=== PATIENT | female | born 1975 | race Caucasian/White ===

== ENCOUNTER 2023-04-12 16:42 | Emergency (ER) | payer OTHER, SELFPAY ==
[2023-04-12 16:48] VITALS: BP 139/85; PULSE 88; RESP 20; TEMP 37.2; O2SAT 100; BMI 32.1
--- NOTE | 2023-04-12 16:59 | PC.NURSE ---
bilat upper and lower lobe clear with no audible wheezing sounds as sister on law reports. breathing even and non labored, pulse ox 100% at this time
[2023-04-12 17:00] VITALS: O2SAT 100
--- NOTE | 2023-04-12 17:32 | ECG_ITS ---
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
--- NOTE | 2023-04-12 17:33 | ED_ITS ---
HPI - General Adult General Chief complaint: Shortness of Breath/Dyspnea Stated complaint: Shortness of Breath, Hx Asthma, COPD Time Seen by Provider: 04/12/23 16:55 Source: patient Mode of arrival: walk-in Limitations: no limitations History of Present Illness HPI narrative: Patient is a 47yo Female who is presenting to the Emergency Room with chief concern of 3-4 day history of cough, congestion, upper respiratory wheezing. 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 Patient has no headache. No chest pain. Mild shortness of breath at rest or with exertion. No abdominal pain, nausea or vomiting. No recent traveling. Patient does work, she missed work Wednesday and today. She goes back to work on Wednesday. Patient does have a history of asthma, emphysema and chronic obstructive pulmonary disease. . All systems are negative except as noted/marked. All systems reviewed and otherwise negative. . Nurses note and vital signs reviewed and patient is not hypoxic. General: The patient appears well and in no apparent distress. Patient is resting comfortably on cart. Patient is not toxic, lethargic, or listless Skin: Warm, dry, no pallor noted. There is no rash noted. No petechiae, purpura. Head: Normocephalic, atraumatic Eye: Normal conjunctiva, no drainage, EOMI. PERRL. Ears, Nose, Mouth, and Throat: oral mucosa is moist. Nares patent. Mouth without vesicles. Patient bilateral tympanic membrane shows no erythema, perforation or bulging. Patient does have some mild clear/yellowish drainage to the posterior pharynx, mild cobblestoning noted, no unilateral swelling, no posterior ph aryngeal exudate or petechiae. Cardiovascular: Regular Rate and Rhythm, no murmur, gallop, rub Respiratory: Patient is in no distress, no accessory muscle use, lungs are clear to auscultation, no wheezing, rales or rhonchi Back: non-tender, GI: soft, Musculoskeletal: Patient has full range of motion of all of the extremities, no motor, sensory, or focal neurological deficits Neurological: A&O x3, normal speech Psychiatric: Cooperative Related Data Previous Rx's Medication Instructions Recorded hpjmjziqsykityr-nkkmeidujkdwkcj-UO 10 ml PO Q6H PRN cold symptoms 04/12/23 2 mg-30 mg-10 mg/5 mL oral syrup #200 mL (Bromfed DM) prednisone 50 mg tablet 50 mg PO DAILY 3 days #3 tabs 04/12/23 Allergies Allergy/AdvReac Type Severity Reaction Status Date / Time acetaminophen [From Vicodin] Allergy Severe Verified 04/12/23 16:54 codeine Allergy Severe Verified 04/12/23 16:54 hydrocodone [From Vicodin] Allergy Severe Verified 04/12/23 16:54 morphine Allergy Severe Hives Verified 04/12/23 16:54 Exam Constitutional Vital Signs, click to edit/add: Last Vital Signs Temp 98.9 F 04/12/23 16:48 Pulse 68 04/12/23 18:14 Resp 20 04/12/23 16:48 BP 139/85 04/12/23 16:48 Pulse Ox 100 04/12/23 18:14 O2 Del Method Room Air 04/12/23 17:00 Course Vital Signs Vital signs: Vital Signs Temperature 98.9 F 04/12/23 16:48 Pulse Rate 88 04/12/23 16:48 Respiratory Rate 20 04/12/23 16:48 Blood Pressure 139/85 04/12/23 16:48 Pulse Oximetry 100 04/12/23 16:48 Oxygen Delivery Method Room Air 04/12/23 16:48 Temperature 98.9 F 04/12/23 16:48 Pulse Rate 68 04/12/23 18:14 Respiratory Rate 20 04/12/23 16:48 Blood Pressure 139/85 04/12/23 16:48 Pulse Oximetry 100 04/12/23 18:14 Oxygen Delivery Method Room Air 04/12/23 17:00 Medical Decision Making MDM Narrative Medical decision making narrative: Patient's lungs are clear, x-ray was canceled. EKG shows no acute findings. Patient had education done at bedside and on discharge paperwork. Patient was given a DuoNeb breathing treatment in Emergency Room. Patient was sent home with a prescription for Bromfed and 3 days of steroids. Patient is comfortable with this. Patient's dlkpfm-fo-xne who is a nurse was at bedside as well, also a payroll tax analyst was used with some language. Communication was clear and Effective on HPI, physical exam, diagnoses, discharged and in summary. ECG Data Attestation: I personally reviewed and interpreted this ECG as follows: (EKG interpretation. Normal sinus rhythm at 71 beats a minute. Normal axis deviation. Artifact noted. QTC of 405, artifact noted.) Discharge Plan Discharge Chief Complaint: Shortness of Breath/Dyspnea Clinical Impression: URI (upper respiratory infection), Cough Patient Disposition: Home, Self-Care Condition: Good Prescriptions / Home Meds: New wttcreetmrxgocb-fwjrhxxuu-LD [Bromfed DM] 2-30-10 mg/5 mL syrup 10 ml PO Q6H PRN (Reason: cold symptoms) Qty: 200 0RF prednisone 50 mg tablet 50 mg PO DAILY 3 Days Qty: 3 0RF Instructions: Upper Respiratory Infection (ED), Acute Cough (ED) Additional Instructions: Use plqh-ggw-utftuoo DayQuil, NyQuil, Flonase. Use Bromfed to help suppress cough and also to drive secretions, Use your inhaler every 4 hours while awake. Stand Alone Forms: Portal Instructions Referrals: [facility] [Primary Care Provider] - 1 week
[2023-04-12] MEDS: IPRATROPIUM/ALBUTEROL SULFATE 3 ML AMPUL.NEB IH (18:02)
[2023-04-12 18:14] VITALS: PULSE 68; O2SAT 100
== END 2023-04-12 18:37 | disposition home or self-care (01) ==
PROVIDERS: Emergency Provider Emergency Medicine
DX: R05.9 Cough, unspecified (principal); J06.9 Acute upper respiratory infection, unspecified; H91.90 Unspecified hearing loss, unspecified ear; J43.9 Emphysema, unspecified
CPT/HCPCS: 93005; 94640; 99283

== ENCOUNTER 2023-06-28 16:54 | Emergency (ER) | payer OTHER, SELFPAY ==
[2023-06-28 17:11] VITALS: BP 151/65; PULSE 86; RESP 18; TEMP 37.3; O2SAT 96; BMI 32.1
[2023-06-28 17:52] LABS: Influenza Virus A Antigen Negative; Influenza Virus B Antigen Negative; Internal Control Within Normal Limits; SARS-CoV-2 Ag NEGATIVE (NEGATIVE); Strep A Antigen Screen Negative
[2023-06-28 18:26] VITALS: BP 127/70; PULSE 75; RESP 20; O2SAT 98
--- NOTE | 2023-06-28 18:35 | XR_ITS ---
The [address] [address] Patient Name: GLADYS HENRIQUEZ MRN: [id number] date: 1975 Sex: F Assigned Patient Location: ER Current Patient Location: Accession/Order Number: [id number] Exam Date: 06/28/2023 18:40 Report Date: 06/28/2023 19:28 At the request of: SHIVAM YANG Procedure: XR chest 1V EXAMINATION: XR chest 1V 06/28/2023 4:27 PM PST HISTORY: Cough TECHNIQUE: Single frontal view of the chest acquired. COMPARISONS: Chest x-ray 02/09/2022 FINDINGS: Lines/tubes/other: None. Heart and mediastinum: The heart and the mediastinum are within normal limits for technique. Bones: No acute osseous abnormality. Lungs: Minimal patchy opacification of the right lateral base. No pulmonary edema. Pleura: There is no significant pleural effusion or pneumothorax. Other: None. XR/XR chest 1V IMPRESSION: Minimal patchy opacification of the right lateral base which could represent superimposition of normal tissues versus mild pneumonia. Recommend follow-up radiograph in 4-6 weeks, allowing sufficient time after appropriate therapy to evaluate for radiographic improvement/resolution. Electronically authenticated by: KYUNG CHAMBERS Date: 06/28/2023 19:28
--- NOTE | 2023-06-28 18:55 | ED.URI1 ---
HPI - URI/Sore Throat General Chief Complaint: Upper Respiratory Infection Stated Complaint: FEVER, CHILLS PT IS DEAF Time Seen by Provider: 06/28/23 17:17 Source: patient Limitations: no limitations History of Present Illness HPI Narrative: Patient is a 47-year-old female who presents to the emergency department for the evaluation of upper respiratory symptoms for the past 2 days. She states her nvwqmo-nn-zwx recently had a an inpatient procedure at [facility] and when she came home she was sick with upper respiratory symptoms, multiple people have gotten ill. Patient has had no vomiting or diarrhea. Patient is deaf, she reads lips to communicate without difficulty. She has had no significant cough, she does have nasal congestion and states she feels warm. She has a history of asthma and uses an albuterol inhaler at home in addition to albuterol nebulizers. She is not concerned for . Related Data Previous Rx's Medication Instructions Recorded gunynkwsgvrnhrg-qzkbufbtczrhgwq-MB 10 ml PO Q6H PRN cold symptoms 04/12/23 2 mg-30 mg-10 mg/5 mL oral syrup #200 mL (Bromfed DM) prednisone 50 mg tablet 50 mg PO DAILY 3 days #3 tabs 04/12/23 edkcbjccezztplo-joshthzwzegxxby-MZ 10 ml PO Q6H PRN cold symptoms 06/28/23 2 mg-30 mg-10 mg/5 mL oral syrup #200 mL (Bromfed DM) doxycycline hyclate 100 mg tablet 100 mg PO BID 10 days #20 tabs 06/28/23 prednisone 20 mg tablet See Rx Instructions .Route 06/28/23 .COMPLEX #12 tabs Allergies Allergy/AdvReac Type Severity Reaction Status Date / Time acetaminophen [From Vicodin] Allergy Severe Verified 04/12/23 16:54 codeine Allergy Severe Verified 04/12/23 16:54 hydrocodone [From Vicodin] Allergy Severe Verified 04/12/23 16:54 morphine Allergy Severe Hives Verified 04/12/23 16:54 Review of Systems ROS Constitutional Reports: fever and chills Ears, nose, mouth, and throat Reports: throat pain and nasal congestion Cardiovascular Denies: chest pain Respiratory Reports: cough and wheezing; Denies: shortness of breath Gastrointestinal Denies: nausea, vomiting or diarrhea Musculoskeletal Denies: back pain Integumentary/Breast Denies: rash Neurological Denies: headache Exam Narrative Exam Narrative: Gen.: Awake, alert, in no distress Head: Normocephalic, atraumatic ENT: Moist mucous membranes, bilateral TMs clear Respiratory: No respiratory distress, faint expiratory wheezing in the left lower lobe Cardio: Regular rate and rhythm Extremities: Moves extremities equally Psych: Normal mood and affect Neuro: No focal neuro deficit Skin: Warm, dry, intact Constitutional Vital Signs, click to edit/add: Last Vital Signs Temp 99.1 F 06/28/23 17:11 Pulse 75 06/28/23 18:26 Resp 20 06/28/23 18:26 BP 127/70 06/28/23 18:26 Pulse Ox 98 06/28/23 18:26 O2 Del Method Room Air 06/28/23 17:11 Course Vital Signs Vital signs: Vital Signs Temperature 99.1 F 06/28/23 17:11 Pulse Rate 86 06/28/23 17:11 Respiratory Rate 18 06/28/23 17:11 Blood Pressure 151/65 H 06/28/23 17:11 Pulse Oximetry 96 06/28/23 17:11 Oxygen Delivery Method Room Air 06/28/23 17:11 Temperature 99.1 F 06/28/23 17:11 Pulse Rate 75 06/28/23 18:26 Respiratory Rate 20 06/28/23 18:26 Blood Pressure 127/70 06/28/23 18:26 Pulse Oximetry 98 06/28/23 18:26 Oxygen Delivery Method Room Air 06/28/23 17:11 MDM - URI/Sore Throat MDM Narrative Medical decision making narrative: With stable vital signs in the ER, strep/COVID/influenza screens are negative and a chest x-ray was performed showing a possible right lower lobe trace infiltrate. Patient will be started on prednisone and doxycycline with Bromfed-DM for symptoms. Follow-up with PCP and return to the ER if symptoms change or worsen. Work note provided for tomorrow. Medical Records Attestation: I reviewed the patient's medical records. Lab Data Attestation: I reviewed the patient's lab results. Labs: Lab Results 06/28/23 Range/Units 17:15 SARS-CoV-2 (PCR) Negative (NEGATIVE) Influenza Type A Ag Negative Influenza Type B Ag Negative Streptococcus Screen Negative Imaging Data Chest x-ray: Attestation: I personally reviewed and interpreted this imaging study as follows: My impression: Lower lobe Discharge Plan Discharge Chief Complaint: Upper Respiratory Infection Clinical Impression: Right lower lobe pneumonia Patient Disposition: Home, Self-Care Time of Disposition Decision: 18:58 Condition: Good Prescriptions / Home Meds: New prednisone 20 mg tablet See Rx Instructions .ROUTE .COMPLEX Qty: 12 0RF Rx Instructions: 3 tabs daily for 2 days, then 2 tabs daily for 2 days, then 1 tab daily for 2 days qeujzqreqsrkeue-csctklvaz-UE [Bromfed DM] 2-30-10 mg/5 mL syrup 10 ml PO Q6H PRN (Reason: cold symptoms) Qty: 200 0RF doxycycline hyclate 100 mg tablet 100 mg PO BID 10 Days Qty: 20 0RF No Action cvdvqibguvezfsv-ckwekdtin-GY [Bromfed DM] 2-30-10 mg/5 mL syrup 10 ml PO Q6H PRN (Reason: cold symptoms) Qty: 200 0RF prednisone 50 mg tablet 50 mg PO DAILY 3 Days Qty: 3 0RF Instructions: Pneumonia (ED) Stand Alone Forms: Portal Instructions Referrals: [facility] [Primary Care Provider] - 1 week
[2023-06-29 15:45] LABS: SARS-CoV-2 NAA NOT DETECTED (NOT DETECTE)
== END 2023-06-28 19:10 | disposition home or self-care (01) ==
PROVIDERS: Physician Assistant; Emergency Provider Emergency Medicine
DX: J18.9 Pneumonia, unspecified organism (principal); H91.90 Unspecified hearing loss, unspecified ear; J45.909 Unspecified asthma, uncomplicated
CPT/HCPCS: 71045; 87070; 87635; 87804; 87811; 87880; 99284

== ENCOUNTER 2023-07-31 06:12 | Emergency (ER) | payer OTHER, SELFPAY ==
--- OUTSIDE RECORDS SUMMARY | 2023-07-31 06:18 | XMS_ITS | CCD ---
Author Name Unknown Address [address] [place] [address] Organization [facility] Care Team Providers Care Industrial Painter Name Role Phone Clover Olsno Unavailable Yovanny Pierre Unavailable [facility] Primary Care Unavailkenneth MILLER, DR GOODE Attending Unavailable PAUL, DR GOODE Consulting Unavailable PAUL, DR GOODE Admitting Unavailable JEROME SALMEORN Attending Unavailable JEROME SALMERON Admitting Unavailable [facility] Primary Care Unavaila luiz SHRESTHA, DR PEMA Desai Consulting Unavailable JEROME SALMERON Consulting Unavailable [facility] Primary Care Provider [phone] HEATH Chinchilla Attending Provider Amy Soto Unavailable [facility] Primary Care Provider HEATH Chinchilla Attending Provider HEATH Chinchilla Attending Provider [facility] Primary Care Provider Regine Chinchilla Admitting Unavailable Regine Chinchilla Attending Unavailable [facility] Primary Care Unavaila Regine Nguyen Admitting Unavailable Regine Chinchilla Attending Unavailable [facility] Primary Care Unavaila Regine Nguyen Admitting Unavailable Regine Chinchilla Attending Unavailable Allergies Allergy Classification Reported Allergen(s) Allergy Type Date of Onset Reaction(s) Facility (6 sources) Acetaminophen / HYDROcodone; Translations: [Vicodin] Drug Allergy 4 seizures [facility] (5 sources) Codeine Drug Allergy Unknown [facility] Other (5 sources) Morphine Drug Allergy Unknown [facility] Other (1 source) Codeine Drug Allergy 4 [facility] (1 source) Morphine Drug Allergy 4 [facility] Medications Current Medications Medication Drug Class(es) Dates Sig (Normalized) Sig (Original) [id number] 200 actuat albuterol 0.09 mg/actuat metered dose inhaler (7 sources) beta2-Adrenergic Agonist Start: 03-18-2022 take 2 puff(s) by inhalation four times daily as needed Albuterol Sulfate HFA 108 (90 Base) MCG/ACT 2 puffs Inhalation 4 times a day prn Mar, Active Start: 11-24-2021 Albuterol Sulf ate (2.5 MG/3ML) 0.083% 1 dose as directed Inhalation every 6 hrs November, Active Aspir-81 81 MG (5 sources) take 1 tablet by mouth once daily Aspir-81 81 MG 1 tablet Orally Once a day Active Budesonide / formoterol (5 sources) Corticosteroid, beta2-Adrenergic Agonist Symbicort Active diclofenac sodium 75 mg delayed release oral tablet (2 sources) Nonsteroidal Anti-inflammatory Drug Start : 04-26 take 1 tablet by mouth twice daily at mealtime Diclofenac Sodium 75 MG 1 tablet with food or milk Orally Twice a day start after completion of Dosepak for 30 day(s) Apr, Active Loratadine (5 sources) Claritin Active methylPREDNISolone 4 mg oral tablet (2 sources) Corticosteroid Start : 11-24 methylPREDNISolone 4 MG as directed Orally Once a day for 6 days November, Active omeprazole 20 mg delayed release oral capsule (3 sources) Proton Pump Inhibitor take 1 capsule by mouth once daily Omeprazole 20 MG TAKE ONE CAPSULE BY MOUTH DAILY 30 MINUTES BEFORE A MEAL Oral for 30 Days Active predniSONE 20 mg oral tablet (2 sources) Start : 03-18 take 1 tablet by mouth every twelve hours predniSONE 20 MG 1 tablet Orally 2 times a day for 5 day(s) Mar, Active Completed/Discontinued Medications Medication Drug Class(es) Dates Sig (Normalized) Sig (Original) gabapentin 100 mg oral capsule (2 sources) Anti-epileptic Agent take 1 capsule by mouth every eight hours Gabapentin 100 MG 1 capsule Orally Three times a day Not-Taking ketorolac tromethamine 10 mg oral tablet (2 sources) Nonsteroidal Anti-inflammatory Drug, Cyclooxygenase Inhibitor Toradol 10mg po Not-Taking triamcinolone acetonide 40 mg/ml injectable suspension (8 sources) Corticosteroid Start: 03-18-2022 Kenalog-40 07 Mar, 2022 40 mg Start: 09-26-2020 Kenalog -40 mg Sep, 40 mg Problems Active Problems Problem Classification Problem Date Documented Da te Episodic/Chronic Abdominal pain (4 sources) Unspecified abdominal pain; Translations: [UNSPECIFIED ABDOMINAL PAIN] Onset: 02-09-2022 Episodic Asthma (8 sources) Exacerbation of mild persistent asthma; Translations: [Mild persistent asthma with (acute) exacerbation] Onset: 11-24-2021 Resolved: 03-18-2022 Chronic Asthma (1 source) Asthma; Translations: [Moderate persistent asthma with (acute) exacerbation] Onset: 09-15-2022 Diabetes mellitus without complication (1 source) Impaired fasting glucose; Translations: [Impaired fasting glucose] Onset: 05-27-2023 Episodic Essential hypertension (6 sources) Hypertensive disorder; Translations: [Essential (primary) hypertension] Onset: 05-27-2023 Chronic Headache; including migraine (4 sources) Headache; including migraine; Translations: [HEADACHE UNSPECIFIED] Onset: 10-16-2021 Immunizations and screening for infectious disease (2 sources) Contact with and (suspected) exposure to other viral communicable diseases; Translations: [Contact with and (suspected) exposure to other viral communicable diseases] Episodic Other aftercare (1 source) Other halfway (current) drug therapy; Translations: [OTH DETENTION CURRENT DRUG THERAPY] Onset: 02-11-2022 Episodic Other aftercare (1 source) halfway (current) use of aspirin; Translations: [DETENTION CURRENT USE OF ASPIRIN] Onset: 02-11-2022 Episodic Other ear and sense organ disorders (1 source) Unspecified hearing loss, bilateral; Translations: [UNSPECIFIED HEARING LOSS BILATERAL] Onset: 10-17-2021 Chronic Other lower respiratory disease (3 sources) H/O: asthma; Translations: [Personal history of other diseases of the respiratory system] Episodic Other non-traumatic joint disorders (1 source) Pain in unspecified joint; Translations: [Pain in unspecified joint] Onset: 05-27-2023 Episodic Other nutritional; endocrine; and metabolic disorders (1 source) Personal history of other endocrine, nutritional and metabolic disease; Translations: [Personal history of other endocrine, nutritional and metabolic disease] Onset: 05-27-2023 Episodic Other upper respiratory infections (1 source) Acute upper respiratory infection, unspecified Episodic Pneumonia (except that caused by tuberculosis or sexually transmitted disease) (1 source) Bronchopneumonia, unspecified organism; Translations: [BRONCHOPNEUMONIA UNS ORGANISM] Onset: 02-11-2022 Episodic Unclassified (1 source) Dysmenorrhea, unspecified; Translations: [Dysmenorrhea, unspecified] Onset: 06-30-2023 Past or Other Problems Problem Classification Problem Date Documented Da te Episodic/Chronic Other lower respiratory disease (1 source) Personal history of other diseases of the respiratory system Onset: 03-18-2022 Resolved: 03-18-2022 Episodic Unclassified (1 source) Cough R05.9 Onset: 11-24-2021 Resolved: 11-24-2021 Results Test Name Value Interpretation Reference Range Facility Follicle Stimulating Hormone on 06-30-2023 Follicle Stimulating Hormone 6.0 m[iU]/mL Normal [facility] Comment on above: Order Comment: Reaso n for Exam Severe menstrual cramps Result Comment: FEMA LE NORMALS (PREMENOPAUSE) MID-FOLLICULAR PHASE: 3.9-8.8 mIU/mL MID-CYCLE PEAK: 4.5-22.5 mIU/mL MID-LUTEAL PHASE: 1.8-5.1 mIU/mL FEMALE NORMALS (POSTMENOPAUSE): 16.7-113.6 mIU/mL MALE NORMALS: 1.3-19.3 mIU/mL PERFORMED BY: [place] [address] PATHOLOGIST CHIEF LOCK TENDER OPERATOR RASHMI ECHOLS M.D. Performed By: #### F SH #### [address] #### LH #### [facility] , Follitropin [Units/volume] i n Serum or PlasmaOrdered By: Regine Chinchilla on 06-30-2023 Follitropin Qn 6.0 m[IU]/mL [facility] Comment on above: FEMALE NORMALS (DILAN ENOPAUSE) MID-FOLLICULAR PHASE: 3.9-8.8 mIU/mL MID-CYCLE PEAK: 4.5-22.5 mIU/mL MID-LUTEAL PHASE: 1.8-5.1 mIU/mLFEMALE NORMALS (POSTMENOPAUSE): 16.7-113.6 mIU/mLMALE NORMALS: 1.3-19.3 mIU/mL Luteinizing Hormoneon 2022 Luteinizing Hormone 15.8 m[iU]/mL Normal . [facility] Comment on above: Order Comment: Reaso n for Exam Severe menstrual cramps Result Comment: Adul t Female Range Follicular phase 2.4 - 12.6 Ovulation phase 14.0 - 95.6 Luteal phase 1.0 - 11.4 Postmenopausal 7.7 - 58.5 Performed at: [facility] [address] [id number] Leather Stitcher: Supa Murdock PhD, Phone: [phone] PERFORMED BY: [place] [address] PATHOLOGIST CHIEF LOCK TENDER OPERATOR RASHMI ECHOLS M.D. Performed By: #### F SH #### [address] #### LH #### [facility] , US transvaginalon 06-30-2023 US transvaginal [facility] Main [place] [address] [place] [address] Ultrasound Report Signed Patient: Clover Henriquez MR#: [id number] : 1975 Acct:[id number] Age/Sex: 47 / F ADM Date: 06/30/23 Loc: Room: Type: [facility] Attending Dr: RONEL Shaw APRN Ordering Provider: Regine Chinchilla APRN, NP-C Date of Service: 06/30/23 US/US pelvic complete: Severe menstrual cramps ([id number]) US/US transvaginal: N94.6 Copies to: Regine Alisia Chinchilla, GROCERY BAGGER, ROTARY SHEAR OPERATOR-C TRANSABDOMINAL AND TRANSVAGINAL PELVIC ULTRASOUND HISTORY: Menstrual cramps FINDINGS: The uterus measures 6.1 x 3.9 x 4.3 cm. No uterine lesion identified. Nabothian cysts present. The endometrium has a total combined thickness of 10mm. The RIGHT ovary measures 2.7 x 1.4 x 1.6 cm LEFT ovary measures 3.0 x 1.2 x 2.4 cm Bilateral ovarian blood flow identified. No free fluid identified. There is no adnexal mass identified. US/US pelvic complete IMPRESSION: Normal transabdominal and transvaginal pelvic ultrasound Impression dictated by: Shun Jimenez M.D.06/30/2023 3:09 PM Dictation Location: [place] [address] Tech: Cinda Frank Transcribed By: SADE 06/30/23 1509 Dictated By: Shun Jimenez DO 06/30/23 1507 Signed By: 06/30/23 1509 Normal [facility] A1C with Estimated Average G [facility] 05-27-2023 Glucose [Mass/Vol] 123 mg/dL Normal [facility] Comment on above: Order Comment: Reaso n for Exam Impaired fasting glucose Result Comment: PERF ORMED BY: [place] [address] PATHOLOGIST CHIEF LOCK TENDER OPERATOR RASHMI ECHOLS M.D. Performed By: #### C MP, LIPID, TSH3 wRFLX, CBC, A1C [facility] #### [facility] [address] [place] [address] #### SAAD #### [facility] , SAAD Antinuclear Antibodieson 05-27-2023 Antinuclear Abs, IFA Negative Normal . [facility] Comment on above: Order Comment: Reaso n for Exam Multiple joint pain Result Comment: Nega tive <1:80 Borderline 1:80 Positive >1:80 ICAP nomenclature: AC-0 For more information about Hep-2 cell patterns use ANApatterns.org, the official website for the International Consensus on Antinuclear Antibody (SAAD) Patterns (ICAP). Performed at: [facility] [address] [id number] Leather Stitcher: Supa Murdock PhD, Phone: [phone] PERFORMED BY: [place] [address] PATHOLOGIST CHIEF LOCK TENDER OPERATOR RASHMI ECHOLS M.D. Performed By: #### C MP, LIPID, TSH3 wRFLX, CBC, A1C WTH eA #### [address] #### SAAD #### [facility] , Alanine aminotransferase [En zymatic activity/volume] in Serum or PlasmaOrdered By: Regine Chinchilla on 05-27-2023 ALT [Catalytic activity/Vol] 18 U/L Normal 7-52 [facility] Comment on above: Order Comment: Reaso n for Exam Hypertension Reason for Exam History of thyroid disease Performed By: #### C MP, LIPID, TSH3 wRFLX, CBC, A1C [facility]TH e[place] #### [place] [address] [place] #### SAAD #### [facility] , Albumin [Mass/volume] in Ser um or Plasma by Bromocresol green (BCG) dye binding methoOrdered By: Regine Chinchilla on 05-27-2023 Albumin BCG dye [Mass/Vol] 4.4 g/dL 3.5-5.7 [facility] Alkaline phosphatase [Enzyma tic activity/volume] in Serum or PlasmaOrdered By: Regine Chinchilla on 05-27-2023 ALP [Catalytic activity/Vol] 98 U/L Normal 34-104 [facility] Comment on above: Order Comment: Reaso n for Exam Hypertension Reason for Exam History of thyroid disease Performed By: #### C MP, LIPID, TSH3 wRFLX, CBC, A1C WTH eA #### [facility] [address] [place] [address] [place] #### SAAD #### [facility] , Aspartate aminotransferase [ Enzymatic activity/volume] in Serum or PlasmaOrdered By: Regine Chinchilla on 05-27-2023 AST [Catalytic activity/Vol] 25 U/L Normal 13-39 [facility] Comment on above: Order Comment: Reaso n for Exam Hypertension Reason for Exam History of thyroid disease Performed By: #### C MP, LIPID, TSH3 wRFLX, CBC, A1C WTH eA #### [facility] [address] [place] [address] [place] #### SAAD #### [facility] , Automated basophil %Ordered By: Regine Chinchilla on 05-27-2023 Basophils/100 WBC (Bld) 1.2 % Normal . [facility] Comment on above: Order Comment: Reaso n for Exam Hypertension Performed By: #### C MP, LIPID, TSH3 wRFLX, CBC, A1C WTH eA #### [facility] [address] [place] [address] [place] #### SAAD #### [facility] , Automated basophil countOrde red By: Regine Chinchilla on 05-27-2023 Basophils (Bld) [#/Vol] 0.1 10*3/uL Normal 0.0-0.2 [facility] Comment on above: Order Comment: Reaso n for Exam Hypertension Result Comment: PERF ORMED BY: [place] [address] PATHOLOGIST CHIEF LOCK TENDER OPERATOR RASHMI ECHOLS M.D. Performed By: #### C MP, LIPID, TSH3 wRFLX, CBC, A1C WTH eA #### [address] #### SAAD #### [facility] , Automated blood monocyte cou ntOrdered By: Regine Chinchilla on 05-27-2023 Monocytes (Bld) [#/Vol] 0.5 10*3/uL Normal 0.0-0.8 [facility] Comment on above: Order Comment: Reaso n for Exam Hypertension Performed By: #### C MP, LIPID, TSH3 wRFLX, CBC, A1C WTH eA #### [place] [address] [place] #### SAAD #### [facility] , Automated eosinophil %Ordere d By: Regine Chinchilla on 05-27-2023 Eosinophils/100 WBC (Bld) 8.6 % Normal . [facility] Comment on above: Order Comment: Reaso n for Exam Hypertension Performed By: #### C MP, LIPID, TSH3 wRFLX, CBC, A1C WTH eA #### [facility] [address] [place] [address] [place] #### SAAD #### [facility] , Automated eosinophil countOr dered By: Regine Chinchilla on 05-27-2023 Eosinophils (Bld) [#/Vol] 0.5 10*3/uL High 0.0-0.45 [facility] Comment on above: Order Comment: Reaso n for Exam Hypertension Performed By: #### C MP, LIPID, TSH3 wRFLX, CBC, A1C WTH eA #### [facility] [address] [place] [address] #### SAAD #### [facility] , Automated monocyte %Ordered By: Regine Chinchilla on 05-27-2023 Monocytes/100 WBC (Bld) 7.5 % Normal . [facility] Comment on above: Order Comment: Reaso n for Exam Hypertension Performed By: #### C MP, LIPID, TSH3 wRFLX, CBC, A1C WTH eA #### [facility] [address] [place] [address] [place] #### SAAD #### [facility] , Automated neutrophil %Ordere d By: Regine Chinchilla on 05-27-2023 Neutrophils/100 WBC (Bld) 63.3 % Normal . [facility] Comment on above: Order Comment: Reaso n for Exam Hypertension Performed By: #### C MP, LIPID, TSH3 wRFLX, CBC, A1C WTH eA #### [facility] [address] [place] [address] [place] #### SAAD #### [facility] , Bilirubin.total [Mass/volume ] in Serum or PlasmaOrdered By: Regine Chinchilla on 05-27-2023 Bilirubin [Mass/Vol] 0.6 mg/dL Normal 0.3-1.0 [facility] Comment on above: Order Comment: Reaso n for Exam Hypertension Reason for Exam History of thyroid disease Performed By: #### C MP, LIPID, TSH3 wRFLX, CBC, A1C WTH eA #### [facility] [address] [place] [address] #### SAAD #### [facility] , Calcium [Mass/volume] in Ser um or PlasmaOrdered By: Regine Chinchilla on 05-27-2023 Calcium [Mass/Vol] 10.1 mg/dL Normal 8.6-10.3 [facility] Comment on above: Order Comment: Reaso n for Exam Hypertension Reason for Exam History of thyroid disease Performed By: #### C MP, LIPID, TSH3 wRFLX, CBC, A1C WTH eA #### [facility] [address] [place] [address] #### SAAD #### [facility] , Carbon dioxide, total [Moles /volume] in Serum or PlasmaOrdered By: Regine Chinchilla on 05-27-2023 CO2 [Moles/Vol] 34.1 mmol/L High 21.0-31.0 [facility] Comment on above: Order Comment: Reaso n for Exam Hypertension Reason for Exam History of thyroid disease Performed By: #### C MP, LIPID, TSH3 wRFLX, CBC, A1C WTH eA #### [address] #### SAAD #### [facility] , Chloride [Moles/volume] in S lyly or PlasmaOrdered By: Regine Chinchilla on 05-27-2023 Chloride [Moles/Vol] 103 mmol/L Normal 98-107 [facility] Comment on above: Order Comment: Reaso n for Exam Hypertension Reason for Exam History of thyroid disease Performed By: #### C MP, LIPID, TSH3 wRFLX, CBC, A1C WTH eA #### [facility] [address] [place] [address] #### SAAD #### [facility] , Cholesterol [Mass/volume] in Serum or PlasmaOrdered By: Regine Chinchilla on 05-27-2023 Cholesterol [Mass/Vol] 201 mg/dL High 140-200 [facility] Comment on above: Chol less than 200 m g/dl low riskChol 201-239 mg/dl borderline riskChol 240 mg/dl and greater high risk Order Comment: Reaso n for Exam Hypertension Reason for Exam History of thyroid disease Result Comment: Chol less than 200 mg/dl low risk Chol 201-239 mg/dl borderline risk Chol 240 mg/dl and greater high risk Performed By: #### C MP, LIPID, TSH3 wRFLX, CBC, A1C WTH eA #### [facility] [address] [place] [address] [place] #### SAAD #### [facility] , Cholesterol in LDL Calc [Mas s/Vol]Ordered By: Regine Chinchilla on 05-27-2023 Cholesterol in LDL [Mass/Vol] 117 mg/dL 0-100 [facility] Comment on above: LDL ATP III CLASSIFI CATIONLDL less than 100 mg/dL OptimalLDL 100-129 mg/dL Near or above optimalLDL 130-159 mg/dL Borderline highLDL 160-189 mg/dL HighLDL greater than 189 mg/dL Very high Cholesterol in VLDL Calc [Ma ss/Vol]Ordered By: Regine Chinchilla on 05-27-2023 Cholesterol in VLDL [Mass/Vol] 18 mg/dL [facility] Complete Blood Count Auto Di ffon 05-27-2023 Mean Corpuscular HGB Conc 33.6 g/dL Normal 32.0-35.0 [facility] Comment on above: Order Comment: Reaso n for Exam Hypertension Performed By: #### C MP, LIPID, TSH3 wRFLX, CBC, A1C WTH eA #### [facility] [address] [place] [address] [place] #### SAAD #### [facility] , NRBC% 0.0 /100{WBC} Normal 0-0.5 [facility] Comment on above: Order Comment: Reaso n for Exam Hypertension Performed By: #### C MP, LIPID, TSH3 wRFLX, CBC, A1C WTH eA #### [facility] [address] [place] [address] [place] #### SAAD #### [facility] , Comprehensive Metabolic Pane clem 05-27-2023 Albumin [Mass/Vol] 4.4 g/dL Normal 3.5-5.7 [facility] Comment on above: Order Comment: Reaso n for Exam Hypertension Reason for Exam History of thyroid disease Performed By: #### C MP, LIPID, TSH3 wRFLX, CBC, A1C WTH eA #### [facility] [address] [place] [address] [place] #### SAAD #### [facility] , GFR/1.73 sq M.predicted MDRD (S/P/Bld) [Vol rate/Area] mL/min/{1.73_m2} Normal [facility] Comment on above: Order Comment: Reaso n for Exam Hypertension Reason for Exam History of thyroid disease Performed By: #### C MP, LIPID, TSH3 wRFLX, CBC, A1C WTH eA #### [facility] [address] [place] [address] [place] #### SAAD #### [facility] , Creatinine [Mass/volume] in Serum or PlasmaOrdered By: Regine Chinchilla on 05-27-2023 Creatinine [Mass/Vol] 1.06 mg/dL Normal 0.60-1.20 [facility] Comment on above: Order Comment: Reaso n for Exam Hypertension Reason for Exam History of thyroid disease Performed By: #### C MP, LIPID, TSH3 wRFLX, CBC, A1C WTH eA #### [facility] [address] [place] [address] [place] #### SAAD #### [facility] , Erythrocyte distribution wid th [Ratio] by Automated countOrdered By: Regine Chinchilla on 05-27-2023 Erythrocyte distribution width (RBC) [Ratio] 13.8 % Normal 11.9-15.3 [facility] Comment on above: Order Comment: Reaso n for Exam Hypertension Performed By: #### C MP, LIPID, TSH3 wRFLX, CBC, A1C WTH eA #### [facility] [address] [place] [address] [place] #### SAAD #### [facility] , Erythrocytes [#/volume] in B lood by Automated countOrdered By: Regine Chinchilla on 05-27-2023 RBC (Bld) [#/Vol] 4.43 10*6/uL Normal 3.60-5.00 [facility] Comment on above: Order Comment: Reaso n for Exam Hypertension Performed By: #### C MP, LIPID, TSH3 wRFLX, CBC, A1C WT eA #### [facility] [address] [place] [address] #### SAAD #### [facility] , Glucose [Mass/volume] in Ser um or PlasmaOrdered By: Regine Chinchilla on 05-27-2023 Glucose [Mass/Vol] 100 mg/dL Normal 70-100 [facility] Comment on above: ADA recommended refe rence rangeRandom Glucose Reference Range is dependent on time and content of last meal. Glucose of more than 200 mg/dL in a nonstressed, ambulatory subject supports the diagnosis of Diabetes Mellitus. Order Comment: Reaso n for Exam Hypertension Reason for Exam History of thyroid disease Result Comment: [place] Glucose Reference Range is dependent on time and content of last meal. Glucose of more than 200 mg/dL in a nonstressed, ambulatory subject supports the diagnosis of Diabetes Mellitus. ADA recommended reference range Performed By: #### C MP, LIPID, TSH3 wRFLX, CBC, A1C WTH eA #### [facility] [address] [place] [address] [place] #### SAAD #### [facility] , Glucose mean value [Mass/vol ume] in Blood Estimated from glycated hemoglobinOrdered By: Regine Chinchilla on 05-27-2023 Average glucose Estimated from glycated hemoglobin (Bld) [Mass/Vol] 123 mg/dL [facility] Hematocrit [Volume Fraction] of Blood by Automated countOrdered By: Regine Chinchilla on 05-27-2023 Hematocrit (Bld) [Volume fraction] 41.2 % Normal 34.0-46.4 [facility] Comment on above: Order Comment: Reaso n for Exam Hypertension Performed By: #### C MP, LIPID, TSH3 wRFLX, CBC, A1C WTH eA #### [place] [address] [place] #### SAAD #### [facility] , Hemoglobin A1c percentageOrd ered By: Regine Chinchilla on 05-27-2023 HbA1c (Bld) [Mass fraction] 5.9 % High 4.3-5.6 [facility] Comment on above: Increased risk for d iabetes: 5.7 - 6.4diabetes: >6.4glycemic control for adults with diabetes: <7.0 Order Comment: Reaso n for Exam Impaired fasting glucose Result Comment: Incr eased risk for diabetes: 5.7 - 6.4 diabetes: >6.4 glycemic control for adults with diabetes: <7.0 Performed By: #### C MP, LIPID, TSH3 wRFLX, CBC, A1C WTH eA #### [place] [address] [place] #### SAAD #### [facility] , Hemoglobin [Mass/volume] in BloodOrdered By: Regine Chinchilla on 05-27-2023 Hemoglobin (Bld) [Mass/Vol] 13.9 g/dL Normal 11.8-15.4 [facility] Comment on above: Order Comment: Reaso n for Exam Hypertension Performed By: #### C MP, LIPID, TSH3 wRFLX, CBC, A1C WTH eA #### [place] [address] [place] #### SAAD #### [facility] , Leukocytes [#/volume] correc jay for nucleated erythrocytes in Blood by Automated counOrdered By: Regine Chinchilla on 05-27-2023 WBC corrected for nucl RBC Auto (Bld) [#/Vol] 6.3 10*3/uL 3.8-11.6 [facility] Leukocytes [#/volume] in Blo od by Automated countOrdered By: Regine Chinchilla on 05-27-2023 WBC (Bld) [#/Vol] 6.3 10*3/uL Normal 3.8-11.6 [facility] Comment on above: Order Comment: Reaso n for Exam Hypertension Performed By: #### C MP, LIPID, TSH3 wRFLX, CBC, A1C WT eA #### [facility] [address] [place] [address] [place] #### SAAD #### [facility] , Lipid Panelon 05-27-2023 LDL Cholesterol,Calculated 117 mg/dL High 0-100 [facility] Comment on above: Order Comment: Reaso n for Exam Hypertension Reason for Exam History of thyroid disease Result Comment: LDL ATP III CLASSIFICATION LDL less than 100 mg/dL Optimal LDL 100-129 mg/dL Near or above optimal LDL 130-159 mg/dL Borderline high LDL 160-189 mg/dL High LDL greater than 189 mg/dL Very high Performed By: #### C MP, LIPID, TSH3 wRFLX, CBC, A1C WTH eA #### [facility] [address] [place] [address] #### SAAD #### [facility] , Triglyceride w/Reflex 93 mg/dL Normal 0-149 [facility] Comment on above: Order Comment: Reaso n for Exam Hypertension Reason for Exam History of thyroid disease Result Comment: TRIG ATP III CLASSIFICATION TRIG less than 150 mg/dL Normal TRIG 150-199 mg/dL Borderline high TRIG 200-500 mg/dL High TRIG greater than 500 mg/dL Very high Standard traceable to the Center for Disease Conrtrol and Prevention (CDC) test method. Performed By: #### C MP, LIPID, TSH3 wRFLX, CBC, A1C WTH eA #### [facility] [address] [place] [address] [place] #### SAAD #### [facility] , VLDL CHOLESTEROL 18 mg/dL Normal [facility] Comment on above: Order Comment: Reaso n for Exam Hypertension Reason for Exam History of thyroid disease Performed By: #### C MP, LIPID, TSH3 wRFLX, CBC, A1C WTH eA #### [facility] [address] [place] [address] [place] #### SAAD #### [facility] , Lymphocytes [#/volume] in Bl ood by Automated countOrdered By: Regine Chinchilla on 05-27-2023 Lymphocytes (Bld) [#/Vol] 1.2 10*3/uL Normal 1.00-4.8 [facility] Comment on above: Order Comment: Reaso n for Exam Hypertension Performed By: #### C MP, LIPID, TSH3 wRFLX, CBC, A1C WTH eA #### [facility] [address] [place] [address] [place] #### SAAD #### [facility] , Lymphocytes/100 leukocytes i n Blood by Automated countOrdered By: Regine Chinchilla on 05-27-2023 Lymphocytes/100 WBC (Bld) 19.4 % Normal . [facility] Comment on above: Order Comment: Reaso n for Exam Hypertension Performed By: #### C MP, LIPID, TSH3 wRFLX, CBC, A1C WTH eA #### [facility] [address] [place] [address] [place] #### SAAD #### [facility] , MCH [Entitic mass] by Automa jay countOrdered By: Regine Chinchilla on 05-27-2023 MCH (RBC) [Entitic mass] 31.2 pg Normal 24.7-34.3 [facility] Comment on above: Order Comment: Reaso n for Exam Hypertension Performed By: #### C MP, LIPID, TSH3 wRFLX, CBC, A1C WTH eA #### [facility] [address] [place] [address] [place] #### SAAD #### [facility] , MCHC Auto (RBC) [Mass/Vol]Or dered By: Regine Chinchilla on 05-27-2023 MCHC (RBC) [Mass/Vol] 33.6 g/dL 32.0-35.0 [facility] MCV [Entitic volume] by Auto mated countOrdered By: Regine Chinchilla on 05-27-2023 MCV (RBC) [Entitic vol] 93.0 fL Normal 80-100 [facility] Comment on above: Order Comment: Reaso n for Exam Hypertension Performed By: #### C MP, LIPID, TSH3 wRFLX, CBC, A1C WTH eA #### [facility] [address] [place] [address] [place] #### SAAD #### [facility] , Neutrophils [#/volume] in Bl ood by Automated countOrdered By: Regine Chinchilla on 05-27-2023 Neutrophils (Bld) [#/Vol] 4.0 10*3/uL Normal 1.8-7.7 [facility] Comment on above: Order Comment: Reaso n for Exam Hypertension Performed By: #### C MP, LIPID, TSH3 wRFLX, CBC, A1C WTH eA #### [facility] [address] [place] [address] [place] #### SAAD #### [facility] , No Panel InformationOrdered By: Regine Chinchilla on 05-27-2023 Estimated GFR (CKD-EPI) > 60.0 mL/Min [facility] Creatinine Clearance (Chem N/A [facility] Nucleated erythrocytes [Pres ence] in Blood by Automated countOrdered By: Regine Chinchilla on 05-27-2023 Nucleated RBC Auto Ql (Bld) 0.0 /100{WBC} 0-0.5 [facility] Platelet mean volume [Entiti c volume] in Blood by Automated countOrdered By: Regine Chinchilla on 05-27-2023 Platelet mean volume (Bld) [Entitic vol] 9.0 fL Normal 6.3-10.7 [facility] Comment on above: Order Comment: Reaso n for Exam Hypertension Performed By: #### C MP, LIPID, TSH3 wRFLX, CBC, A1C WTH eA #### [facility] [address] [place] [address] [place] #### SAAD #### [facility] , Platelets [#/volume] in Bloo d by Automated countOrdered By: Regine Chinchilla on 05-27-2023 Platelets (Bld) [#/Vol] 367 10*3/uL Normal 150-450 [facility] Comment on above: Order Comment: Reaso n for Exam Hypertension Performed By: #### C MP, LIPID, TSH3 wRFLX, CBC, A1C WTH eA #### [facility] [address] [place] [address] [place] #### SAAD #### [facility] , Potassium [Moles/volume] in Serum or PlasmaOrdered By: Regine Chinchilla on 05-27-2023 Potassium [Moles/Vol] 4.3 mmol/L Normal 3.5-5.1 [facility] Comment on above: Order Comment: Reaso n for Exam Hypertension Reason for Exam History of thyroid disease Performed By: #### C MP, LIPID, TSH3 wRFLX, CBC, A1C WTH eA #### [facility] [address] [place] [address] [place] #### SAAD #### [facility] , Protein [Mass/volume] in Ser um or PlasmaOrdered By: Regine Chinchilla on 05-27-2023 Protein [Mass/Vol] 7.0 g/dL Normal 6.4-8.9 [facility] Comment on above: Order Comment: Reaso n for Exam Hypertension Reason for Exam History of thyroid disease Performed By: #### C MP, LIPID, TSH3 wRFLX, CBC, A1C WTH eA #### [facility] [address] [place] [address] [place] #### SAAD #### [facility] , Serum globulin measurement b y calculation (mass/volume)Ordered By: Regine Chinchilla on 05-27-2023 Globulin (S) [Mass/Vol] 2.6 g/dL Normal [facility] Comment on above: Order Comment: Reaso n for Exam Hypertension Reason for Exam History of thyroid disease Performed By: #### C MP, LIPID, TSH3 wRFLX, CBC, A1C WTH eA #### [facility] [address] [place] [address] [place] #### SAAD #### [facility] , Serum nuclear antibody titer Ordered By: Regine Chinchilla on 05-27-2023 Nuclear Ab (S) [Titer] Negative . [facility] Comment on above: Negative <1:80 Borde rline 1:80 Positive >1:80ICAP nomenclature: [id number] more information about Hep-2 cell patterns useANApatterns.org, the official website for theInternational Consensus on Antinuclear Antibody (SAAD)Patterns (ICAP).Performed at: [facility] [address] [id number] Director: Supa Murdock PhD, Phone: [phone] Serum or plasma albumin/glob ulin mass ratioOrdered By: Regine Chinchilla on 05-27-2023 Albumin/Globulin [Mass ratio] 1.7 {ratio} Normal [facility] Comment on above: Order Comment: Reaso n for Exam Hypertension Reason for Exam History of thyroid disease Performed By: #### C MP, LIPID, TSH3 wRFLX, CBC, A1C WTH eA #### [address] #### SAAD #### [facility] , Serum or plasma anion gap de terminationOrdered By: Regine Chinchilla on 05-27-2023 Anion gap [Moles/Vol] 9.2 mmol/L Normal 6.0-15.0 [facility] Comment on above: Order Comment: Reaso n for Exam Hypertension Reason for Exam History of thyroid disease Performed By: #### C MP, LIPID, TSH3 wRFLX, CBC, A1C WTH eA #### [address] #### SAAD #### [facility] , Serum or plasma high density lipoprotein (HDL) cholesterol measurementOrdered By: Regine Chinchilla on 05-27-2023 Cholesterol in HDL [Mass/Vol] 65 mg/dL Normal 23-92 [facility] Comment on above: HDL CHOL ATP-III CLA SSIFICATION Cardiovascular RiskHDL > or equal to 60 mg/dL LOWHDL < 40 mg/dL HIGH Order Comment: Reaso n for Exam Hypertension Reason for Exam History of thyroid disease Result Comment: HDL CHOL ATP-III CLASSIFICATION Cardiovascular Risk HDL > or equal to 60 mg/dL LOW HDL < 40 mg/dL HIGH Performed By: #### C MP, LIPID, TSH3 wRFLX, CBC, A1C WTH eA #### [facility] [address] [place] [address] [place] #### SAAD #### [facility] , Serum or plasma total choles terol/high density lipoprotein (HDL) cholesterol mass ratOrdered By: Regine Chinchilla on 05-27-2023 Cholesterol.total/Merced sterol in HDL [Mass ratio] 3.1 {ratio} Normal <5.0 [facility] Comment on above: Order Comment: Reaso n for Exam Hypertension Reason for Exam History of thyroid disease Performed By: #### C MP, LIPID, TSH3 wRFLX, CBC, A1C WTH eA #### [facility] [address] [place] [address] #### SAAD #### [facility] , Sodium [Moles/volume] in Ser um or PlasmaOrdered By: Regine Chinchilla on 05-27-2023 Sodium [Moles/Vol] 142 mmol/L Normal 136-145 [facility] Comment on above: Order Comment: Reaso n for Exam Hypertension Reason for Exam History of thyroid disease Performed By: #### C MP, LIPID, TSH3 wRFLX, CBC, A1C WTH eA #### [facility] [address] [place] [address] [place] #### SAAD #### [facility] , Thyroid Stim Hormone w/Rflxo n 05-27-2023 Thyroid Stim Hormone w/Rflx 1.60 u[iU]/mL Normal 0.45-5.33 [facility] Comment on above: Order Comment: Reaso n for Exam Hypertension Reason for Exam History of thyroid disease Result Comment: PERF ORMED BY: [place] [address] PATHOLOGIST CHIEF LOCK TENDER OPERATOR RASHMI ECHOLS M.D. Performed By: #### C MP, LIPID, TSH3 wRFLX, CBC, A1C WTH eA #### [facility] [address] [place] [address] [place] #### SAAD #### [facility] , Thyrotropin [Units/volume] i n Serum or PlasmaOrdered By: Regine Chinchilla on 05-27-2023 TSH Qn 1.60 m[IU]/L 0.45-5.33 [facility] Triglyceride [Mass/volume] i n Serum or PlasmaOrdered By: Regine Chinchilla on 05-27-2023 Triglyceride [Mass/Vol] 93 mg/dL 0-149 [facility] Comment on above: TRIG ATP III CLASSIF ICATIONTRIG less than 150 mg/dL NormalTRIG 150-199 mg/dL Borderline highTRIG 200-500 mg/dL High TRIG greater than 500 mg/dL Very highStandard traceable to the Center for Disease Conrtrol and Prevention (CDC) test method. Urea nitrogen [Mass/volume] in Serum or PlasmaOrdered By: Regine Chinchilla on 05-27-2023 Urea nitrogen [Mass/Vol] 13 mg/dL Normal 7-25 [facility] Comment on above: Order Comment: Reaso n for Exam Hypertension Reason for Exam History of thyroid disease Performed By: #### C MP, LIPID, TSH3 wRFLX, CBC, A1C [facility] #### [address] #### SAAD #### [facility] , XR chest 2V*on 09-15-2022 XR chest 2V* [facility] [place] [address] [place] [address] XRay Report Signed Patient: Clover Henriquez MR#: [id number] : 1975 Acct:[id number] Age/Sex: 46 / F ADM Date: 09/15/22 Loc: XD Room: Type: [facility] Attending Dr: CHECO Shaw APRNC Copies to: Regine Chinchilla APRN, NP-C Ordering Provider: Regine Chinchilla APRN, NP-C Date of Service: 09/15/22 XR/XR chest 2V*: Moderate persistent asthma with exacerbation Plain film chest2 view HISTORY:Shortness of breath. COMPARISON:10/18/19 FINDINGS: The cardiac, mediastinal and hilar silhouettes are within normal limits. No acute lung process, pleural effusion or pneumothorax identified. Bony structures are intact. XR/XR chest 2V* IMPRESSION: No acute process. Impression dictated by: Shun Jimenez M.D.09/15/2022 4:34 PM Dictation Location: [place] [address] Transcribed By: [facility] 09/15/22 163 Dictated By: Shun Jimenez DO 09/15/22 1633 Signed By: 09/15/22 1634 Normal [facility] SARS-CoV-2 (COVID-19) RNA NA A+probe Ql (Resp)on 06-15-2022 SARS-CoV-2 (COVID-19) RNA CARL+probe Ql (Unsp spec) Negative [employer] Other Albumin [Mass/volume] in Ser um or PlasmaOrdered By: Regine Chinchilla on 02-16-2022 Albumin [Mass/Vol] 4.4 g/dL 3.2-5.5 [facility] Basophils Auto (Bld) [#/Vol] Ordered By: Regine Chinchilla on 02-16-2022 Basophils (Bld) [#/Vol] 0.1 10*3/uL 0.0-0.2 [facility] Basophils/100 WBC Auto (Bld) Ordered By: Regine Chinchilla on 02-16-2022 Basophils/100 WBC (Bld) 0.5 % . [facility] Blood hemoglobin measurement (mass/volume)Ordered By: Regine Chinchilla on 02-16-2022 Hemoglobin (Bld) [Mass/Vol] 14.8 g/dL 11.8-15.4 [facility] Blood leukocytes automated c ount (number/volume)Ordered By: Regine Chinchilla on 02-16-2022 WBC (Bld) [#/Vol] 14.7 10*3/uL 4.5-11.0 [facility] C reactive protein [Mass/vol ume] in Serum or PlasmaOrdered By: Regine Chinchilla on 02-16-2022 CRP [Mass/Vol] 0.7 mg/dL 0.0-1.0 [facility] Cholesterol [Mass/volume] in Serum or PlasmaOrdered By: Regine Chinchilla on 02-16-2022 Cholesterol [Mass/Vol] 198 mg/dL 140-200 [facility] Comment on above: Chol less than 200 m g/dl low risk Chol 201-239 mg/dl borderline risk Chol 240 mg/dl and greater high risk Cholesterol in LDL Calc [Mas s/Vol]Ordered By: Regine Chinchilla on 02-16-2022 Cholesterol in LDL [Mass/Vol] 90 mg/dL 0-100 [facility] Comment on above: LDL ATP III CLASSIFI CATION LDL less than 100 mg/dL Optimal LDL 100-129 mg/dL Near or above optimal LDL 130-159 mg/dL Borderline high LDL 160-189 mg/dL High LDL greater than 189 mg/dL Very high Cholesterol in VLDL Calc [Ma ss/Vol]Ordered By: Regine Chinchilla on 02-16-2022 Cholesterol in VLDL [Mass/Vol] 33 mg/dL [facility] Creatinine and Glomerular fi ltration rate.predicted panel (S/P/Bld)Ordered By: Regine Chinchilla on 02-16-2022 Creatinine [Mass/Vol] 0.99 mg/dL 0.44-1.03 [facility] Eosinophils Auto (Bld) [#/Vo l]Ordered By: Regine Chinchilla on 02-16-2022 Eosinophils (Bld) [#/Vol] 0.1 10*3/uL 0.0-0.45 [facility] Eosinophils/100 WBC Auto (Bl d)Ordered By: Regine Chinchilla on 02-16-2022 Eosinophils/100 WBC (Bld) 1.0 % . [facility] Erythrocyte distribution wid th Auto (RBC) [Ratio]Ordered By: Regine Chinchilla on 02-16-2022 Erythrocyte distribution width (RBC) [Ratio] 14.1 % 11.9-15.3 [facility] Erythrocyte sedimentation ra te by Photometric methodOrdered By: Regine Chinchilla on 02-16-2022 ESR Photometric method (Bld) [Velocity] 18 mm/hr 0-19 [facility] Estimated glomerular filtrat ion rate (GFR) non- AmericanOrdered By: Regine Chinchilla on 02-16-2022 GFR/1.73 sq M.predicted among non-blacks MDRD (S/P/Bld) [Vol rate/Area] > 60 mL/Min [facility] Globulin Calc (S) [Mass/Vol] Ordered By: Regine Chinchilla on 02-16-2022 Globulin (S) [Mass/Vol] 2.8 g/dL [facility] Glucose mean value [Mass/vol ume] in Blood Estimated from glycated hemoglobinOrdered By: Regine Chinchilla on 02-16-2022 Average glucose Estimated from glycated hemoglobin (Bld) [Mass/Vol] 126 mg/dL [facility] Hematocrit Auto (Bld) [Volum e fraction]Ordered By: Regine Chinchilla on 02-16-2022 Hematocrit (Bld) [Volume fraction] 44.8 % 34.0-46.4 [facility] Hemoglobin A1c percentageOrd ered By: Regine Chinchilla on 02-16-2022 HbA1c (Bld) [Mass fraction] 6.0 % 4.3-5.6 [facility] Comment on above: Increased risk for d iabetes: 5.7 - 6.4 diabetes: >6.4 glycemic control for adults with diabetes: <7.0 Laboratory - Hematology and Cell countsOrdered By: Regine Chinchilla on 02-16-2022 Nucleated RBC/100 WBC (Bld) [Ratio] 0.0 % 0-0.5 [facility] Lymphocytes Auto (Bld) [#/Vo l]Ordered By: Regine Chinchilla on 02-16-2022 Lymphocytes (Bld) [#/Vol] 3.3 10*3/uL 1.00-4.8 [facility] Lymphocytes/100 WBC Auto (Bl d)Ordered By: Regine Chinchilla on 02-16-2022 Lymphocytes/100 WBC (Bld) 22.3 % . [facility] MCH Auto (RBC) [Entitic mass ]Ordered By: Regine Chinchilla on 02-16-2022 MCH (RBC) [Entitic mass] 30.0 pg 24.7-34.3 [facility] MCHC Auto (RBC) [Mass/Vol]Or dered By: Regine Chinchilla on 02-16-2022 MCHC (RBC) [Mass/Vol] 33.0 g/dL 32.0-35.0 [facility] MCV Auto (RBC) [Entitic vol] Ordered By: Regine Chinchilla on 02-16-2022 MCV (RBC) [Entitic vol] 90.6 fL 80-100 [facility] Monocytes Auto (Bld) [#/Vol] Ordered By: Regine Chinchilla on 02-16-2022 Monocytes (Bld) [#/Vol] 1.0 10*3/uL 0.0-0.8 [facility] Monocytes/100 WBC Auto (Bld) Ordered By: Regine Chinchilla on 02-16-2022 Monocytes/100 WBC (Bld) 6.8 % . [facility] Neutrophils Auto (Bld) [#/Vo l]Ordered By: Regine Chinchilla on 02-16-2022 Neutrophils (Bld) [#/Vol] 10.2 10*3/uL 1.8-7.7 [facility] Neutrophils/100 WBC Auto (Bl d)Ordered By: Regine Chinchilla on 02-16-2022 Neutrophils/100 WBC (Bld) 69.4 % . [facility] No Panel InformationOrdered By: Regine Chinchilla on 02-16-2022 Estimated GFR () > 60 mL/Min [facility] Comment on above: GFR estimated refere nce range: According to KDOQI guidelines, <60 ml/min/1.73m2 is sufficient to diagnose a patient with chronic kidney disease. Pharmacy Creatinine Clearance (Chem N/A [facility] Platelet mean volume Auto (B ld) [Entitic vol]Ordered By: Regine Chinchilla on 02-16-2022 Platelet mean volume (Bld) [Entitic vol] 7.9 fL 6.3-10.7 [facility] Platelets Auto (Bld) [#/Vol] Ordered By: Regine Chinchilla on 02-16-2022 Platelets (Bld) [#/Vol] 448 10*3/uL 150-450 [facility] Prolactin [Mass/volume] in S lyly or PlasmaOrdered By: Regine Chinchilla on 02-16-2022 Prolactin [Mass/Vol] 16.60 ng/mL 3.34-26.72 [facility] Protein [Mass/volume] in Ser um or PlasmaOrdered By: Regine Chinchilla on 02-16-2022 Protein [Mass/Vol] 7.2 g/dL 6.1-7.9 [facility] RBC Auto (Bld) [#/Vol]Ordere d By: Regine Chinchilla on 02-16-2022 RBC (Bld) [#/Vol] 4.95 10*6/uL 3.60-5.00 [facility] Serum homogeneous pattern an tinuclear antibody (SAAD) titerOrdered By: Regine Chinchilla on 02-16-2022 Homogenous nuclear Ab pattern (S) [Titer] N/A [facility] Serum nuclear antibody titer Ordered By: Regine Chinchilla on 02-16-2022 Nuclear Ab (S) [Titer] Negative . [facility] Comment on above: Negative <1:80 Borderline 1:80 Positive >1:80 ICAP nomenclature: [id number] For more information about Hep-2 cell patterns use ANApatterns.org, the official website for the International Consensus on Antinuclear Antibody (SAAD) Patterns (ICAP). Performed at: [place] [id number] Leather Stitcher: Supa Murdock PhD, Phone: [phone] Serum or plasma alanine dennis otransferase measurement without P-5'-P (enzymatic activiOrdered By: Regine Chinchilla on 02-16-2022 ALT No additional P-5'-P [Catalytic activity/Vol] 29 U/L 10-60 [facility] Serum or plasma albumin/glob ulin mass ratioOrdered By: Regine Chinchilla on 02-16-2022 Albumin/Globulin [Mass ratio] 1.6 {ratio} [facility] Serum or plasma alkaline dayana sphatase measurement (enzymatic activity/volume)Ordered By: Regine Chinchilla on 02-16-2022 ALP [Catalytic activity/Vol] 86 U/L 32-92 [facility] Serum or plasma aspartate am inotransferase measurement (enzymatic activity/volume)Ordered By: Regine Chinchilla on 02-16-2022 AST [Catalytic activity/Vol] 23 U/L 10-42 [facility] Serum or plasma calcium rebecca urement (mass/volume)Ordered By: Regine Chinchilla on 02-16-2022 Calcium [Mass/Vol] 10.0 mg/dL 8.2-10.2 [facility] Serum or plasma chloride catarina surement (moles/volume)Ordered By: Regine Chinchilla on 02-16-2022 Chloride [Moles/Vol] 93 mmol/L 95-114 [facility] Serum or plasma follitropin measurement (units/volume)Ordered By: Regine Chinchilla on 02-16-2022 Follitropin Qn 26.4 m[IU]/mL [facility] Comment on above: FEMALE NORMALS (DILAN ENOPAUSE) MID-FOLLICULAR PHASE: 3.9-8.8 mIU/mL MID-CYCLE PEAK: 4.5-22.5 mIU/mL MID-LUTEAL PHASE: 1.8-5.1 mIU/mL FEMALE NORMALS (POSTMENOPAUSE): 16.7-113.6 mIU/mL MALE NORMALS: 1.3-19.3 mIU/mL Serum or plasma glucose rebecca urement (mass/volume)Ordered By: Regine Chinchilla on 02-16-2022 Glucose [Mass/Vol] 75 mg/dL 70-100 [facility] Comment on above: ADA recommended refe rence range Random Glucose Reference Range is dependent on time and content of last meal. Glucose of more than 200 mg/dL in a nonstressed, ambulatory subject supports the diagnosis of Diabetes Mellitus. Serum or plasma high density lipoprotein (HDL) cholesterol measurementOrdered By: Regine Chinchilla on 02-16-2022 Cholesterol in HDL [Mass/Vol] 75 mg/dL 35-85 [facility] Comment on above: HDL CHOL ATP-III CLA SSIFICATION Cardiovascular Risk HDL > or equal to 60 mg/dL LOW HDL < 40 mg/dL HIGH Serum or plasma potassium me asurement (moles/volume)Ordered By: Regine Chinchilla on 02-16-2022 Potassium [Moles/Vol] 3.6 mmol/L 3.5-5.1 [facility] Serum or plasma rheumatoid f actor measurement (units/volume)Ordered By: Regine Chinchilla on 02-16-2022 Rheumatoid factor Qn 11.9 [IU]/mL <14.0 [facility] Comment on above: Performed at: [address] [id number] [employer]: Supa Murdock PhD, Phone: [phone] Serum or plasma sodium measu rement (moles/volume)Ordered By: Regine Chinchilla on 02-16-2022 Sodium [Moles/Vol] 135 mmol/L 136-146 [facility] Serum or plasma total biliru bin measurement (mass/volume)Ordered By: Regine Chinchilla on 02-16-2022 Bilirubin [Mass/Vol] 1.2 mg/dL 0.3-1.2 [facility] Serum or plasma total carbon dioxide measurement (moles/volume)Ordered By: Regine Chinchilla on 02-16-2022 CO2 [Moles/Vol] 27.2 mmol/L 22.0-30.0 [facility] Serum or plasma total choles terol/high density lipoprotein (HDL) cholesterol mass ratOrdered By: Regine Chinchilla on 02-16-2022 Cholesterol.total/Merced sterol in HDL [Mass ratio] 2.6 {ratio} <5.0 [facility] Serum or plasma urea nitroge n measurement (mass/volume)Ordered By: Regine Chinchilla on 02-16-2022 Urea nitrogen [Mass/Vol] 18 mg/dL 9-23 [facility] TSH DL <= 0.005 mIU/L QnOrde red By: Regine Chinchilla on 02-16-2022 TSH Qn 1.98 m[IU]/L 0.45-5.33 [facility] Triglyceride [Mass/volume] i n Serum or PlasmaOrdered By: Regine Chinchilla on 02-16-2022 Triglyceride [Mass/Vol] 165 mg/dL 35-149 [facility] Comment on above: TRIG ATP III CLASSIF ICATION TRIG less than 150 mg/dL Normal TRIG 150-199 mg/dL Borderline high TRIG 200-500 mg/dL High TRIG greater than 500 mg/dL Very high Standard traceable to the Center for Disease Conrtrol and Prevention (CDC) test method. AMYLASEon 02-09-2022 Amylase [Catalytic activity/Vol] 26 U/L Normal 25-115 [facility] Comment on above: Performed By: #### C MP, LIPA, LIZETTE #### [facility] [address] [place] [address] Dr. Tyler Gonzalez CBC AUTO DIFFon 02-09-2022 BASO # 0.0 103/ul Normal 0.0-0.1 [facility] Comment on above: Performed By: #### C BC #### [facility] [address] [place] [address] Dr. Tyler Gonzalez Basophils/100 WBC (Bld) 0.7 % Normal 0.2-2.0 [facility] Comment on above: Performed By: #### C BC #### [facility] [address] [place] [address] Dr. Tyler Gonzalez EO # 0.5 103/ul Normal 0.0-0.7 [facility] Comment on above: Performed By: #### C BC #### [facility] [address] [place] [address] Dr. Tyler Gonzalez Eosinophils/100 WBC (Bld) 9.7 % Critically high 0.9-7.0 [facility] Comment on above: Performed By: #### C BC #### [facility] [address] [place] [address] Dr. Tyler Gonzalez Erythrocyte distribution width (RBC) [Ratio] 13.1 % Normal 11.0-15.0 [facility] Comment on above: Performed By: #### C BC #### [facility] [address] [place] [address] Dr. Tyler Gonzalez Hematocrit (Bld) [Volume fraction] 40.8 % Normal 36.0-48.0 [facility] Comment on above: Performed By: #### C BC #### [facility] [facility] [address] [place] [address] Dr. Tyler Gonzalez Hemoglobin (Bld) [Mass/Vol] 13.4 g/dL Normal 12.0-16.0 [facility] Comment on above: Performed By: #### C BC #### [facility] [address] [place] [address] Dr. Tyler Gonzalez IG # 0.01 10e3/ul Normal 0.00-0.03 [facility] Comment on above: Performed By: #### C BC #### [facility] [address] [place] [address] Dr. Tyler Gonzalez IG % 0.2 % Normal 0.0-0.5 [facility] Comment on above: Performed By: #### C BC #### [facility] [address] [place] [address] Dr. Tyler Gonzalez LYMPH # 1.3 103/ul Normal 1.2-3.8 [facility] Comment on above: Performed By: #### C BC #### [facility] [address] [address] [address] Tyler Gonzalez Lymphocytes/100 WBC (Bld) 22.7 % Normal 20.5-60.0 [facility] Comment on above: Performed By: #### C BC #### [facility] [address] [address] [address] Tyler Gonzalez MANUAL DIFF REQ NO Normal [facility] Comment on above: Performed By: #### C BC #### [facility] [address] [place] [address] Dr. Tyler Gonzalez MCH (RBC) [Entitic mass] 29.6 pg Normal 26.7-34.0 [facility] Comment on above: Performed By: #### C BC #### [facility] [address] [place] [address] Dr. Tyler Gonzalez MCHC (RBC) [Mass/Vol] 32.8 g/dL Normal 29.9-35.2 [facility] Comment on above: Performed By: #### C BC #### [facility] [address] [place] [address] Dr. Tyler Gonzalez MCV (RBC) [Entitic vol] 90.1 fL Normal 81.0-99.0 [facility] Comment on above: Performed By: #### C BC #### [facility] [address] [place] [address] Dr. Tyler Gonzalez MONO # 0.4 103/ul Normal 0.3-0.8 [facility] Comment on above: Performed By: #### C BC #### [facility] [address] [place] [address] Dr. Tyler Gonzalez Monocytes/100 WBC (Bld) 7.2 % Normal 1.7-12.0 [facility] Comment on above: Performed By: #### C BC #### [facility] [address] [place] [address] Dr. Tyler Gonzalez NEUT # 3.3 103/ul Normal 1.4-6.5 [facility] Comment on above: Performed By: #### C BC #### [facility] [address] [address] [address] Tyler Gonzalez Neutrophils/100 WBC (Bld) 59.5 % Normal 43.0-75.0 [facility] Comment on above: Performed By: #### C BC #### [facility] [address] [address] [address] Tyler Gonzalez Platelet mean volume (Bld) [Entitic vol] 9.3 fL Critically low 9.5-13.5 [facility] Comment on above: Performed By: #### C BC #### [facility] [address] [address] [address] Tyler Gonzalez PLT 352 103/ul Normal 150-450 [facility] Comment on above: Performed By: #### C BC #### [facility] [address] [address] [address] Tyler Gonzalez RBC 4.53 106/ul Normal 4.20-5.40 [facility] Comment on above: Performed By: #### C BC #### [facility] [address] [address] [address] Tyler Gonzalez WBC 5.6 103/ul Normal 4.0-11.0 [facility] Comment on above: Performed By: #### C BC #### [facility] [address] [place] [address] ABD/PELVIS WO CONon 02-09 CT ABD/PELVIS WO CON EXAMINATION: CT ABD/PELVIS WO CON HISTORY: UNSPECIFIED ABDOMINAL PAIN ; acute right upper quadrant pain COMPARISON: CT abdomen and pelvis 05/25/2017 TECHNIQUE: Axial, Coronal, and Sagittal images were created without IV contrast. Dose reduction techniques were achieved by using automated exposure control and/or adjustment of mA and/or kV according to patient size and/or use of iterative reconstruction technique. FINDINGS: LUNG BASES: No visible pulmonary or pleural disease. LIVER: No enlargement, atrophy, suspicious density, or significant focal lesion. BILIARY: No dilatation or calcification. PANCREAS: No lesion, fluid collection, or abnormal duct dilatation. SPLEEN: No enlargement or focal lesion. ADRENALS: No mass or enlargement. KIDNEYS: 2 mm nonobstructing stone within left kidney. BOWEL/MESENTERY: No visible mass, obstruction, or bowel wall thickening. AORTA/VASCULAR: No aneurysm or dissection. RETROPERITONEUM: No mass or adenopathy. LYMPH NODES: No adenopathy. URINARY BLADDER: No visible focal wall thickening, lesion, or calculus. PELVIC ORGANS: No visible mass. Pelvic organs appropriate for patient age. ABDOMINAL WALL: No mass or hernia. BONES: No bony lesion or fracture. OTHER: Negative. IMPRESSION: 1. Nonobstructing left nephrolithiasis. 2. No acute or suspicious findings to account for patient's symptoms. Electronically authenticated by: PEMA SHRESTHA Date: 2022-02-09 11:21 Normal [facility] ER URINE PROFILEon 2 Bilirubin Ql (U) Negative Normal NEGATIVE [facility] Comment on above: Performed By: #### NED SLATER PREGU #### [facility] [address] [address] [address] Tyler Gonzalez Clarity (U) CLEAR Normal CLEAR [facility] Comment on above: Performed By: #### NED SLATER PREGU #### [facility] [address] [address] [address] Tyler Gonzalez Color (U) LT. YELLOW Normal YELLOW [facility] Comment on above: Performed By: #### NED SLATER PREGU #### [facility] [address] [address] [address] Tyler MCCLUREGiselle A micrscopic examination will be performed if indicated. Normal [facility] Comment on above: Performed By: #### NED SLATER PREGU #### [facility] [address] [address] [address] Tyler Gonzalez Glucose Ql (U) Negative Normal NEGATIVE [facility] Comment on above: Performed By: #### NED SLATER PREGU #### [facility] [address] [address] [address] Tyler Gonzalez Hemoglobin Ql (U) LARGE Abnormal NEGATIVE [facility] Comment on above: Performed By: #### NED SLATER PREGU #### [facility] [address] [address] [address] Tyler Gonzalez Ketones Ql (U) Negative Normal NEGATIVE [facility] Comment on above: Performed By: #### NED SLATER PREGU #### [facility] [address] [place] [address] Dr. Tyler Gonzalez LEUKOCYTES Negative Normal NEGATIVE [facility] Comment on above: Performed By: #### NED SLATER PREGU #### [facility] [address] [address] [address] Tyler Gonzalez Nitrite Ql (U) Negative Normal NEGATIVE [facility] Comment on above: Performed By: #### NED SLATER PREGU #### [facility] [address] [place] [address] Dr. Tyler Gonzalez pH (U) 6.0 [pH] Normal 5-9 [facility] Comment on above: Performed By: #### NED SLATER PREGU #### [facility] [address] [place] [address] Dr. Tyler Gonzalez SPEC GRAVITY 1.015 Normal 1.005-<=1.0 25 [facility] Comment on above: Performed By: #### NED SLATER PREGU #### [facility] [address] [place] [address] Dr. Tyler Gonzalez UA PROTEIN Negative Normal NEGATIVE/ TRACE [facility] Comment on above: Performed By: #### NED SLATER PREGU #### [facility] [address] [place] [address] Dr. Tyler Gonzalez UR MICRO IND INDICATED Normal [facility] Comment on above: Performed By: #### NED SLATER PREGU #### [facility] [address] [place] [address] Dr. Tyler Gonzalez Urobilinogen Qn (U) 0.2 {Quyen'U}/dL Normal 0.2 - 1. 0 [facility] Comment on above: Performed By: #### NED SLATER PREGU #### [facility] [address] [place] [address] Dr. Tyler Gonzalez LIPASEon 02-09-2022 Lipase [Catalytic activity/Vol] 86.0 U/L Normal 73.0-393.0 [facility] Comment on above: Performed By: #### C MP, LIPA, LIZETTE #### [facility] [address] [place] [address] Dr. Tlyer Gonzalez URon 02-09-2022 , QUAL Negative Normal NEGATIVE [facility] Comment on above: Performed By: #### E RUR, UMICRO, PREGU #### [facility] [address] [place] [address] Dr. Tyler Gonzalez PROF 14(COMP METB)on 022 Albumin [Mass/Vol] 3.6 g/dL Normal 3.4-5.0 [facility] Comment on above: Performed By: #### C MP, LIPA, LIZETTE #### [facility] [address] [place] [address] Dr. Tyler Gonzalez Albumin/Globulin [Mass ratio] 1.0 {ratio} Normal [facility] Comment on above: Performed By: #### C MP, LIPA, LIZETTE #### [facility] [address] [place] [address] Dr. Tyler Gonzalez ALP [Catalytic activity/Vol] 83 U/L Normal 46-116 [facility] Comment on above: Performed By: #### C MP, LIPA, LIZETTE #### [facility] [address] [place] [address] Dr. Tyler Gonzalez ALT [Catalytic activity/Vol] 19 U/L Normal 14-59 [facility] Comment on above: Performed By: #### C MP, LIPA, LIZETTE #### [facility] [address] [place] [address] Dr. Tyler Gonzalez Anion gap [Moles/Vol] 11.0 mmol/L Normal [facility] Comment on above: Performed By: #### C MP, LIPA, LIZETTE #### [facility] [address] [place] [address] Dr. Tyler Gonzalez AST [Catalytic activity/Vol] 20 U/L Normal 15-37 [facility] Comment on above: Performed By: #### C SUSAN SWARTZ, LIZETTE #### [facility] [address] [place] [address] Dr. Tyler Gonzalez Bilirubin [Mass/Vol] 0.6 mg/dL Normal 0.2-1.0 [facility] Comment on above: Performed By: #### C ALMA SWARTZA, LIZETTE #### [facility] [address] [place] [address] Dr. Tyler Gonzalez Calcium [Mass/Vol] 9.0 mg/dL Normal 8.5-10.1 [facility] Comment on above: Performed By: #### C SUSNA SWARTZ, LIZETTE #### [facility] [address] [place] [address] Dr. Tyler Gonzalez Chloride [Moles/Vol] 104 mmol/L Normal 98-107 [facility] Comment on above: Performed By: #### C ALMA SWARTZA, LIZETTE #### [facility] [address] [place] [address] Dr. Tyler Gonzalez CO2 [Moles/Vol] 28.9 mmol/L Normal 21.0-32.[address] [facility] Comment on above: Performed By: #### C ALMA SWARTZA, LIZETTE #### [facility] [address] [place] [address] Dr. Tyler Gonzalez Creatinine [Mass/Vol] 0.95 mg/dL Normal 0.55-1.02 [facility] Comment on above: Performed By: #### C ALMA SWARTZA, LIZETTE #### [facility] [address] [place] [address] Dr. Tyler Gonzalez EGFR-AF TURKS AND CAICOS ISLANDER >60 Normal >=[address] [facility] Comment on above: Performed By: #### C ALMA SWARTZA, LIZETTE #### [facility] [address] [place] [address] Dr. Tyler Gonzalez EGFR-NON AF TURKS AND CAICOS ISLANDER >60 Normal >=60 [facility] Comment on above: Performed By: #### C SHERIDAN LIPA, LIZETTE #### [facility] [address] [place] [address] Dr. Tyler Gonzalez Globulin (S) [Mass/Vol] 3.5 g/dL Normal [facility] Comment on above: Performed By: #### C SUSAN SWARTZ, LIZETTE #### [facility] [address] [place] [address] Dr. Tyler Gonzalez Glucose [Mass/Vol] 111 mg/dL Critically high 74-106 [facility] Comment on above: Performed By: #### C SUSAN SWARTZ, LIZETTE #### [facility] [address] [place] [address] Dr. Tyler Gonzalez Potassium [Moles/Vol] 3.9 mmol/L Normal 3.5-5.1 [facility] Comment on above: Performed By: #### C SUSAN SWARTZ, LIZETTE #### [facility] [address] [place] [address] Dr. Tyler Gonzalez Protein [Mass/Vol] 7.1 g/dL Normal 6.4-8.2 [facility] Comment on above: Performed By: #### C ALMA SWARTZA, LIZETTE #### [facility] [address] [place] [address] Dr. Tyler Gonzalez Sodium [Moles/Vol] 140 mmol/L Normal 136-145 [facility] Comment on above: Performed By: #### C ALMA SWARTZA, LIZETTE #### [facility] [address] [place] [address] Dr. Tlyer Gonzalez Urea nitrogen [Mass/Vol] 13.0 mg/dL Normal 7.0-18.0 [facility] Comment on above: Performed By: #### C ALMA SWARTZA, LIZETTE #### [facility] [address] [place] [address] Dr. Tyler Gonzalez Urea nitrogen/Creatinine [Mass ratio] 13.7 mg/mg Normal [facility] Comment on above: Performed By: #### C ALMA SWARTZA, LIZETTE #### [facility] [address] [place] [address] Dr. Tyler Gonzalez URINE MICROSCOPIC ONLYon BACTERIA NONE SEEN Normal NONE SEEN [facility] Comment on above: Performed By: #### E KRYSTAL RAZARO, PREGU #### [facility] [address] [address] [address] Tyler Gonzalez Bacteria identified Cx Nom (U) NOT INDICATED Normal [facility] Comment on above: Performed By: #### E RUR, KOKOICRO, PREGU #### [facility] [address] [address] [address] Tyler Gonzalez CAST NONE SEEN Normal NONE SEEN [facility] Comment on above: Performed By: #### E NED RAZA, PREGU #### [facility] [address] [address] [address] Tyler Gonzalez Crystals LM Nom (Urine sed) NONE SEEN Normal NONE SEEN [facility] Comment on above: Performed By: #### NED SLATER, PREGU #### [facility] [address] [address] [address] Tyler Gonzalez Epithelial cells LM Ql (Urine sed) FEW Abnormal NONE SEEN /RARE [facility] Comment on above: Performed By: #### NED SLATER, PREGU #### [facility] [address] [address] [address] Tyler Gonzalez MUCOUS NONE SEEN Normal NONE SEEN [facility] Comment on above: Performed By: #### NED SLATER, PREGU #### [facility] [address] [address] [address] Tyler Gonzalez RBC 50-75 Abnormal 0-2 [facility] Comment on above: Performed By: #### NED SLATER, PREGU #### [facility] [address] [address] [address] Tyler Gonzalez WBC NONE SEEN Normal NONE SEEN [facility] Comment on above: Performed By: #### NED SLATER, PREGU #### [facility] [address] [address] [address] Tyler Gonzalez US SINGLE QUAD RT UPPERon US SINGLE QUAD RT UPPER EXAMINATION: US SINGLE QUAD RT UPPER HISTORY: NAUSEA WITH VOMITING, UNSPECIFIED ; acute right upper quadrant pain COMPARISON: No relevant comparison available. TECHNIQUE: Transabdominal evaluation of the right upper quadrant. FINDINGS: LIVER: Normal size and echotexture. Color Doppler demonstrates patent hepatic veins. PORTAL VEIN: Duplex Doppler demonstrates normal hepatopetal flow pattern with flow velocity averaging 30 cm/s. GALLBLADDER: No visible gallstones, wall thickening, or pericholecystic free fluid. Negative sonographic Ferrera's sign. BILIARY: No abnormal dilation or stones. Common bile duct diameter is within normal limits. PANCREASE: No visible mass, abnormal atrophy, or duct dilation. KIDNEY: No hydronephrosis. No visible mass or stones. Size: 10.2 x 3.7 x 4.9 cm IMPRESSION: 1. No abnormal or suspicious findings to account for patient's symptoms. Electronically authenticated by: PEMA SHRESTHA Date: 2022-02-09 12:10 Normal [facility] XR CHEST 1 Von 02-09-2022 XR CHEST 1 V EXAMINATION: XR CHES T 1 V HISTORY: COUGH , right upper quadrant pain, asthma COMPARISON: XR chest 07/17/2019 FINDINGS: LUNGS: No significant pulmonary parenchymal abnormalities. VASCULATURE: No increased pulmonary vasculature. PLEURA: No pneumothorax, effusion, or pleural thickening. CARDIAC: No cardiomegaly or cardiac silhouette abnormality. MEDIASTINUM: No visible mass or adenopathy. BONES: No fracture or visible bone lesion. OTHER: Negative. IMPRESSION: 1. No acute cardiopulmonary process. Stable chest. Electronically authenticated by: PEMA SHRESTHA Date: 2022-02-09 11:23 Normal [facility] SARS-CoV-2 (COVID-19) RNA NA A+probe Ql (Resp)on 11-24-2021 SARS-CoV-2 (COVID-19) RNA CARL+probe Ql (Unsp spec) Negative [facility] [employer] Other [facility] Letter [facility] [place], [place] Re: CLOVER HENRIQUEZ Date of : 1975 Thank you for your referral of Clover Henriquez who was seen on consultation on October 31, 2020, for discomforting lipoma on right scapula. I have enclosed my consultation notes for your review. Sincerely, Gt Varner MD General Surgery Normal [facility] Ambulatory Clinical Summaryo n 10-31-2020 Ambulatory Clinical Summary {[id number] Normal [facility] Patient Educationon 11-01-19 21 Patient Education Nutrition BMI for Adults Body mass index (BMI) is a number that is calculated from a person's weight and height. BMI may help to estimate how much of a person's weight is composed of fat. BMI can help identify those who may be at higher risk for certain medical problems. How is BMI used with adults? BMI is used as a screening tool to identify possible weight problems. It is used to check whether a person is obese, overweight, healthy weight, or underweight. How is BMI calculated? BMI measures your weight and compares it to your height. This can be done either in [place] or metric measurements. Note that charts are available to help you find your BMI quickly and easily without having to do these calculations yourself. To calculate your BMI in [place] measurements, your health care provider will: 1. Measure your weight in pounds (lb). 2. Multiply the number of pounds by 703. ? For example, for a person who weighs 180 lb, multiply that number by 703, which equals 126,540. 3. Measure your height in inches (in). Then multiply that number by itself to get a measurement called inches squared. ? For example, for a person who is 70 in tall, the inches squared measurement is 70 in x 70 in, which equals 4900 inches squared. 4. Divide the total from Step 2 (number of lb x 703) by the total from Step 3 (inches squared): 126,540 ? 4900 = 25.8. This is your BMI. To calculate your BMI in metric measurements, your health care provider will: 1. Measure your weight in kilograms (kg). 2. Measure your height in meters (m). Then multiply that number by itself to get a measurement called meters squared. ? For example, for a person who is 1.75 m tall, the meters squared measurement is 1.75 m x 1.75 m, which is equal to 3.1 meters squared. 3. Divide the number of kilograms (your weight) by the meters squared number. In this example: 70 ? 3.1 = 22.6. This is your BMI. How is BMI interpreted? To interpret your results, your health care provider will use BMI charts to identify whether you are underweight, normal weight, overweight, or obese. The following guidelines will be used: ? Underweight: BMI less than 18.5. ? Normal weight: BMI between 18.5 and 24.9. ? Overweight: BMI between 25 and 29.9. ? Obese: BMI of 30 and above. Please note: ? Weight includes both fat and muscle, so someone with a muscular build, such as an athlete, may have a BMI that is higher than 24.9. In cases like these, BMI is not an accurate measure of body fat. ? To determine if excess body fat is the cause of a BMI of 25 or higher, further assessments may need to be done by a health care provider. ? BMI is usually interpreted in the same way for men and women. Why is BMI a useful tool? BMI is useful in two ways: ? Identifying a weight problem that may be related to a medical condition, or that may increase the risk for medical problems. ? Promoting lifestyle and diet changes in order to reach a healthy weight. Summary ? Body mass index (BMI) is a number that is calculated from a person's weight and height. ? BMI may help to estimate how much of a person's weight is composed of fat. BMI can help identify those who may be at higher risk for certain medical problems. ? BMI can be measured using [place]ian measurements or metric measurements. ? To interpret your results, your health care provider will use BMI charts to identify whether you are underweight, normal weight, overweight, or obese. This information is not intended to replace advice given to you by your health care provider. Make sure you discuss any questions you have with your health care provider. Document Released: 03/09/2005 Document Revised: 06/10/2018 Document Reviewed: 05/11/2018 [employer] Patient Education ? 2019 [employer] [facility] Patient Education Physical Medicine an d Rehabilitation Exercising to Lose Weight Exercise is structured, repetitive physical activity to improve fitness and health. Getting regular exercise is important for everyone. It is especially important if you are overweight. Being overweight increases your risk of heart disease, stroke, diabetes, high blood pressure, and several types of cancer. Reducing your calorie intake and exercising can help you lose weight. Exercise is usually categorized as moderate or vigorous intensity. To lose weight, most people need to do a certain amount of moderate-intensity or vigorous-intensity exercise each week. Moderate-intensity exercise Moderate-intensity exercise is any activity that gets you moving enough to burn at least three times more energy (calories) than if you were sitting. Examples of moderate exercise include: ? Walking a mile in 15 minutes. ? Doing light yard work. ? Biking at an easy pace. Most people should get at least 150 minutes (2 hours and 30 minutes) a week of moderate-intensity exercise to maintain their body weight. Vigorous-intensity exercise Vigorous-intensity exercise is any activity that gets you moving enough to burn at least six times more calories than if you were sitting. When you exercise at this intensity, you should be working hard enough that you are not able to carry on a conversation. Examples of vigorous exercise include: ? Running. ? Playing a team sport, such as football, basketball, and soccer. ? Jumping rope. Most people should get at least 75 minutes (1 hour and 15 minutes) a week of vigorous-intensity exercise to maintain their body weight. How can exercise affect me? When you exercise enough to burn more calories than you eat, you lose weight. Exercise also reduces body fat and builds muscle. The more muscle you have, the more calories you burn. Exercise also: ? Improves mood. ? Reduces stress and tension. ? Improves your overall fitness, flexibility, and endurance. ? Increases bone strength. The amount of exercise you need to lose weight depends on: ? Your age. ? The type of exercise. ? Any health conditions you have. ? Your overall physical ability. Talk to your health care provider about how much exercise you need and what types of activities are safe for you. What actions can I take to lose weight? Nutrition ? Make changes to your diet as told by your health care provider or diet and post closing specialist (dietitian). This may include: ? Eating fewer calories. ? Eating more protein. ? Eating less unhealthy fats. ? Eating a diet that includes fresh fruits and vegetables, whole grains, low-fat dairy products, and lean protein. ? Avoiding foods with added fat, salt, and sugar. ? Drink plenty of water while you exercise to prevent dehydration or heat stroke. Activity ? Choose an activity that you enjoy and set realistic goals. Your health care provider can help you make an exercise plan that works for you. ? Exercise at a moderate or vigorous intensity most days of the week. ? The intensity of exercise may vary from person to person. You can tell how intense a workout is for you by paying attention to your breathing and heartbeat. Most people will notice their breathing and heartbeat get faster with more intense exercise. ? Do resistance training twice each week, such as: ? Push-ups. ? Sit-ups. ? Lifting weights. ? Using resistance bands. ? Getting short amounts of exercise can be just as helpful as long structured periods of exercise. If you have trouble finding time to exercise, try to include exercise in your daily routine. ? Get up, stretch, and walk around every 30 minutes throughout the day. ? Go for a walk during your lunch break. ? Park your car farther away from your destination. ? If you take public transportation, get off one stop early and walk the rest of the way. ? Make phone calls while standing up and walking around. ? Take the stairs instead of elevators or escalators. ? Wear comfortable clothes and shoes with good support. ? Do not exercise so much that you hurt yourself, feel dizzy, or get very short of breath. Where to find more information ? U.S. Department of Health and Human Services: www.hhs.gov ? Centers for Disease Control and Prevention (CDC): www.cdc.gov Contact a health care provider: ? Before starting a new exercise program. ? If you have questions or concerns about your weight. ? If you have a medical problem that keeps you from exercising. Get help right away if you have any of the following while exercising: ? Injury. ? Dizziness. ? Difficulty breathing or shortness of breath that does not go away when you stop exercising. ? Chest pain. ? Rapid heartbeat. Summary ? Being overweight increases your risk of heart disease, stroke, diabetes, high blood pressure, and several types of cancer. ? Losing weight amaral (more content not included)... Normal [facility] Physician Referralon 021 Physician Referral [phone] [id number] Normal [facility] Vital Signs Date Time Vital Sign Value Performing Clinician Facility 06-15-2022 12:30-0500 Body height 156.21 cm Amy Soto Other [facility] Other 06-15-2022 12:30-0500 Body temperature 97.1 [degF] Amy Brittany Other [facility] Other 06-15-2022 12:30-0500 Respiratory rate 16 /min Amy Brittany Other [facility] Other 06-15-2022 12:30-0500 SaO2% (BldA) [Mass fraction] 98 % Amy Brittany Other [facility] Other 03-18-2022 14:00-0400 Body height 130.81 cm Amy Mackaymond Other [facility] Other 03-18-2022 14:00-0400 Body mass index (BMI) [Ratio] 42.73 kg/m2 Amy Brittany Other [facility] Other 03-18-2022 14:00-0400 Body temperature 96.7 [degF] Amy Brittany Other [facility] Other 03-18-2022 14:00-0400 Body weight 73.12 kg Amy Brittany Other [facility] Other 03-18-2022 14:00-0400 Respiratory rate 18 /min Amy Brittany Other [facility] Other 03-18-2022 14:00-0400 SaO2% (BldA) [Mass fraction] 98 % Amy Brittany Other [facility] Other 11-24-2021 11:30-0400 Body height 130.81 cm Clover Olson Other [facility] Other 11-24-2021 11:30-0400 Body temperature 97.5 [degF] Clover Olson Other [facility] Other 11-24-2021 11:30-0400 SaO2% (BldA) [Mass fraction] 99 % Clover Olson Other [facility] Other Encounters Encounter Date Encounter Type Care Provider Facility Start: 06-30-2023 End: 06-30-2023 ambulatory Services [facility] Facility:[facility] Start: 06-30-2023 End: 06-30-2023 ambulatory [facility] Work Phone: [facility] Work Phone: Start: 06-30-2023 End: 06-30-2023 Patient encounter procedure Services [facility] Work Phone: [facility] [place] Work Phone: Start: 05-27-2023 End: 05-27-2023 ambulatory Regine Chinchilla [facility] Work Phone: Start: 05-27-2023 End: 05-27-2023 Departed Referred GROCERY BAGGERJelani Chinchilla Work Phone: [facility] Start: 09-15-2022 End: 09-15-2022 ambulatory Services [facility] Facility:[facility] Start: 09-15-2022 End: 09-15-2022 ambulatory Services [facility] Work Phone: [facility] Work Phone: Start: 09-15-2022 End: 09-15-2022 Patient encounter procedure Services [facility] Work Phone: [facility] Work Phone: Start: 06-15-2022 End: 06-15-2022 ambulatory Amy Brittany Other [facility] Other Start: 06-15-2022 Office outpatient visit 25 minutes Amy Brittany [facility] Start: 03-18-2022 End: 03-18-2022 ambulatory Amy Brittany Other [facility] Other Start: 03-18-2022 Office outpatient visit 15 minutes Amy Brittany [facility] Start: 03-18-2022 Telephone encounter Yovanny Mast [facility] Start: 02-16-2022 End: 02-16-2022 Patient encounter procedure Services [facility] Work Phone: [facility] Start: 02-09-2022 End: 02-09-2022 ambulatory JEROME FAVIOLA Facility:[facility] Start: 11-27-2021 End: 11-27-2021 ambulatory Yovanny Mast Other [facility] Other Start: 11-27-2021 Telephone encounter Yovanny Mast [facility] Start: 11-24-2021 End: 11-24-2021 ambulatory Clover Olson Other [facility] Other Start: 11-24-2021 Office outpatient visit 15 minutes Clover Olson [facility] Start: 10-16-2021 End: 10-16-2021 ambulatory [facility] Facility[facility] Procedures Date Procedure Procedure Detail Performing Clinician Start: 06-30-2023 Pelvic echography [facility] Robert Applebaum MD Phone: Start: 06-30-2023 Transvaginal echography Services [facility] Work Phone: Start: 09-15-2022 Plain chest X-ray [facility] lu[facility] Work Phone: Plan of Treatment Date Care Activity Detail Author Lutropin [Units/volu me] in Serum or Plasma [place] enter Payers Date Payer Category Payer Self-pay [id number] 1975 Unknown [id number] 1975 Unknown [id number] 1957 Unknown [id number]. [id number] Unknown [id number] 2.16.8 [id number] Unknown [id number] 2.16.8 [id number] Unknown [id number] 2.16.8 [id number] Social History Date Type Detail Facility Unknown if ever smoked [facility] Other Sex Assigned At Sex Assigned At Bir th [facility] Other Start: 1975 Sex Assigned At Female F [facility] Evaluation note 06-15-2022 Note Date & Type Note Facility 06-15-2022 Evaluation note Encounter Date Diagnosis Assessment Notes Jun, Contact with and (suspected) exposure to other viral communicable diseases (ICD-10 - Z20.828) Jun, Viral upper respiratory infection (ICD-10 - J06.9) Viral upper respiratory infection: adult home care material was printed Drink plenty fluids, get plenty of rest. Take Tylenol or Motrin as needed for aches pains or fevers. Follow-up with your family physician if no improvement in 2 to 3 days. [facility] Other Evaluation note 03-18-2022 Note Date & Type Note Facility 03-18-2022 Evaluation note Encounter Date Diagnosis Assessment Notes Mar, Mild asthma with exacerbation, unspecified whether persistent (ICD-10 - J45.901) Asthma material was printed Drink plenty fluids, get plenty of rest. Continue home medications as prescribed. Take the prednisone as prescribed until gone. Follow-up with your family physician if no improvement in 2 to 3 days. Mar, History of asthma (ICD-10 - Z87.09) [facility] Other Evaluation note 11-24-2021 Note Date & Type Note Facility 11-24-2021 Evaluation note Encounter Date Diagnosis Assessment Notes November, Mild persistent asthma with exacerbation (ICD-10 - J45.31) Take medications as directed with food. Complete all doses of steroids. Use inhaler or nebulizer at least 2-3 times per day for next 48 hours. Increase fluid intake. Follow up with primary care provider is recommended to discuss treatment plan changes to asthma. Seek emergency help if difficulty breathing develops November, Cough (ICD-10 - R05.9) [facility] Other Clinical Note 10-31-2020 Note Date & Type Note Facility 10-31-2020 Note Chief Complaint Referral for Right side Discomforting Lipoma HPI Staff 45 year old female referred by Dr. Muro on consultation of discomforting lipoma medial inferior aspect of the right scapula. Taking Naproxen for pain PRN. Denies symptoms of current pain, itching, or change in size. 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 Review of Systems PHQ Score Initial Depression Screen Score: 0 ROS - Provider Constitutional: no fever, no sweats, no weight loss. Eyes: no glasses, no blurred vision, no visual loss. ENMT: no dentures, no hoarseness, no swallowing difficulties, severe hearing loss, no ear infection(s), no nose bleeds. Cardiovascular: high blood pressure, no chest pain, regular heartbeat, no heart murmur. Respiratory: no shortness of breath, no cough, no asthma, no wheezing. Gastrointestinal: no nausea, no vomiting, no diarrhea, no constipation, no blood in stool, no change in bowel habits, no abdominal pain, no hepatitis. Genitourinary: no kidney stones, no urine infection, no dysuria. Musculoskeletal: moderate pain, no weakness. Skin: no changing moles, no rash, yes skin lumps. Neurologic: no seizures, no epilepsy, no headache. Psychiatric: no emotional or psychiatric problem. Heme/Lymph: no bleeding problems, no anemia, no blood clots, no transfusions. Allergy/Immunologic: no swollen lymph nodes/glands, no IV drug abuse. Other: Additional ROS info: Except as noted in the above Review of Systems and in the History of Present Illness, all other systems have been reviewed and are negative or noncontributory. Physical Exam Vitals & Measurements T: 36.1 ?C (Temporal Artery) BP: 132/84 HT: 154.9 cm HT: 154.9 cm WT: 74.8 kg WT: 74.8 kg BMI: 31.17 HEENT: normal conjunctiva, sclera clear, no scleral icterus, EOM intact, PERRLA, oral mucosa moist without lesions. Neck: trachea midline, no mass, symmetric, no thyromegaly or nodules, no adenopathy Respiratory: lungs CTA, respirations non labored. Cardiovascular: regular rate and rhythm, no murmur, no pedal edema or varicosities. Musculoskeletal: normal gait, digits and nails without infection, nodes, cyanosis, clubbing. pain with movement of right shoulder, tender over medial/inferior edge of right scapula; no skin changes. Skin: no rashes, no lesions, no ulcers, no subcutaneous nodules, induration. Psychiatric/Neuro: oriented to time, place, person, judgement normal, affect appropriate for age, insight intact, no focal deficits. Tests: review of old records completed, Assessment/Plan 1. Chronic scapular pain (M89.8X1: Other specified disorders of bone, shoulder) no evidence of lipoma or mass, tender medial and inferior edge of scapula, no skin changes; continue Naproxen, follow up with Orthopedics; call with problems/questions. 2. Shoulder pain, right (M25.511: Pain in right shoulder) see # 1 Follow-up No qualifying data available Patient Education BMI for Adults Problem List/Past Medical History Ongoing Anxiety and depression Chronic scapular pain Deaf Hypertension Shoulder pain, right Wheezing Historical Anxiety Anxiety depression Deep vein thrombosis (DVT) of left lower extremity Hypertension Procedure/Surgical History section (10/10/2008), Tympanoplasty. Medications Claritin 10 mg Tab, 10 mg= 1 tab(s), Oral, Daily naproxen, See Instructions Symbicort 80/4.5 inhalation aerosol with adapter, 2 puff(s), Inhalation, BID Allergies Codeine Sulfate (Seizure) Lexapro (Vomiting) Morphine Sulfate (Hives) Vicodin (seizures) Social History Alcohol Current, 10/17/2020 Tobacco Former smoker, quit more than 30 days ago Tobacco Use:. Never Smokeless Tobacco Use:. Cigarettes, Ready to change: No. Household tobacco concerns: No., 10/31/2020 Family History Bleeding disorder: Negative: Mother, Father, Sister and Brother. Cancer: Mother and Father. Hypertension: Mother. Primary malignant neoplasm of female genital organ: Mother. Thyroid disease: Mother. [facility] Comment on above: Result Comment: Elec tronically Signed By: HARSH PARRISH, Gt [place]\Date and Time Signed: 10/31/20 14:09 EDT Evaluation note Note Date & Type Note Facility Evaluation note No Information [facility] Other Evaluation note Note Date & Type Note Facility Evaluation note No assessment information [facility] Work Phone: History general Narrative - Reported Note Date & Type Note Facility History general Narrative - Reported Type Medical History borderline DM Medical History HTN Medical History deaf Medical History asthma Surgical History C section [facility] Other History general Narrative - Reported Note Date & Type Note Facility History general Narrative - Reported Type Medical History borderline DM Medical History HTN Medical History deaf Medical History asthma Surgical History C section Hospitalization History see above [facility] Other Summary Purpose Family History No Family History Records FoundNo Family History Records FoundNo Family History Records Found Advance Directives No Advanced Directives Records Found Advance Directive Response Recorded Date/ Time Advance Directives No June 11:07am Advance Directive Response Recorded Date/ Time Advance Directives No June 10:07am Chief Complaint and Reason for Visit Chief Complaint g82.29 n95.1 z86.39 r73.01 Chief Complaint J45.41 Chief Complaint History of thyroid d isease Hypertension Impaired f Chief Complaint I10 M25.50 Z86.39 R7 3.01 N94.6 Additional Source Comments INFORMATION SOURCE (unrecogn ized section and content) DATE CREATED AUTHOR 11/05/2020 [facility] DATE CREATED AUTHOR AUTHOR'S ORGANIZ ATION 02/12/2022 [facility] DATE CREATED AUTHOR AUTHOR'S ORGANIZ ATION 07/02/2023 [facility] REASON FOR VISIT (unrecogniz ed section and content) SORE THROAT, COUGH, WHEEZING , PATIENT IS DEAFNo InformationCOUGH, CONGESTION, LEFT SIDE PAINNo InformationH/A, X1 WEEK, EXPOSURE TO COVID Care Teams (unrecognized sec tion and content) Team Status: Active Member Role Status Dates [facility] Primary Care Provider Active Team Status: Inactive Member Role Status Dates [facility] Primary Care Provider Active Regine Chinchilla APRN NP-C Attending Provider Active Team Status: Inactive Member Role Status HEATH [place] Attending Provider Active Team Status: Inactive Member Role Status HEATH [place] Attending Provider Active Services [facility] [place] Care Provider Active Goals (unrecognized section and content) Goals may be documented in a n alternate section FOR RECORDS PERTAINING TO PATIENTS WHO ARE OR HAVE BEEN ENROLLED IN A CHEMICAL DEPENDENCY/SUBSTANCEABUSE PROGRAM, SOME INFORMATION MAY BE OMITTED. This clinical summary was aggregated from multiple sources. Caution should be exercised in using it in the provision of clinical care. This summary normalizes information from multiple sources, and as a consequence, information in this document may materially change the coding, format and clinical context of patient data. In addition, data may be omitted in some cases. CLINICAL DECISIONS SHOULD BE BASED ON THE PRIMARY CLINICAL RECORDS. [employer] provides no warranty or guarantee of the accuracy or completeness of information in this document.
[2023-07-31 06:22] VITALS: BP 169/70; PULSE 72; RESP 16; TEMP 36.8; O2SAT 97; BMI 30.2
--- NOTE | 2023-07-31 06:33 | XR_ITS ---
The [address] [address] Patient Name: GLADYS HENRIQUEZ MRN: [id number] date: 1975 Sex: F Assigned Patient Location: ER Current Patient Location: ER Accession/Order Number: [id number] Exam Date: 07/31/2023 06:52 Report Date: 07/31/2023 07:11 At the request of: ELA GOMEZ Procedure: XR shoulder LT min 2V PROCEDURE: XR shoulder LT min 2V HISTORY: atraumatic pain COMPARISON: None. FINDINGS: BONES:No fracture, acute abnormality, or significant arthropathy. SOFT TISSUES:No visible soft tissue swelling. EFFUSION:None visible. OTHER: Negative. XR/XR shoulder LT min 2V IMPRESSION: 1. No acute bone abnormality or significant degenerative changes. Electronically authenticated by: PEMA SHRESTHA Date: 07/31/2023 07:11
--- NOTE | 2023-07-31 06:33 | ECG_ITS ---
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
--- NOTE | 2023-07-31 06:34 | ED.GENADUL1 ---
HPI - General Adult General Chief complaint: Back Pain/Injury Stated complaint: Back Pain Time Seen by Provider: 07/31/23 06:28 Source: family Mode of arrival: walk-in Limitations: no limitations History of Present Illness HPI narrative: 47-year-old female presents for pain in her left shoulder. It started last night after playing cards but there was no trauma. It hurts more if she raises her arm up and it's in the posterior shoulder. She is right-handed. There is no unusual activity or injury. Related Data Allergies Allergy/AdvReac Type Severity Reaction Status Date / Time codeine Allergy Severe Verified 07/31/23 06:24 hydrocodone [From Vicodin] Allergy Severe Verified 07/31/23 06:24 morphine Allergy Severe Hives Verified 07/31/23 06:24 Review of Systems ROS Narrative A ten point review of systems is negative except as noted above. PFSH PFS Social History Smoking status: Never smoker Exam Narrative Exam Narrative: Nurses note and vital signs reviewed and patient is not hypoxic. General: The patient appears well and in no apparent distress. Patient is resting comfortably on cart. Skin: Warm, dry, no pallor noted. There is no rash noted. Head: Normocephalic, atraumatic Eye: Normal conjunctiva, no drainage Ears, Nose, Mouth, and Throat: oral mucosa is moist. Nares patent. Cardiovascular: Regular Rate and Rhythm Respiratory: Patient is in no distress, no accessory muscle use, lungs are clear to auscultation, no wheezing, rales or rhonchi Back: non-tender GI: soft and nontender Musculoskeletal: left shoulder is full range of motion. There is no bruise or rash. There is very minimal tenderness posteriorly. Neurological: awake and alert Psychiatric: Cooperative Constitutional Vital Signs, click to edit/add: Last Vital Signs Temp 98.2 F 07/31/23 06:22 Pulse 72 07/31/23 06:22 Resp 16 07/31/23 06:22 BP 169/70 H 07/31/23 06:22 Pulse Ox 97 07/31/23 06:22 O2 Del Method Room Air 07/31/23 06:22 Course Vital Signs Vital signs: Vital Signs Temperature 98.2 F 07/31/23 06:22 Pulse Rate 72 07/31/23 06:22 Respiratory Rate 16 07/31/23 06:22 Blood Pressure 169/70 H 07/31/23 06:22 Pulse Oximetry 97 07/31/23 06:22 Oxygen Delivery Method Room Air 07/31/23 06:22 Temperature 98.2 F 07/31/23 06:22 Pulse Rate 72 07/31/23 06:22 Respiratory Rate 16 07/31/23 06:22 Blood Pressure 169/70 H 07/31/23 06:22 Pulse Oximetry 97 07/31/23 06:22 Oxygen Delivery Method Room Air 07/31/23 06:22 Medical Decision Making MDM Narrative Medical decision making narrative: tests are ordered and the patient is signed out to Dr. Moran Differential Diagnosis Differential Diagnosis: shoulder strain, myocardial infarction, pneumothorax, pulmonary embolism Discharge Plan Discharge Chief Complaint: Back Pain/Injury Clinical Impression: Left shoulder pain Referrals: [facility] [Primary Care Provider] - 1 week
[2023-07-31 06:52] LABS: Basophils Absolute Auto 0.1 10^3/uL (0.0-0.1); Basophils Percent Auto 1.2 % (0.2-2.0); Eosinophils Absolute Auto 0.6 10^3/uL (0.0-0.7); Eosinophils Percent Auto 9.2 % (0.9-7.0); Hematocrit 40.5 % (36.0-48.0); Hemoglobin 13.3 g/dL (12.0-16.0); Immature Granulocytes Abs Auto 0.02 10^3/uL (0.00-0.03); Immature Granulocytes Pct Auto 0.3 % (0.0-0.5); Lymphocytes Absolute Auto 1.7 10^3/uL (1.2-3.8); Lymphocytes Percent Auto 25.1 % (20.5-60.0); Mean Corpuscular HGB Conc 32.8 g/dL (29.9-35.2); Mean Corpuscular Hemoglobin 30.4 pg (26.7-34.0); Mean Corpuscular Volume 92.7 fL (81.0-99.0); Mean Platelet Volume 9.6 fL (9.5-13.5); Monocytes Absolute Auto 0.5 10^3/uL (0.3-0.8); Monocytes Percent Auto 7.1 % (1.7-12.0); Neutrophils Absolute Auto 3.9 10^3/uL (1.4-6.5); Neutrophils Percent Auto 57.1 % (43.0-75.0); Platelet Count 259 10^3/uL (150-450); Red Blood Count 4.37 10^6/uL (4.20-5.40); Red Cell Distribution Width 12.2 % (11.0-15.0); White Blood Count 6.9 10^3/uL (4.0-11.0)
[2023-07-31 07:06] LABS: Anion Gap 12.2; BUN Creatinine Ratio 15.7; Calcium 9.1 mg/dL (8.5-10.1); Carbon Dioxide 28.9 mmol/L (21.0-32.0); Chloride 104 mmol/L (98-107); Estimated GFR (African America >60 (>=60); Estimated GFR (Non-African Ame >60 (>=60); Glucose 112 mg/dL (74-106); Potassium 4.1 mmol/L (3.5-5.1); Sodium 141 mmol/L (136-145); Troponin I High Sensitivity 4.5 pg/mL (4.0-51.3)
[2023-07-31 07:13] LABS: D Dimer 0.34 mg/L FEU (<=0.59)
== END 2023-07-31 07:58 | disposition home or self-care (01) ==
PROVIDERS: Emergency Provider Emergency Medicine
DX: M25.512 Pain in left shoulder (principal)
CPT/HCPCS: 36415; 73030; 80048; 84484; 85025; 85378; 93005; 99285

== ENCOUNTER 2023-09-20 16:10 | Emergency (ER) | payer OTHER, SELFPAY ==
[2023-09-20 16:16] VITALS: BP 172/102; PULSE 63; RESP 18; TEMP 36.7; O2SAT 100; BMI 32.1
[2023-09-20 16:47] LABS: Influenza Virus A Antigen Negative; Influenza Virus B Antigen Negative; Internal Control Within Normal Limits; SARS-CoV-2 Ag POSITIVE (NEGATIVE)
--- NOTE | 2023-09-20 17:04 | ED.URI1 ---
HPI - URI/Sore Throat General Chief Complaint: Upper Respiratory Infection Stated Complaint: NAUSEA CHILLS BODY ACHES Time Seen by Provider: 09/20/23 16:16 Source: patient History of Present Illness HPI Narrative: 47-year-old female presents for body aches and nausea and not feeling well. She has had this since yesterday. She has not had a known fever. Symptoms are continuous. Related Data Home Medications Medication Instructions Recorded Confirmed lurasidone 20 mg tablet 20 mg PO QPM 09/20/23 09/20/23 omeprazole 10 mg capsule,delayed 10 mg PO DAILY 09/20/23 09/20/23 release umeclidinium 62.5 mcg-vilanterol 1 inh inhalation DAILY 09/20/23 09/20/23 25 mcg/actuation powdr for inhalation (Anoro Ellipta) Previous Rx's Medication Instructions Recorded ondansetron 4 mg disintegrating 4 mg PO Q6H PRN nausea and 09/20/23 tablet vomiting #20 tabs Allergies Allergy/AdvReac Type Severity Reaction Status Date / Time codeine Allergy Severe Verified 07/31/23 06:24 hydrocodone [From Vicodin] Allergy Severe Verified 07/31/23 06:24 morphine Allergy Severe Hives Verified 07/31/23 06:24 Review of Systems ROS Narrative A ten point review of systems is negative except as noted above. PFSH PFSH Social History Smoking status: Never smoker Exam Narrative Exam Narrative: Nurses note and vital signs reviewed and patient is not hypoxic. General: The patient appears well and in no apparent distress. Patient is resting comfortably on cart. Skin: Warm, dry, no pallor noted. There is no rash noted. Head: Normocephalic, atraumatic Eye: Normal conjunctiva, no drainage Ears, Nose, Mouth, and Throat: oral mucosa is moist. Nares patent. Cardiovascular: Regular Rate and Rhythm Respiratory: Patient is in no distress, no accessory muscle use, lungs are clear to auscultation, no wheezing, rales or rhonchi Back: non-tender GI: Soft and nontender Musculoskeletal: The patient has no evidence of calf tenderness, no pitting edema, symmetrical pulses noted bilaterally Neurological: A&O Psychiatric: Cooperative Constitutional Vital Signs, click to edit/add: Last Vital Signs Temp 98.1 F 09/20/23 16:16 Pulse 63 09/20/23 16:16 Resp 18 09/20/23 16:16 BP 172/102 H 09/20/23 16:16 Pulse Ox 100 09/20/23 16:16 O2 Del Method Room Air 09/20/23 16:16 Course Vital Signs Vital signs: Vital Signs Temperature 98.1 F 09/20/23 16:16 Pulse Rate 63 09/20/23 16:16 Respiratory Rate 18 09/20/23 16:16 Blood Pressure 172/102 H 09/20/23 16:16 Pulse Oximetry 100 09/20/23 16:16 Oxygen Delivery Method Room Air 09/20/23 16:16 Temperature 98.1 F 09/20/23 16:16 Pulse Rate 63 09/20/23 16:16 Respiratory Rate 18 09/20/23 16:16 Blood Pressure 172/102 H 09/20/23 16:16 Pulse Oximetry 100 09/20/23 16:16 Oxygen Delivery Method Room Air 09/20/23 16:16 MDM - URI/Sore Throat MDM Narrative Medical decision making narrative: The patient has tested positive for COVID and findings are discussed with the patient. No further workup is indicated. Treatment diagnosis and follow-up were discussed with the patient. Lab Data Attestation: I reviewed the patient's lab results. Labs: Lab Results 09/20/23 Range/Units 16:24 Influenza Type A Ag Negative Influenza Type B Ag Negative SARS-CoV-2 Ag (CV2AG) Positive A (NEGATIVE) Discharge Plan Discharge Stand Alone Forms: Portal Instructions Chief Complaint: Upper Respiratory Infection Clinical Impression: COVID-19 Patient Disposition: Home, Self-Care Time of Disposition Decision: 17:02 Condition: Good Mode of Transportation: Private Vehicle Prescriptions / Home Meds: New ondansetron 4 mg tablet,disintegrating 4 mg PO Q6H PRN (Reason: nausea and vomiting) Qty: 20 0RF No Action lurasidone 20 mg tablet 20 mg PO QPM omeprazole 10 mg capsule,delayed release(DR/EC) 10 mg PO DAILY Anoro Ellipta 62.5-25 mcg/actuation blister with device 1 inh INHALATION DAILY Instructions: COVID-19 (Coronavirus Disease 2019) (ED), COVID-19: Slow the Coronavirus Spread (ED), Face Coverings (Masks) and COVID-19 (ED), How to Recover from COVID-19 at Home (ED) Referrals: [facility] [Primary Care Provider] - 1 week
== END 2023-09-20 17:15 | disposition home or self-care (01) ==
PROVIDERS: Emergency Provider Emergency Medicine
DX: U07.1 COVID-19 (principal); Z79.899 Other long term (current) drug therapy
CPT/HCPCS: 87804; 87811; 99283

== ENCOUNTER 2024-05-26 17:32 | Emergency (ER) | payer OTHER, SELFPAY ==
[2024-05-26 17:37] VITALS: BP 151/101; PULSE 87; TEMP 36.8; O2SAT 99; BMI 32.1
--- OUTSIDE RECORDS SUMMARY | 2024-05-26 17:43 | XMS_ITS | CCD ---
Author Organization [facility] Care Team Providers Care Store Promoter Name Role Phone Clover Olson Unavailable Yovanny Pierre Unavailable [facility] Primary Care Unavailkenneth MILLER, DR GOODE Attending Unavailable PAUL, DR GOODE Consulting Unavailable PAUL, DR GOODE Admitting Unavailable JEROME SALMERON Attending Unavailable JEROME SALMERON Admitting Unavailable [facility] Primary Care Unavailkenneth SHRESTHA, DR WILLIAM Desai Consulting Unavailable JEROME SALMERON Consulting Unavailable [facility], Services Primary Care Provider HEATH Chinchilla Attending Provider Amy Soto Unavailable [facility], Services Primary Care Provider HEATH Chinchilla Attending Provider HEATH Chinchilla Attending Provider [facility], Services Primary Care Provider 1( [phone] MD Robert Haji Emergency Provider MEY MITTAL Attending Unavailable MEY MITTAL Attending Unavailable MEY MITTAL Referring Unavailable [facility] Primary Care Provider MD Robert Haji Emergency Provider [facility], Services Primary Care Provider MD Shun Oswald Attending Provider Shun Oswald Attending Unavailable [facility], Services Primary Care UnavailShun Loomis Admitting Unavailable Regine Chinchilla Admitting Unavailable Regine Chinchilla Attending Unavailable [facility], Services Primary Care Unavaila Regine Nguyen Admitting Unavailable Regine Chinchilla Attending Unavailable Robert Haji Attending Unavailable [facility], [facility] Primary Care Unavaila Robert Velazquez Admitting Unavailable Allergies Allergy Classification Reported Allergen(s) Allergy Type Date of Onset Reaction(s) Facility (6 sources) Acetaminophen / HYDROcodone; Translations: [Vicodin] Drug Allergy 4 seizures [facility] Repository (5 sources) Codeine Drug Allergy Unknown [facility] Other (9 sources) Morphine Drug Allergy 4 Unknown, [facility] (5 sources) Codeine Drug Allergy 4 seizure [facility]ository (1 source) Morphine Drug Allergy 4 [facility] (5 sources) HYDROcodone; Translations: [hydrocodone] Drug Allergy 4 [facility] (1 source) Acetaminophen Drug Allergy 2 [facility] Repository (1 source) Codeine Drug Allergy 4 [facility] Repository (1 source) Morphine Drug Allergy 4 [facility] Repository Medications Current Medications Medication Drug Class(es) Dates Sig (Normalized) Sig (Original) [id number] 200 actuat albuterol 0.09 mg/actuat metered dose [...] 1 tablet Orally Once a day Active aspirin 81 mg oral tablet (3 sources) Platelet Aggregation Inhibitor, Nonsteroidal Anti-inflammatory Drug Start: 4 take 81 mg by mouth once daily Aspirin Active 81 MG PO Daily October 12, 2023 12:00am Budesonide / formoterol (5 sources) Corticosteroid, beta2-Adrenergic Agonist Symbicort Active diclofenac sodium 75 mg delayed release oral tablet (2 sources) Nonsteroidal Anti-inflammatory Drug Start: take 1 tablet by mouth twice daily at mealtime Diclofenac Sodium 75 MG 1 tablet with food or milk Orally Twice a day start after completion of Dosepak for 30 day(s) Apr, Active ibuprofen 800 mg oral tablet (8 sources) Nonsteroidal Anti-inflammatory Drug Start: take 600 mg by mouth every eight hours Ibuprofen Active 600 MG PO Every 8 hours August 24, 2023 1:00am Start: 08-24-2023 take 800 mg by mouth every eight hours Ibuprofen Active 800 MG PO Every 8 hours August 24, 2023 1:00am Loratadine (5 sources) Claritin Active lurasidone hydrochloride 20 mg oral tablet (3 sources) Atypical Antipsychotic Start: 2023 Lurasidone (Latuda) 20 mg tablet Active 20 MG PO Daily October 12, 2023 12:00am must administer with food (at least 350 calories) meclofenamate 100 mg oral capsule (4 sources) Start: 2023 take 100 mg by mouth three times daily Meclofenamate Active 100 MG PO Three times daily August 24, 2023 1:00am methocarbamol 750 mg oral tablet (4 sources) Muscle Relaxant Start: 2023 take 750 mg by mouth every six hours Methocarbamol Active 750 MG PO Every 6 hours August 24, 2023 1:00am methylPREDNISolone 4 mg oral tablet (2 sources) Corticosteroid Start: 2021 methylPREDNISolone 4 MG as directed Orally Once a day for 6 days November, Active nabumetone 750 mg oral tablet (4 sources) Nonsteroidal Anti-inflammatory Drug Start: 2023 take 750 mg by mouth twice daily Nabumetone Active 750 MG PO Twice daily August 24, 2023 1:00am omeprazole 10 mg delayed release oral capsule (7 sources) Proton Pump Inhibitor Start: 2023 take 10 mg by mouth once daily Omeprazole Active 10 MG PO Daily August 24, 2023 1:00am take 1 capsule by mouth once lupe ly Omeprazole 20 MG TAKE ONE CAPSULE BY MOUTH DAILY 30 MINUTES BEFORE A MEAL Oral for 30 Days Active predniSONE 20 mg oral tablet (2 sources) Start: 03-18-2022 take 1 tablet by mouth every twelve [...] suspension (8 sources) Corticosteroid Start: 03-18-2022 Kenalog-40 Mar, 40 mg Start: 09-26-2020 Kenalog -40 mg Sep, 40 mg Problems Active Problems Problem Classification Problem Date Documented Da te Episodic/Chronic Abdominal pain (8 sources) Unspecified abdominal pain; Translations: [Left lower quadrant pain] Onset: 02-09-2022 Episodic Asthma (11 sources) Exacerbation of mild persistent asthma; Translations: [Mild persistent asthma with (acute) exacerbation] Onset: 11-24-2021 Resolved: 03-18-2022 Chronic Essential hypertension (9 sources) Hypertensive disorder; Translations: [Essential (primary) hypertension] Onset: 05-27-2023 10-12-2023 Chronic Headache; including migraine (4 sources) Headache; including migraine; Translations: [HEADACHE UNSPECIFIED] Onset: 10-16-2021 Immunizations and screening for infectious disease (2 sources) Contact with and (suspected) exposure to other viral communicable diseases; Translations: [Contact with and (suspected) exposure to other viral communicable diseases] Episodic Mood disorders (3 sources) Bipolar disorder; Translations: [Bipolar disorder, unspecified] 10-12-2023 Chronic Other aftercare (1 source) Other chcf (current) drug therapy; Translations: [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 CURRENT DRUG THERAPY] Onset: 02-11-2022 Episodic Other aftercare (1 source) long term care phlebotomist (current) use of aspirin; Translations: [ASSISTED CURRENT USE OF ASPIRIN] Onset: 02-11-2022 Episodic Other connective tissue disease (4 sources) Pain in lower limb; Translations: [Pain in left leg] 08-24-2023 Episodic Other connective tissue disease (2 sources) Pain in calf; Translations: [Pain in left lower leg] 10-12-2023 Episodic Other connective tissue disease (2 sources) Pain in left lower leg; Translations: [Pain in limb] 10-12-2023 Episodic Other connective tissue disease (1 source) Other specified soft tissue disorders; Translations: [Other specified soft tissue disorders] Onset: 12-07-2023 Episodic Other ear and sense organ disorders (1 source) Unspecified hearing loss, bilateral; Translations: [UNSPECIFIED HEARING LOSS BILATERAL] Onset: 10-17-2021 Chronic Other lower respiratory disease (3 sources) H/O: asthma; Translations: [Personal history of other diseases of the respiratory system] Episodic Other upper respiratory infections (1 source) Acute upper respiratory infection, unspecified Episodic Pneumonia (except that caused by tuberculosis or sexually transmitted disease) (1 source) Bronchopneumonia, unspecified organism; Translations: [BRONCHOPNEUMONIA UNS ORGANISM] Onset: 02-11-2022 Episodic Residual codes; unclassified (2 sources) Edema of lower extremity; Translations: [Localized edema] 10-12-2023 Episodic Residual codes; unclassified (2 sources) Localized edema; Translations: [Edema] 10-12-2023 Episodic Unclassified (1 source) Dysmenorrhea, unspecified; Translations: [Dysmenorrhea, unspecified] Onset: 06-30-2023 Varicose veins of lower extremity (4 sources) Venous varices; Translations: [Varicose veins of unspecified lower extremity with other complications] 10-12-2023 Episodic Past or Other Problems Problem Classification Problem Date Documented Da te Episodic/Chronic Diabetes mellitus without complication (1 source) Impaired fasting glucose; Translations: [Impaired fasting glucose] Onset: 05-27-2023 Episodic Other connective tissue disease (1 source) Pain in left lower limb; Translations: [Pain in left leg] Onset: 08-24-2023 Episodic Other lower respiratory disease (1 source) Personal history of other diseases of the respiratory system Onset: 03-18-2022 Resolved: 03-18-2022 Episodic Other non-traumatic joint disorders (1 source) Pain in unspecified joint; Translations: [Pain in unspecified joint] Onset: 05-27-2023 Episodic Other nutritional; endocrine; and metabolic disorders (1 source) Personal history of other endocrine, nutritional and metabolic disease; Translations: [Personal history of other endocrine, nutritional and metabolic disease] Onset: 05-27-2023 Episodic Unclassified (1 source) Cough R05.9 Onset: 11-24-2021 Resolved: 11-24-2021 Results Test Name Value Interpretation Reference Range Facility US venous duplex LE LTon US venous duplex LE LT [facility] [address] [place] [address] Ultrasound Report Signed Patient: Clover Henriquez MR#: [id number] : 1975 Acct:[id number] Age/Sex: 48 / F ADM Date: 12/07/23 Loc: [facility] Room: Type: [facility] Attending Dr: Shun Oswald MD Ordering Provider: Shun Oswald MD Date of Service: 12/07/23 US/US venous duplex LE LT: M79.89 - Other specified soft tissue disorders Copies to: Shun Oswald MD LEFT LOWER EXTREMITY VENOUS DUPLEX INDICATION: Left leg edema. Unilateral left lower extremity venous duplex Doppler study was obtained utilizing B-mode, color- flow and spectral Doppler. FINDINGS: The left common femoral, femoral, and popliteal veins showed adequate compressibility, color-flow and augmentation. The left posterior tibial and peroneal veins were compressible, as well as proximal greater saphenous vein. The contralateral right common femoral vein was compressible with color-flow and augmentation. US/US venous duplex LE LT IMPRESSION: NO EVIDENCE OF DEEP VENOUS THROMBOSIS IN THE LEFT LOWER EXTREMITY. NO SUPERFICIAL THROMBOPHLEBITIS WAS NOTED. Severe reflux was identified to location of the left greater saphenous vein saphenofemoral junction and popliteal vein. The left greater saphenous vein was patent from the groin to the ankle and was significantly enlarged. Impression dictated by: Carlos Asencio MD12/09/2023 8:32 AM Dictation [facility] Tech: Chicabrit Biggs Transcribed By: SADE 12/09/23831 Dictated By: Carlos Asencio MD 12/09/23831 Signed By: 12/09/23831 Normal [facility] US venous duplex LE BIon US venous duplex LE BI [facility] [address] [place] [address] Ultrasound Report Signed Patient: Clover Henriquez MR#: [id number] : 1975 Acct:[id number] Age/Sex: 47 / F ADM Date: 08/24/23 Loc: ER Room: Type: [facility] ER Attending Dr: Ordering Provider: Robert Haji MD Date of Service: 08/24/23 US/US venous duplex LE BI: Left leg pain thigh down to ankle, hx of dvt Copies to: Robert Haji MD BILATERAL LOWER EXTREMITY VENOUS DUPLEX INDICATION: Left groin swelling. PROCEDURE: Color-flow duplex scanning is used to interrogate the deep venous system of the right and left lower extremities. The common femoral vein, femoral vein and popliteal vein show good compressibility with normal proximal and distal augmentation. The calf veins are compressible. US/US venous duplex LE BI IMPRESSION: NO EVIDENCE FOR DEEP VEIN THROMBOSIS OR PROXIMAL SUPERFICIAL THROMBOPHLEBITIS IN THE RIGHT OR LEFT LOWER EXTREMITY. Impression dictated by: Carlos Asencio MD08/25/2023 11:16 AM Dictation Location: [place] [address] Tech: Cinda Monika Transcribed By: SADE 08/25/23 111 Dictated By: Carlos Asencio MD 08/25/23 111 Signed By: 08/25/23 111 Normal [facility] Basic Metabolic Panelon 08-12 Anion gap [Moles/Vol] 9.7 mmol/L Normal 6.0-15.0 [facility] Comment on above: Performed By: #### H CGQUAL, CBC, BMP ####[facility] [id number] [place] [id number] [facility] Calcium [Mass/Vol] 9.8 mg/dL Normal 8.6-10.3 [facility] Comment on above: Performed By: #### H CGQUAL, CBC, BMP ####[facility] [id number] [place] [id number] [facility] Chloride [Moles/Vol] 104 mmol/L Normal 98-107 [facility] Comment on above: Performed By: #### H CGQUAL, CBC, BMP ####[facility] [id number] [place] [address] [facility] CO2 [Moles/Vol] 29.2 mmol/L Normal 21.0-31.0 [facility] Comment on above: Performed By: #### H CGQUAL, CBC, BMP ####[place] [address] [place] [address] [facility] Creatinine [Mass/Vol] 0.99 mg/dL Normal 0.60-1.20 [facility] Comment on above: Performed By: #### H CGQUAL, CBC, BMP ####[place] [address] [place] [address] [place] Creatinine Clr Calc Pharmacy 76.92 Normal [facility] Comment on above: Performed By: #### H CGQUAL, CBC, BMP ####[place] [address] [place] [address] [place] GFR/1.73 sq M.predicted MDRD (S/P/Bld) [Vol rate/Area] mL/min/{1.73_m2} Normal [facility] Comment on above: Performed By: #### H CGQUAL, CBC, BMP ####[place] [address] [place] [id number] [facility] Glucose [Mass/Vol] 105 mg/dL High 70-100 [facility] Comment on above: Result Comment: [place] Glucose Reference Range is dependent on time and content of last meal. Glucose of more than 200 mg/dL in a nonstressed, ambulatory subject supports the diagnosis of Diabetes Mellitus. ADA recommended reference range Performed By: #### H CGQUAL, CBC, BMP ####[facility] [place] [address] [facility] Potassium [Moles/Vol] 3.9 mmol/L Normal 3.5-5.1 [facility] Comment on above: Performed By: #### H CGQUAL, CBC, BMP ####[facility] [place] [address] [place] Sodium [Moles/Vol] 139 mmol/L Normal 136-145 [facility] Comment on above: Performed By: #### H CGQUAL, CBC, BMP ####[facility] [id number] Urea nitrogen [Mass/Vol] 15 mg/dL Normal 7-25 [facility] Comment on above: Performed By: #### H CGQUAL, CBC, BMP ####[facility] [id number] Basophils Auto (Bld) [#/Vol] Ordered By: Robert Haji on 08-24-2023 Basophils (Bld) [#/Vol] 0.1 10*3/uL 0.0-0.2 [facility] Basophils/100 WBC Auto (Bld) Ordered By: Robert Haji on 08-24-2023 Basophils/100 WBC (Bld) 1.2 % . F [facility] Bilirubin Test strip Ql (U)O rdered By: Robert Haji on 08-24-2023 Bilirubin Ql (U) Negative Negative [facility] CT abdomen pelvis w conon CT abdomen pelvis w con [facility] [address] [place] [address] CT Scan Report Signed Patient: Clover Henriquez MR#: [id number] : 1975 Acct:[id number] Age/Sex: 47 / F ADM Date: 08/24/23 Loc: ER Room: Type: [facility] ER Attending Dr: Copies to: Robert Haji MD Ordering Provider: Robert Haji MD Date of Service: 08/24/23 CT/CT abdomen pelvis w con: left lower quadrant pain, hx of pcos CT ABDOMEN AND PELVIS WITH INTRAVENOUS CONTRAST: CLINICAL HISTORY: Left lower quadrant tenderness. Intermittent nausea. Swelling and pain left groin rating down left leg. COMPARISON: None TECHNIQUE: Spiral images were obtained through the abdomen and pelvis following the administration of intravenous contrast. This CT exam was performed using one or more following dose reduction techniques: Automated exposure control, adjustment of the mA and/or kV according to patient size, or use of iterative reconstruction technique. FINDINGS: Lung Bases: [No acute findings.] Organs:Liver gallbladder portal vein spleen pancreas adrenal glands and kidneys all appear unremarkable. Abdominal aorta appears normal in caliber.[ GI: Stomach is nondistended. Small bowel appears nondilated. No acute colonic abnormality.[ Pelvis:[Urinary bladder and uterus appear grossly unremarkable. No adnexal mass.] Peritoneum/Retroperit oneum:No free air, free fluid or lymphadenopathy.[ Abd wall/Bones:Abdominal wall demonstrates no acute findings. Osseous structures demonstrate degenerative change.[ CT/CT abdomen pelvis w con IMPRESSION: No acute process. Impression dictated by: Sivakumar Edwards Jr., DLindaOLinda08/24/2023 7:43 PM Dictation Location: [place] [address] Transcribed By: [facility] 08/24/231942 Dictated By: Sivakumar Edwards Jr, DO 08/24/231940 Signed By: 08/24/231942 Normal [facility] Calcium [Mass/volume] in Ser um or PlasmaOrdered By: Robert Haji on 08-24-2023 Calcium [Mass/Vol] 9.8 mg/dL 8.6-10.3 [facility] Carbon dioxide, total [Moles /volume] in Serum or PlasmaOrdered By: Robert Haji on 08-24-2023 CO2 [Moles/Vol] 29.2 mmol/L 21.0-31.0 [facility] Chloride [Moles/volume] in S lyly or PlasmaOrdered By: Robert Haji on 08-24-2023 Chloride [Moles/Vol] 104 mmol/L 98-107 [facility] Choriogonadotropin.beta subu nit [Units/volume] in Serum or PlasmaOrdered By: Robert Haji on 08-24-2023 HCG.beta subunit Qn Negative [facility] Color Auto (U)Ordered By: Lizzette Dejesusland on 08-24-2023 Color (U) Yellow Yellow [facility] Complete Blood Count Auto Di ffon 08-24-2023 Basophils (Bld) [#/Vol] 0.1 10*3/uL Normal 0.0-0.2 [facility] Comment on above: Result Comment: PERF ORMED BY: [facility] [address] [place] [address] PATHOLOGIST PAGE DESIGNER RASHMI ECHOLS M.D. Performed By: #### H CGQUAL, CBC, BMP ####[address] Basophils/100 WBC (Bld) 1.2 % Normal . T [facility] Comment on above: Performed By: #### H CGQUAL, CBC, BMP ####[address] Eosinophils (Bld) [#/Vol] 0.7 10*3/uL High 0.0-0.45 [facility] Comment on above: Performed By: #### H CGQUAL, CBC, BMP ####[address] Eosinophils/100 WBC (Bld) 9.4 % Normal . [facility] Comment on above: Performed By: #### H CGQUAL, CBC, BMP ####[address] Erythrocyte distribution width (RBC) [Ratio] 13.7 % Normal 11.9-15.3 [facility] Comment on above: Performed By: #### H CGQUAL, CBC, BMP ####[address] Hematocrit (Bld) [Volume fraction] 40.5 % Normal 34.0-46.4 [facility] Comment on above: Performed By: #### H CGQUAL, CBC, BMP ####[address] Hemoglobin (Bld) [Mass/Vol] 13.7 g/dL Normal 11.8-15.4 [facility] Comment on above: Performed By: #### H CGQUAL, CBC, BMP ####[address] Lymphocytes (Bld) [#/Vol] 1.4 10*3/uL Normal 1.00-4.8 [facility] Comment on above: Performed By: #### H CGQUAL, CBC, BMP ####[address] Lymphocytes/100 WBC (Bld) 19.0 % Normal . [facility] Comment on above: Performed By: #### H CGQUAL, CBC, BMP ####[address] MCH (RBC) [Entitic mass] 31.0 pg Normal 24.7-34.3 [facility] Comment on above: Performed By: #### H CGQUAL, CBC, BMP ####[address] MCV (RBC) [Entitic vol] 91.5 fL Normal 80-100 [facility] Comment on above: Performed By: #### H CGQUAL, CBC, BMP ####[address] Mean Corpuscular HGB Conc 33.9 g/dL Normal 32.0-35.0 [facility] Comment on above: Performed By: #### H CGQUAL, CBC, BMP ####[address] Monocytes (Bld) [#/Vol] 0.6 10*3/uL Normal 0.0-0.8 [facility] Comment on above: Performed By: #### H CGQUAL, CBC, BMP ####[address] Monocytes/100 WBC (Bld) 21.83 % High 0.00-20.00 [facility] Comment on above: Result Comment: For adults in ED, MDW > 20.0 may be associated with a higher risk of sepsis during the first 12 hrs of hospital admission Performed By: #### H CGQUAL, CBC, BMP ####[address] Monocytes/100 WBC (Bld) 7.3 % Normal . [facility] Comment on above: Performed By: #### H CGQUAL, CBC, BMP ####[address] [place] [address] [place] Neutrophils (Bld) [#/Vol] 4.7 10*3/uL Normal 1.8-7.7 [facility] Comment on above: Performed By: #### H CGQUAL, CBC, BMP ####[place] [id number] [facility] Neutrophils/100 WBC (Bld) 63.1 % Normal . [facility] Comment on above: Performed By: #### H CGQUAL, CBC, BMP ####[place] [id number] [facility] NRBC% 0.1 /100{WBC} Normal 0-0.5 [facility] Comment on above: Performed By: #### H CGQUAL, CBC, BMP ####[place] [id number] [facility] Platelet mean volume (Bld) [Entitic vol] 7.8 fL Normal 6.3-10.7 [facility] Comment on above: Performed By: #### H CGQUAL, CBC, BMP ####[address] [address] [facility] Platelets (Bld) [#/Vol] 363 10*3/uL Normal 150-450 [facility] Comment on above: Performed By: #### H CGQUAL, CBC, BMP ####[place] [id number] [facility] RBC (Bld) [#/Vol] 4.42 10*6/uL Normal 3.60-5.00 [facility] Comment on above: Performed By: #### H CGQUAL, CBC, BMP ####[address] [address] [facility] WBC (Bld) [#/Vol] 7.5 10*3/uL Normal 3.8-11.6 [facility] Comment on above: Performed By: #### H CGQUAL, CBC, BMP ####[place] [id number] [facility] Creatinine [Mass/volume] in Serum or PlasmaOrdered By: Robert Dejesusland on 08-24-2023 Creatinine [Mass/Vol] 0.99 mg/dL 0.60-1.20 [facility] Eosinophils Auto (Bld) [#/Vo l]Ordered By: [facility] 08-24-2023 Eosinophils (Bld) [#/Vol] 0.7 10*3/uL 0.0-0.45 [facility] Eosinophils/100 WBC Auto (Bl d)Ordered By: Robert Avalon on 08-24-2023 Eosinophils/100 WBC (Bld) 9.4 % . [facility] Erythrocyte distribution wid th Auto (RBC) [Ratio]Ordered By: [facility] on 08-24-2023 Erythrocyte distribution width (RBC) [Ratio] 13.7 % 11.9-15.3 [facility] Glucose [Mass/volume] in Ser um or PlasmaOrdered By: [facility] on 08-24-2023 Glucose [Mass/Vol] 105 mg/dL 70-100 [facility] Comment on above: ADA recommended refe rence rangeRandom Glucose Reference Range is dependent on time and content of last meal. Glucose of more than 200 mg/dL in a nonstressed, ambulatory subject supports the diagnosis of Diabetes Mellitus. HCG,Qualitative Serumon 08-12 HCG,Qualitative Serum Negative Normal [facility] Comment on above: Result Comment: PERF ORMED BY: [facility] [address] [place] [address] PATHOLOGIST PAGE DESIGNER RASHMI ECHOLS M.D. Performed By: #### H CGQUAL, CBC, BMP ####[facility] [id number] [place] [address] [facility] Hematocrit Auto (Bld) [Volum e fraction]Ordered By: Robert Dejesusland on 08-24-2023 Hematocrit (Bld) [Volume fraction] 40.5 % 34.0-46.4 [facility] Hemoglobin [Mass/volume] in BloodOrdered By: Robert Dejesusland on 08-24-2023 Hemoglobin (Bld) [Mass/Vol] 13.7 g/dL 11.8-15.4 [facility] Ketones Auto test strip (U) [Mass/Vol]Ordered By: Robert Haji on 08-24-2023 Ketones (U) [Mass/Vol] Negative Negative [facility] Leukocytes [#/volume] correc jay for nucleated erythrocytes in Blood by Automated counOrdered By: Robert Haji on 08-24-2023 WBC corrected for nucl RBC Auto (Bld) [#/Vol] 7.5 10*3/uL 3.8-11.6 [facility] Lymphocytes Auto (Bld) [#/Vo l]Ordered By: Robert Haji on 08-24-2023 Lymphocytes (Bld) [#/Vol] 1.4 10*3/uL 1.00-4.8 [facility] Lymphocytes/100 WBC Auto (Bl d)Ordered By: Robert Haji on 08-24-2023 Lymphocytes/100 WBC (Bld) 19.0 % . [facility] MCH Auto (RBC) [Entitic mass ]Ordered By: Robert Haji on 08-24-2023 MCH (RBC) [Entitic mass] 31.0 pg 24.7-34.3 [facility] MCHC Auto (RBC) [Mass/Vol]Or dered By: Robert Haji on 08-24-2023 MCHC (RBC) [Mass/Vol] 33.9 g/dL 32.0-35.0 [facility] MCV Auto (RBC) [Entitic vol] Ordered By: Robert Haji 08-24-2023 MCV (RBC) [Entitic vol] 91.5 fL 80-100 F [facility] Monocyte distribution width [Entitic volume] in Blood by AutomatedOrdered By: Robert Haji on 08-24-2023 Monocyte distribution width Auto (Bld) [Entitic vol] 21.83 % 0.00-20.00 [facility] Comment on above: For adults in ED, MD W > 20.0 may be associated with a higher risk of sepsis during the first 12 hrs of hospital admission Monocytes Auto (Bld) [#/Vol] Ordered By: Robert Haji on 08-24-2023 Monocytes (Bld) [#/Vol] 0.6 10*3/uL 0.0-0.8 [facility] Monocytes/100 WBC Auto (Bld) Ordered By: Robert Haji on 08-24-2023 Monocytes/100 WBC (Bld) 7.3 % . F [facility] Neutrophils Auto (Bld) [#/Vo l]Ordered By: Robert Haji on 08-24-2023 Neutrophils (Bld) [#/Vol] 4.7 10*3/uL 1.8-7.7 [facility] Neutrophils/100 WBC Auto (Bl d)Ordered By: Robert Haji on 08-24-2023 Neutrophils/100 WBC (Bld) 63.1 % . [facility] Nitrite Test strip Ql (U)Ord ered By: Robert Haji on 08-24-2023 Nitrite Ql (U) Negative Negative [facility] No Panel InformationOrdered By: Robert Haji on 08-24-2023 Estimated GFR (CKD-EPI) > 60.0 mL/Min [facility] Creatinine Clearance (Chem 76.92 [facility] Nucleated erythrocytes [Pres ence] in Blood by Automated countOrdered By: Robert Haji on 08-24-2023 Nucleated RBC Auto Ql (Bld) 0.1 /100{WBC} 0-0.5 [facility] Platelet mean volume Auto (B ld) [Entitic vol]Ordered By: Robert Haji on 08-24-2023 Platelet mean volume (Bld) [Entitic vol] 7.8 fL 6.3-10.7 [facility] Platelets Auto (Bld) [#/Vol] Ordered By: Robert Haji on 08-24-2023 Platelets (Bld) [#/Vol] 363 10*3/uL 150-450 [facility] Potassium [Moles/volume] in Serum or PlasmaOrdered By: Robert Haji on 08-24-2023 Potassium [Moles/Vol] 3.9 mmol/L 3.5-5.1 [facility] Protein Auto test strip (U) [Mass/Vol]Ordered By: Robert Haji on 08-24-2023 Protein (U) [Mass/Vol] Negative Negative [facility] RBC Auto (Bld) [#/Vol]Ordere d By: Robert Haji on 08-24-2023 RBC (Bld) [#/Vol] 4.42 10*6/uL 3.60-5.00 [facility] Serum or plasma anion gap de terminationOrdered By: Robert Haji on 08-24-2023 Anion gap [Moles/Vol] 9.7 mmol/L 6.0-15.0 [facility] Sodium [Moles/volume] in Ser um or PlasmaOrdered By: Robert Haji on 08-24-2023 Sodium [Moles/Vol] 139 mmol/L 136-145 [facility] Specific gravity Auto test s trip (U) [Rel density]Ordered By: Robert Haji on 08-24-2023 Specific gravity (U) [Rel density] 1.006 1.001-1.030 [facility] Urea nitrogen [Mass/volume] in Serum or PlasmaOrdered By: Robert Haji on 08-24-2023 Urea nitrogen [Mass/Vol] 15 mg/dL 7-25 [facility] Urinalysison 08-24-2023 Appearance (U) Clear Normal Clear [facility] Comment on above: Order Comment: Name Collection Type:: Clean-Voided Midstream Performed By: #### U A #### [facility] [address] [place] [address] [place] Bilirubin,Urine Negative Normal Negative [facility] Comment on above: Order Comment: Name Collection Type:: Clean-Voided Midstream Performed By: #### U A #### [facility] [address] [place] [address] [place] Color (U) Yellow Normal Yellow [facility] Comment on above: Order Comment: Name Collection Type:: Clean-Voided Midstream Performed By: #### U A #### [facility] [address] [place] [id number] [place] Glucose Ql (U) Normal Normal Normal [facility] Comment on above: Order Comment: Name Collection Type:: Clean-Voided Midstream Performed By: #### U A #### [facility] [address] [place] [id number] [place] Ketones Ql (U) Negative Normal Negative [facility] Comment on above: Order Comment: Name Collection Type:: Clean-Voided Midstream Performed By: #### U A #### [address] Leukocyte esterase Test strip Ql (U) Negative Normal Negative [facility] Comment on above: Order Comment: Name Collection Type:: Clean-Voided Midstream Performed By: #### U A #### [place] [address] [place] Nitrite,Urine Negative Normal Negative [facility] Comment on above: Order Comment: Name Collection Type:: Clean-Voided Midstream Performed By: #### U A #### [address] Occult Blood,Urine Negative Normal Negative [facility] Comment on above: Order Comment: Name Collection Type:: Clean-Voided Midstream Result Comment: PERF ORMED BY: [place] [address] PATHOLOGIST PAGE DESIGNER RASHMI ECHOLS M.D. Performed By: #### U A #### [address] pH (U) 7.0 [pH] Normal 5.0-9.0 [facility] Comment on above: Order Comment: Name Collection Type:: Clean-Voided Midstream Performed By: #### U A #### [address] Protein,Urine Negative Normal Negative [facility] Comment on above: Order Comment: Name Collection Type:: Clean-Voided Midstream Performed By: #### U A #### [place] [address] [place] Specificy [place],Urine 1.006 Normal 1.001-1.030 [facility] Comment on above: Order Comment: Name Collection Type:: Clean-Voided Midstream Performed By: #### U A #### [address] Urobilinogen,Urine Normal Normal Normal [facility] Comment on above: Order Comment: Name Collection Type:: Clean-Voided Midstream Performed By: #### U A #### [place] [id number] [facility] Urine clarity by refractomet ry automatedOrdered By: Robert Haji on 08-24-2023 Clarity Refractometry automated (U) Clear Clear [facility] Urine glucose measurement by automated test strip (mass/volume)Ordered By: Robert Haji on 08-24-2023 Glucose Auto test strip (U) [Mass/Vol] Normal mg/dL Normal [facility] Urine hemoglobin detection b y automated test stripOrdered By: Robert Haji on 08-24-2023 Hemoglobin Auto test strip Ql (U) Negative Negative [facility] Urine leukocyte esterase det ection by automated test stripOrdered By: Robert Haji on 08-24-2023 Leukocyte esterase Auto test strip Ql (U) Negative Negative [facility] Urobilinogen Auto test strip (U) [Mass/Vol]Ordered By: Robert Haji on 08-24-2023 Urobilinogen (U) [Mass/Vol] Normal mg/dL Normal [facility] WBC Auto (Bld) [#/Vol]Ordere d By: Robert Haji on 08-24-2023 WBC (Bld) [#/Vol] 7.5 10*3/uL 3.8-11.6 [facility] XR ankle LT min 3V*on 2023 XR ankle LT min 3V* [facility] [address] [place], [place] [id number] XRay Report Signed Patient: Clover Henriquez MR#: [id number] : 1975 Acct:[id number] Age/Sex: 47 / F ADM Date: 08/24/23 Loc: ER Room: Type: [facility] ER Attending Dr: Copies to: Robert Haji MD Ordering Provider: Robert Haji MD Date of Service: 08/24/23 XR/XR ankle LT min 3V*: Extremity Problem, Nontraumatic LEFT ANKLE - 3 views CLINICAL HISTORY: Swelling left lateral ankle with bruising. No known injury. COMPARISON: None FINDINGS: Soft tissue swelling is noted. No acute bony process. Ankle mortise appears intact. XR/XR ankle LT min 3V* IMPRESSION: SOFT TISSUE SWELLING WITHOUT ACUTE BONY PROCESS. Impression dictated by: Sivakumar Edwards Jr., D.O.08/24/2023 7:44 PM Dictation Location: [place] [address] Transcribed By: [facility] 08/24/231943 Dictated By: Sivakumar Edwards Jr, DO 08/24/231942 Signed By: 08/24/231943 Normal [facility] pH Auto test strip (U)Ordere d By: Robert Haji on 08-24-2023 pH (U) 7.0 [pH] 5.0-9.0 [facility] BI MAMMOGRAM SCREENING TOMOS YNTHESIS BILATERALon 08-10-2023 BI MAMMOGRAM SCREENING TOMOSYNTHESIS BILATERAL This is a summary report. The complete report is available in the patient's medical record. If you cannot access the medical record, please contact the sending organization for a detailed fax or copy. EXAM: BI MAMMOGRAM SCREENING TOMOSYNTHESIS BILATERAL DATE: 10/01/2023 10:59 AM CLINICAL HISTORY: screening. COMPARISONS: 09/06/2017. TECHNIQUE: Routine full-field digital mammograms and 3D breast tomosynthesis of both breasts were obtained. FINDINGS: There are no developing masses, suspicious microcalcifications, or areas of architectural distortion identified on the current study. No significant changes are identified from the prior studies, given differences in technique and positioning. IMPRESSION: BIRADS 1 - Negative Follow-up: Routine Screening Mamm. Density: Heterogeneously dense [3]. Board Certified Radiologists. Accredited by the ACR and FDA. MAMMOGRAPHY IS VERY IMPORTANT TO YOUR HEALTH. THE CURRENT [employer] OF [employer] AND [employer]HENSIVE [employer] NETWORK GUIDELINES RECOMMENDS ANNUAL MAMMOGRAPHY BEGINNING AT AGE 40. THIS FACILITY UTILIZES A REMINDER SYSTEM TO ENSURE ALL PATIENTS RECEIVE REMINDER NOTIFICATIONS AT THE APPROPRIATE TIME BASED ON THE RECOMMENDATIONS OF THIS EXAM. ELECTRONICALLY SIGNED BY: William Weber MD Normal Not Available Comment on above: Order Comment: Spot compression and us prn Follicle Stimulating Hormone on 06-30-2023 Follicle Stimulating Hormone 6.0 m[iU]/mL Normal [facility] Comment on above: Order Comment: Reaso n for Exam Severe menstrual cramps Result Comment: FEMA LE NORMALS (PREMENOPAUSE) MID-FOLLICULAR PHASE: 3.9-8.8 mIU/mL MID-CYCLE PEAK: 4.5-22.5 mIU/mL MID-LUTEAL PHASE: 1.8-5.1 mIU/mL FEMALE NORMALS (POSTMENOPAUSE): 16.7-113.6 mIU/mL MALE NORMALS: 1.3-19.3 mIU/mL PERFORMED BY: [facility] [address] [place] [address] PATHOLOGIST PAGE DESIGNER RASHMI ECHOLS M.D. Performed By: #### L H ####[facility] ,#### FSH ####[facility] [place] [address] [facility] Follitropin [Units/volume] i n Serum or PlasmaOrdered By: Regine Chinchilla on 06-30-2023 Follitropin Qn 6.0 m[IU]/mL [facility] Comment on above: FEMALE NORMALS (DILAN ENOPAUSE) MID-FOLLICULAR PHASE: 3.9-8.8 mIU/mL MID-CYCLE PEAK: 4.5-22.5 mIU/mL MID-LUTEAL PHASE: 1.8-5.1 mIU/mLFEMALE NORMALS (POSTMENOPAUSE): 16.7-113.6 mIU/mLMALE NORMALS: 1.3-19.3 mIU/mL Luteinizing Hormoneon 2022 Luteinizing Hormone 15.8 m[iU]/mL Normal . [facility] Comment on above: Order Comment: Reaso n for Exam Severe menstrual cramps Result Comment: Adul t Female Range Follicular phase 2.4 - 12.6 Ovulation phase 14.0 - 95.6 Luteal phase 1.0 - 11.4 Postmenopausal 7.7 - 58.5 Performed at: [facility] [id number] Lifter: Supa Murdock PhD, Phone: [phone] PERFORMED BY: [facility] [address] [place] [address] PATHOLOGIST PAGE DESIGNER JIANLAN SUN M.D. Performed By: #### L H ####[facility] ,#### FSH ####[facility] [id number] Serum or plasma lutropin catarina surement (units/volume)Ordered By: Regine Chinchilla on 06-30-2023 Lutropin Qn 15.8 m[IU]/mL . [facility] Comment on above: Adult Female Range F ollicular phase 2.4 - 12.6 Ovulation phase 14.0 - 95.6 Luteal phase 1.0 - 11.4 Postmenopausal 7.7 - 58.5Performed at: - [facility] [address] [id number] Director: Supa Murdock PhD, Phone: [phone] US transvaginalon 06-30-2023 US transvaginal [facility] [address] [place] [address] Ultrasound Report Signed Patient: Clover Henriquez MR#: [id number] : 1975 Acct:[id number] Age/Sex: 47 / F ADM Date: 06/30/23 Loc: Room: Type: [facility] Attending Dr: RONEL Shaw APRN Ordering Provider: Regine Chinchilla APRN, NP-C Date of Service: 06/30/23 US/US pelvic complete: Severe menstrual cramps ([id number]) US/US transvaginal: N94.6 Copies to: Regine Chinchilla APRN, NP-C TRANSABDOMINAL AND TRANSVAGINAL PELVIC ULTRASOUND HISTORY: Menstrual [...] Shun Jimenez M.D.06/30/2023 3:09 PM Dictation Location: [place] [address] Tech: Cinda Frank Transcribed By: SADE 06/30/23 1509 Dictated By: Shun Jimenez DO 06/30/23 1507 Signed By: 06/30/23 1509 Normal [facility] A1C with Estimated Average G sunnin 05-27-2023 Glucose [Mass/Vol] 123 mg/dL Normal [facility] Comment on above: Order Comment: Reaso n for Exam Impaired fasting glucose Result Comment: PERF ORMED BY: [place] [address] PATHOLOGIST PAGE DESIGNER RASHMI ECHOLS M.D. Performed By: #### A NA #### [facility] , #### CBC, TSH3 wRFLX, LIPID, CMP, A1C WTH eA #### [facility] [address] [place], [place] [id number] [facility] SAAD Antinuclear Antibodieson 05-27-2023 Antinuclear Abs, IFA Negative Normal . [facility] Comment on above: Order Comment: Reaso n for Exam Multiple joint pain Result Comment: Nega tive <1:80 Borderline 1:80 Positive >1:80 ICAP nomenclature: AC-0 For more information about Hep-2 cell patterns use ANApatterns.org, the official website for the International Consensus on Antinuclear Antibody (SAAD) Patterns (ICAP). Performed at: - [facility] [id number] Lifter: Supa Murdock PhD, Phone: [phone] PERFORMED BY: [place] [address] PATHOLOGIST PAGE DESIGNER RASHMI ECHOLS M.D. Performed By: #### A NA #### [facility] , #### CBC, TSH3 wRFLX, LIPID, CMP, A1C WTH eA #### [facility] [address] [place], [place] [address] [place] Alanine aminotransferase [En zymatic activity/volume] in Serum or PlasmaOrdered By: Regine Chinchilla on 05-27-2023 ALT [Catalytic activity/Vol] 18 U/L Normal 7-52 [facility] Comment on above: Order Comment: Reaso n for Exam Hypertension Reason for Exam History of thyroid disease Performed By: #### A NA #### [facility] , #### CBC, TSH3 wRFLX, LIPID, CMP, A1C WTH eA #### [facility] [address] [place] [address] [place] Albumin [Mass/volume] in Ser um or Plasma by Bromocresol green (BCG) dye binding methoOrdered By: Regine Chinchilla on 05-27-2023 Albumin BCG dye [Mass/Vol] 4.4 g/dL 3.5-5.7 [facility] Alkaline phosphatase [Enzyma tic activity/volume] in Serum or PlasmaOrdered By: Regine Chinchilla on 05-27-2023 ALP [Catalytic activity/Vol] 98 U/L Normal 34-104 [facility] Comment on above: Order Comment: Reaso n for Exam Hypertension Reason for Exam History of thyroid disease Performed By: #### A NA #### [facility] , #### CBC, TSH3 wRFLX, LIPID, CMP, A1C WT eA #### [facility] [address] [place] [address] [place] Aspartate aminotransferase [ Enzymatic activity/volume] in Serum or PlasmaOrdered By: Regine Chinchilla on 05-27-2023 AST [Catalytic activity/Vol] 25 U/L Normal 13-39 [facility] Comment on above: Order Comment: Reaso n for Exam Hypertension Reason for Exam History of thyroid disease Performed By: #### A NA #### [facility] , #### CBC, TSH3 wRFLX, LIPID, CMP, A1C WTH eA #### [facility] [address] [place] [address] [place] Automated basophil %Ordered By: Regine Chinchilla on 05-27-2023 Basophils/100 WBC (Bld) 1.2 % Normal . [facility] Comment on above: Order Comment: Reaso n for Exam Hypertension Performed By: #### A NA #### [facility] , #### CBC, TSH3 wRFLX, LIPID, CMP, A1C WTH eA #### [facility] [address] [place] [address] Automated basophil countOrde red By: Regine Chinchilla on 05-27-2023 Basophils (Bld) [#/Vol] 0.1 10*3/uL Normal 0.0-0.2 [facility] Comment on above: Order Comment: Reaso n for Exam Hypertension Result Comment: PERF ORMED BY: [place] [address] PATHOLOGIST PAGE DESIGNER RASHMI ECHOLS M.D. Performed By: #### A NA #### [facility] , #### CBC, TSH3 wRFLX, LIPID, CMP, A1C WTH eA #### [address] Automated blood monocyte cou ntOrdered By: Regine Chinchilla on 05-27-2023 Monocytes (Bld) [#/Vol] 0.5 10*3/uL Normal 0.0-0.8 [facility] Comment on above: Order Comment: Reaso n for Exam Hypertension Performed By: #### A NA #### [facility] , #### CBC, TSH3 wRFLX, LIPID, CMP, A1C WTH eA #### [address] Automated eosinophil %Ordere d By: Regine Chinchilla on 05-27-2023 Eosinophils/100 WBC (Bld) 8.6 % Normal . [facility] Comment on above: Order Comment: Reaso n for Exam Hypertension Performed By: #### A NA #### [facility] , #### CBC, TSH3 wRFLX, LIPID, CMP, A1C WTH eA #### [address] Automated eosinophil countOr dered By: Regine Chinchilla on 05-27-2023 Eosinophils (Bld) [#/Vol] 0.5 10*3/uL High 0.0-0.45 [facility] Comment on above: Order Comment: Reaso n for Exam Hypertension Performed By: #### A NA #### [facility] , #### CBC, TSH3 wRFLX, LIPID, CMP, A1C WTH eA #### [facility] [address] Automated monocyte %Ordered By: Regine Chinchilla on 05-27-2023 Monocytes/100 WBC (Bld) 7.5 % Normal . [facility] Comment on above: Order Comment: Reaso n for Exam Hypertension Performed By: #### A NA #### [facility] , #### CBC, TSH3 wRFLX, LIPID, CMP, A1C WTH eA #### [facility] [address] [place] [address] Automated neutrophil %Ordere d By: Regine Chinchilla on 05-27-2023 Neutrophils/100 WBC (Bld) 63.3 % Normal . [facility] Comment on above: Order Comment: Reaso n for Exam Hypertension Performed By: #### A NA #### [facility] , #### CBC, TSH3 wRFLX, LIPID, CMP, A1C WTH eA #### [facility] [address] [place] [address] Bilirubin.total [Mass/volume ] in Serum or PlasmaOrdered By: Regine Chinchilla on 05-27-2023 Bilirubin [Mass/Vol] 0.6 mg/dL Normal 0.3-1.0 [facility] Comment on above: Order Comment: Reaso n for Exam Hypertension Reason for Exam History of thyroid disease Performed By: #### A NA #### [facility] , #### CBC, TSH3 wRFLX, LIPID, CMP, A1C WTH eA #### [facility] [address] [place] [address] [place] Calcium [Mass/volume] in Ser um or PlasmaOrdered By: Regnie Chinchilla on 05-27-2023 Calcium [Mass/Vol] 10.1 mg/dL Normal 8.6-10.3 [facility] Comment on above: Order Comment: Reaso n for Exam Hypertension Reason for Exam History of thyroid disease Performed By: #### A NA #### [facility] , #### CBC, TSH3 wRFLX, LIPID, CMP, A1C WTH eA #### [facility] [address] [place] [address] [place] Carbon dioxide, total [Moles /volume] in Serum or PlasmaOrdered By: Regine Chinchilla on 05-27-2023 CO2 [Moles/Vol] 34.1 mmol/L High 21.0-31.0 [facility] Comment on above: Order Comment: Reaso n for Exam Hypertension Reason for Exam History of thyroid disease Performed By: #### A NA #### [facility] , #### CBC, TSH3 wRFLX, LIPID, CMP, A1C WTH eA #### [facility] [address] [place] [address] [place] Chloride [Moles/volume] in S lyly or PlasmaOrdered By: Regine Chinchilla on 05-27-2023 Chloride [Moles/Vol] 103 mmol/L Normal 98-107 [facility] Comment on above: Order Comment: Reaso n for Exam Hypertension Reason for Exam History of thyroid disease Performed By: #### A NA #### [facility] , #### CBC, TSH3 wRFLX, LIPID, CMP, A1C WT eA #### [facility] [address] [place] [address] [place] Cholesterol [Mass/volume] in Serum or PlasmaOrdered By: Regine Chinchilla on 05-27-2023 Cholesterol [Mass/Vol] 201 mg/dL High 140-200 [facility] Comment on above: Chol less than 200 m g/dl low riskChol 201-239 mg/dl borderline riskChol 240 mg/dl and greater high risk Order Comment: Reaso n for Exam Hypertension Reason for Exam History of thyroid disease Result Comment: Chol less than 200 mg/dl low risk Chol 201-239 mg/dl borderline risk Chol 240 mg/dl and greater high risk Performed By: #### A NA #### [facility] , #### CBC, TSH3 wRFLX, LIPID, CMP, A1C WTH eA #### [facility] [address] Cholesterol in LDL Calc [Mas s/Vol]Ordered By: Regine Chinchilla on 05-27-2023 Cholesterol in LDL [Mass/Vol] 117 mg/dL 0-100 [facility] Comment on above: LDL ATP III CLASSIFI CATIONLDL less than 100 mg/dL OptimalLDL 100-129 mg/dL Near or above optimalLDL 130-159 mg/dL Borderline highLDL 160-189 mg/dL HighLDL greater than 189 mg/dL Very high Cholesterol in VLDL Calc [Ma ss/Vol]Ordered By: Regine Chinchilla on 05-27-2023 Cholesterol in VLDL [Mass/Vol] 18 mg/dL [facility] Complete Blood Count Auto Di ffon 05-27-2023 Mean Corpuscular HGB Conc 33.6 g/dL Normal 32.0-35.0 [facility] Comment on above: Order Comment: Reaso n for Exam Hypertension Performed By: #### A NA #### [facility] , #### CBC, TSH3 wRFLX, LIPID, CMP, A1C WTH eA #### [address] NRBC% 0.0 /100{WBC} Normal 0-0.5 [facility] Comment on above: Order Comment: Reaso n for Exam Hypertension Performed By: #### A NA #### [facility] , #### CBC, TSH3 wRFLX, LIPID, CMP, A1C WTH eA #### [facility] [address] [place] [address] Comprehensive Metabolic Pane clem 05-27-2023 Albumin [Mass/Vol] 4.4 g/dL Normal 3.5-5.7 [facility] Comment on above: Order Comment: Reaso n for Exam Hypertension Reason for Exam History of thyroid disease Performed By: #### A NA #### [facility] , #### CBC, TSH3 wRFLX, LIPID, CMP, A1C WTH eA #### [facility] [address] [place] [address] GFR/1.73 sq M.predicted MDRD (S/P/Bld) [Vol rate/Area] mL/min/{1.73_m2} Normal [facility] Comment on above: Order Comment: Reaso n for Exam Hypertension Reason for Exam History of thyroid disease Performed By: #### A NA #### [facility] , #### CBC, TSH3 wRFLX, LIPID, CMP, A1C [facility] eA #### [facility] [address] [place] [address] Creatinine [Mass/volume] in Serum or PlasmaOrdered By: Regine Chinchilla on 05-27-2023 Creatinine [Mass/Vol] 1.06 mg/dL Normal 0.60-1.20 [facility] Comment on above: Order Comment: Reaso n for Exam Hypertension Reason for Exam History of thyroid disease Performed By: #### A NA #### [facility] , #### CBC, TSH3 wRFLX, LIPID, CMP, A1C [facility] eA #### [facility] [address] [place] [address] Erythrocyte distribution wid th [Ratio] by Automated countOrdered By: Regine Chinchilla on 05-27-2023 Erythrocyte distribution width (RBC) [Ratio] 13.8 % Normal 11.9-15.3 [facility] Comment on above: Order Comment: Reaso n for Exam Hypertension Performed By: #### A NA #### [facility] , #### CBC, TSH3 wRFLX, LIPID, CMP, A1C [facility] eA #### [facility] [address] [place] [address] [place] Erythrocytes [#/volume] in B lood by Automated countOrdered By: Regine Chinchilla on 05-27-2023 RBC (Bld) [#/Vol] 4.43 10*6/uL Normal 3.60-5.00 [facility] Comment on above: Order Comment: Reaso n for Exam Hypertension Performed By: #### A NA #### [facility] , #### CBC, TSH3 wRFLX, LIPID, CMP, A1C WTH eA #### [facility] [address] Glucose [Mass/volume] in Ser um or PlasmaOrdered By: Regine Chinchilla on 05-27-2023 Glucose [Mass/Vol] 100 mg/dL Normal 70-100 [facility] Comment on above: ADA recommended refe rence rangeRandom Glucose Reference Range is dependent on time and content of last meal. Glucose of more than 200 mg/dL in a nonstressed, ambulatory subject supports the diagnosis of Diabetes Mellitus. Order Comment: Reaso n for Exam Hypertension Reason for Exam History of thyroid disease Result Comment: [place] om Glucose Reference Range is dependent on time and content of last meal. Glucose of more than 200 mg/dL in a nonstressed, ambulatory subject supports the diagnosis of Diabetes Mellitus. ADA recommended reference range Performed By: #### A NA #### [facility] , #### CBC, TSH3 wRFLX, LIPID, CMP, A1C WT eA #### [facility] [address] Glucose mean value [Mass/vol ume] in Blood Estimated from glycated hemoglobinOrdered By: Regine Chinchilla on 05-27-2023 Average glucose Estimated from glycated hemoglobin (Bld) [Mass/Vol] 123 mg/dL [facility] Hematocrit [Volume Fraction] of Blood by Automated countOrdered By: Regine Chinchilla on 05-27-2023 Hematocrit (Bld) [Volume fraction] 41.2 % Normal 34.0-46.4 [facility] Comment on above: Order Comment: Reaso n for Exam Hypertension Performed By: #### A NA #### [facility] , #### CBC, TSH3 wRFLX, LIPID, CMP, A1C WTH eA #### [facility] [address] [place] [address] [place] Hemoglobin A1c percentageOrd ered By: Regine Chinchilla on 05-27-2023 HbA1c (Bld) [Mass fraction] 5.9 % High 4.3-5.6 [facility] Comment on above: Increased risk for d iabetes: 5.7 - 6.4diabetes: >6.4glycemic control for adults with diabetes: <7.0 Order Comment: Reaso n for Exam Impaired fasting glucose Result Comment: Incr eased risk for diabetes: 5.7 - 6.4 diabetes: >6.4 glycemic control for adults with diabetes: <7.0 Performed By: #### A NA #### [facility] , #### CBC, TSH3 wRFLX, LIPID, CMP, A1C WT eA #### [address] Hemoglobin [Mass/volume] in BloodOrdered By: Regine Chinchilla on 05-27-2023 Hemoglobin (Bld) [Mass/Vol] 13.9 g/dL Normal 11.8-15.4 [facility] Comment on above: Order Comment: Reaso n for Exam Hypertension Performed By: #### A NA #### [facility] , #### CBC, TSH3 wRFLX, LIPID, CMP, A1C WT eA #### [address] Leukocytes [#/volume] correc jay for nucleated erythrocytes in Blood by Automated counOrdered By: Regine Chinchilla on 05-27-2023 WBC corrected for nucl RBC Auto (Bld) [#/Vol] 6.3 10*3/uL 3.8-11.6 [facility] Leukocytes [#/volume] in Blo od by Automated countOrdered By: Regine Chinchilla on 05-27-2023 WBC (Bld) [#/Vol] 6.3 10*3/uL Normal 3.8-11.6 [facility] Comment on above: Order Comment: Reaso n for Exam Hypertension Performed By: #### A NA #### [facility] , #### CBC, TSH3 wRFLX, LIPID, CMP, A1C WT eA #### [facility] [address] [place] [address] Lipid Panelon 05-27-2023 LDL Cholesterol,Calculated 117 mg/dL High 0-100 [facility] Comment on above: Order Comment: Reaso n for Exam Hypertension Reason for Exam History of thyroid disease Result Comment: LDL ATP III CLASSIFICATION LDL less than 100 mg/dL Optimal LDL 100-129 mg/dL Near or above optimal LDL 130-159 mg/dL Borderline high LDL 160-189 mg/dL High LDL greater than 189 mg/dL Very high Performed By: #### A NA #### [facility] , #### CBC, TSH3 wRFLX, LIPID, CMP, A1C WTH eA #### [facility] [address] [place] [address] Triglyceride w/Reflex 93 mg/dL Normal 0-149 [facility] Comment on above: Order Comment: Reaso n for Exam Hypertension Reason for Exam History of thyroid disease Result Comment: TRIG ATP III CLASSIFICATION TRIG less than 150 mg/dL Normal TRIG 150-199 mg/dL Borderline high TRIG 200-500 mg/dL High TRIG greater than 500 mg/dL Very high Standard traceable to the Center for Disease Conrtrol and Prevention (CDC) test method. Performed By: #### A NA #### [facility] , #### CBC, TSH3 wRFLX, LIPID, CMP, A1C WTH eA #### [address] VLDL CHOLESTEROL 18 mg/dL Normal [facility] Comment on above: Order Comment: Reaso n for Exam Hypertension Reason for Exam History of thyroid disease Performed By: #### A NA #### [facility] , #### CBC, TSH3 wRFLX, LIPID, CMP, A1C WTH eA #### [facility] [address] [place] [address] Lymphocytes [#/volume] in Bl ood by Automated countOrdered By: Regine Chinchilla on 05-27-2023 Lymphocytes (Bld) [#/Vol] 1.2 10*3/uL Normal 1.00-4.8 [facility] Comment on above: Order Comment: Reaso n for Exam Hypertension Performed By: #### A NA #### [facility] , #### CBC, TSH3 wRFLX, LIPID, CMP, A1C WTH eA #### [facility] [address] [place] [address] Lymphocytes/100 leukocytes i n Blood by Automated countOrdered By: Regine Chinchilla on 05-27-2023 Lymphocytes/100 WBC (Bld) 19.4 % Normal . [facility] Comment on above: Order Comment: Reaso n for Exam Hypertension Performed By: #### A NA #### [facility] , #### CBC, TSH3 wRFLX, LIPID, CMP, A1C WTH eA #### [facility] [address] [place] [address] MCH [Entitic mass] by Automa jay countOrdered By: Regine Chinchilla on 05-27-2023 MCH (RBC) [Entitic mass] 31.2 pg Normal 24.7-34.3 [facility] Comment on above: Order Comment: Reaso n for Exam Hypertension Performed By: #### A NA #### [facility] , #### CBC, TSH3 wRFLX, LIPID, CMP, A1C WT eA #### [address] MCHC Auto (RBC) [Mass/Vol]Or dered By: Regine Chinchilla on 05-27-2023 MCHC (RBC) [Mass/Vol] 33.6 g/dL 32.0-35.0 [facility] MCV [Entitic volume] by Auto mated countOrdered By: Regine Chinchilla on 05-27-2023 MCV (RBC) [Entitic vol] 93.0 fL Normal 80-100 [facility] Comment on above: Order Comment: Reaso n for Exam Hypertension Performed By: #### A NA #### [facility] , #### CBC, TSH3 wRFLX, LIPID, CMP, A1C WTH eA #### [facility] [address] [place] [address] [place] Neutrophils [#/volume] in Bl ood by Automated countOrdered By: Regine Chinchilla on 05-27-2023 Neutrophils (Bld) [#/Vol] 4.0 10*3/uL Normal 1.8-7.7 [facility] Comment on above: Order Comment: Reaso n for Exam Hypertension Performed By: #### A NA #### [facility] , #### CBC, TSH3 wRFLX, LIPID, CMP, A1C WTH eA #### [facility] [address] No Panel InformationOrdered By: Regine Chinchilla on 05-27-2023 Estimated GFR (CKD-EPI) > 60.0 mL/Min [facility] Creatinine Clearance (Chem N/A [facility] Nucleated erythrocytes [Pres ence] in Blood by Automated countOrdered By: Regine Chinchilla on 05-27-2023 Nucleated RBC Auto Ql (Bld) 0.0 /100{WBC} 0-0.5 [facility] Platelet mean volume [Entiti c volume] in Blood by Automated countOrdered By: Regine Chinchilla on 05-27-2023 Platelet mean volume (Bld) [Entitic vol] 9.0 fL Normal 6.3-10.7 [facility] Comment on above: Order Comment: Reaso n for Exam Hypertension Performed By: #### A NA #### [facility] , #### CBC, TSH3 wRFLX, LIPID, CMP, A1C WTH eA #### [facility] [address] [place] [address] Platelets [#/volume] in Bloo d by Automated countOrdered By: Regine Chinchilla on 05-27-2023 Platelets (Bld) [#/Vol] 367 10*3/uL Normal 150-450 [facility] Comment on above: Order Comment: Reaso n for Exam Hypertension Performed By: #### A NA #### [facility] , #### CBC, TSH3 wRFLX, LIPID, CMP, A1C WTH eA #### [facility] [address] [place] [address] Potassium [Moles/volume] in Serum or PlasmaOrdered By: Regine Chinchilla on 05-27-2023 Potassium [Moles/Vol] 4.3 mmol/L Normal 3.5-5.1 [facility] Comment on above: Order Comment: Reaso n for Exam Hypertension Reason for Exam History of thyroid disease Performed By: #### A NA #### [facility] , #### CBC, TSH3 wRFLX, LIPID, CMP, A1C [facility] eA #### [facility] [address] [place] [address] [place] Protein [Mass/volume] in Ser um or PlasmaOrdered By: Regine Chinchilla on 05-27-2023 Protein [Mass/Vol] 7.0 g/dL Normal 6.4-8.9 [facility] Comment on above: Order Comment: Reaso n for Exam Hypertension Reason for Exam History of thyroid disease Performed By: #### A NA #### [facility] , #### CBC, TSH3 wRFLX, LIPID, CMP, A1C [facility] eA #### [facility] [address] [place] [address] Serum globulin measurement b y calculation (mass/volume)Ordered By: Regine Chinchilla on 05-27-2023 Globulin (S) [Mass/Vol] 2.6 g/dL Normal [facility] Comment on above: Order Comment: Reaso n for Exam Hypertension Reason for Exam History of thyroid disease Performed By: #### A NA #### [facility] , #### CBC, TSH3 wRFLX, LIPID, CMP, A1C [facility] eA #### [facility] [address] [place] [address] Serum nuclear antibody titer Ordered By: Regine Chinchilla on 05-27-2023 Nuclear Ab (S) [Titer] Negative . [facility] Comment on above: Negative <1:80 Vinay wiggins 1:80 Positive >1:80ICAP nomenclature: [id number] more information about Hep-2 cell patterns useANApatterns.org, the official website for theInternational Consensus on Antinuclear Antibody (SAAD)Patterns (ICAP).Performed at: [address] [id number] Director: Supa Murdock PhD, Phone: [phone] Serum or plasma albumin/glob ulin mass ratioOrdered By: Regine Chinchilla on 05-27-2023 Albumin/Globulin [Mass ratio] 1.7 {ratio} Normal [facility] Comment on above: Order Comment: Reaso n for Exam Hypertension Reason for Exam History of thyroid disease Performed By: #### A NA #### [facility] , #### CBC, TSH3 wRFLX, LIPID, CMP, A1C W[facility] eA #### [facility] [address] Serum or plasma anion gap de terminationOrdered By: Regine Chinchilla on 05-27-2023 Anion gap [Moles/Vol] 9.2 mmol/L Normal 6.0-15.0 [facility] Comment on above: Order Comment: Reaso n for Exam Hypertension Reason for Exam History of thyroid disease Performed By: #### A NA #### [facility] , #### CBC, TSH3 wRFLX, LIPID, CMP, A1C WT eA #### [facility] [address] [place] [address] Serum or plasma high density lipoprotein (HDL) cholesterol measurementOrdered By: Regine Chinchilla on 05-27-2023 Cholesterol in HDL [Mass/Vol] 65 mg/dL Normal 23-92 [facility] Comment on above: HDL CHOL ATP-III CLA SSIFICATION Cardiovascular RiskHDL > or equal to 60 mg/dL LOWHDL < 40 mg/dL HIGH Order Comment: Reaso n for Exam Hypertension Reason for Exam History of thyroid disease Result Comment: HDL CHOL ATP-III CLASSIFICATION Cardiovascular Risk HDL > or equal to 60 mg/dL LOW HDL < 40 mg/dL HIGH Performed By: #### A NA #### [facility] , #### CBC, TSH3 wRFLX, LIPID, CMP, A1C W[facility] eA #### [facility] [address] Serum or plasma total choles terol/high density lipoprotein (HDL) cholesterol mass ratOrdered By: Regine Chinchilla on 05-27-2023 Cholesterol.total/[place] sterol in HDL [Mass ratio] 3.1 {ratio} Normal <5.0 [facility] Comment on above: Order Comment: Reaso n for Exam Hypertension Reason for Exam History of thyroid disease Performed By: #### A NA #### [facility] , #### CBC, TSH3 wRFLX, LIPID, CMP, A1C WTH eA #### [facility] [address] [place] [address] [place] Sodium [Moles/volume] in Ser um or PlasmaOrdered By: Regine Chinchilla on 05-27-2023 Sodium [Moles/Vol] 142 mmol/L Normal 136-145 [facility] Comment on above: Order Comment: Reaso n for Exam Hypertension Reason for Exam History of thyroid disease Performed By: #### A NA #### [facility] , #### CBC, TSH3 wRFLX, LIPID, CMP, A1C [facility] eA #### [facility] [address] [place] [address] Thyroid Stim Hormone w/Rflxo n 05-27-2023 Thyroid Stim Hormone w/Rflx 1.60 u[iU]/mL Normal 0.45-5.33 [facility] Comment on above: Order Comment: Reaso n for Exam Hypertension Reason for Exam History of thyroid disease Result Comment: PERF ORMED BY: [place] [address] PATHOLOGIST PAGE DESIGNER RASHMI ECHOLS M.D. Performed By: #### A NA #### [facility] , #### CBC, TSH3 wRFLX, LIPID, CMP, A1C [facility] eA #### [facility] [address] [place] [address] Thyrotropin [Units/volume] i n Serum or PlasmaOrdered By: Regine Chinchilla on 05-27-2023 TSH Qn 1.60 m[IU]/L 0.45-5.33 [facility] Triglyceride [Mass/volume] i n Serum or PlasmaOrdered By: Regine Chinchilla on 05-27-2023 Triglyceride [Mass/Vol] 93 mg/dL 0-149 [facility] Comment on above: TRIG ATP III CLASSIF ICATIONTRIG less than 150 mg/dL NormalTRIG 150-199 mg/dL Borderline highTRIG 200-500 mg/dL High TRIG greater than 500 mg/dL Very highStandard traceable to the Center for Disease Conrtrol and Prevention (CDC) test method. Urea nitrogen [Mass/volume] in Serum or PlasmaOrdered By: Regine Chinchilla on 05-27-2023 Urea nitrogen [Mass/Vol] 13 mg/dL Normal 7-25 [facility] Comment on above: Order Comment: Reaso n for Exam Hypertension Reason for Exam History of thyroid disease Performed By: #### A NA #### [facility] , #### CBC, TSH3 wRFLX, LIPID, CMP, A1C WTH eA #### [facility] [address] [place] [id number] [facility] SARS-CoV-2 (COVID-19) RNA NA A+probe Ql (Resp)on 06-15-2022 SARS-CoV-2 (COVID-19) RNA CARL+probe Ql (Unsp spec) Negative [facility] Other Albumin [Mass/volume] in Ser um or PlasmaOrdered By: Regine Chinchilla on 02-16-2022 Albumin [Mass/Vol] 4.4 g/dL 3.2-5.5 [facility] Basophils Auto (Bld) [#/Vol] Ordered By: Regine Chinchilla on 02-16-2022 Basophils (Bld) [#/Vol] 0.1 10*3/uL 0.0-0.2 [facility] Basophils/100 WBC Auto (Bld) Ordered By: Regine Chinchilla on 02-16-2022 Basophils/100 WBC (Bld) 0.5 % . [facility] Blood hemoglobin measurement (mass/volume)Ordered By: Regine Chinchilla on 02-16-2022 Hemoglobin (Bld) [Mass/Vol] 14.8 g/dL 11.8-15.4 [facility] Blood leukocytes automated c ount (number/volume)Ordered By: Regine Chinchilla on 02-16-2022 WBC (Bld) [#/Vol] 14.7 10*3/uL 4.5-11.0 [facility] C reactive protein [Mass/vol ume] in Serum or PlasmaOrdered By: Regine Chinchilla on 02-16-2022 CRP [Mass/Vol] 0.7 mg/dL 0.0-1.0 [facility] Cholesterol [Mass/volume] in Serum or PlasmaOrdered By: Regine Chinchilla on 02-16-2022 Cholesterol [Mass/Vol] 198 mg/dL 140-200 [facility] Comment on above: Chol less than 200 m g/dl low risk Chol 201-239 mg/dl borderline risk Chol 240 mg/dl and greater high risk Cholesterol in LDL Calc [Mas s/Vol]Ordered By: Regine Chinchilla on 02-16-2022 Cholesterol in LDL [Mass/Vol] 90 mg/dL 0-100 [facility] Comment on above: LDL ATP III CLASSIFI CATION LDL less than 100 mg/dL Optimal LDL 100-129 mg/dL Near or above optimal LDL 130-159 mg/dL Borderline high LDL 160-189 mg/dL High LDL greater than 189 mg/dL Very high Cholesterol in VLDL Calc [Ma ss/Vol]Ordered By: Regine Chinchilla on 02-16-2022 Cholesterol in VLDL [Mass/Vol] 33 mg/dL [facility] Creatinine and Glomerular fi ltration rate.predicted panel (S/P/Bld)Ordered By: Regine Chinchilla on 02-16-2022 Creatinine [Mass/Vol] 0.99 mg/dL 0.44-1.03 [facility] Eosinophils Auto (Bld) [#/Vo l]Ordered By: Regine Chinchilla on 02-16-2022 Eosinophils (Bld) [#/Vol] 0.1 10*3/uL 0.0-0.45 [facility] Eosinophils/100 WBC Auto (Bl d)Ordered By: Regine Chinchilla on 02-16-2022 Eosinophils/100 WBC (Bld) 1.0 % . [facility] Erythrocyte distribution wid th Auto (RBC) [Ratio]Ordered By: Regine Chinchilla on 02-16-2022 Erythrocyte distribution width (RBC) [Ratio] 14.1 % 11.9-15.3 [facility] Erythrocyte sedimentation ra te by Photometric methodOrdered By: Regine Chinchilla on 02-16-2022 ESR Photometric method (Bld) [Velocity] 18 mm/hr 0-19 [facility] Estimated glomerular filtrat ion rate (GFR) non- AmericanOrdered By: Regine Chinchilla on 02-16-2022 GFR/1.73 sq M.predicted among non-blacks MDRD (S/P/Bld) [Vol rate/Area] > 60 mL/Min [facility] Globulin Calc (S) [Mass/Vol] Ordered By: Regine Chinchilla on 02-16-2022 Globulin (S) [Mass/Vol] 2.8 g/dL [facility] Glucose mean value [Mass/vol ume] in Blood Estimated from glycated hemoglobinOrdered By: Regine Chinchilla on 02-16-2022 Average glucose Estimated from glycated hemoglobin (Bld) [Mass/Vol] 126 mg/dL [facility] Hematocrit Auto (Bld) [Volum e fraction]Ordered By: eRgine Chinchilla on 02-16-2022 Hematocrit (Bld) [Volume fraction] 44.8 % 34.0-46.4 [facility] Hemoglobin A1c percentageOrd ered By: Regine Chinchilla on 02-16-2022 HbA1c (Bld) [Mass fraction] 6.0 % 4.3-5.6 [facility] Comment on above: Increased risk for d iabetes: 5.7 - 6.4 diabetes: >6.4 glycemic control for adults with diabetes: <7.0 Laboratory - Hematology and Cell countsOrdered By: Regine Chinchilla on 02-16-2022 Nucleated RBC/100 WBC (Bld) [Ratio] 0.0 % 0-0.5 [facility] Lymphocytes Auto (Bld) [#/Vo l]Ordered By: Regine Chinchilla on 02-16-2022 Lymphocytes (Bld) [#/Vol] 3.3 10*3/uL 1.00-4.8 [facility] Lymphocytes/100 WBC Auto (Bl d)Ordered By: Regine Chinchilla on 02-16-2022 Lymphocytes/100 WBC (Bld) 22.3 % . [facility] MCH Auto (RBC) [Entitic mass ]Ordered By: Regine Chinchilla on 02-16-2022 MCH (RBC) [Entitic mass] 30.0 pg 24.7-34.3 [facility] MCHC Auto (RBC) [Mass/Vol]Or dered By: Regine Chinchilla on 02-16-2022 MCHC (RBC) [Mass/Vol] 33.0 g/dL 32.0-35.0 [facility] MCV Auto (RBC) [Entitic vol] Ordered By: Regine Chinchilla on 02-16-2022 MCV (RBC) [Entitic vol] 90.6 fL 80-100 [facility] Monocytes Auto (Bld) [#/Vol] Ordered By: Regine Chinchilla on 02-16-2022 Monocytes (Bld) [#/Vol] 1.0 10*3/uL 0.0-0.8 [facility] Monocytes/100 WBC Auto (Bld) Ordered By: Regine Chinchilla on 02-16-2022 Monocytes/100 WBC (Bld) 6.8 % . [facility] Neutrophils Auto (Bld) [#/Vo l]Ordered By: Regine Chinchilla on 02-16-2022 Neutrophils (Bld) [#/Vol] 10.2 10*3/uL 1.8-7.7 [facility] Neutrophils/100 WBC Auto (Bl d)Ordered By: Regine Chinchilla on 02-16-2022 Neutrophils/100 WBC (Bld) 69.4 % . [facility] No Panel InformationOrdered By: Regine Chinchilla on 02-16-2022 Estimated GFR () > 60 mL/Min [facility] Comment on above: GFR estimated refere nce range: According to KDOQI guidelines, <60 ml/min/1.73m2 is sufficient to diagnose a patient with chronic kidney disease. Pharmacy Creatinine Clearance (Chem N/A [facility] Platelet mean volume Auto (B ld) [Entitic vol]Ordered By: Regine Chinchilla on 02-16-2022 Platelet mean volume (Bld) [Entitic vol] 7.9 fL 6.3-10.7 [facility] Platelets Auto (Bld) [#/Vol] Ordered By: Regine Chinchilla on 02-16-2022 Platelets (Bld) [#/Vol] 448 10*3/uL 150-450 [facility] Prolactin [Mass/volume] in S lyly or PlasmaOrdered By: Regine Chinchilla on 02-16-2022 Prolactin [Mass/Vol] 16.60 ng/mL 3.34-26.72 [facility] Protein [Mass/volume] in Ser um or PlasmaOrdered By: Regine Chinchilla on 02-16-2022 Protein [Mass/Vol] 7.2 g/dL 6.1-7.9 [facility] RBC Auto (Bld) [#/Vol]Ordere d By: Regine Chinchilla on 02-16-2022 RBC (Bld) [#/Vol] 4.95 10*6/uL 3.60-5.00 [facility] Serum homogeneous pattern an tinuclear antibody (SAAD) titerOrdered By: Regine Chinchilla on 02-16-2022 Homogenous nuclear Ab pattern (S) [Titer] N/A [facility] Serum nuclear antibody titer Ordered By: Regine Chinchilla on 02-16-2022 Nuclear Ab (S) [Titer] Negative . [facility] Comment on above: Negative <1:80 Borderline 1:80 Positive >1:80 ICAP nomenclature: [id number] For more information about Hep-2 cell patterns use ANApatterns.org, the official website for the International Consensus on Antinuclear Antibody (SAAD) Patterns (ICAP). Performed at: [facility] [place] [id number] Lifter: Supa Murdock PhD, Phone: [phone] Serum or plasma alanine dennis otransferase measurement without P-5'-P (enzymatic activiOrdered By: Regine Chinchilla on 02-16-2022 ALT No additional P-5'-P [Catalytic activity/Vol] 29 U/L 10-60 [facility] Serum or plasma albumin/glob ulin mass ratioOrdered By: Regine Chinchilla on 02-16-2022 Albumin/Globulin [Mass ratio] 1.6 {ratio} [facility] Serum or plasma alkaline dayana sphatase measurement (enzymatic activity/volume)Ordered By: Regine Chinchilla on 02-16-2022 ALP [Catalytic activity/Vol] 86 U/L 32-92 [facility] Serum or plasma aspartate am inotransferase measurement (enzymatic activity/volume)Ordered By: Regine Chinchilla on 02-16-2022 AST [Catalytic activity/Vol] 23 U/L 10-42 [facility] Serum or plasma calcium rebecca urement (mass/volume)Ordered By: Regine Chinchilla on 02-16-2022 Calcium [Mass/Vol] 10.0 mg/dL 8.2-10.2 [facility] Serum or plasma chloride catarina surement (moles/volume)Ordered By: Regine Chinchilla on 02-16-2022 Chloride [Moles/Vol] 93 mmol/L 95-114 [facility] Serum or plasma follitropin measurement (units/volume)Ordered By: Regine Chinchilla on 02-16-2022 Follitropin Qn 26.4 m[IU]/mL [facility] Comment on above: FEMALE NORMALS (DILAN ENOPAUSE) MID-FOLLICULAR PHASE: 3.9-8.8 mIU/mL MID-CYCLE PEAK: 4.5-22.5 mIU/mL MID-LUTEAL PHASE: 1.8-5.1 mIU/mL FEMALE NORMALS (POSTMENOPAUSE): 16.7-113.6 mIU/mL MALE NORMALS: 1.3-19.3 mIU/mL Serum or plasma glucose rebecca urement (mass/volume)Ordered By: Regine Chinchilla on 02-16-2022 Glucose [Mass/Vol] 75 mg/dL 70-100 [facility] Comment on above: ADA recommended refe rence range Random Glucose Reference Range is dependent on time and content of last meal. Glucose of more than 200 mg/dL in a nonstressed, ambulatory subject supports the diagnosis of Diabetes Mellitus. Serum or plasma high density lipoprotein (HDL) cholesterol measurementOrdered By: Regine Chinchilla on 02-16-2022 Cholesterol in HDL [Mass/Vol] 75 mg/dL 35-85 [facility] Comment on above: HDL CHOL ATP-III CLA SSIFICATION Cardiovascular Risk HDL > or equal to 60 mg/dL LOW HDL < 40 mg/dL HIGH Serum or plasma potassium me asurement (moles/volume)Ordered By: Regine Chinchilla on 02-16-2022 Potassium [Moles/Vol] 3.6 mmol/L 3.5-5.1 [facility] Serum or plasma rheumatoid f actor measurement (units/volume)Ordered By: Regine Chinchilla on 02-16-2022 Rheumatoid factor Qn 11.9 [IU]/mL <14.0 [facility] Comment on above: Performed at: [address] [id number] Lifter: Supa Murdock PhD, Phone: [phone] Serum or plasma sodium measu rement (moles/volume)Ordered By: Regine Chinchilla on 02-16-2022 Sodium [Moles/Vol] 135 mmol/L 136-146 [facility] Serum or plasma total biliru bin measurement (mass/volume)Ordered By: Regine Chinchilla on 02-16-2022 Bilirubin [Mass/Vol] 1.2 mg/dL 0.3-1.2 [facility] Serum or plasma total carbon dioxide measurement (moles/volume)Ordered By: Regine Chinchilla on 02-16-2022 CO2 [Moles/Vol] 27.2 mmol/L 22.0-30.0 [facility] Serum or plasma total choles terol/high density lipoprotein (HDL) cholesterol mass ratOrdered By: Regine Chicnhilla on 02-16-2022 Cholesterol.total/Merced sterol in HDL [Mass ratio] 2.6 {ratio} <5.0 [facility] Serum or plasma urea nitroge n measurement (mass/volume)Ordered By: Regine Chinchilla on 02-16-2022 Urea nitrogen [Mass/Vol] 18 mg/dL 9-23 [facility] TSH DL <= 0.005 mIU/L QnOrde red By: Regine Chinchilla on 02-16-2022 TSH Qn 1.98 m[IU]/L 0.45-5.33 [facility] Triglyceride [Mass/volume] i n Serum or PlasmaOrdered By: Regine Chinchilla on 02-16-2022 Triglyceride [Mass/Vol] 165 mg/dL 35-149 [facility] Comment on above: TRIG ATP III CLASSIF ICATION TRIG less than 150 mg/dL Normal TRIG 150-199 mg/dL Borderline high TRIG 200-500 mg/dL High TRIG greater than 500 mg/dL Very high Standard traceable to the Center for Disease Conrtrol and Prevention (CDC) test method. AMYLASEon 02-09-2022 Amylase [Catalytic activity/Vol] 26 U/L Normal 25-115 [facility] Comment on above: Performed By: #### C MP, LIPA, LIZETTE #### [facility] [address] [address] [address] Tyler Gonzalez CBC AUTO DIFFon 02-09-2022 BASO # 0.0 103/ul Normal 0.0-0.1 [facility] Comment on above: Performed By: #### C BC #### [facility] [address] [address] [address] Tyler Gonzalez Basophils/100 WBC (Bld) 0.7 % Normal 0.2-2.0 [facility] Comment on above: Performed By: #### C BC #### [facility] [address] [address] [address] Tyler Gonzalez EO # 0.5 103/ul Normal 0.0-0.7 [facility] Comment on above: Performed By: #### C BC #### [facility] [address] [place] [address] Dr. Tyler Gonzalez Eosinophils/100 WBC (Bld) 9.7 % Critically high 0.9-7.0 [facility] Comment on above: Performed By: #### C BC #### [facility] [address] [place] [address] Dr. Tyler Gonzalez Erythrocyte distribution width (RBC) [Ratio] 13.1 % Normal 11.0-15.0 [facility] Comment on above: Performed By: #### C BC #### [facility] [address] [place] [address] Dr. Tyler Gonzalez Hematocrit (Bld) [Volume fraction] 40.8 % Normal 36.0-48.0 [facility] Comment on above: Performed By: #### C BC #### [facility] [address] [place] [address] Dr. Tyler Gonzalez Hemoglobin (Bld) [Mass/Vol] 13.4 g/dL Normal 12.0-16.0 [facility] Comment on above: Performed By: #### C BC #### [facility] [address] [place] [address] Dr. Tyler Gonzalez IG # 0.01 10e3/ul Normal 0.00-0.03 [facility] Comment on above: Performed By: #### C BC #### [facility] [address] [place] [address] Dr. Tyler Gonzalez IG % 0.2 % Normal 0.0-0.5 [facility] Comment on above: Performed By: #### C BC #### [facility] [address] [place] [address] Dr. Tyler Gonzalez LYMPH # 1.3 103/ul Normal 1.2-3.8 [facility] Comment on above: Performed By: #### C BC #### [facility] [address] [place] [address] Dr. Tyler Gonzalez Lymphocytes/100 WBC (Bld) 22.7 % Normal 20.5-60.0 [facility] Comment on above: Performed By: #### C BC #### [facility] [address] [place] [address] Dr. Tyler Gonzalez MANUAL DIFF REQ NO Normal [facility] Comment on above: Performed By: #### C BC #### [facility] [address] [place] [address] Dr. Tyler Gonzalez MCH (RBC) [Entitic mass] 29.6 pg Normal 26.7-34.0 [facility] Comment on above: Performed By: #### C BC #### [facility] [address] [place] [address] Dr. Tyler Gonzalez MCHC (RBC) [Mass/Vol] 32.8 g/dL Normal 29.9-35.2 [facility] Comment on above: Performed By: #### C BC #### [facility] [address] [place] [address] Dr. Tyler Gonzalez MCV (RBC) [Entitic vol] 90.1 fL Normal 81.0-99.0 [facility] Comment on above: Performed By: #### C BC #### [facility] [address] [place] [address] Dr. Tyler Gonzalez MONO # 0.4 103/ul Normal 0.3-0.8 [facility] Comment on above: Performed By: #### C BC #### [facility] [address] [place] [address] Dr. Tyler Gonzalez Monocytes/100 WBC (Bld) 7.2 % Normal 1.7-12.0 [facility] Comment on above: Performed By: #### C BC #### [facility] [address] [place], [place] [id number] Dr. Tyler Gonzalez NEUT # 3.3 103/ul Normal 1.4-6.5 [facility] Comment on above: Performed By: #### C BC #### [facility] [address] [place] [address] Dr. Tyler Gonzalez Neutrophils/100 WBC (Bld) 59.5 % Normal 43.0-75.0 [facility] Comment on above: Performed By: #### C BC #### [facility] [address] [place] [address] Dr. Tyler Gonzalez Platelet mean volume (Bld) [Entitic vol] 9.3 fL Critically low 9.5-13.5 [facility] Comment on above: Performed By: #### C BC #### [facility] [address] [place] [address] Dr. Tyler Gonzalez PLT 352 103/ul Normal 150-450 [facility] Comment on above: Performed By: #### C BC #### [facility] [address] [place] [address] Dr. Tyler Gonzalez RBC 4.53 106/ul Normal 4.20-5.40 [facility] Comment on above: Performed By: #### C BC #### [facility] [address] [place] [address] Dr. Tyler Gonzalez WBC 5.6 103/ul Normal 4.0-11.0 [facility] Comment on above: Performed By: #### C BC #### [facility] [address] [place] [address] ABD/PELVIS WO CONon [...] account for patient's symptoms. Electronically authenticated by: WILLIAM SHRESTHA Date: 2022-02-09 11:21 Normal [facility] ER URINE PROFILEon 2 Bilirubin Ql (U) Negative Normal NEGATIVE [facility] Comment on above: Performed By: #### NED SLATER PREGU #### [facility] [address] [place] [address] Dr. Tyler Gonzalez Clarity (U) CLEAR Normal CLEAR [facility] Comment on above: Performed By: #### NED SLATER PREGU #### [facility] [address] [place] [address] Dr. Tyler Gonzalez Color (U) LT. YELLOW Normal YELLOW [facility] Comment on above: Performed By: #### NED SLATER PREGU #### [facility] [address] [address] [address] Tyler Gonzalez ERUSONY A micrscopic examination will be performed if indicated. Normal [facility] Comment on above: Performed By: #### NED SLATER PREGU #### [facility] [address] [place] [address] Dr. Tyler Gonzalez Glucose Ql (U) Negative Normal NEGATIVE [facility] Comment on above: Performed By: #### NED SLATER PREGU #### [facility] [address] [place] [address] Dr. Tyler Gonzalez Hemoglobin Ql (U) LARGE Abnormal NEGATIVE [facility] Comment on above: Performed By: #### E RUR UMICRO, PREGU #### [facility] [address] [place] [address] Dr. Tyler Gonzalez Ketones Ql (U) Negative Normal NEGATIVE [facility] Comment on above: Performed By: #### E RUR UMICRO, PREGU #### [facility] [address] [place] [address] Dr. Tyler Gonzalez LEUKOCYTES Negative Normal NEGATIVE [facility] Comment on above: Performed By: #### E RUR UMICRO, PREGU #### [facility] [address] [place] [address] Dr. Tyler Gonzalez Nitrite Ql (U) Negative Normal NEGATIVE [facility] Comment on above: Performed By: #### E RUR UMICRO, PREGU #### [facility] [address] [place] [address] Dr. Tyler Gonzalez pH (U) 6.0 [pH] Normal 5-9 [facility] Comment on above: Performed By: #### Selina RURKOKOICRO, PREGU #### [facility] [address] [place] [address] Dr. Tyler Gonzalez SPEC GRAVITY 1.015 Normal 1.005-<=1.0 25 [facility] Comment on above: Performed By: #### Selina RUR UMICRO, PREGU #### [facility] [address] [address] [address] Tyler Gonzalez UA PROTEIN Negative Normal NEGATIVE/ TRACE [facility] Comment on above: Performed By: #### Selina RUR UMICRO, PREGU #### [facility] [address] [place] [address] Dr. Tyler Gonzalez UR MICRO IND INDICATED Normal [facility] Comment on above: Performed By: #### E RUR UMICRO, PREGU #### [facility] [address] [place] [address] Dr. Tyler Gonzalez Urobilinogen Qn (U) 0.2 {Quyen'U}/dL Normal 0.2 - 1. 0 [facility] Comment on above: Performed By: #### NED SLATER, PREGU #### [facility] [address] [place] [address] Dr. Tyler Gonzalez LIPASEon 02-09-2022 Lipase [Catalytic activity/Vol] 86.0 U/L Normal 73.0-393.0 [facility] Comment on above: Performed By: #### C MP, LIPA, LIZETTE #### [facility] [address] [place] [address] Dr. Tyler Gonzalez URon 02-09-2022 , QUAL Negative Normal NEGATIVE [facility] Comment on above: Performed By: #### NED SLATER PREGU #### [facility] [address] [place] [address] Dr. Tyler Gonzalez PROF 14(COMP METB)on 022 Albumin [Mass/Vol] 3.6 g/dL Normal 3.4-5.0 [facility] Comment on above: Performed By: #### C MP, LIPA, LIZETTE #### [facility] [address] [place] [address] Dr. Tyler Gonzalez Albumin/Globulin [Mass ratio] 1.0 {ratio} Normal [facility] Comment on above: Performed By: #### C MP, LIPA, LIZETTE #### [facility] [address] [place] [address] Dr. Tyler Gonzalez ALP [Catalytic activity/Vol] 83 U/L Normal 46-116 [facility] Comment on above: Performed By: #### C MP, LIPA, LIZETTE #### [facility] [address] [place] [address] Dr. Tyler Gonzalez ALT [Catalytic activity/Vol] 19 U/L Normal 14-59 [facility] Comment on above: Performed By: #### C MP, LIPA, LIZETTE #### [facility] [address] [place] [address] Dr. Tyler Gonzalez Anion gap [Moles/Vol] 11.0 mmol/L Normal [facility] Comment on above: Performed By: #### C MP, LIPA, LIZETTE #### [facility] [address] [address] [address] Tyler Gonzalez AST [Catalytic activity/Vol] 20 U/L Normal 15-37 [facility] Comment on above: Performed By: #### C MP, LIPA, LIZETTE #### [facility] [address] [place] [address] Dr. Tyler Gonzalez Bilirubin [Mass/Vol] 0.6 mg/dL Normal 0.2-1.0 [facility] Comment on above: Performed By: #### C MP, LIPA, LIZETTE #### [facility] [address] [place] [address] Dr. Tyler Gonzalez Calcium [Mass/Vol] 9.0 mg/dL Normal 8.5-10.1 [facility] Comment on above: Performed By: #### C MP LIPA, LIZETTE #### [facility] [address] [place] [address] Dr. Tyler Gonzalez Chloride [Moles/Vol] 104 mmol/L Normal 98-107 [facility] Comment on above: Performed By: #### C MP LIPA, LIZETTE #### [facility] [address] [place] [address] Dr. Tyler Gonzalez CO2 [Moles/Vol] 28.9 mmol/L Normal 21.0-32.0 [facility] Comment on above: Performed By: #### C MP, LIPA, LIZETTE #### [facility] [address] [place] [address] Dr. Tyler Gonzalez Creatinine [Mass/Vol] 0.95 mg/dL Normal 0.55-1.02 [facility] Comment on above: Performed By: #### C MP, LIPA, LIZETTE #### [facility] [address] [place] [address] Dr. Tyler Gonzalez EGFR-AF SERBIAN >60 Normal >=60 [facility] Comment on above: Performed By: #### C MP, LIPA, LIZETTE #### [facility] [address] [place] [address] Dr. Tyler Gonzalez EGFR-NON AF SERBIAN >60 Normal >=60 [facility] Comment on above: Performed By: #### C SUSAN SWARTZ LIZETTE #### [facility] [address] [place] [address] Dr. Tyler Gonzalez Globulin (S) [Mass/Vol] 3.5 g/dL Normal [facility] Comment on above: Performed By: #### C SUSAN SWARTZ, LIZETTE #### [facility] [address] [address] [address] Tyler Gonzalez Glucose [Mass/Vol] 111 mg/dL Critically high 74-106 [facility] Comment on above: Performed By: #### C SUSAN SWARTZ, LIZETTE #### [facility] [address] [place] [address] Dr. Tyler Gonzalez Potassium [Moles/Vol] 3.9 mmol/L Normal 3.5-5.1 [facility] Comment on above: Performed By: #### C SUSAN SWARTZ, LIZETTE #### [facility] [address] [place] [address] Dr. Tyler Gonzalez Protein [Mass/Vol] 7.1 g/dL Normal 6.4-8.2 [facility] Comment on above: Performed By: #### C SUSAN SWARTZ, LIZETTE #### [facility] [address] [place] [address] Dr. Tyler Gonzalez Sodium [Moles/Vol] 140 mmol/L Normal 136-145 [facility] Comment on above: Performed By: #### C SUSAN SWARTZ, LIZETTE #### [facility] [address] [place] [address] Dr. Tyler Gonzalez Urea nitrogen [Mass/Vol] 13.0 mg/dL Normal 7.0-18.0 [facility] Comment on above: Performed By: #### C SUSAN SWARTZ, LIZETTE #### [facility] [address] [place] [address] Dr. Tyler Gonzalez Urea nitrogen/Creatinine [Mass ratio] 13.7 mg/mg Normal [facility] Comment on above: Performed By: #### C MP, LIPA, LIZETTE #### [facility] [address] [address] [address] Tyler Gonzalez URINE MICROSCOPIC ONLYon BACTERIA NONE SEEN Normal NONE SEEN [facility] Comment on above: Performed By: #### E NED RAZA, PREGU #### [facility] [address] [address] [address] Tyler Gonzalez Bacteria identified Cx Nom (U) NOT INDICATED Normal [facility] Comment on above: Performed By: #### NED SLATER, PREGU #### [facility] [address] [address] [address] Tyler Gonzalez CAST NONE SEEN Normal NONE SEEN [facility] Comment on above: Performed By: #### NED SLATER, PREGU #### [facility] [address] [address] [address] Tyler Gonzalez Crystals LM Nom (Urine sed) NONE SEEN Normal NONE SEEN [facility] Comment on above: Performed By: #### NED SLATER, PREGU #### [facility] [address] [address] [address] Tyler Gonzalez Epithelial cells LM Ql (Urine sed) FEW Abnormal NONE SEEN /RARE [facility] Comment on above: Performed By: #### NED SLATER, PREGU #### [facility] [address] [address] [address] Tyler Gonzalez MUCOUS NONE SEEN Normal NONE SEEN [facility] Comment on above: Performed By: #### NED SLATER, PREGU #### [facility] [address] [address] [address] Tyler Gonzalez RBC 50-75 Abnormal 0-2 [facility] Comment on above: Performed By: #### NED SLATER, PREGU #### [facility] [address] [address] [address] Tyler Gonzalez WBC NONE SEEN Normal NONE SEEN [facility] Comment on above: Performed By: #### NED SLATER, PREGU #### [facility] [address] [address] [address] Tyler Gonzalez US SINGLE QUAD RT [...] account for patient's symptoms. Electronically authenticated by: WILLIAM SHRESTHA Date: 2022-02-09 12:10 Normal [facility] XR CHEST 1 Von 02-09-2022 XR [...] cardiopulmonary process. Stable chest. Electronically authenticated by: WILLIAM SHRESTHA Date: 2022-02-09 11:23 Normal [facility] SARS-CoV-2 (COVID-19) RNA NA A+probe Ql (Resp)on 11-24-2021 SARS-CoV-2 (COVID-19) RNA CARL+probe Ql (Unsp spec) Negative [facility] Other Provider Letter FTon 11-01 Provider Letter [facility] JR. Gisele [place], [place] Re: CLOVER HENRIQUEZ Date of : 1975 Thank you for your referral of Clover Henriquez who was seen on consultation on October 31, 2020, for discomforting lipoma on right scapula. I have enclosed my consultation notes for your review. Sincerely, Gt Varner MD General Surgery [facility] Ambulatory Clinical Summaryo n 10-31-2020 Ambulatory Clinical Summary {[id number] [facility] Patient Educationon 11-01-19 Patient Education Nutrition BMI for Adults Body [...] height. This can be done either in [place] ([place] or metric measurements. Note that charts are available to help you find your BMI quickly and easily without having to do these calculations yourself. To calculate your BMI in [place] measurements, your health care provider will: [...] problems. ? BMI can be measured using [place]ian measurements or metric measurements. ? To interpret [...] 03/09/2005 Document Revised: 06/10/2018 Document Reviewed: 05/11/2018 [employer] Patient Education ? 2020 [employer]. [facility] Patient Education Physical Medicine an d [...] your health care provider or diet and child protective services specialist (dietitian). This may include: ? Eating [...] weight amaral (more content not included)... Normal [facility] Physician Referralon 021 Physician Referral [phone] [id number] [facility] Vital Signs Date Time Vital Sign Value Performing Clinician Facility 12-07-2023 10:27-0400 Body height 154.94 cm [facility] [employer] Work Phone: [facility] 12-07-2023 10:27-0400 Body mass index (BMI) [Ratio] 32.5 kg/m2 [facility] [employer] Work Phone: [facility] 12-07-2023 10:27-0400 Body temperature 97.6 [degF] [facility] [employer] Work Phone: [facility] 12-07-2023 10:27-0400 Body weight 78 kg [facility] [employer] Work Phone: [facility] 12-07-2023 10:27-0400 Diastolic blood pressure 70 mm[Hg] [facility] [employer] Work Phone: [facility] 12-07-2023 10:27-0400 Heart rate 70 /min [facility] [employer] Work Phone: [facility] 12-07-2023 10:27-0400 SaO2% (BldA) [Mass fraction] 98 % [facility] [employer] Work Phone: [facility] 12-07-2023 10:27-0400 Systolic blood pressure 118 mm[Hg] [facility] [employer] Work Phone: [facility] 10-12-2023 11:21-0400 Body height 154.94 cm [facility] [employer] Work Phone: [facility] 10-12-2023 11:21-0400 Body mass index (BMI) [Ratio] 32.5 kg/m2 [facility] [employer] Work Phone: [facility] 10-12-2023 11:21-0400 Body temperature 98 [degF] [facility] [employer] Work Phone: [facility] 10-12-2023 11:21-0400 Body weight 78.01 kg [facility] Work Phone: [facility] 10-12-2023 11:21-0400 Diastolic blood pressure 64 mm[Hg] [facility] Work Phone: [facility] 10-12-2023 11:21-0400 Heart rate 73 /min [facility] Work Phone: [facility] 10-12-2023 11:21-0400 SaO2% (BldA) [Mass fraction] 98 % [facility] Work Phone: [facility] 10-12-2023 11:21-0400 Systolic blood pressure 112 mm[Hg] [facility] Work Phone: [facility] 08-24-2023 19:27-0500 Diastolic blood pressure 69 mm[Hg] [facility] Work Phone: [facility] 08-24-2023 19:27-0500 Heart rate 72 /min [facility] Work Phone: [facility] 08-24-2023 19:27-0500 Respiratory rate 18 /min [facility] Work Phone: [facility] 08-24-2023 19:27-0500 SaO2% (BldA) [Mass fraction] 99 % [facility] Work Phone: [facility] 08-24-2023 19:27-0500 Systolic blood pressure 153 mm[Hg] [facility] Work Phone: [facility] 08-24-2023 16:47-0500 Body height 154.94 cm [facility] Work Phone: [facility] 08-24-2023 16:47-0500 Body temperature 98.7 [degF] [facility] Work Phone: [facility] 08-24-2023 16:47-0500 Body weight 98.05 kg [facility] Work Phone: [facility] 06-15-2022 12:30-0500 Body height 156.21 cm Amy Mackaymond Other [facility] Other 06-15-2022 12:30-0500 Body temperature 97.1 [degF] Amy Brittany Other [facility] Other 06-15-2022 12:30-0500 Respiratory rate 16 /min Amy Brittany Other [facility] Other 06-15-2022 12:30-0500 SaO2% (BldA) [Mass fraction] 98 % Amy Brittany Other [facility] Other 03-18-2022 14:00-0400 Body height 130.81 cm Amy Brittany Other [facility] Other 03-18-2022 14:00-0400 Body mass index (BMI) [Ratio] 42.73 kg/m2 Amy Brittany Other [facility] Other 03-18-2022 14:00-0400 Body temperature 96.7 [degF] Amy Brittany Other [facility] Other 03-18-2022 14:00-0400 Body weight 73.12 kg Amy Brittany Other [facility] Other 03-18-2022 14:00-0400 Respiratory rate 18 /min Amy Brittany Other [facility] Other 03-18-2022 14:00-0400 SaO2% (BldA) [Mass fraction] 98 % Amy Brittany Other [facility] Other 11-24-2021 11:30-0400 Body height 130.81 cm Clover Olson Other [facility] Other 11-24-2021 11:30-0400 Body temperature 97.5 [degF] Clover Olson Other [facility] Other 11-24-2021 11:30-0400 SaO2% (BldA) [Mass fraction] 99 % Clover Olson Other [facility] Other Encounters Encounter Date Encounter Type Care Provider Facility Start: 12-07-2023 End: 12-07-2023 ambulatory Shun Oswald Facility:[facility] Start: 12-07-2023 End: 12-07-2023 ambulatory Services [facility] Work Phone: [facility] Work Phone: Start: 12-07-2023 End: 12-07-2023 Patient encounter procedure Services Family Al Detal Work Phone: [facility] Work Phone: Start: 10-12-2023 End: 10-12-2023 ambulatory Services [facility] Work Phone: [facility] Work Phone: Start: 10-12-2023 End: 10-12-2023 Patient encounter procedure Services [facility] Work Phone: [facility] Work Phone: Start: 10-01-2023 End: 10-02-2023 ambulatory PENOLA P MITTAL Not Available Start: 08-30-2023 End: 08-30-2023 ambulatory PENOLA P MITTAL Not Available Start: 08-24-2023 End: 08-24-2023 Emergency department patient visit Robert Haji Facility:[facility] Start: 08-24-2023 End: 08-24-2023 Emergency department patient visit Services [facility] Work Phone: [facility] Work Phone: Start: 08-10-2023 End: 08-10-2023 ambulatory MEY MITTAL Not Available Start: 06-30-2023 End: 06-30-[address] 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 COORDINATOR Regine Chinchilla Work Phone: [facility] Start: 09-15-2022 End: 09-15-2022 ambulatory Services [facility] Work Phone: [facility] Work Phone: Start: 09-15-2022 End: 09-15-2022 Patient encounter procedure Services [facility] Work Phone: [facility]XRay [facility] [place] Work Phone: Start: 06-15-2022 End: 06-15-2022 ambulatory Amy Soto Other [facility] Other Start: 06-15-2022 Office outpatient visit 25 minutes Amy Soto [facility] Start: 03-18-2022 End: 03-18-2022 ambulatory Amy Soto Other [facility] Other Start: 03-18-2022 Office outpatient visit 15 minutes Amy Soto [facility] Start: 03-18-2022 Telephone encounter Yovanny Mast [facility] Start: 02-16-2022 End: 02-16-2022 Patient encounter procedure Services [employer] Phone: [facility] [place] Start: 02-09-2022 End: 02-09-2022 ambulatory JEROME FAVIOLA Facility:[facility] Start: 11-27-2021 End: 11-27-2021 ambulatory Yovanny Mast Other [facility] Other Start: 11-27-2021 Telephone encounter Yovanny Mast [facility] Start: 11-24-2021 End: 11-24-2021 ambulatory Clover Olson Other [facility] Other Start: 11-24-2021 Office outpatient visit 15 minutes Clover Olson [facility] Start: 10-16-2021 End: 10-16-2021 ambulatory [facility] Facility:[facility] Procedures Date Procedure Procedure Detail Performing Clinician Start: 08-24-2023 X-ray of left ankle Ser vices [employer] Phone: Start: 08-24-2023 Computed tomography of abdomen and pelvis with contrast Services [facility] Phone: Start: 08-24-2023 Duplex scan of lower limb veins Services [employer] Phone: Start: 06-30-2023 Pelvic echography [employer] Phone: Start: 06-30-2023 Transvaginal echography Services [employer] Phone: Start: 09-15-2022 Plain chest X-ray Serv [employer] Phone: Plan of Treatment Date Care Activity Detail Author Start: 12-07-2023 Duplex scan of lower limb veins US venous duplex LE LT [facility] Start: 12-07-2023 US Lower extremity v ein - left [facility] Start: 08-24-2023 Duplex scan of lower limb veins US venous duplex LE BI [facility] Start: 08-24-2023 US Lower extremity v ein - bilateral [facility] Lutropin [Units/volu me] in Serum or Plasma [facility] Patient referral [facility] Work Phone: Payers Date Payer Category Payer Self-pay [id number] 1975 Unknown [id number] 2.16.84 [id number] 1975 Unknown [id number] 2.16.84 [id number] 1975 Unknown [id number] 2.16.84 [id number] 1975 Unknown [id number] 2.16.84 [id number] 1975 Unknown [id number] 2.16.84 [id number] 1959 Unknown [id number] 2. [id number] Unknown [id number] 2.16.8 [id number] Unknown [id number] 2.16.8 [id number] Unknown [id number] 2.16.8 [id number] Unknown [id number] 2.16.8 [id number] Social History Date Type Detail Facility Unknown if ever smoked [facility] Other Sex Assigned At Sex Assigned At [facility] Other Start: 1975 Sex Assigned At Female [facility] Start: 08-24-2023 Tobacco smoking status NHIS Smoker (finding) [facility] Start: 10-12-2023 Tobacco smoking status NHIS Ex-smoker (finding) [facility] NEGATED: Highlighted row [facility] Hospital Discharge instructions 08-24-2023 Note Date & Type Note Facility 08-24-2023 Hospital Discharg e instructions Additional Instructions You are seen in the emergency department for left leg pain and lower abdominal pain. We obtained an ultrasound of the lower leg which showed no signs of blood clots. Also obtain CT imaging of the abdomen which showed no abnormalities, ovaries are within normal size there is no signs of infection. Try taking Motrin 600 mg every 8 hours for the next 2 to 3 days as needed to help with pain. If Motrin does not improve the pain stop taking it. Call your family doctor soon as possible in the morning for reevaluation. Return to emergency department if develop severe worsening pain, nausea or vomiting, increased swelling of the left leg or redness, inability to walk or bear weight, chest pain or shortness of breath. [facility] Work Phone: Evaluation note 06-15-2022 Note Date & Type [...] no improvement in 2 to 3 days. [facility] Other Evaluation note 03-18-2022 Note Date & [...] Mar, History of asthma (ICD-10 - Z87.09) [facility] Other Evaluation note 11-24-2021 Note Date & [...] breathing develops November, Cough (ICD-10 - R05.9) [facility] [employer] Other Clinical Note 10-31-2020 Note Date & Type Note Facility 10-31-2020 Note Chief Complaint Referral for Right side Discomforting Lipoma [facility] Staff 45 year old female referred by Dr. Muro on consultation of discomforting lipoma medial inferior aspect of the right scapula. Taking Naproxen for pain PRN. Denies symptoms of current pain, itching, or change in size. 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 Thyroid disease: Mother. [facility] Comment on above: Result Comment: Elec tronically Signed By: HARSH PARRISH, Gt [place]\Date and Time Signed: 10/31/20 14:09 EDT Evaluation note Note Date & Type Note Facility Evaluation note No Information [employer] Other Evaluation note Note Date & Type Note Facility Evaluation note No assessment information availa [facility] Work Phone: Evaluation note Note Date & Type Note Facility Evaluation note Diagnosis Onset Date Lower extremity edema acute Pain of left calf acute Symptomatic varicose veins a [facility] Work Phone: History general Narrative - Reported Note Date & Type Note Facility History general Narrative - Reported Type Medical History borderline DM Medical History HTN Medical History deaf Medical History asthma Surgical History C section [facility] Other History general Narrative - Reported Note Date & Type Note Facility History general Narrative - Reported Type Medical History borderline DM Medical History HTN Medical History deaf Medical History asthma Surgical History C section Hospitalization History see above [facility] Other Summary Purpose Family History No Family History Records Found Relationship Condition Age at Onset Recorded Date/T christine father Unknown Malignant neoplasm Unknown Not Specified Family history of thyroid disease Unknow n Advance Directives No Advanced Directives Records Found Advance Directive Response Recorded Date/ Time Advance Directives No June 11:07am Advance Directive Response Recorded Date/ Time Advance Directives No June 10:07am Chief Complaint and Reason for Visit Chief Complaint g82.29 n95.1 z86.39 r73.01 Chief Complaint J45.41 Chief Complaint History of thyroid d isease Hypertension Impaired f Chief Complaint I10 M25.50 Z86.39 R7 3.01 N94.6 Chief Complaint I10 M25.50 Z86.39 R7 3.01 N94.6 Leg pain Chief Complaint Leg pain Referred by [facility]ema, hx DVT, Duplex at [facility] Chief Complaint Referred by [facility] Edema, hx DVT, Duplex at [facility] f/u GO OVER LT LEG F/F 1030A M79.89 Reason for Visit Lower extremity joe a Pain of left calf Symptomatic varicose veins Additional Source Comments INFORMATION SOURCE (unrecogn ized section and content) DATE CREATED AUTHOR 11/05/2020 [facility] DATE CREATED AUTHOR AUTHOR'S ORGANIZ ATION 02/12/2022 [facility] DATE CREATED AUTHOR AUTHOR'S ORGANIZ ATION 10/06/2023 [facility] EPIC DATE CREATED AUTHOR AUTHOR'S ORGANIZ ATION 12/10/[address] [facility] REASON FOR VISIT (unrecogniz ed section and content) SORE THROAT, COUGH, WHEEZING , PATIENT IS DEAFNo InformationCOUGH, CONGESTION, LEFT SIDE PAINNo InformationH/A, X1 WEEK, EXPOSURE TO COVID Care Teams (unrecognized sec tion and content) Team Status: Active Member Role Status Dates Services [facility] Primary Care Provider Active Team Status: Inactive Member Role Status Dates Services [facility] Primary Care Provider Active HEATH Peterson Attending Provider Active Team Status: Inactive Member Role Status Dates HEATH Peterson Attending Provider Active Team Status: Inactive Member Role Status Dates HEATH Peterson Attending Provider Active Services [facility] Primary Care Provider Active Team Status: Inactive Member Role Status Dates HEATH Peterson Attending Provider Active Start: May 27, 2023 End: May 27, 2023 Team Status: Inactive Member Role Status Dates HEATH Peterson Attending Provider Active Start: June 30, 2023 End: June 30, [address] [facility] Primary Care Provider Active Start: June 30, 2023 End: June 30, 2023 Team Status: Inactive Member Role Status Dates Services [facility] Primary Care Provider Active Start: August 24, 2023 End: August 24, 2023 Robert Haji MD Emergency Provider Active Start: August 24, 2023 End: August 24, 2023 Team Status: Inactive Member Role Status Dates [facility] Provider Active Start: October 12, 2023 End: October 12, 2023 Shun Oswald MD Attending Provider Active S tart: October 12, 2023 End: October 12, 2023 Regine Chinchilla APRN ENVIRONMENTAL RESTORATION PLANNER-C Referring Provider Active Start: October 12, 2023 End: October 12, 2023 Team Status: Inactive Member Role Status Dates [facility] Provider Active Start: December 07, 2023 End: December 07, 2023 Shun Oswald MD Attending Provider Active S tart: December 07, 2023 End: December 07, 2023 Team Status: Active Member Role Status [facility] Provider Active Start: December 07, 2023 Shun Oswald MD Attending Provider Active S tart: December 07, 2023 Goals (unrecognized section and content) Goals may [...] BE BASED ON THE PRIMARY CLINICAL RECORDS. [facility] [employer] provides no warranty or guarantee of the accuracy or completeness of information in this document.
--- NOTE | 2024-05-26 17:46 | XR_ITS ---
The [address] [address] Patient Name: GLADYS HENRIQUEZ MRN: [id number] date: 1975 Sex: F Assigned Patient Location: ER Current Patient Location: ED.MAIN Accession/Order Number: [id number] Exam Date: 05/26/2024 18:25 Report Date: 05/26/2024 20:58 At the request of: LIZETTE LANDON Procedure: XR elbow LT min 3V EXAM: XR elbow LT min 3V HISTORY: The patient is a 48-year-old female, pain COMPARISON: None. FINDINGS: The left elbow is radiographically negative with no evidence of fracture, dislocation, fat pad elevation, or other osseous or articular abnormalities. XR/XR elbow LT min 3V IMPRESSION: Negative. Electronically authenticated by: TRINITY ENCARNACION Date: 05/26/2024 20:58
--- NOTE | 2024-05-26 18:42 | ED.EXTPRO1 ---
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 She feels that there is a lump there and she has had it for a year and the pain has gotten worse and it is burning. She gives no history of injury and she is right-handed. She points to the olecranon process to indicate area of most discomfort. Related Data Home Medications ?Medication ?Instructions ?Recorded ?Confirmed lurasidone 20 mg tablet 20 mg PO QPM 09/20/23 09/20/23 omeprazole 10 mg capsule,delayed 10 mg PO DAILY 09/20/23 09/20/23 release umeclidinium 62.5 mcg-vilanterol 1 inh inhalation DAILY 09/20/23 09/20/23 25 mcg/actuation powdr for inhalation (Anoro Ellipta) Previous Rx's ?Medication ?Instructions ?Recorded ondansetron 4 mg disintegrating 4 mg PO Q6H PRN nausea and 09/20/23 tablet vomiting #20 tabs etodolac 400 mg tablet 400 mg PO Q8H PRN pain #20 tabs 05/26/24 Allergies Allergy/AdvReac Type Severity Reaction Status Date / Time codeine Allergy Severe Verified 07/31/23 06:24 hydrocodone (From Vicodin) Allergy Severe Verified 07/31/23 06:24 morphine Allergy Severe Hives Verified 07/31/23 06:24 Review of Systems ROS Narrative A ten point review of systems is negative except as noted above. PFSH PFSH Social History Smoking status: Never smoker Little interest or pleasure in doing things: not at all Feeling down, depressed, or hopeless: not at all Exam Narrative Exam Narrative: Nurses note and vital signs reviewed and patient is not hypoxic. General: The patient appears well and in no apparent distress. Patient is resting comfortably on cart. Skin: Warm, dry, no pallor noted. There is no rash noted. Head: Normocephalic, atraumatic Eye: Normal conjunctiva, no drainage Ears, Nose, Mouth, and Throat: oral mucosa is moist. Nares patent. Cardiovascular: Regular Rate and Rhythm Respiratory: Patient is in no distress, no accessory muscle use Back: non-tender GI: Soft and nontender Musculoskeletal: The left elbow is examined. It has full range of motion and there is no erythema or bruising or swelling. There is a mobile palpable hard bone like mass next to the olecranon process. This is an area of discomfort. Neurological: Awake and alert Psychiatric: Cooperative Constitutional Vital Signs, click to edit/add: Last Vital Signs Temp 98.2 F 05/26/24 17:37 Pulse 87 05/26/24 17:37 Resp 22 H 05/26/24 17:37 BP 151/101 H 05/26/24 17:37 Pulse Ox 99 05/26/24 17:37 O2 Del Method Room Air 05/26/24 17:37 Course Vital Signs Vital signs: Vital Signs Temperature 98.2 F 05/26/24 17:37 Pulse Rate 87 05/26/24 17:37 Respiratory Rate 22 H 05/26/24 17:37 Blood Pressure 151/101 H 05/26/24 17:37 Pulse Oximetry 99 05/26/24 17:37 Oxygen Delivery Method Room Air 05/26/24 17:37 Temperature 98.2 F 05/26/24 17:37 Pulse Rate 87 05/26/24 17:37 Respiratory Rate 22 H 05/26/24 17:37 Blood Pressure 151/101 H 05/26/24 17:37 Pulse Oximetry 99 05/26/24 17:37 Oxygen Delivery Method Room Air 05/26/24 17:37 MDM - Extremity (Nontraumatic) MDM Narrative Medical decision making narrative: X-rays negative. Orthopedic appointment made for May 29 at 10:[address] Haji. She is prescribed Lodine. Treatment diagnosis and follow-up were discussed with the patient. Differential Diagnosis Differential diagnosis: Likely other (Arthritis, bursitis, tendinitis, fracture) Discharge Plan Discharge Chief Complaint: Extremity Problem, Nontraumatic Clinical Impression: Left elbow pain Patient Disposition: Home, Self-Care Time of Disposition Decision: 21:13 Condition: Good Mode of Transportation: Private Vehicle Prescriptions / Home Meds: New etodolac 400 mg tablet 400 mg PO Q8H PRN (Reason: pain) Qty: 20 0RF No Action lurasidone 20 mg tablet 20 mg PO QPM omeprazole 10 mg capsule,delayed release(DR/EC) 10 mg PO DAILY Anoro Ellipta 62.5-25 mcg/actuation blister with device 1 inh INHALATION DAILY ondansetron 4 mg tablet,disintegrating 4 mg PO Q6H PRN (Reason: nausea and vomiting) Qty: 20 0RF Print Language: Vietnamese Instructions: Elbow Strain (ED) Referrals: [facility] [Primary Care Provider] - 1 week William Haji MD [Physician] - 05/29/24 10:30 am
== END 2024-05-26 21:25 | disposition home or self-care (01) ==
PROVIDERS: Emergency Provider Emergency Medicine
DX: M25.522 Pain in left elbow (principal)
CPT/HCPCS: 73080; 99283

== ENCOUNTER 2024-06-30 13:19 | Outpatient (OUT) | payer OTHER, SELFPAY ==
--- NOTE | 2024-06-30 | MR_ITS ---
The [address] [address] Patient Name: GLADYS HENRIQUEZ MRN: [id number] date: 1975 Sex: F Assigned Patient Location: MRI Current Patient Location: MRI Accession/Order Number: [id number] Exam Date: 06/30/2024 13:35 Report Date: 07/07/2024 15:30 At the request of: PEMA ALVES Procedure: MR elbow LT wo con EXAM: MR elbow LT wo con HISTORY: Left Elbow Mass COMPARISON: None. TECHNIQUE: MRI of the left elbow without contrast. Limited examination. Examination limited due to claustrophobia. Only 3 sequences obtained, axial T1, axial STIR, and coronal T1 images. FINDINGS: Biceps tendon is intact. Brachialis tendon is intact. Common extensor and common flexor tendon origins are intact. Triceps tendon is intact. No large elbow joint effusion. Ulnar nerve is normal in size and signal within the cubital tunnel. Minimal edema posterior to the olecranon, may represent olecranon bursitis. No acute edema of the musculature about the elbow. No definitive acute fractures. MR/MR elbow LT wo con IMPRESSION: Limited protocol, only 3 sequences obtained. 1. Minimal edema posterior to the olecranon, may represent olecranon bursitis. 2. No large elbow joint effusion. 3. Other findings as described. Electronically authenticated by: MARIA M STALEY Date: 07/07/2024 15:30
--- OUTSIDE RECORDS SUMMARY | 2024-06-30 13:23 | XMS_ITS | CCD ---
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 Primary Care Unavailkenneth MILLER, DR GOODE Attending Unavailable PAUL, DR GOODE Consulting Unavailable PAUL, DR GOODE Admitting Unavailable JEROME SALMERON Attending Unavailable JEROME SALMERON Admitting Unavailable [facility] Primary Care Unavailkenneth SHRESTHA, DR WILLIAM Desai Consulting Unavailable JEROME SALMERON Consulting Unavailable [facility], Services Primary Care Provider [phone]( [phone] HEATH Chinchilla Attending Provider Amy Soto Unavailable [facility], Services Primary Care Provider HEATH Chinchilla Attending Provider HEATH Chinchilla Attending Provider [facility], Services Primary Care Provider 1( [phone] MD Robert Haji Emergency Provider MEY MITTAL Attending Unavailable MEY MITTAL Attending Unavailable MEY MITTAL Referring Unavailable [facility], Services Primary Care Provider MD Robert Haji Emergency Provider [facility], Services Primary Care Provider MD Shun Oswald Attending Provider Shun Oswald Attending Unavailable [facility], Services Primary Care UnavailShun Loomis Admitting Unavailable Regine Chinchilla Admitting Unavailable Regine Chinchilla Attending Unavailable [facility], Services Primary Care Unavaila Regine Nguyen Admitting Unavailable Regine Chinchilla Attending Unavailable Robert Haji Attending Unavailable [facility], [facility] Primary Care Unavaila Robert Velazquez Admitting Unavailable Allergies Allergy Classification Reported Allergen(s) Allergy Type Date of Onset Reaction(s) Facility (6 sources) Acetaminophen / HYDROcodone; Translations: [Vicodin] Drug Allergy 4 seizures [facility] Repository (5 sources) Codeine Drug Allergy Unknown [employer] Other (9 sources) Morphine Drug Allergy 4 Unknown, [facility] (5 sources) Codeine Drug Allergy 4 seizure [facility] Repository (1 source) Morphine Drug Allergy 4 [facility] Repository (5 sources) HYDROcodone; Translations: [hydrocodone] Drug Allergy 4 [facility] (1 source) Acetaminophen Drug Allergy 2 [facility] Repository (1 source) Codeine Drug Allergy 4 [facility] Repository (1 source) Morphine Drug Allergy 4 [facility] Repository Medications Current Medications Medication Drug Class(es) Dates Sig (Normalized) Sig (Original) [id number] actuat albuterol 0.09 mg/actuat metered dose [...] 10-12-2023 Chronic Other aftercare (1 source) Other intermediate (current) drug therapy; Translations: [OTH HOG STICKER CURRENT DRUG THERAPY] Onset: 02-11-2022 Episodic Other aftercare (1 source) ocean transportation intermediary (current) use of aspirin; Translations: [ALF CURRENT USE OF ASPIRIN] Onset: 02-11-2022 Episodic [...] LE LTon US venous duplex LE LT [facility] [address] [place] [address] Ultrasound Report Signed Patient: Clover Henriquez MR#: [id number] : 1975 Acct:[id number] Age/Sex: 48 / F ADM Date: 12/07/23 Loc: [facility] Room: [facility] Attending Dr: Shun Oswald MD Ordering [...] Carlos Asencio MD12/09/2023 8:32 AM [facility] Tech: Chicabrit Biggs Transcribed By: SADE 12/09/23831 Dictated By: Carlos Asencio MD 12/09/23831 Signed By: 12/09/23831 Normal [facility] US venous duplex LE BIon US venous duplex LE BI [facility] Main [place] [address] [place] [address] Ultrasound Report Signed Patient: Clover Henriquez MR#: [id number] : 1975 Acct:[id number] Age/Sex: 47 / F ADM Date: 08/24/23 Loc: ER Room: Type: [facility] ER Attending Dr: Ordering Provider: Robert [...] Carlos Asencio MD08/25/2023 11:16 AM Dictation Location: [place] [address] Tech: Cinda Monika Transcribed By: SADE 08/25/23 111 Dictated By: Carlos Asencio MD 08/25/23 111 Signed By: 08/25/23 111 Normal [facility] Basic Metabolic Panelon 08-12 Anion gap [Moles/Vol] 9.7 mmol/L Normal 6.0-15.0 [facility] Comment on above: Performed By: #### H CGQUAL, CBC, BMP ####[facility] [id number] [place] [id number] [facility] Calcium [Mass/Vol] 9.8 mg/dL Normal 8.6-10.3 [facility] Comment on above: Performed By: #### H CGQUAL, CBC, BMP ####[facility] [id number] [place] [id number] [facility] Chloride [Moles/Vol] 104 mmol/L Normal 98-107 [facility] Comment on above: Performed By: #### H CGQUAL, CBC, BMP ####[facility] [id number] [place] [address] [facility] CO2 [Moles/Vol] 29.2 mmol/L Normal 21.0-31.0 [facility] Comment on above: Performed By: #### H CGQUAL, CBC, BMP ####[place] [address] [place] [address] [facility] Creatinine [Mass/Vol] 0.99 mg/dL Normal 0.60-1.20 [facility] Comment on above: Performed By: #### H CGQUAL, CBC, BMP ####[place] [address] [place] [address] [place] Creatinine Clr Calc Pharmacy 76.92 Normal [facility] Comment on above: Performed By: #### H CGQUAL, CBC, BMP ####[place] [address] [place] [address] [place] GFR/1.73 sq M.predicted MDRD (S/P/Bld) [Vol rate/Area] mL/min/{1.73_m2} Normal [facility] Comment on above: Performed By: #### H CGQUAL, CBC, BMP ####[place] [address] [place] [id number] [facility] Glucose [Mass/Vol] 105 mg/dL High 70-100 [facility] Comment on above: Result Comment: [place] Glucose Reference Range is dependent on time and content of last meal. Glucose of more than 200 mg/dL in a nonstressed, ambulatory subject supports the diagnosis of Diabetes Mellitus. ADA recommended reference range Performed By: #### H CGQUAL, CBC, BMP ####[facility] [place] [address] [facility] Potassium [Moles/Vol] 3.9 mmol/L Normal 3.5-5.1 [facility] Comment on above: Performed By: #### H CGQUAL, CBC, BMP ####[facility] [place] [address] [place] Sodium [Moles/Vol] 139 mmol/L Normal 136-145 [facility] Comment on above: Performed By: #### H CGQUAL, CBC, BMP ####[facility] [id number] Urea nitrogen [Mass/Vol] 15 mg/dL Normal 7-25 [facility] Comment on above: Performed By: #### H CGQUAL, CBC, BMP ####[facility] [id number] Basophils Auto (Bld) [#/Vol] Ordered By: Robert Haji on 08-24-2023 Basophils (Bld) [#/Vol] 0.1 10*3/uL 0.0-0.2 [facility] Basophils/100 WBC Auto (Bld) Ordered By: Robert Haji on 08-24-2023 Basophils/100 WBC (Bld) 1.2 % . [facility] Bilirubin Test strip Ql (U)O rdered By: Robert Haji on 08-24-2023 Bilirubin Ql (U) Negative Negative [facility] CT abdomen pelvis w conon CT abdomen pelvis w con [facility] [address] [place] [address] [place] [address] CT Scan Report Signed Patient: Clover Henriquez MR#: [id number] : 1975 Acct:[id number] Age/Sex: 47 / F ADM Date: 08/24/23 Loc: ER Room: Type: [facility] ER Attending Dr: Copies to: Robert Haji [...] Edwards Jr., DLindaOLinda08/24/2023 7:43 PM Dictation Location: [place] [address] Transcribed By: [facility] 08/24/231942 Dictated By: Sivakumar Edwards Jr, DO 08/24/231940 Signed By: 08/24/231942 Normal [facility] Calcium [Mass/volume] in Ser um or PlasmaOrdered By: Robert Haji on 08-24-2023 Calcium [Mass/Vol] 9.8 mg/dL 8.6-10.3 [facility] Carbon dioxide, total [Moles /volume] in Serum or PlasmaOrdered By: Robert Haji on 08-24-2023 CO2 [Moles/Vol] 29.2 mmol/L 21.0-31.0 [facility] Chloride [Moles/volume] in S lyly or PlasmaOrdered By: Robert Haji on 08-24-2023 Chloride [Moles/Vol] 104 mmol/L 98-107 [facility] Choriogonadotropin.beta subu nit [Units/volume] in Serum or PlasmaOrdered By: Robert Haji on 08-24-2023 HCG.beta subunit Qn Negative [facility] Color Auto (U)Ordered By: Lizzette Dejesusland on 08-24-2023 Color (U) Yellow Yellow [facility] Complete Blood Count Auto Di ffon 08-24-2023 Basophils (Bld) [#/Vol] 0.1 10*3/uL Normal 0.0-0.2 [facility] Comment on above: Result Comment: PERF ORMED BY: [facility] [address] [place] [address] PATHOLOGIST MEDICAL REIMBURSEMENT SPECIALIST RASHMI ECHOLS M.D. Performed By: #### H CGQUAL, CBC, BMP ####[address] Basophils/100 WBC (Bld) 1.2 % Normal . T [facility] Comment on above: Performed By: #### H CGQUAL, CBC, BMP ####[address] Eosinophils (Bld) [#/Vol] 0.7 10*3/uL High 0.0-0.45 [facility] Comment on above: Performed By: #### H CGQUAL, CBC, BMP ####[address] Eosinophils/100 WBC (Bld) 9.4 % Normal . [facility] Comment on above: Performed By: #### H CGQUAL, CBC, BMP ####[address] Erythrocyte distribution width (RBC) [Ratio] 13.7 % Normal 11.9-15.3 [facility] Comment on above: Performed By: #### H CGQUAL, CBC, BMP ####[address] Hematocrit (Bld) [Volume fraction] 40.5 % Normal 34.0-46.4 [facility] Comment on above: Performed By: #### H CGQUAL, CBC, BMP ####[address] Hemoglobin (Bld) [Mass/Vol] 13.7 g/dL Normal 11.8-15.4 [facility] Comment on above: Performed By: #### H CGQUAL, CBC, BMP ####[address] Lymphocytes (Bld) [#/Vol] 1.4 10*3/uL Normal 1.00-4.8 [facility] Comment on above: Performed By: #### H CGQUAL, CBC, BMP ####[address] Lymphocytes/100 WBC (Bld) 19.0 % Normal . [facility] Comment on above: Performed By: #### H CGQUAL, CBC, BMP ####[address] MCH (RBC) [Entitic mass] 31.0 pg Normal 24.7-34.3 [facility] Comment on above: Performed By: #### H CGQUAL, CBC, BMP ####[address] MCV (RBC) [Entitic vol] 91.5 fL Normal 80-100 [facility] Comment on above: Performed By: #### H CGQUAL, CBC, BMP ####[address] Mean Corpuscular HGB Conc 33.9 g/dL Normal 32.0-35.0 [facility] Comment on above: Performed By: #### H CGQUAL, CBC, BMP ####[address] Monocytes (Bld) [#/Vol] 0.6 10*3/uL Normal 0.0-0.8 [facility] Comment on above: Performed By: #### H CGQUAL, CBC, BMP ####[address] Monocytes/100 WBC (Bld) 21.83 % High 0.00-20.00 [facility] Comment on above: Result Comment: For adults in ED, MDW > 20.0 may be associated with a higher risk of sepsis during the first 12 hrs of hospital admission Performed By: #### H CGQUAL, CBC, BMP ####[address] Monocytes/100 WBC (Bld) 7.3 % Normal . [facility] Comment on above: Performed By: #### H CGQUAL, CBC, BMP ####[address] [place] [address] [place] Neutrophils (Bld) [#/Vol] 4.7 10*3/uL Normal 1.8-7.7 [facility] Comment on above: Performed By: #### H CGQUAL, CBC, BMP ####[place] [id number] [facility] Neutrophils/100 WBC (Bld) 63.1 % Normal . [facility] Comment on above: Performed By: #### H CGQUAL, CBC, BMP ####[place] [id number] [facility] NRBC% 0.1 /100{WBC} Normal 0-0.5 [facility] Comment on above: Performed By: #### H CGQUAL, CBC, BMP ####[place] [id number] [facility] Platelet mean volume (Bld) [Entitic vol] 7.8 fL Normal 6.3-10.7 [facility] Comment on above: Performed By: #### H CGQUAL, CBC, BMP ####[address] [address] [facility] Platelets (Bld) [#/Vol] 363 10*3/uL Normal 150-450 [facility] Comment on above: Performed By: #### H CGQUAL, CBC, BMP ####[place] [id number] [facility] RBC (Bld) [#/Vol] 4.42 10*6/uL Normal 3.60-5.00 [facility] Comment on above: Performed By: #### H CGQUAL, CBC, BMP ####[address] [address] [facility] WBC (Bld) [#/Vol] 7.5 10*3/uL Normal 3.8-11.6 [facility] Comment on above: Performed By: #### H CGQUAL, CBC, BMP ####[place] [id number] [facility] Creatinine [Mass/volume] in Serum or PlasmaOrdered By: Robert Dejesusland on 08-24-2023 Creatinine [Mass/Vol] 0.99 mg/dL 0.60-1.20 [facility] Eosinophils Auto (Bld) [#/Vo l][facility] 08-24-[facility]23 Eosinophils (Bld) [#/Vol] 0.7 10*3/uL 0.0-0.45 [facility] Eosinophils/100 WBC Auto (Bl d)Ordered By: Robert [place] on 08-24-2023 Eosinophils/100 WBC (Bld) 9.4 % . [facility] Erythrocyte distribution wid th Auto (RBC) [Ratio]Ordered By: [facility] on 08-24-2023 Erythrocyte distribution width (RBC) [Ratio] 13.7 % 11.9-15.3 [facility] Glucose [Mass/volume] in Ser um or PlasmaOrdered By: [facility] on 08-24-2023 Glucose [Mass/Vol] 105 mg/dL 70-100 [facility] Comment on above: ADA recommended refe rence rangeRandom Glucose Reference Range is dependent on time and content of last meal. Glucose of more than 200 mg/dL in a nonstressed, ambulatory subject supports the diagnosis of Diabetes Mellitus. HCG,Qualitative Serumon 08-12 HCG,Qualitative Serum Negative Normal [facility] Comment on above: Result Comment: PERF ORMED BY: [facility] [address] [place] [address] PATHOLOGIST MEDICAL REIMBURSEMENT SPECIALIST RASHMI ECHOLS M.D. Performed By: #### H CGQUAL, CBC, BMP ####[facility] [address] [place] [address] [facility] Hematocrit Auto (Bld) [Volum e fraction]Ordered By: Robert Dejesusland on 08-24-2023 Hematocrit (Bld) [Volume fraction] 40.5 % 34.0-46.4 [facility] Hemoglobin [Mass/volume] in BloodOrdered By: Robert Dejesusland on 08-24-2023 Hemoglobin (Bld) [Mass/Vol] 13.7 g/dL 11.8-15.4 [facility] Ketones Auto test strip (U) [Mass/Vol]Ordered By: Robert Haji on 08-24-2023 Ketones (U) [Mass/Vol] Negative Negative Fi [facility] Leukocytes [#/volume] correc jay for nucleated erythrocytes in Blood by Automated counOrdered By: Robert Haji on 08-24-2023 WBC corrected for nucl RBC Auto (Bld) [#/Vol] 7.5 10*3/uL 3.8-11.6 [facility] Lymphocytes Auto (Bld) [#/Vo l]Ordered By: Robert Haji on 08-24-2023 Lymphocytes (Bld) [#/Vol] 1.4 10*3/uL 1.00-4.8 [facility] Lymphocytes/100 WBC Auto (Bl d)Ordered By: Robert Haji on 08-24-2023 Lymphocytes/100 WBC (Bld) 19.0 % . [facility] MCH Auto (RBC) [Entitic mass ]Ordered By: Robert Haji on 08-24-2023 MCH (RBC) [Entitic mass] 31.0 pg 24.7-34.3 [facility] MCHC Auto (RBC) [Mass/Vol]Or dered By: Robert Haji on 08-24-2023 MCHC (RBC) [Mass/Vol] 33.9 g/dL 32.0-35.[address] [facility] MCV Auto (RBC) [Entitic vol] Ordered By: Robert Haji 08-24-2023 MCV (RBC) [Entitic vol] 91.5 fL 80-100 [facility] Monocyte distribution width [Entitic volume] in Blood by AutomatedOrdered By: Robert Haji on 08-24-2023 Monocyte distribution width Auto (Bld) [Entitic vol] 21.83 % 0.00-20.00 [facility] Comment on above: For adults in ED, MD W > 20.0 may be associated with a higher risk of sepsis during the first 12 hrs of hospital admission Monocytes Auto (Bld) [#/Vol] Ordered By: Robert Haji on 08-24-2023 Monocytes (Bld) [#/Vol] 0.6 10*3/uL 0.0-0.8 [facility] Monocytes/100 WBC Auto (Bld) Ordered By: Robert Haji on 08-24-2023 Monocytes/100 WBC (Bld) 7.3 % . [facility] Neutrophils Auto (Bld) [#/Vo l]Ordered By: Robert Haji on 08-24-2023 Neutrophils (Bld) [#/Vol] 4.7 10*3/uL 1.8-7.7 [facility] Neutrophils/100 WBC Auto (Bl d)Ordered By: Robert Haji on 08-24-2023 Neutrophils/100 WBC (Bld) 63.1 % . [facility] Nitrite Test strip Ql (U)Ord ered By: Robert Haji on 08-24-2023 Nitrite Ql (U) Negative Negative [facility] No Panel InformationOrdered By: Robert Haji on 08-24-2023 Estimated GFR (CKD-EPI) > 60.0 mL/Min [facility] Pharmacy Creatinine Clearance (Chem 76.92 [facility] Nucleated erythrocytes [Pres ence] in Blood by Automated countOrdered By: Robert Haji on 08-24-2023 Nucleated RBC Auto Ql (Bld) 0.1 /100{WBC} 0-0.5 [facility] Platelet mean volume Auto (B ld) [Entitic vol]Ordered By: Robert Haji on 08-24-2023 Platelet mean volume (Bld) [Entitic vol] 7.8 fL 6.3-10.7 [facility] Platelets Auto (Bld) [#/Vol] Ordered By: Robert Haji on 08-24-2023 Platelets (Bld) [#/Vol] 363 10*3/uL 150-450 [facility] Potassium [Moles/volume] in Serum or PlasmaOrdered By: Robert Haji on 08-24-2023 Potassium [Moles/Vol] 3.9 mmol/L 3.5-5.1 [facility] Protein Auto test strip (U) [Mass/Vol]Ordered By: Robert Haji on 08-24-2023 Protein (U) [Mass/Vol] Negative Negative [facility] RBC Auto (Bld) [#/Vol]Ordere d By: Robert Haji on 08-24-2023 RBC (Bld) [#/Vol] 4.42 10*6/uL 3.60-5.00 [facility] Serum or plasma anion gap de terminationOrdered By: Robert Haji on 08-24-2023 Anion gap [Moles/Vol] 9.7 mmol/L 6.0-15.0 [facility] Sodium [Moles/volume] in Ser um or PlasmaOrdered By: Robert Haji on 08-24-2023 Sodium [Moles/Vol] 139 mmol/L 136-145 [facility] Specific gravity Auto test s trip (U) [Rel density]Ordered By: Robert Haji on 08-24-2023 Specific gravity (U) [Rel density] 1.006 1.001-1.030 [facility] Urea nitrogen [Mass/volume] in Serum or PlasmaOrdered By: Robert Haji on 08-24-2023 Urea nitrogen [Mass/Vol] 15 mg/dL 7-25 [facility] Urinalysison 08-24-2023 Appearance (U) Clear Normal Clear [facility] Comment on above: Order Comment: Name Collection Type:: Clean-Voided Midstream Performed By: #### U A #### [facility] [address] [place] [address] [place] Bilirubin,Urine Negative Normal Negative [facility] Comment on above: Order Comment: Name Collection Type:: Clean-Voided Midstream Performed By: #### U A #### [facility] [address] [place] [address] [place] Color (U) Yellow Normal Yellow [facility] Comment on above: Order Comment: Name Collection Type:: Clean-Voided Midstream Performed By: #### U A #### [facility] [address] [place] [id number] [place] Glucose Ql (U) Normal Normal Normal [facility] Comment on above: Order Comment: Name Collection Type:: Clean-Voided Midstream Performed By: #### U A #### [facility] [address] [place] [id number] [place] Ketones Ql (U) Negative Normal Negative [facility] Comment on above: Order Comment: Name Collection Type:: Clean-Voided Midstream Performed By: #### U A #### [address] Leukocyte esterase Test strip Ql (U) Negative Normal Negative [facility] Comment on above: Order Comment: Name Collection Type:: Clean-Voided Midstream Performed By: #### U A #### [place] [address] [place] Nitrite,Urine Negative Normal Negative [facility] Comment on above: Order Comment: Name Collection Type:: Clean-Voided Midstream Performed By: #### U A #### [address] Occult Blood,Urine Negative Normal Negative [facility] Comment on above: Order Comment: Name Collection Type:: Clean-Voided Midstream Result Comment: PERF ORMED BY: [place] [address] PATHOLOGIST MEDICAL REIMBURSEMENT SPECIALIST RASHMI ECHOLS M.D. Performed By: #### U A #### [address] pH (U) 7.0 [pH] Normal 5.0-9.0 [facility] Comment on above: Order Comment: Name Collection Type:: Clean-Voided Midstream Performed By: #### U A #### [address] Protein,Urine Negative Normal Negative [facility] Comment on above: Order Comment: Name Collection Type:: Clean-Voided Midstream Performed By: #### U A #### [place] [address] [place] Specificy Rector,Urine 1.006 Normal 1.001-1.030 [facility] Comment on above: Order Comment: Name Collection Type:: Clean-Voided Midstream Performed By: #### U A #### [address] Urobilinogen,Urine Normal Normal Normal [facility] Comment on above: Order Comment: Name Collection Type:: Clean-Voided Midstream Performed By: #### U A #### [place] [id number] [facility] Urine clarity by refractomet ry automatedOrdered By: Robert Haji on 08-24-2023 Clarity Refractometry automated (U) Clear Clear [facility] Urine glucose measurement by automated test strip (mass/volume)Ordered By: Robert Haji on 08-24-2023 Glucose Auto test strip (U) [Mass/Vol] Normal mg/dL Normal [facility] Urine hemoglobin detection b y automated test stripOrdered By: Robert Haji on 08-24-2023 Hemoglobin Auto test strip Ql (U) Negative Negative [facility] Urine leukocyte esterase det ection by automated test stripOrdered By: Robert Haji on 08-24-2023 Leukocyte esterase Auto test strip Ql (U) Negative Negative [facility] Urobilinogen Auto test strip (U) [Mass/Vol]Ordered By: Robert Haji on 08-24-2023 Urobilinogen (U) [Mass/Vol] Normal mg/dL Normal [facility] WBC Auto (Bld) [#/Vol]Ordere d By: Robert Haji on 08-24-2023 WBC (Bld) [#/Vol] 7.5 10*3/uL 3.8-11.6 [facility] XR ankle LT min 3V*on 2023 XR ankle LT min 3V* [facility] [address] [place] [address] [place], [place] [id number] XRay Report Signed Patient: Clover Henriquez MR#: [id number] : 1975 Acct:[id number] Age/Sex: 47 / F ADM Date: 08/24/23 Loc: ER Room: Type: [facility] ER Attending Dr: Copies to: Robert Haji MD Ordering Provider: Robret Haji MD Date of Service: 08/24/23 XR/XR [...] Edwards Jr., D.O.08/24/2023 7:44 PM Dictation Location: [place] [address] Transcribed By: [facility] 08/24/231943 Dictated By: Sivakumar Edwards Jr, DO 08/24/231942 Signed By: 08/24/231943 Normal [facility] pH Auto test strip (U)Ordere d By: Robert Haji on 08-24-2023 pH (U) 7.0 [pH] 5.0-9.0 [facility] BI MAMMOGRAM SCREENING TOMOS YNTHESIS BILATERALon 08-10-2023 [...] VERY IMPORTANT TO YOUR HEALTH. THE CURRENT [employer]PREHENSIVE CANCER [...] Follicle Stimulating Hormone 6.0 m[iU]/mL Normal [facility] Comment on above: Order Comment: Reaso n for Exam Severe menstrual cramps Result Comment: FEMA LE NORMALS (PREMENOPAUSE) MID-FOLLICULAR PHASE: 3.9-8.8 mIU/mL MID-CYCLE PEAK: 4.5-22.5 mIU/mL MID-LUTEAL PHASE: 1.8-5.1 mIU/mL FEMALE NORMALS (POSTMENOPAUSE): 16.7-113.6 mIU/mL MALE NORMALS: 1.3-19.3 mIU/mL PERFORMED BY: [facility] [address] [place] [address] PATHOLOGIST MEDICAL REIMBURSEMENT SPECIALIST RASHMI ECHOLS M.D. Performed By: #### L H ####[facility] ,#### FSH ####[facility] [place] [address] [facility] Follitropin [Units/volume] i n Serum or PlasmaOrdered By: Regine Chinchilla on 06-30-2023 Follitropin Qn 6.0 m[IU]/mL [facility] Comment on above: FEMALE NORMALS (DILAN ENOPAUSE) MID-FOLLICULAR PHASE: 3.9-8.8 mIU/mL MID-CYCLE PEAK: 4.5-22.5 mIU/mL MID-LUTEAL PHASE: 1.8-5.1 mIU/mLFEMALE NORMALS (POSTMENOPAUSE): 16.7-113.6 mIU/mLMALE NORMALS: 1.3-19.3 mIU/mL Luteinizing Hormoneon 2022 Luteinizing Hormone 15.8 m[iU]/mL Normal . [facility] Comment on above: Order Comment: Reaso n for Exam Severe menstrual cramps Result Comment: Adul t Female Range Follicular phase 2.4 - 12.6 Ovulation phase 14.0 - 95.6 Luteal phase 1.0 - 11.4 Postmenopausal 7.7 - 58.5 Performed at: [facility] [address] [id number] [employer] Operator: Supa Murdock PhD, Phone: [phone] PERFORMED BY: [facility] [address] [place] [address] PATHOLOGIST MEDICAL REIMBURSEMENT SPECIALIST JIANLAN SUN M.D. Performed By: #### L H ####[facility] ,#### FSH ####[facility] [id number] Serum or plasma lutropin catarina surement (units/volume)Ordered By: Regine Chinchilla on 06-30-2023 Lutropin Qn 15.8 m[IU]/mL . [facility] Comment on above: Adult Female Range F ollicular phase 2.4 - 12.6 Ovulation phase 14.0 - 95.6 Luteal phase 1.0 - 11.4 Postmenopausal 7.7 - 58.5Performed at: - [facility] [address] [id number] Director: Supa Murdock PhD, Phone: [phone] US transvaginalon 06-30-2023 US transvaginal [facility] [address] [place] [address] [place] [address] Ultrasound Report Signed Patient: Clover Henriquez MR#: [id number] : 1975 Acct:[id number] Age/Sex: 47 / F ADM Date: 06/30/23 Loc: Room: Type: [facility] Attending Dr: RONEL Shaw APRN Ordering Provider: Regine Chinchilla APRN, NP-C Date of Service: 06/30/23 US/US pelvic complete: Severe menstrual cramps ([id number]) US/US transvaginal: N94.6 Copies to: Regine Chinchilla [...] Shun Jimenez M.D.06/30/2023 3:09 PM Dictation Location: [place] [address] Tech: Cinda Frank Transcribed By: SADE 06/30/23 1509 Dictated By: Shun Jimenez DO 06/30/23 1507 Signed By: 06/30/23 1509 Normal [facility] A1C with Estimated Average G sunnin 05-27-2023 Glucose [Mass/Vol] 123 mg/dL Normal [facility] Comment on above: Order Comment: Reaso n for Exam Impaired fasting glucose Result Comment: PERF ORMED BY: [place] [address] PATHOLOGIST MEDICAL REIMBURSEMENT SPECIALIST RASHMI ECHOLS M.D. Performed By: #### A NA #### [facility] , #### CBC, TSH3 wRFLX, LIPID, CMP, A1C WTH eA #### [facility] C[facility] [address] [place], [place] [id number] [facility] SAAD Antinuclear Antibodieson 05-27-2023 Antinuclear Abs, IFA Negative Normal . [facility] Comment on above: Order Comment: Reaso n for Exam Multiple joint pain Result Comment: Nega tive <1:80 Borderline 1:80 Positive >1:80 ICAP nomenclature: [id number] For more information about Hep-2 cell patterns use ANApatterns.org, the official website for the International Consensus on Antinuclear Antibody (SAAD) Patterns (ICAP). Performed at: - [facility] [id number] [employer] Operator: Supa Murdock PhD, Phone: [phone] PERFORMED BY: [place] [address] PATHOLOGIST MEDICAL REIMBURSEMENT SPECIALIST RASHMI ECHOLS M.D. Performed By: #### A NA #### [facility] , #### CBC, TSH3 wRFLX, LIPID, CMP, A1C WTH eA #### [facility] [address] [place], [place] [id number] [place] Alanine aminotransferase [En zymatic activity/volume] in Serum or PlasmaOrdered By: Regine Chinchilla on 05-27-2023 ALT [Catalytic activity/Vol] 18 U/L Normal 7-52 [facility] Comment on above: Order Comment: Reaso n for Exam Hypertension Reason for Exam History of thyroid disease Performed By: #### A NA #### [facility] , #### CBC, TSH3 wRFLX, LIPID, CMP, A1C WTH eA #### [facility] [address] [place] [address] [place] Albumin [Mass/volume] in Ser um or Plasma by Bromocresol green (BCG) dye binding methoOrdered By: Regine Chinchilla on 05-27-2023 Albumin BCG dye [Mass/Vol] 4.4 g/dL 3.5-5.7 [facility] Alkaline phosphatase [Enzyma tic activity/volume] in Serum or PlasmaOrdered By: Regine Chinchilla on 05-27-2023 ALP [Catalytic activity/Vol] 98 U/L Normal 34-104 [facility] Comment on above: Order Comment: Reaso n for Exam Hypertension Reason for Exam History of thyroid disease Performed By: #### A NA #### [facility] , #### CBC, TSH3 wRFLX, LIPID, CMP, A1C WT eA #### [facility] [address] [place] [address] [place] Aspartate aminotransferase [ Enzymatic activity/volume] in Serum or PlasmaOrdered By: Regine Chinchilla on 05-27-2023 AST [Catalytic activity/Vol] 25 U/L Normal 13-39 [facility] Comment on above: Order Comment: Reaso n for Exam Hypertension Reason for Exam History of thyroid disease Performed By: #### A NA #### [facility] , #### CBC, TSH3 wRFLX, LIPID, CMP, A1C WTH eA #### [facility] [address] [place] [address] [place] Automated basophil %Ordered By: Regine Chinchilla on 05-27-2023 Basophils/100 WBC (Bld) 1.2 % Normal . [facility] Comment on above: Order Comment: Reaso n for Exam Hypertension Performed By: #### A NA #### [facility] , #### CBC, TSH3 wRFLX, LIPID, CMP, A1C WTH eA #### [facility] [address] [place] [address] Automated basophil countOrde red By: Regine Chinchilla on 05-27-2023 Basophils (Bld) [#/Vol] 0.1 10*3/uL Normal 0.0-0.2 [facility] Comment on above: Order Comment: Reaso n for Exam Hypertension Result Comment: PERF ORMED BY: [place] [address] PATHOLOGIST MEDICAL REIMBURSEMENT SPECIALIST RASHMI ECHOLS M.D. Performed By: #### A NA #### [facility] , #### CBC, TSH3 wRFLX, LIPID, CMP, A1C WTH eA #### [address] Automated blood monocyte cou ntOrdered By: Regine Chinchilla on 05-27-2023 Monocytes (Bld) [#/Vol] 0.5 10*3/uL Normal 0.0-0.8 [facility] Comment on above: Order Comment: Reaso n for Exam Hypertension Performed By: #### A NA #### [facility] , #### CBC, TSH3 wRFLX, LIPID, CMP, A1C WTH eA #### [address] Automated eosinophil %Ordere d By: Regine Chinchilla on 05-27-2023 Eosinophils/100 WBC (Bld) 8.6 % Normal . [facility] Comment on above: Order Comment: Reaso n for Exam Hypertension Performed By: #### A NA #### [facility] , #### CBC, TSH3 wRFLX, LIPID, CMP, A1C WTH eA #### [address] Automated eosinophil countOr dered By: Rgeine Chinchilla on 05-27-2023 Eosinophils (Bld) [#/Vol] 0.5 10*3/uL High 0.0-0.45 [facility] Comment on above: Order Comment: Reaso n for Exam Hypertension Performed By: #### A NA #### [facility] , #### CBC, TSH3 wRFLX, LIPID, CMP, A1C WTH eA #### [facility] [address] Automated monocyte %Ordered By: Regine Chinchilla on 05-27-2023 Monocytes/100 WBC (Bld) 7.5 % Normal . [facility] Comment on above: Order Comment: Reaso n for Exam Hypertension Performed By: #### A NA #### [facility] , #### CBC, TSH3 wRFLX, LIPID, CMP, A1C WTH eA #### [facility] [address] [place] [address] Automated neutrophil %Ordere d By: Regine Chinchilla on 05-27-2023 Neutrophils/100 WBC (Bld) 63.3 % Normal . [facility] Comment on above: Order Comment: Reaso n for Exam Hypertension Performed By: #### A NA #### [facility] , #### CBC, TSH3 wRFLX, LIPID, CMP, A1C WTH eA #### [facility] [address] [place] [address] Bilirubin.total [Mass/volume ] in Serum or PlasmaOrdered By: Regine Chinchilla on 05-27-2023 Bilirubin [Mass/Vol] 0.6 mg/dL Normal 0.3-1.0 [facility] Comment on above: Order Comment: Reaso n for Exam Hypertension Reason for Exam History of thyroid disease Performed By: #### A NA #### [facility] , #### CBC, TSH3 wRFLX, LIPID, CMP, A1C WTH eA #### [facility] [address] [place] [address] [place] Calcium [Mass/volume] in Ser um or PlasmaOrdered By: Regine Chinchilla on 05-27-2023 Calcium [Mass/Vol] 10.1 mg/dL Normal 8.6-10.3 [facility] Comment on above: Order Comment: Reaso n for Exam Hypertension Reason for Exam History of thyroid disease Performed By: #### A NA #### [facility] , #### CBC, TSH3 wRFLX, LIPID, CMP, A1C WTH eA #### [facility] [address] [place] [address] [place] Carbon dioxide, total [Moles /volume] in Serum or PlasmaOrdered By: Regine Chinchilla on 05-27-2023 CO2 [Moles/Vol] 34.1 mmol/L High 21.0-31.0 [facility] Comment on above: Order Comment: Reaso n for Exam Hypertension Reason for Exam History of thyroid disease Performed By: #### A NA #### [facility] , #### CBC, TSH3 wRFLX, LIPID, CMP, A1C WTH eA #### [facility] [address] [place] [address] [place] Chloride [Moles/volume] in S lyly or PlasmaOrdered By: Regine Chinchilla on 05-27-2023 Chloride [Moles/Vol] 103 mmol/L Normal 98-107 [facility] Comment on above: Order Comment: Reaso n for Exam Hypertension Reason for Exam History of thyroid disease Performed By: #### A NA #### [facility] , #### CBC, TSH3 wRFLX, LIPID, CMP, A1C WT eA #### [facility] [address] [place] [address] [place] Cholesterol [Mass/volume] in Serum or PlasmaOrdered By: Regine Chinchilla on 05-27-2023 Cholesterol [Mass/Vol] 201 mg/dL High 140-200 [facility] Comment on above: Chol less than 200 [...] wRFLX, LIPID, CMP, A1C WTH eA #### [facility] [address] Cholesterol in LDL Calc [Mas s/Vol]Ordered By: Regine Chinchilla on 05-27-2023 Cholesterol in LDL [Mass/Vol] 117 mg/dL 0-100 [facility] Comment on above: LDL ATP III CLASSIFI CATIONLDL less than 100 mg/dL OptimalLDL 100-129 mg/dL Near or above optimalLDL 130-159 mg/dL Borderline highLDL 160-189 mg/dL HighLDL greater than 189 mg/dL Very high Cholesterol in VLDL Calc [Ma ss/Vol]Ordered By: Regine Chinchilla on 05-27-2023 Cholesterol in VLDL [Mass/Vol] 18 mg/dL [facility] Complete Blood Count Auto Di ffon 05-27-2023 Mean Corpuscular HGB Conc 33.6 g/dL Normal 32.0-35.0 [facility] Comment on above: Order Comment: Reaso n for Exam Hypertension Performed By: #### A NA #### [facility] , #### CBC, TSH3 wRFLX, LIPID, CMP, A1C WTH eA #### [address] NRBC% 0.0 /100{WBC} Normal 0-0.5 [facility] Comment on above: Order Comment: Reaso n for Exam Hypertension Performed By: #### A NA #### [facility] , #### CBC, TSH3 wRFLX, LIPID, CMP, A1C WTH eA #### [facility] [address] [place] [address] Comprehensive Metabolic Pane clem 05-27-2023 Albumin [Mass/Vol] 4.4 g/dL Normal 3.5-5.7 [facility] Comment on above: Order Comment: Reaso n for Exam Hypertension Reason for Exam History of thyroid disease Performed By: #### A NA #### [facility] , #### CBC, TSH3 wRFLX, LIPID, CMP, A1C WTH eA #### [facility] [address] [place] [address] GFR/1.73 sq M.predicted MDRD (S/P/Bld) [Vol rate/Area] mL/min/{1.73_m2} Normal [facility] Comment on above: Order Comment: Reaso n for Exam Hypertension Reason for Exam History of thyroid disease Performed By: #### A NA #### [facility] , #### CBC, TSH3 wRFLX, LIPID, CMP, A1C [facility] eA #### [facility] [address] [place] [address] Creatinine [Mass/volume] in Serum or PlasmaOrdered By: Regine Chinchilla on 05-27-2023 Creatinine [Mass/Vol] 1.06 mg/dL Normal 0.60-1.20 [facility] Comment on above: Order Comment: Reaso n for Exam Hypertension Reason for Exam History of thyroid disease Performed By: #### A NA #### [facility] , #### CBC, TSH3 wRFLX, LIPID, CMP, A1C [facility] eA #### [facility] [address] [place] [address] Erythrocyte distribution wid th [Ratio] by Automated countOrdered By: Regine Chinchilla on 05-27-2023 Erythrocyte distribution width (RBC) [Ratio] 13.8 % Normal 11.9-15.3 [facility] Comment on above: Order Comment: Reaso n for Exam Hypertension Performed By: #### A NA #### [facility] , #### CBC, TSH3 wRFLX, LIPID, CMP, A1C [facility] eA #### [facility] [address] [place] [address] [place] Erythrocytes [#/volume] in B lood by Automated countOrdered By: Regine Chinchilla on 05-27-2023 RBC (Bld) [#/Vol] 4.43 10*6/uL Normal 3.60-5.00 [facility] Comment on above: Order Comment: Reaso n for Exam Hypertension Performed By: #### A NA #### [facility] , #### CBC, TSH3 wRFLX, LIPID, CMP, A1C WTH eA #### [facility] [address] Glucose [Mass/volume] in Ser um or PlasmaOrdered By: Regine Chinchilla on 05-27-2023 Glucose [Mass/Vol] 100 mg/dL Normal 70-100 [facility] Comment on above: ADA recommended refe rence rangeRandom Glucose Reference Range is dependent on time and content of last meal. Glucose of more than 200 mg/dL in a nonstressed, ambulatory subject supports the diagnosis of Diabetes Mellitus. Order Comment: Reaso n for Exam Hypertension Reason for Exam History of thyroid disease Result Comment: [place] om Glucose Reference Range is dependent on time and content of last meal. Glucose of more than 200 mg/dL in a nonstressed, ambulatory subject supports the diagnosis of Diabetes Mellitus. ADA recommended reference range Performed By: #### A NA #### [facility] , #### CBC, TSH3 wRFLX, LIPID, CMP, A1C WT eA #### [facility] [address] Glucose mean value [Mass/vol ume] in Blood Estimated from glycated hemoglobinOrdered By: Regine Chinchilla on 05-27-2023 Average glucose Estimated from glycated hemoglobin (Bld) [Mass/Vol] 123 mg/dL [facility] Hematocrit [Volume Fraction] of Blood by Automated countOrdered By: Regine Chinchilla on 05-27-2023 Hematocrit (Bld) [Volume fraction] 41.2 % Normal 34.0-46.4 [facility] Comment on above: Order Comment: Reaso n for Exam Hypertension Performed By: #### A NA #### [facility] , #### CBC, TSH3 wRFLX, LIPID, CMP, A1C WTH eA #### [facility] [address] [place] [address] [place] Hemoglobin A1c percentageOrd ered By: Regine Chinchilla on 05-27-2023 HbA1c (Bld) [Mass fraction] 5.9 % High 4.3-5.6 [facility] Comment on above: Increased risk for d [...] wRFLX, LIPID, CMP, A1C WT eA #### [address] Hemoglobin [Mass/volume] in BloodOrdered By: Regine Chinchilla on 05-27-2023 Hemoglobin (Bld) [Mass/Vol] 13.9 g/dL Normal 11.8-15.4 [facility] Comment on above: Order Comment: Reaso n for Exam Hypertension Performed By: #### A NA #### [facility] , #### CBC, TSH3 wRFLX, LIPID, CMP, A1C WT eA #### [address] Leukocytes [#/volume] correc jay for nucleated erythrocytes in Blood by Automated counOrdered By: Regine Chinchilla on 05-27-2023 WBC corrected for nucl RBC Auto (Bld) [#/Vol] 6.3 10*3/uL 3.8-11.6 [facility] Leukocytes [#/volume] in Blo od by Automated countOrdered By: Regine Chinchilla on 05-27-2023 WBC (Bld) [#/Vol] 6.3 10*3/uL Normal 3.8-11.6 [facility] Comment on above: Order Comment: Reaso n for Exam Hypertension Performed By: #### A NA #### [facility] , #### CBC, TSH3 wRFLX, LIPID, CMP, A1C WT eA #### [facility] [address] [place] [address] Lipid Panelon 05-27-2023 LDL Cholesterol,Calculated 117 mg/dL High 0-100 [facility] Comment on above: Order Comment: [...] wRFLX, LIPID, CMP, A1C WTH eA #### [facility] [address] [place] [address] Triglyceride w/Reflex 93 mg/dL Normal 0-149 [facility] Comment on above: Order Comment: [...] wRFLX, LIPID, CMP, A1C WTH eA #### [address] VLDL CHOLESTEROL 18 mg/dL Normal [facility] Comment on above: Order Comment: Reaso n for Exam Hypertension Reason for Exam History of thyroid disease Performed By: #### A NA #### [facility] , #### CBC, TSH3 wRFLX, LIPID, CMP, A1C WTH eA #### [facility] [address] [place] [address] Lymphocytes [#/volume] in Bl ood by Automated countOrdered By: Regine Chinchilla on 05-27-2023 Lymphocytes (Bld) [#/Vol] 1.2 10*3/uL Normal 1.00-4.8 [facility] Comment on above: Order Comment: Reaso n for Exam Hypertension Performed By: #### A NA #### [facility] , #### CBC, TSH3 wRFLX, LIPID, CMP, A1C WTH eA #### [facility] [address] [place] [address] Lymphocytes/100 leukocytes i n Blood by Automated countOrdered By: Regine Chinchilla on 05-27-2023 Lymphocytes/100 WBC (Bld) 19.4 % Normal . [facility] Comment on above: Order Comment: Reaso n for Exam Hypertension Performed By: #### A NA #### [facility] , #### CBC, TSH3 wRFLX, LIPID, CMP, A1C WTH eA #### [facility] [address] [place] [address] MCH [Entitic mass] by Automa jay countOrdered By: Regine Chinchilla on 05-27-2023 MCH (RBC) [Entitic mass] 31.2 pg Normal 24.7-34.3 [facility] Comment on above: Order Comment: Reaso n for Exam Hypertension Performed By: #### A NA #### [facility] , #### CBC, TSH3 wRFLX, LIPID, CMP, A1C WT eA #### [address] MCHC Auto (RBC) [Mass/Vol]Or dered By: Regine Chinchilla on 05-27-2023 MCHC (RBC) [Mass/Vol] 33.6 g/dL 32.0-35.0 [facility] MCV [Entitic volume] by Auto mated countOrdered By: Regine Chinchilla on 05-27-2023 MCV (RBC) [Entitic vol] 93.0 fL Normal 80-100 [facility] Comment on above: Order Comment: Reaso n for Exam Hypertension Performed By: #### A NA #### [facility] , #### CBC, TSH3 wRFLX, LIPID, CMP, A1C WTH eA #### [facility] [address] [place] [address] [place] Neutrophils [#/volume] in Bl ood by Automated countOrdered By: Regine Chinchilla on 05-27-2023 Neutrophils (Bld) [#/Vol] 4.0 10*3/uL Normal 1.8-7.7 [facility] Comment on above: Order Comment: Reaso n for Exam Hypertension Performed By: #### A NA #### [facility] , #### CBC, TSH3 wRFLX, LIPID, CMP, A1C WTH eA #### [facility] [address] No Panel InformationOrdered By: Regine Chinchilla on 05-27-2023 Estimated GFR (CKD-EPI) > 60.0 mL/Min [facility] Creatinine Clearance (Chem N/A [facility] Nucleated erythrocytes [Pres ence] in Blood by Automated countOrdered By: Regine Chinchilla on 05-27-2023 Nucleated RBC Auto Ql (Bld) 0.0 /100{WBC} 0-0.5 [facility] Platelet mean volume [Entiti c volume] in Blood by Automated countOrdered By: Regine Chinchilla on 05-27-2023 Platelet mean volume (Bld) [Entitic vol] 9.0 fL Normal 6.3-10.7 [facility] Comment on above: Order Comment: Reaso n for Exam Hypertension Performed By: #### A NA #### [facility] , #### CBC, TSH3 wRFLX, LIPID, CMP, A1C WTH eA #### [facility] [address] [place] [address] Platelets [#/volume] in Bloo d by Automated countOrdered By: Regine Chinchilla on 05-27-2023 Platelets (Bld) [#/Vol] 367 10*3/uL Normal 150-450 [facility] Comment on above: Order Comment: Reaso n for Exam Hypertension Performed By: #### A NA #### [facility] , #### CBC, TSH3 wRFLX, LIPID, CMP, A1C WTH eA #### [facility] [address] [place] [address] Potassium [Moles/volume] in Serum or PlasmaOrdered By: Regine Chinchilla on 05-27-2023 Potassium [Moles/Vol] 4.3 mmol/L Normal 3.5-5.1 [facility] Comment on above: Order Comment: Reaso n for Exam Hypertension Reason for Exam History of thyroid disease Performed By: #### A NA #### [facility] , #### CBC, TSH3 wRFLX, LIPID, CMP, A1C [facility] eA #### [facility] [address] [place] [address] [place] Protein [Mass/volume] in Ser um or PlasmaOrdered By: Regine Chinchilla on 05-27-2023 Protein [Mass/Vol] 7.0 g/dL Normal 6.4-8.9 [facility] Comment on above: Order Comment: Reaso n for Exam Hypertension Reason for Exam History of thyroid disease Performed By: #### A NA #### [facility] , #### CBC, TSH3 wRFLX, LIPID, CMP, A1C [facility] eA #### [facility] [address] [place] [address] Serum globulin measurement b y calculation (mass/volume)Ordered By: Regine Chinchilla on 05-27-2023 Globulin (S) [Mass/Vol] 2.6 g/dL Normal [facility] Comment on above: Order Comment: Reaso n for Exam Hypertension Reason for Exam History of thyroid disease Performed By: #### A NA #### [facility] , #### CBC, TSH3 wRFLX, LIPID, CMP, A1C [facility] eA #### [facility] [address] [place] [address] Serum nuclear antibody titer Ordered By: Regine Chinchilla on 05-27-2023 Nuclear Ab (S) [Titer] Negative . [facility] Comment on above: Negative <1:80 Vinay wiggins 1:80 Positive >1:80ICAP nomenclature: AC-0For more information about Hep-2 cell patterns useANApatterns.org, the official website for theInternational Consensus on Antinuclear Antibody (SAAD)Patterns (ICAP).Performed at: [address] [id number] Director: Supa Murdock PhD, Phone: [phone] Serum or plasma albumin/glob ulin mass ratioOrdered By: Regine Chinchilla on 05-27-2023 Albumin/Globulin [Mass ratio] 1.7 {ratio} Normal [facility] Comment on above: Order Comment: Reaso n for Exam Hypertension Reason for Exam History of thyroid disease Performed By: #### A NA #### [facility] , #### CBC, TSH3 wRFLX, LIPID, CMP, A1C WTH eA #### [facility] [address] Serum or plasma anion gap de terminationOrdered By: Regine Chinchilla on 05-27-2023 Anion gap [Moles/Vol] 9.2 mmol/L Normal 6.0-15.0 [facility] Comment on above: Order Comment: Reaso n for Exam Hypertension Reason for Exam History of thyroid disease Performed By: #### A NA #### [facility] , #### CBC, TSH3 wRFLX, LIPID, CMP, A1C WT eA #### [facility] [address] [place] [address] Serum or plasma high density lipoprotein (HDL) cholesterol measurementOrdered By: Regine Chinchilla on 05-27-2023 Cholesterol in HDL [Mass/Vol] 65 mg/dL Normal 23-92 [facility] Comment on above: HDL CHOL ATP-III CLA [...] wRFLX, LIPID, CMP, A1C WTH eA #### [facility] [address] Serum or plasma total choles terol/high density lipoprotein (HDL) cholesterol mass ratOrdered By: Regine Chinchilla on 05-27-2023 Cholesterol.total/Merced sterol in HDL [Mass ratio] 3.1 {ratio} Normal <5.0 [facility] Comment on above: Order Comment: Reaso n for Exam Hypertension Reason for Exam History of thyroid disease Performed By: #### A NA #### [facility] , #### CBC, TSH3 wRFLX, LIPID, CMP, A1C WTH eA #### [facility] [address] [place] [address] [place] Sodium [Moles/volume] in Ser um or PlasmaOrdered By: Regine Chinchilla on 05-27-2023 Sodium [Moles/Vol] 142 mmol/L Normal 136-145 [facility] Comment on above: Order Comment: Reaso n for Exam Hypertension Reason for Exam History of thyroid disease Performed By: #### A NA #### [facility] , #### CBC, TSH3 wRFLX, LIPID, CMP, A1C WTH eA #### [facility] [address] [place] [address] Thyroid Stim Hormone w/Rflxo n 05-27-2023 Thyroid Stim Hormone w/Rflx 1.60 u[iU]/mL Normal 0.45-5.33 [facility] Comment on above: Order Comment: Reaso n for Exam Hypertension Reason for Exam History of thyroid disease Result Comment: PERF ORMED BY: [place] [address] PATHOLOGIST MEDICAL REIMBURSEMENT SPECIALIST RASHMI ECHOLS M.D. Performed By: #### A NA #### [facility] , #### CBC, TSH3 wRFLX, LIPID, CMP, A1C WTH eA #### [facility] [address] [place] [address] Thyrotropin [Units/volume] i n Serum or PlasmaOrdered By: Regine Chinchilla on 05-27-2023 TSH Qn 1.60 m[IU]/L 0.45-5.33 [facility] Triglyceride [Mass/volume] i n Serum or PlasmaOrdered By: Regine Chinchilla on 05-27-2023 Triglyceride [Mass/Vol] 93 mg/dL 0-149 [facility] Comment on above: TRIG ATP III CLASSIF ICATIONTRIG less than 150 mg/dL NormalTRIG 150-199 mg/dL Borderline highTRIG 200-500 mg/dL High TRIG greater than 500 mg/dL Very highStandard traceable to the Center for Disease Conrtrol and Prevention (CDC) test method. Urea nitrogen [Mass/volume] in Serum or PlasmaOrdered By: Regine Chinchilla on 05-27-2023 Urea nitrogen [Mass/Vol] 13 mg/dL Normal 7-25 [facility] Comment on above: Order Comment: Reaso n for Exam Hypertension Reason for Exam History of thyroid disease Performed By: #### A NA #### [facility] , #### CBC, TSH3 wRFLX, LIPID, CMP, A1C WTH eA #### [facility] [address] [id number] [facility] SARS-CoV-2 (COVID-19) RNA NA A+probe Ql (Resp)on 06-15-2022 SARS-CoV-2 (COVID-19) RNA CARL+probe Ql (Unsp spec) Negative [employer] Other Albumin [Mass/volume] in Ser um or PlasmaOrdered By: Regine Chinchilla on 02-16-2022 Albumin [Mass/Vol] 4.4 g/dL 3.2-5.5 [facility] Basophils Auto (Bld) [#/Vol] Ordered By: Regine Chinchilla on 02-16-2022 Basophils (Bld) [#/Vol] 0.1 10*3/uL 0.0-0.2 [facility] Basophils/100 WBC Auto (Bld) Ordered By: Regine Chinchilla on 02-16-2022 Basophils/100 WBC (Bld) 0.5 % . [facility] Blood hemoglobin measurement (mass/volume)Ordered By: Regine Chinchilla on 02-16-2022 Hemoglobin (Bld) [Mass/Vol] 14.8 g/dL 11.8-15.4 [facility] Blood leukocytes automated c ount (number/volume)Ordered By: Regine Chinchilla on 02-16-2022 WBC (Bld) [#/Vol] 14.7 10*3/uL 4.5-11.0 [facility] C reactive protein [Mass/vol ume] in Serum or PlasmaOrdered By: Regine Chinchilla on 02-16-2022 CRP [Mass/Vol] 0.7 mg/dL 0.0-1.0 [facility] Cholesterol [Mass/volume] in Serum or PlasmaOrdered By: Regine Chinchilla on 02-16-2022 Cholesterol [Mass/Vol] 198 mg/dL 140-200 [facility] Comment on above: Chol less than 200 m g/dl low risk Chol 201-239 mg/dl borderline risk Chol 240 mg/dl and greater high risk Cholesterol in LDL Calc [Mas s/Vol]Ordered By: Regine Chinchilla on 02-16-2022 Cholesterol in LDL [Mass/Vol] 90 mg/dL 0-100 [facility] Comment on above: LDL ATP III CLASSIFI CATION LDL less than 100 mg/dL Optimal LDL 100-129 mg/dL Near or above optimal LDL 130-159 mg/dL Borderline high LDL 160-189 mg/dL High LDL greater than 189 mg/dL Very high Cholesterol in VLDL Calc [Ma ss/Vol]Ordered By: Regine Chinchilla on 02-16-2022 Cholesterol in VLDL [Mass/Vol] 33 mg/dL [facility] Creatinine and Glomerular fi ltration rate.predicted panel (S/P/Bld)Ordered By: Regine Chinchilla on 02-16-2022 Creatinine [Mass/Vol] 0.99 mg/dL 0.44-1.03 [facility] Eosinophils Auto (Bld) [#/Vo l]Ordered By: Regine Chinchilla on 02-16-2022 Eosinophils (Bld) [#/Vol] 0.1 10*3/uL 0.0-0.45 [facility] Eosinophils/100 WBC Auto (Bl d)Ordered By: Regine Chinchilla on 02-16-2022 Eosinophils/100 WBC (Bld) 1.0 % . [facility] Erythrocyte distribution wid th Auto (RBC) [Ratio]Ordered By: Regine Chinchilla on 02-16-2022 Erythrocyte distribution width (RBC) [Ratio] 14.1 % 11.9-15.3 [facility] Erythrocyte sedimentation ra te by Photometric methodOrdered By: Regine Chinchilla on 02-16-2022 ESR Photometric method (Bld) [Velocity] 18 mm/hr 0-19 [facility] Estimated glomerular filtrat ion rate (GFR) non- AmericanOrdered By: Regine Chinchilla on 02-16-2022 GFR/1.73 sq M.predicted among non-blacks MDRD (S/P/Bld) [Vol rate/Area] > 60 mL/Min [facility] Globulin Calc (S) [Mass/Vol] Ordered By: Regine Chinchilla on 02-16-2022 Globulin (S) [Mass/Vol] 2.8 g/dL [facility] Glucose mean value [Mass/vol ume] in Blood Estimated from glycated hemoglobinOrdered By: Regine Chinchilla on 02-16-2022 Average glucose Estimated from glycated hemoglobin (Bld) [Mass/Vol] 126 mg/dL [facility] Hematocrit Auto (Bld) [Volum e fraction]Ordered By: Regine Chinchilla on 02-16-2022 Hematocrit (Bld) [Volume fraction] 44.8 % 34.0-46.4 [facility] Hemoglobin A1c percentageOrd ered By: Regine Chinchilla on 02-16-2022 HbA1c (Bld) [Mass fraction] 6.0 % 4.3-5.6 [facility] Comment on above: Increased risk for d iabetes: 5.7 - 6.4 diabetes: >6.4 glycemic control for adults with diabetes: <7.0 Laboratory - Hematology and Cell countsOrdered By: Regine Chinchilla on 02-16-2022 Nucleated RBC/100 WBC (Bld) [Ratio] 0.0 % 0-0.5 [facility] Lymphocytes Auto (Bld) [#/Vo l]Ordered By: Regine Chinchilla on 02-16-2022 Lymphocytes (Bld) [#/Vol] 3.3 10*3/uL 1.00-4.8 [facility] Lymphocytes/100 WBC Auto (Bl d)Ordered By: Regine Chinchilla on 02-16-2022 Lymphocytes/100 WBC (Bld) 22.3 % . [facility] MCH Auto (RBC) [Entitic mass ]Ordered By: Regine Chinchilla on 02-16-2022 MCH (RBC) [Entitic mass] 30.0 pg 24.7-34.3 [facility] MCHC Auto (RBC) [Mass/Vol]Or dered By: Regine Chinchilla on 02-16-2022 MCHC (RBC) [Mass/Vol] 33.0 g/dL 32.0-35.0 [facility] MCV Auto (RBC) [Entitic vol] Ordered By: Regine Chinchilal on 02-16-2022 MCV (RBC) [Entitic vol] 90.6 fL 80-100 [facility] Monocytes Auto (Bld) [#/Vol] Ordered By: Regine Chinchilla on 02-16-2022 Monocytes (Bld) [#/Vol] 1.0 10*3/uL 0.0-0.8 [facility] Monocytes/100 WBC Auto (Bld) Ordered By: Regine Chinchilla on 02-16-2022 Monocytes/100 WBC (Bld) 6.8 % . [facility] Neutrophils Auto (Bld) [#/Vo l]Ordered By: Regine Chinchilla on 02-16-2022 Neutrophils (Bld) [#/Vol] 10.2 10*3/uL 1.8-7.7 [facility] Neutrophils/100 WBC Auto (Bl d)Ordered By: Regine Chinchilla on 02-16-2022 Neutrophils/100 WBC (Bld) 69.4 % . [facility] No Panel InformationOrdered By: Regine Chinchilla on 02-16-2022 Estimated GFR () > 60 mL/Min [facility] Comment on above: GFR estimated refere nce range: According to KDOQI guidelines, <60 ml/min/1.73m2 is sufficient to diagnose a patient with chronic kidney disease. Pharmacy Creatinine Clearance (Chem N/A [facility] Platelet mean volume Auto (B ld) [Entitic vol]Ordered By: Regine Chinchilla on 02-16-2022 Platelet mean volume (Bld) [Entitic vol] 7.9 fL 6.3-10.7 [facility] Platelets Auto (Bld) [#/Vol] Ordered By: Regine Chinchilla on 02-16-2022 Platelets (Bld) [#/Vol] 448 10*3/uL 150-450 [facility] Prolactin [Mass/volume] in S lyly or PlasmaOrdered By: Regine Chinchilla on 02-16-2022 Prolactin [Mass/Vol] 16.60 ng/mL 3.34-26.72 [facility] Protein [Mass/volume] in Ser um or PlasmaOrdered By: Regine Chinchilla on 02-16-2022 Protein [Mass/Vol] 7.2 g/dL 6.1-7.9 [facility] RBC Auto (Bld) [#/Vol]Ordere d By: Regine Chinchilla on 02-16-2022 RBC (Bld) [#/Vol] 4.95 10*6/uL 3.60-5.00 [facility] Serum homogeneous pattern an tinuclear antibody (SAAD) titerOrdered By: Regine Chinchilla on 02-16-2022 Homogenous nuclear Ab pattern (S) [Titer] N/A [facility] Serum nuclear antibody titer Ordered By: Regine Chinchilla on 02-16-2022 Nuclear Ab (S) [Titer] Negative . [facility] Comment on above: Negative <1:80 Borderline 1:80 Positive >1:80 ICAP nomenclature: AC-0 For more information about Hep-2 cell patterns use ANApatterns.org, the official website for the International Consensus on Antinuclear Antibody (SAAD) Patterns (ICAP). Performed at: [facility] [place] [id number] [employer] Operator: Supa Murdock PhD, Phone: [phone] Serum or plasma alanine dennis otransferase measurement without P-5'-P (enzymatic activiOrdered By: Regine Chinchilla on 02-16-2022 ALT No additional P-5'-P [Catalytic activity/Vol] 29 U/L 10-60 [facility] Serum or plasma albumin/glob ulin mass ratioOrdered By: Regine Chinchilla on 02-16-2022 Albumin/Globulin [Mass ratio] 1.6 {ratio} [facility] Serum or plasma alkaline dayana sphatase measurement (enzymatic activity/volume)Ordered By: Regine Chinchilla on 02-16-2022 ALP [Catalytic activity/Vol] 86 U/L 32-92 [facility] Serum or plasma aspartate am inotransferase measurement (enzymatic activity/volume)Ordered By: Regine Chinchilla on 02-16-2022 AST [Catalytic activity/Vol] 23 U/L 10-42 [facility] Serum or plasma calcium rebecca urement (mass/volume)Ordered By: Regine Chinchilla on 02-16-2022 Calcium [Mass/Vol] 10.0 mg/dL 8.2-10.2 [facility] Serum or plasma chloride catarina surement (moles/volume)Ordered By: Regine Chinchilla on 02-16-2022 Chloride [Moles/Vol] 93 mmol/L 95-114 [facility] Serum or plasma follitropin measurement (units/volume)Ordered By: Regine Chinchilla on 02-16-2022 Follitropin Qn 26.4 m[IU]/mL [facility] Comment on above: FEMALE NORMALS (DILAN ENOPAUSE) MID-FOLLICULAR PHASE: 3.9-8.8 mIU/mL MID-CYCLE PEAK: 4.5-22.5 mIU/mL MID-LUTEAL PHASE: 1.8-5.1 mIU/mL FEMALE NORMALS (POSTMENOPAUSE): 16.7-113.6 mIU/mL MALE NORMALS: 1.3-19.3 mIU/mL Serum or plasma glucose rebecca urement (mass/volume)Ordered By: Regine Chinchilla on 02-16-2022 Glucose [Mass/Vol] 75 mg/dL 70-100 [facility] Comment on above: ADA recommended refe rence range Random Glucose Reference Range is dependent on time and content of last meal. Glucose of more than 200 mg/dL in a nonstressed, ambulatory subject supports the diagnosis of Diabetes Mellitus. Serum or plasma high density lipoprotein (HDL) cholesterol measurementOrdered By: Regine Chinchilla on 02-16-2022 Cholesterol in HDL [Mass/Vol] 75 mg/dL 35-85 [facility] Comment on above: HDL CHOL ATP-III CLA SSIFICATION Cardiovascular Risk HDL > or equal to 60 mg/dL LOW HDL < 40 mg/dL HIGH Serum or plasma potassium me asurement (moles/volume)Ordered By: Regine Chinchilla on 02-16-2022 Potassium [Moles/Vol] 3.6 mmol/L 3.5-5.1 [facility] Serum or plasma rheumatoid f actor measurement (units/volume)Ordered By: Regine Chinchilla on 02-16-2022 Rheumatoid factor Qn 11.9 [IU]/mL <14.0 [facility] Comment on above: Performed at: [address] [id number] [employer] Operator: Supa Murdock PhD, Phone: [phone] Serum or plasma sodium measu rement (moles/volume)Ordered By: Regine Chinchilla on 02-16-2022 Sodium [Moles/Vol] 135 mmol/L 136-146 [facility] Serum or plasma total biliru bin measurement (mass/volume)Ordered By: Regine Chinchilla on 02-16-2022 Bilirubin [Mass/Vol] 1.2 mg/dL 0.3-1.2 [facility] Serum or plasma total carbon dioxide measurement (moles/volume)Ordered By: Regine Chinchilla on 02-16-2022 CO2 [Moles/Vol] 27.2 mmol/L 22.0-30.0 [facility] Serum or plasma total choles terol/high density lipoprotein (HDL) cholesterol mass ratOrdered By: Regine Chinchilla on 02-16-2022 Cholesterol.total/Merced sterol in HDL [Mass ratio] 2.6 {ratio} <5.0 [facility] Serum or plasma urea nitroge n measurement (mass/volume)Ordered By: Regine Chinchilla on 02-16-2022 Urea nitrogen [Mass/Vol] 18 mg/dL 9-23 [facility] TSH DL <= 0.005 mIU/L QnOrde red By: Regine Chinchilla on 02-16-2022 TSH Qn 1.98 m[IU]/L 0.45-5.33 [facility] Triglyceride [Mass/volume] i n Serum or PlasmaOrdered By: Regine Chinchilla on 02-16-2022 Triglyceride [Mass/Vol] 165 mg/dL 35-149 [facility] Comment on above: TRIG ATP III CLASSIF ICATION TRIG less than 150 mg/dL Normal TRIG 150-199 mg/dL Borderline high TRIG 200-500 mg/dL High TRIG greater than 500 mg/dL Very high Standard traceable to the Center for Disease Conrtrol and Prevention (CDC) test method. AMYLASEon 02-09-2022 Amylase [Catalytic activity/Vol] 26 U/L Normal 25-115 [facility] Comment on above: Performed By: #### C MP, LIPA, ILZETTE #### [facility] [address] [address] [address] Tyler Gonzalez CBC AUTO DIFFon 02-09-2022 BASO # 0.0 103/ul Normal 0.0-0.1 [facility] Comment on above: Performed By: #### C BC #### [facility] [address] [address] [address] Tyler Gonzalez Basophils/100 WBC (Bld) 0.7 % Normal 0.2-2.0 [facility] Comment on above: Performed By: #### C BC #### [facility] [address] [address] [address] Tyler Gonzalez EO # 0.5 103/ul Normal 0.0-0.7 [facility] Comment on above: Performed By: #### C BC #### [facility] [address] [place] [address] Dr. Tyler Gonzalez Eosinophils/100 WBC (Bld) 9.7 % Critically high 0.9-7.0 [facility] Comment on above: Performed By: #### C BC #### [facility] [address] [place] [address] Dr. Tyler Gonzalez Erythrocyte distribution width (RBC) [Ratio] 13.1 % Normal 11.0-15.0 [facility] Comment on above: Performed By: #### C BC #### [facility] [address] [place] [address] Dr. Tyler Gonzalez Hematocrit (Bld) [Volume fraction] 40.8 % Normal 36.0-48.0 [facility] Comment on above: Performed By: #### C BC #### [facility] [address] [place] [address] Dr. Tyler Gonzalez Hemoglobin (Bld) [Mass/Vol] 13.4 g/dL Normal 12.0-16.0 [facility] Comment on above: Performed By: #### C BC #### [facility] [address] [place] [address] Dr. Tyler Gonzalez IG # 0.01 10e3/ul Normal 0.00-0.03 [facility] Comment on above: Performed By: #### C BC #### [facility] [address] [place] [address] Dr. Tyler Gonzalez IG % 0.2 % Normal 0.0-0.5 [facility] Comment on above: Performed By: #### C BC #### [facility] [address] [place] [address] Dr. Tyler Gonzalez LYMPH # 1.3 103/ul Normal 1.2-3.8 [facility] Comment on above: Performed By: #### C BC #### [facility] [address] [place] [address] Dr. Tyler Gonzalez Lymphocytes/100 WBC (Bld) 22.7 % Normal 20.5-60.0 [facility] Comment on above: Performed By: #### C BC #### [facility] [address] [place] [address] Dr. Tyler Gonzalez MANUAL DIFF REQ NO Normal [facility] Comment on above: Performed By: #### C BC #### [facility] [address] [place] [address] Dr. Tyler Gonzalez MCH (RBC) [Entitic mass] 29.6 pg Normal 26.7-34.0 [facility] Comment on above: Performed By: #### C BC #### [facility] [address] [place] [address] Dr. Tyler Gonzalez MCHC (RBC) [Mass/Vol] 32.8 g/dL Normal 29.9-35.2 [facility] Comment on above: Performed By: #### C BC #### [facility] [address] [place] [address] Dr. Tyler Gonzalez MCV (RBC) [Entitic vol] 90.1 fL Normal 81.0-99.0 [facility] Comment on above: Performed By: #### C BC #### [facility] [address] [place] [address] Dr. Tyler Gonzalez MONO # 0.4 103/ul Normal 0.3-0.8 [facility] Comment on above: Performed By: #### C BC #### [facility] [address] [place] [address] Dr. Tyler Gonzalez Monocytes/100 WBC (Bld) 7.2 % Normal 1.7-12.0 [facility] Comment on above: Performed By: #### C BC #### [facility] [address] [place], [place] [id number] Dr. Tyler Gonzalez NEUT # 3.3 103/ul Normal 1.4-6.5 [facility] Comment on above: Performed By: #### C BC #### [facility] [address] [place] [address] Dr. Tyler Gonzalez Neutrophils/100 WBC (Bld) 59.5 % Normal 43.0-75.0 [facility] Comment on above: Performed By: #### C BC #### [facility] [address] [place] [address] Dr. Tyler Gonzalez Platelet mean volume (Bld) [Entitic vol] 9.3 fL Critically low 9.5-13.5 [facility] Comment on above: Performed By: #### C BC #### [facility] [address] [place] [address] Dr. Tyler Gonzalez PLT 352 103/ul Normal 150-450 [facility] Comment on above: Performed By: #### C BC #### [facility] [address] [place] [address] Dr. Tyler Gonzalez RBC 4.53 106/ul Normal 4.20-5.40 [facility] Comment on above: Performed By: #### C BC #### [facility] [address] [place] [address] Dr. Tyler Gonzalez WBC 5.6 103/ul Normal 4.0-11.0 [facility] Comment on above: Performed By: #### C BC #### [facility] [address] [place] [address] ABD/PELVIS WO CONon [...] WILLIAM SHRESTHA Date: 2022-02-09 11:21 Normal [facility] ER URINE PROFILEon 2 Bilirubin Ql (U) Negative Normal NEGATIVE [facility] Comment on above: Performed By: #### NED SLATER PREGU #### [facility] [address] [place] [address] Dr. Tyler Gonzalez Clarity (U) CLEAR Normal CLEAR [facility] Comment on above: Performed By: #### NED SLATER PREGU #### [facility] [address] [place] [address] Dr. Tyler Gonzalez Color (U) LT. YELLOW Normal YELLOW [facility] Comment on above: Performed By: #### NED SLATER PREGU #### [facility] [address] [address] [address] Tyler Gonzalez ERUSONY A micrscopic examination will be performed if indicated. Normal [facility] Comment on above: Performed By: #### NED SLATER PREGU #### [facility] [address] [place] [address] Dr. Tyler Gonzalez Glucose Ql (U) Negative Normal NEGATIVE [facility] Comment on above: Performed By: #### NED SLATER PREGU #### [facility] [address] [place] [address] Dr. Tyler Gonzalez Hemoglobin Ql (U) LARGE Abnormal NEGATIVE [facility] Comment on above: Performed By: #### E RUR UMICRO, PREGU #### [facility] [address] [place] [address] Dr. Tyler Gonzalez Ketones Ql (U) Negative Normal NEGATIVE [facility] Comment on above: Performed By: #### E RUR UMICRO, PREGU #### [facility] [address] [place] [address] Dr. Tyler Gonzalez LEUKOCYTES Negative Normal NEGATIVE [facility] Comment on above: Performed By: #### E RUR UMICRO, PREGU #### [facility] [address] [place] [address] Dr. Tyler Gonzalez Nitrite Ql (U) Negative Normal NEGATIVE [facility] Comment on above: Performed By: #### E RUR UMICRO, PREGU #### [facility] [address] [place] [address] Dr. Tyler Gonzalez pH (U) 6.0 [pH] Normal 5-9 [facility] Comment on above: Performed By: #### Selina RURKOKOICRO, PREGU #### [facility] [address] [place] [address] Dr. Tyler Gonzalez SPEC GRAVITY 1.015 Normal 1.005-<=1.0 25 [facility] Comment on above: Performed By: #### Selina RUR UMICRO, PREGU #### [facility] [address] [address] [address] Tyler Gonzalez UA PROTEIN Negative Normal NEGATIVE/ TRACE [facility] Comment on above: Performed By: #### Selina RUR UMICRO, PREGU #### [facility] [address] [place] [address] Dr. Tyler Gonzalez UR MICRO IND INDICATED Normal [facility] Comment on above: Performed By: #### E RUR UMICRO, PREGU #### [facility] [address] [place] [address] Dr. Tyler Gonzalez Urobilinogen Qn (U) 0.2 {Quyen'U}/dL Normal 0.2 - 1. 0 [facility] Comment on above: Performed By: #### NED SLATER, PREGU #### [facility] [address] [place] [address] Dr. Tyler Gonzalez LIPASEon 02-09-2022 Lipase [Catalytic activity/Vol] 86.0 U/L Normal 73.0-393.0 [facility] Comment on above: Performed By: #### C MP, LIPA, LIZETTE #### [facility] [address] [place] [address] Dr. Tyler Gonzalez URon 02-09-2022 , QUAL Negative Normal NEGATIVE [facility] Comment on above: Performed By: #### NED SLATER PREGU #### [facility] [address] [place] [address] Dr. Tyler Gonzalez PROF 14(COMP METB)on 022 Albumin [Mass/Vol] 3.6 g/dL Normal 3.4-5.0 [facility] Comment on above: Performed By: #### C MP, LIPA, LIZETTE #### [facility] [address] [place] [address] Dr. Tyler Gonzalez Albumin/Globulin [Mass ratio] 1.0 {ratio} Normal [facility] Comment on above: Performed By: #### C MP, LIPA, LIZETTE #### [facility] [address] [place] [address] Dr. Tyler Gonzalez ALP [Catalytic activity/Vol] 83 U/L Normal 46-116 [facility] Comment on above: Performed By: #### C MP, LIPA, LIZETTE #### [facility] [address] [place] [address] Dr. Tyler Gonzalez ALT [Catalytic activity/Vol] 19 U/L Normal 14-59 [facility] Comment on above: Performed By: #### C MP, LIPA, LIZETTE #### [facility] [address] [place] [address] Dr. Tyler Gonzalez Anion gap [Moles/Vol] 11.0 mmol/L Normal [facility] Comment on above: Performed By: #### C MP, LIPA, LIZETTE #### [facility] [address] [address] [address] Tyler Gonzalez AST [Catalytic activity/Vol] 20 U/L Normal 15-37 [facility] Comment on above: Performed By: #### C MP, LIPA, LIZETTE #### [facility] [address] [place] [address] Dr. Tyler Gonzalez Bilirubin [Mass/Vol] 0.6 mg/dL Normal 0.2-1.0 [facility] Comment on above: Performed By: #### C MP, LIPA, LIZETTE #### [facility] [address] [place] [address] Dr. Tyler Gonzalez Calcium [Mass/Vol] 9.0 mg/dL Normal 8.5-10.1 [facility] Comment on above: Performed By: #### C MP LIPA, LIZETTE #### [facility] [address] [place] [address] Dr. Tyler Gonzalez Chloride [Moles/Vol] 104 mmol/L Normal 98-107 [facility] Comment on above: Performed By: #### C MP LIPA, LIZETTE #### [facility] [address] [place] [address] Dr. Tyler Gonzalez CO2 [Moles/Vol] 28.9 mmol/L Normal 21.0-32.0 [facility] Comment on above: Performed By: #### C MP, LIPA, LIZETTE #### [facility] [address] [place] [address] Dr. Tyler Gonzalez Creatinine [Mass/Vol] 0.95 mg/dL Normal 0.55-1.02 [facility] Comment on above: Performed By: #### C MP, LIPA, LIZETTE #### [facility] [address] [place] [address] Dr. Tyler Gonzalez EGFR-AF GEORGIAN >60 Normal >=60 [facility] Comment on above: Performed By: #### C MP, LIPA, LIZETTE #### [facility] [address] [place] [address] Dr. Tyler Gonzalez EGFR-NON AF GEORGIAN >60 Normal >=60 [facility] Comment on above: Performed By: #### C SUSAN SWARTZ LIZETTE #### [facility] [address] [place] [address] Dr. Tyler Gonzalez Globulin (S) [Mass/Vol] 3.5 g/dL Normal [facility] Comment on above: Performed By: #### C SUSAN SWARTZ, LIZETTE #### [facility] [address] [address] [address] Tyler Gonzalez Glucose [Mass/Vol] 111 mg/dL Critically high 74-106 [facility] Comment on above: Performed By: #### C SUSAN SWARTZ, LIZETTE #### [facility] [address] [place] [address] Dr. Tyler Gonzalez Potassium [Moles/Vol] 3.9 mmol/L Normal 3.5-5.1 [facility] Comment on above: Performed By: #### C SUSAN SWARTZ, LIZETTE #### [facility] [address] [place] [address] Dr. Tyler Gonzalez Protein [Mass/Vol] 7.1 g/dL Normal 6.4-8.2 [facility] Comment on above: Performed By: #### C SUSAN SWARTZ, LIZETTE #### [facility] [address] [place] [address] Dr. Tyler Gonzalez Sodium [Moles/Vol] 140 mmol/L Normal 136-145 [facility] Comment on above: Performed By: #### C SUSAN SWARTZ, LIZETTE #### [facility] [address] [place] [address] Dr. Tyler Gonzalez Urea nitrogen [Mass/Vol] 13.0 mg/dL Normal 7.0-18.0 [facility] Comment on above: Performed By: #### C SUSAN SWARTZ, LIZETTE #### [facility] [address] [place] [address] Dr. Tyler Gonzalez Urea nitrogen/Creatinine [Mass ratio] 13.7 mg/mg Normal [facility] Comment on above: Performed By: #### C MP, LIPA, LIZETTE #### [facility] [address] [address] [address] Tyler Gonzalez URINE MICROSCOPIC ONLYon BACTERIA NONE SEEN Normal NONE SEEN [facility] Comment on above: Performed By: #### E NED RAZA, PREGU #### [facility] [address] [address] [address] Tyler Gonzalez Bacteria identified Cx Nom (U) NOT INDICATED Normal [facility] Comment on above: Performed By: #### NED SLATER, PREGU #### [facility] [address] [address] [address] Tyler Gonzalez CAST NONE SEEN Normal NONE SEEN [facility] Comment on above: Performed By: #### NED SLATER, PREGU #### [facility] [address] [address] [address] Tyler Gonzalez Crystals LM Nom (Urine sed) NONE SEEN Normal NONE SEEN [facility] Comment on above: Performed By: #### NED SLATER, PREGU #### [facility] [address] [address] [address] Tyler Gonzalez Epithelial cells LM Ql (Urine sed) FEW Abnormal NONE SEEN /RARE [facility] Comment on above: Performed By: #### NED SLATER, PREGU #### [facility] [address] [address] [address] Tyler Gonzalez MUCOUS NONE SEEN Normal NONE SEEN [facility] Comment on above: Performed By: #### NED SLATER, PREGU #### [facility] [address] [address] [address] Tyler Gonzalez RBC 50-75 Abnormal 0-2 [facility] Comment on above: Performed By: #### NED SLATER, PREGU #### [facility] [address] [address] [address] Tyler Gonzalez WBC NONE SEEN Normal NONE SEEN [facility] Comment on above: Performed By: #### NED SLATER, PREGU #### [facility] [address] [address] [address] Tyler Gonzalez US SINGLE QUAD RT [...] for patient's symptoms. Electronically authenticated by: WILLIAM SHRESTAH Date: 2022-02-09 12:10 Normal [facility] XR CHEST 1 Von 02-09-2022 XR [...] by: WILLIAM SHRESTHA Date: 2022-02-09 11:23 Normal [facility] SARS-CoV-2 (COVID-19) RNA NA A+probe Ql (Resp)on 11-24-2021 SARS-CoV-2 (COVID-19) RNA CARL+probe Ql (Unsp spec) Negative [facility] [facility] Other Provider Letter FTon 11-01 Provider Letter [facility] 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 I have enclosed my consultation notes for your review. Sincerely, Gt Varner MD General Surgery [facility] Ambulatory Clinical Summaryo n 10-31-2020 Ambulatory Clinical Summary {[id number]}CD:[id number] [facility] Patient Educationon 11-01-19 Patient Education Nutrition BMI [...] height. This can be done either in [place]ian ([place] or metric measurements. Note that charts are available to help you find your BMI quickly and easily without having to do these calculations yourself. To calculate your BMI in Lithuanian ([place] measurements, your health care provider will: [...] problems. ? BMI can be measured using Lithuanian measurements or metric measurements. ? To interpret [...] 03/09/2005 Document Revised: 06/10/2018 Document Reviewed: 05/11/2018 [employer] Patient Education ? 2020 [employer]. [facility] Patient Education Physical Medicine an d Rehabilitation [...] your health care provider or diet and residential specialist (dietitian). This may include: ? Eating [...] weight amaral (more content not included)... Normal [facility] Physician Referralon 021 Physician Referral [phone] [id number] [facility] Vital Signs Date Time Vital Sign Value Performing Clinician Facility 12-07-2023 10:27-0400 Body height 154.94 cm Services [employer] Work Phone: [facility] 12-07-2023 10:27-0400 Body mass index (BMI) [Ratio] 32.5 kg/m2 [facility] Work Phone: [facility] 12-07-2023 10:27-0400 Body temperature 97.6 [degF] Services [employer] Work Phone: [facility] 12-07-2023 10:27-0400 Body weight 78 kg Services [employer] Work Phone: [facility] 12-07-2023 10:27-0400 Diastolic blood pressure 70 mm[Hg] Services [employer] Work Phone: [facility] 12-07-2023 10:27-0400 Heart rate 70 /min Services [employer] Work Phone: [facility] 12-07-2023 10:27-0400 SaO2% (BldA) [Mass fraction] 98 % Services [employer] Work Phone: [facility] 12-07-2023 10:27-0400 Systolic blood pressure 118 mm[Hg] Services [employer] Work Phone: [facility] 10-12-2023 11:21-0400 Body height 154.94 cm Services [employer] Work Phone: [facility] 10-12-2023 11:21-0400 Body mass index (BMI) [Ratio] 32.5 kg/m2 Services [facility] Work Phone: [facility] 10-12-2023 11:21-0400 Body temperature 98 [degF] Services [employer] Work Phone: [facility] 10-12-2023 11:21-0400 Body weight 78.01 kg [facility] Work Phone: [facility] 10-12-2023 11:21-0400 Diastolic blood pressure 64 mm[Hg] [facility] Work Phone: [facility] 10-12-2023 11:21-0400 Heart rate 73 /min [facility] Work Phone: [facility] 10-12-2023 11:21-0400 SaO2% (BldA) [Mass fraction] 98 % [facility] Work Phone: [facility] 10-12-2023 11:21-0400 Systolic blood pressure 112 mm[Hg] [facility] Work Phone: [facility] 08-24-2023 19:27-0500 Diastolic blood pressure 69 mm[Hg] [facility] Work Phone: [facility] 08-24-2023 19:27-0500 Heart rate 72 /min [facility] Work Phone: [facility] 08-24-2023 19:27-0500 Respiratory rate 18 /min [facility] Work Phone: [facility] 08-24-2023 19:27-0500 SaO2% (BldA) [Mass fraction] 99 % [facility] Work Phone: [facility] 08-24-2023 19:27-0500 Systolic blood pressure 153 mm[Hg] [facility] Work Phone: [facility] 08-24-2023 16:47-0500 Body height 154.94 cm [facility] Work Phone: [facility] 08-24-2023 16:47-0500 Body temperature 98.7 [degF] [facility] Work Phone: [facility] 08-24-2023 16:47-0500 Body weight 98.05 kg [facility] Work Phone: [facility] 06-15-2022 12:30-0500 Body height 156.21 cm Amy Mackaymond Other [employer] Other 06-15-2022 12:30-0500 Body temperature 97.1 [degF] Amy Brittany Other [employer] Other 06-15-2022 12:30-0500 Respiratory rate 16 /min Amy Brittany Other [employer] Other 06-15-2022 12:30-0500 SaO2% (BldA) [Mass fraction] 98 % Amy Brittany Other [employer] [facility] Other 03-18-2022 14:00-0400 Body height 130.81 cm Amy Brittany Other [employer] [facility] Other 03-18-2022 14:00-0400 Body mass index (BMI) [Ratio] 42.73 kg/m2 Amy Brittany Other [employer] [facility] Other 03-18-2022 14:00-0400 Body temperature 96.7 [degF] Amy Brittany Other [employer] Other 03-18-2022 14:00-0400 Body weight 73.12 kg Amy Brittany Other [employer] Other 03-18-2022 14:00-0400 Respiratory rate 18 /min Amy Brittany Other [employer] Other 03-18-2022 14:00-0400 SaO2% (BldA) [Mass fraction] 98 % Amy Brittany Other [employer] Other 11-24-2021 11:30-0400 Body height 130.81 cm Clover Olson Other [employer] Other 11-24-2021 11:30-0400 Body temperature 97.5 [degF] Clover Olson Other [employer] Other 11-24-2021 11:30-0400 SaO2% (BldA) [Mass fraction] 99 % Clover Olson Other [employer] Other Encounters Encounter Date Encounter Type Care Provider Facility Start: 12-07-2023 End: 12-07-2023 ambulatory Shun Oswald Facility:[facility] Start: 12-07-2023 End: 12-07-2023 ambulatory [facility] Work Phone: [facility] Work Phone: Start: 12-07-2023 End: 12-07-2023 Patient encounter procedure Services [facility] Work Phone: [facility] Work Phone: Start: 10-12-2023 End: 10-12-2023 ambulatory Services [facility] Work Phone: [facility] Work Phone: Start: 10-12-2023 End: 10-12-2023 Patient encounter procedure Services [facility] Work Phone: [facility] Work Phone: Start: 10-01-2023 End: 10-02-2023 ambulatory PENOLA P MITTAL Not Available Start: 08-30-2023 End: 08-30-2023 ambulatory PENOLA P MITTAL Not Available Start: 08-24-2023 End: 08-24-2023 Emergency department patient visit Robert Haji Facility:[facility] Start: 08-24-2023 End: 08-24-2023 Emergency department patient visit [facility] Work Phone: [facility] Work Phone: Start: 08-10-2023 End: 08-10-2023 ambulatory MEY MITTAL Not Available Start: 06-30-2023 End: 06-30-2023 ambulatory Services [facility] Facility:[facility] Start: 06-30-2023 End: 06-30-2023 ambulatory [facility] Work Phone: [facility] Work Phone: Start: 06-30-2023 End: 06-30-2023 Patient encounter procedure [facility] Work Phone: [facility]Ultrasound [facility] [place] Work Phone: Start: 05-27-2023 End: 05-27-2023 ambulatory Regine Chinchilla [facility] Work Phone: Start: 05-27-2023 End: 05-27-2023 Departed Referred ROLL FINISHER Regine Chinchilla Work Phone: [facility] Start: 09-15-2022 End: 09-15-2022 ambulatory Services [facility] Work Phone: [facility] Work Phone: Start: 09-15-2022 End: 09-15-2022 Patient encounter procedure Services [facility] Work Phone: [facility]XRay [facility] [place] Work Phone: Start: 06-15-2022 End: 06-15-2022 ambulatory Amy Soto Other [employer] Other Start: 06-15-2022 Office outpatient visit 25 minutes Amy Soto [facility] Start: 03-18-2022 End: 03-18-2022 ambulatory Amy Soto Other [employer] Other Start: 03-18-2022 Office outpatient visit 15 minutes Amy Soto [facility] Start: 03-18-2022 Telephone encounter Yovanny Mast [facility] Start: 02-16-2022 End: 02-16-2022 Patient encounter procedure Services [facility] Phone: [facility] [place] Start: 02-09-2022 End: 02-09-2022 ambulatory JEROME FAVIOLA Facility:[facility] Start: 11-27-2021 End: 11-27-2021 ambulatory Yovanny Mast Other [employer] Other Start: 11-27-2021 Telephone encounter Yovanny Mast [facility] Start: 11-24-2021 End: 11-24-2021 ambulatory Clover Olson Other [employer] Other Start: 11-24-2021 Office outpatient visit 15 minutes Clover Olson [facility] Start: 10-16-2021 End: 10-16-2021 ambulatory [facility] Facility[facility] Procedures Date Procedure Procedure Detail Performing Clinician Start: 08-24-2023 X-ray of left ankle Ser vices [facility] Phone: Start: 08-24-2023 Computed tomography of abdomen and pelvis with contrast Services [facility] Phone: Start: 08-24-2023 Duplex scan of lower limb veins [facility] Phone: Start: 06-30-2023 Pelvic echography [employer] Phone: Start: 06-30-2023 Transvaginal echography Services [employer] Phone: Start: 09-15-2022 Plain chest X-ray [facility] Phone: Plan of Treatment Date Care Activity Detail Author Start: 12-07-2023 Duplex scan of lower limb veins US venous duplex LE LT [facility] Start: 12-07-2023 US Lower extremity v ein - left [facility] Start: 08-24-2023 Duplex scan of lower limb veins US venous duplex LE BI [facility] Start: 08-24-2023 US Lower extremity v ein - bilateral [facility] Lutropin [Units/volu me] in Serum or Plasma [facility] Patient referral [facility] Work Phone: Payers Date Payer Category Payer Self-pay [id number] 1975 Unknown [id number] 2.16.84 [id number] 1975 Unknown [id number] 2.16.84 [id number] 1975 Unknown [id number] 2.16.84 [id number] 1975 Unknown [id number] 2.16.84 [id number] 1975 Unknown [id number] 2.16.84 [id number] 1959 Unknown [id number] 2. [id number] Unknown [id number] 2.16.8 [id number] Unknown [id number] 2.16.8 [id number] Unknown [id number] 2.16.8 [id number] Unknown [id number] 2.16.8 [id number] Social History Date Type Detail Facility Unknown if ever smoked [employer] Other Sex Assigned At Sex Assigned At [employer] Other Start: 1975 Sex Assigned At Female [facility] Start: 08-24-2023 Tobacco smoking status NHIS Smoker (finding) [facility] Start: 10-12-2023 Tobacco smoking status NHIS Ex-smoker (finding) [facility] NEGATED: Highlighted row [facility] Hospital Discharge instructions 08-24-2023 Note Date & [...] weight, chest pain or shortness of breath. [facility] Work Phone: Evaluation note 06-15-2022 Note Date [...] no improvement in 2 to 3 days. [employer] Other Evaluation note 03-18-2022 Note Date & [...] Mar, History of asthma (ICD-10 - Z87.09) [facility] [facility] Other Evaluation note 11-24-2021 Note Date & [...] breathing develops November, Cough (ICD-10 - R05.9) [facility] [employer] Other Clinical Note 10-31-2020 Note Date & Type Note Facility 10-31-2020 Note Chief Complaint Referral for Right side Discomforting Lipoma [facility] Staff 45 year old female referred by Dr. Muro on consultation of discomforting lipoma medial inferior aspect of the right scapula. Taking Naproxen for pain PRN. Denies symptoms of current pain, itching, or change in size. 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 Thyroid disease: Mother. [facility] Comment on above: Result Comment: Elec tronically Signed By: HARSH PARRISH, Gt Warren\Date and Time Signed: 10/31/20 14:09 EDT Evaluation note Note Date & Type Note Facility Evaluation note No Information [employer] Other Evaluation note Note Date & Type Note Facility Evaluation note No assessment information availa [facility] Work Phone: Evaluation note Note Date & Type Note Facility Evaluation note Diagnosis Onset Date Lower extremity edema acute Pain of left calf acute Symptomatic varicose veins a [facility] Work Phone: History general Narrative - Reported Note Date & Type Note Facility History general Narrative - Reported Type Medical History borderline DM Medical History HTN Medical History deaf Medical History asthma Surgical History C section [employer] Other History general Narrative - Reported Note Date & Type Note Facility History general Narrative - Reported Type Medical History borderline DM Medical History HTN Medical History deaf Medical History asthma Surgical History C section Hospitalization History see above [facility] [facility] Other Summary Purpose Family History No Family [...] pain Chief Complaint Leg pain Referred by [facility] BLE Edema, hx DVT, Duplex at [facility] Chief Complaint Referred by [facility] BLE Edema, hx DVT, Duplex at [facility] f/u GO OVER LT LEG F/F 1030A M79.89 Reason for Visit Lower extremity joe a Pain of left calf Symptomatic varicose veins Additional Source Comments INFORMATION SOURCE (unrecogn ized section and content) DATE CREATED AUTHOR 11/05/2020 [place] [facility] DATE CREATED AUTHOR AUTHOR'S ORGANIZ ATION 02/12/2022 [facility] DATE CREATED AUTHOR AUTHOR'S ORGANIZ ATION 10/06/2023 [facility] EPIC DATE CREATED AUTHOR AUTHOR'S ORGANIZ ATION 12/10/2023 [facility] REASON FOR VISIT (unrecogniz ed section and content) SORE THROAT, COUGH, WHEEZING , PATIENT IS DEAFNo InformationCOUGH, CONGESTION, LEFT SIDE PAINNo InformationH/A, X1 WEEK, EXPOSURE TO COVID Care Teams (unrecognized sec tion and content) Team Status: Active Member Role Status Dates Services [facility] Primary Care Provider Active Team Status: Inactive Member Role Status Dates Services [facility] Primary Care Provider Active HEATH Peterson Attending Provider Active Team Status: Inactive Member Role Status Dates HEATH Peterson Attending Provider Active Team Status: Inactive Member Role Status Dates HEATH Peterson Attending Provider Active Services [facility] Primary Care Provider Active Team Status: Inactive Member Role Status Dates HEATH Peterson Attending Provider Active Start: May 27, 2023 End: May 27, 2023 Team Status: Inactive Member Role Status Dates HEATH Peterson Attending Provider Active Start: June 30, 2023 End: June 30, 2023 Services [facility] Primary Care Provider Active Start: June 30, 2023 End: June 30, 2023 Team Status: Inactive Member Role Status Dates Services [facility] Primary Care Provider Active Start: August 24, 2023 End: August 24, 2023 Robert Haji MD Emergency Provider Active Start: August 24, 2023 End: August 24, 2023 Team Status: Inactive Member Role Status Dates [facility] Provider Active Start: October 12, 2023 End: October 12, 2023 Shun Oswald MD Attending Provider Active S tart: October 12, 2023 End: October 12, 2023 Regine Chinchilla APRN EDUCATIONAL RESOURCE COORDINATOR-C Referring Provider Active Start: October 12, 2023 End: October 12, 2023 Team Status: Inactive Member Role Status Dates [facility] Provider Active Start: December 07, 2023 End: December 07, 2023 Shun Oswald MD Attending Provider Active S tart: December 07, 2023 End: December 07, 2023 Team Status: Active Member Role Status [facility] Provider Active Start: December 07, 2023 Shun [...] BE BASED ON THE PRIMARY CLINICAL RECORDS. [facility] [employer] provides no warranty or guarantee of the accuracy or completeness of information in this document.
== END 2024-06-30 13:20 | disposition home or self-care (01) ==
LOC: MRI 13:19
PROVIDERS: Visit Provider Orthopaedic Surgery
DX: R22.32 Localized swelling, mass and lump, left upper limb (principal)
CPT/HCPCS: 73221

== ENCOUNTER 2024-08-06 16:14 | Emergency (ER) | payer OTHER, SELFPAY ==
--- OUTSIDE RECORDS SUMMARY | 2024-08-06 16:22 | XMS_ITS | CCD ---
Author Organization [facility] In[facility]ape [facility] Partnership [facility] [employer]ini[employer] Care Team Providers Care Air Export Coordinator Name Role Phone Clover Olson Unavailable Yovanny Pierre Unavailable FAMILY, HEALTH SERVICES Primary Care Unavaila luiz MILLER, DR GOODE Attending Unavailable PAUL, DR GOODE Consulting Unavailable PAUL, DR GOODE Admitting Unavailable JEROME SALMERON Attending Unavailable JEROME SALMERON Admitting Unavailable FAMILY, HEALTH SERVICES Primary Care Unavaila luiz SHRESTHA, DR WILLIAM Desai Consulting Unavailable JEROME SALMERON Consulting Unavailable [facility], Services Primary Care Provider HEATH Chinchilla Attending Provider Amy Soto Unavailable [facility], Services Primary Care Provider HEATH Chinchilla Attending Provider HEATH Chinchilla Attending Provider [facility], Services Primary Care Provider MD Robert Haji Emergency Provider MEY MITTAL Attending Unavailable MEY MITTAL Attending Unavailable MEY MITTAL Referring Unavailable [facility], Services Primary Care Provider MD Robert Haji Emergency Provider [facility], Services Primary Care Provider MD Shun Oswald Attending Provider [phone] Shun Oswald Attending Unavailable [facility], Services Primary Care UnavailShun Loomis Admitting Unavailable Regine Chinchilla Admitting Unavailable Regine Chinchilla Attending Unavailable [facility], Services Primary Care Unavaila Regine Nguyen Admitting Unavailable Regine Chinchilla Attending Unavailable Robert Haji Attending Unavailable [facility], Services Primary Care Unavaila ble Haji, Quinci J Admitting Unavailable Allergies Allergy Classification Reported Allergen(s) Allergy Type Date of Onset Reaction(s) Facility (6 sources) Acetaminophen / HYDROcodone; Translations: [Vicodin] Drug Allergy 4 seizures [facility] Repository (5 sources) Codeine Drug Allergy Unknown [employer] Other (10 sources) Morphine Drug Allergy 4 Unknown, Hives [facility] (6 sources) Codeine Drug Allergy 4 seizure [facility] (1 source) Morphine Drug Allergy 4 [facility] (6 sources) HYDROcodone; Translations: [hydrocodone] Drug Allergy 4 [facility] (1 source) Acetaminophen Drug Allergy 2 [facility] (1 source) Codeine Drug Allergy 4 [facility] (1 source) Morphine Drug Allergy 4 [facility] Medications Current Medications Medication Drug Class(es) Dates Sig (Normalized) Sig (Original) [id number] 200 actuat albuterol 0.09 mg/actuat metered dose inhaler (9 sources) beta2-Adrenergic Agonist Start: 08-01-2024 take 2.5 mg by inhalation every four to six hours as needed for wheezing Albuterol Sulfate 2.5 mg /3 mL (0.083 %) solution for nebulization Active 2.5 MG INHALATION EVERY 4-6 HOURS as needed for shortness of breath or wheezing 75 August 01, 2024 12:00am Start: 08-01-2024 Albuterol Sulf ate 90 mcg/actuation HFA aerosol inhaler Active INHALATION August 01, 2024 12:00am Start: 03-18-2022 take 2 puff(s) by in halation four times daily as needed Albuterol Sulfate [...] day Active aspirin 81 mg oral tablet (4 sources) Platelet Aggregation Inhibitor, Nonsteroidal Anti-inflammatory Drug Start : 10-11 take 1 capsule by mouth once daily Aspirin 81 mg capsule Active 81 MG PO Daily October 11, 2023 11:00pm atomoxetine 25 mg oral capsule (1 source) Norepinephrine Reuptake Inhibitor Start : 08-01 Atomoxetine 25 mg capsule Active MG PO August 01, 2024 12:00am Budesonide / formoterol (5 sources) Corticosteroid, [...] a day for 6 days November, Active Nirmatrelvir-Ritonavir (Paxlovid) 300 mg (150 mg x 2)-100 mg tablets,dose pack (1 source) Start : 08-01 Nirmatrelvir-Ritonavir (Paxlovid) 300 mg (150 mg x 2)-100 mg tablets,dose pack Active 0 PO .COMPLEX August 01, 2024 12:00am take TWO 150 mg tablets of nirmatrelvir with ONE 100 mg tablet of ritonavir twice daily for 5 days PO predniSONE 20 mg oral tablet (3 sources) Start : 08-01 take 2 tablets by mouth once daily Prednisone 20 mg tablet Active 20 MG PO .COMPLEX August 01, 2024 12:00am Take 2 tabs po daily x 5 days Start: 03-18-2022 take 1 tablet by lauren th every twelve hours predniSONE 20 MG 1 tablet Orally 2 times a day for 5 day(s) Mar, Active Umeclidinium-Vilanterol (1 source) Anticholinergic, beta2-Adrenergic Agonist Start: 08-01-2024 Umeclidinium-Vilanterol (Anoro Ellipta) 62.5-25 mcg/actuation blister with device Active INHALATION August 01, 2024 12:00am Completed/Discontinued Medications Medication Drug Class(es) Dates Sig (Normalized) Sig (Original) gabapentin 100 mg oral capsule (2 sources) Anti-epileptic Agent take 1 capsule by mouth every eight hours Gabapentin 100 MG 1 capsule Orally Three times a day Not-Taking ibuprofen 600 mg oral tablet (10 sources) Nonsteroidal Anti-inflammatory Drug Start: 08-24-2023 End: 08-01-2024 take 1 tablet by mouth every eight hours as needed for pain Ibuprofen 600 mg tablet Discontinued 600 MG PO Every 8 hours as needed for for left side groin pain August 24, 2023 12:00am August 01, 2024 11:08am Start: 08-24-2023 End: 08-01-2024 take 1 tablet by mouth every eight hours Ibuprofen 800 mg tablet Discontinued 800 MG PO Every 8 hours August 24, 2023 12:00am August 01, 2024 11:09am ketorolac tromethamine 10 mg oral tablet (2 sources) Nonsteroidal Anti-inflammatory Drug, Cyclooxygenase Inhibitor Toradol 10mg po Not-Taking lurasidone hydrochloride 20 mg oral tablet (4 sources) Atypical Antipsychotic Start: End: Lurasidone (Latuda) 20 mg tablet Discontinued 20 MG PO Daily October 11, 2023 11:00pm August 01, 2024 11:08am must administer with food (at least 350 calories) meclofenamate 100 mg oral capsule (5 sources) Start: End: take 1 capsule by mouth three times daily Meclofenamate 100 mg capsule Discontinued 100 MG PO Three times daily August 24, 2023 12:00am August 01, 2024 11:10am methocarbamol 750 mg oral tablet (5 sources) Muscle Relaxant Start: End: take 1 tablet by mouth every six hours Methocarbamol 750 mg tablet Discontinued 750 MG PO Every 6 hours August 24, 2023 12:00am August 01, 2024 11:08am nabumetone 750 mg oral tablet (5 sources) Nonsteroidal Anti-inflammatory Drug Start: End: take 1 tablet by mouth twice daily Nabumetone 750 mg tablet Discontinued 750 MG PO Twice daily August 24, 2023 12:00am August 01, 2024 11:10am omeprazole 10 mg delayed release oral capsule (8 sources) Proton Pump Inhibitor Start: 024 End: 025 take 1 capsule by mouth once daily Omeprazole 10 mg capsule,delayed release(DR/EC) Discontinued 10 MG PO Daily August 24, 2023 12:00am August 01, 2024 11:09am take 1 capsule by mouth once lupe ly Omeprazole 20 MG TAKE ONE CAPSULE BY MOUTH DAILY 30 MINUTES BEFORE A MEAL Oral for 30 Days Active triamcinolone acetonide 40 mg/ml injectable suspension (8 sources) Corticosteroid Start: 03-18-2022 Kenalog-40 07 Mar, 2022 40 mg Start: 09-26-2020 Kenalog -40 mg Sep, 40 mg Problems Active Problems Problem Classification Problem Date Documented Date Episodic/Chronic Abdominal pain (9 sources) Unspecified abdominal pain; Translations: [Left lower quadrant pain] Onset: 02-09-2022 Episodic Asthma (12 sources) Exacerbation of mild persistent asthma; Translations: [Mild persistent asthma with (acute) exacerbation] Onset: 11-24-2021 Resolved: 03-18-2022 Chronic Essential hypertension (10 sources) Hypertensive disorder; Translations: [Essential (primary) hypertension] Onset: 05-27-2023 10-12-2023 Chronic Headache; including migraine (4 sources) Headache; including migraine; Translations: [HEADACHE UNSPECIFIED] Onset: 10-16-2021 Immunizations and screening for infectious disease (3 sources) Contact with and (suspected) exposure to other viral communicable diseases; Translations: [Contact with or exposure to other viral diseases] Episodic Mood disorders (4 sources) Bipolar disorder; Translations: [Bipolar disorder, unspecified] 10-12-2023 Chronic Other aftercare (1 source) Other senior living (current) drug therapy; Translations: [OTH SPEECH THERAPIST CURRENT DRUG THERAPY] Onset: 02-11-2022 Episodic Other aftercare (1 source) half-way (current) use of aspirin; Translations: [M[facility] CURRENT USE OF ASPIRIN] Onset: 02-11-2022 Episodic Other connective tissue disease (5 sources) Pain in lower limb; Translations: [Pain in left leg] 08-24-2023 Episodic Other connective tissue disease (3 sources) Pain in calf; Translations: [Pain in left lower leg] 10-12-2023 Episodic Other connective tissue disease (2 sources) Pain in left lower leg; Translations: [Pain in limb] 10-12-2023 Episodic Other connective tissue disease (1 source) Other specified soft tissue disorders; Translations: [Other specified soft tissue disorders] Onset: 12-07-2023 Episodic Other diseases of veins and lymphatics (1 source) Venous insufficiency of leg; Translations: [Venous insufficiency (chronic) (peripheral)] 12-08-2023 Episodic Other ear and sense organ disorders (1 source) Unspecified hearing loss, bilateral; Translations: [UNSPECIFIED HEARING LOSS BILATERAL] Onset: 10-17-2021 Chronic Other ear and sense organ disorders (1 source) Hearing loss; Translations: [Unspecified hearing loss, unspecified ear] 12-08-2023 Chronic Other lower respiratory disease (3 sources) H/O: asthma; Translations: [Personal history of other diseases of the respiratory system] Episodic Other upper respiratory infections (1 source) Acute upper respiratory infection, unspecified Episodic Pneumonia (except that caused by tuberculosis or sexually transmitted disease) (1 source) Bronchopneumonia, unspecified organism; Translations: [BRONCHOPNEUMONIA UNS ORGANISM] Onset: 02-11-2022 Episodic Residual codes; unclassified (3 sources) Edema of lower extremity; Translations: [Localized edema] 10-12-2023 Episodic Residual codes; unclassified (2 sources) Localized edema; Translations: [Edema] 10-12-2023 Episodic Unclassified (1 source) Dysmenorrhea, unspecified; Translations: [Dysmenorrhea, unspecified] Onset: 06-30-2023 Varicose veins of lower extremity (5 sources) Venous varices; Translations: [Varicose veins of [...] LE LTon US venous duplex LE LT [facility] [address] [place] [address] Ultrasound Report Signed Patient: Clover Henriquez MR#: [id number] : 1975 Acct:[id number] Age/Sex: 48 / F ADM Date: 12/07/23 Loc: [facility] Room: Type: [facility] Attending Dr: Shun Oswald MD Ordering [...] Carlos Asencio MD12/09/2023 8:32 AM Dictation Location: [place] [address] Tech: Chica Biggs Transcribed By: ASDE 12/09/23831 Dictated By: Carlos Asencio MD 12/09/23831 Signed By: 12/09/23 08 Normal [facility] US venous duplex LE BIon US venous duplex LE BI [facility] [place] [address] Ultrasound Report Signed Patient: Clover Henriquez MR#: [id number] : 1975 Acct:[id number] Age/Sex: 47 / F ADM Date: 08/24/23 Loc: ER Room: Type: [facility] ER Attending Dr: Ordering Provider: Robert [...] Carlos Asencio MD08/25/2023 11:16 AM Dictation Location: [id number] Tech: Cinda Frank Transcribed By: SADE 08/25/23 111 Dictated By: Carlos Asencio MD 08/25/231114 Signed By: 08/25/23 111 Normal [facility] Basic Metabolic Panelon 08-12 Anion gap [Moles/Vol] 9.7 mmol/L Normal 6.0-15.0 [facility] Comment on above: Performed By: #### H CGQUAL, CBC, BMP ####[facility] [id number] Calcium [Mass/Vol] 9.8 mg/dL Normal 8.6-10.3 [facility] Comment on above: Performed By: #### H CGQUAL, CBC, BMP ####[address] Chloride [Moles/Vol] 104 mmol/L Normal 98-107 [facility] Comment on above: Performed By: #### H CGQUAL, CBC, BMP ####[address] CO2 [Moles/Vol] 29.2 mmol/L Normal 21.0-31.0 [facility] Comment on above: Performed By: #### H CGQUAL, CBC, BMP ####[address] Creatinine [Mass/Vol] 0.99 mg/dL Normal 0.60-1.20 [facility] Comment on above: Performed By: #### H CGQUAL, CBC, BMP ####[address] Creatinine Clr Calc Pharmacy 76.92 Normal [facility] Comment on above: Performed By: #### H CGQUAL, CBC, BMP ####[address] GFR/1.73 sq M.predicted MDRD (S/P/Bld) [Vol rate/Area] mL/min/{1.73_m2} Normal [facility] Comment on above: Performed By: #### H CGQUAL, CBC, BMP ####[address] Glucose [Mass/Vol] 105 mg/dL High 70-100 [facility] Comment on above: Result Comment: [place] Glucose Reference Range is dependent on time and content of last meal. Glucose of more than 200 mg/dL in a nonstressed, ambulatory subject supports the diagnosis of Diabetes Mellitus. ADA recommended reference range Performed By: #### H CGQUAL, CBC, BMP ####[address] Potassium [Moles/Vol] 3.9 mmol/L Normal 3.5-5.1 [facility] Comment on above: Performed By: #### H CGQUAL, CBC, BMP ####[id number] Sodium [Moles/Vol] 139 mmol/L Normal 136-145 [facility] Comment on above: Performed By: #### H CGQUAL, CBC, BMP ####[facility] Urea nitrogen [Mass/Vol] 15 mg/dL Normal 7-25 [facility] Comment on above: Performed By: #### H CGQUAL, CBC, BMP ####[place] [id number] [address] Basophils Auto (Bld) [#/Vol] Ordered By: Robert Haji on 08-24-2023 Basophils (Bld) [#/Vol] 0.1 10*3/uL 0.0-0.2 [facility] Basophils/100 WBC Auto (Bld) Ordered By: Robert Haji on 08-24-2023 Basophils/100 WBC (Bld) 1.2 % . F [facility] Bilirubin Test strip Ql (U)O rdered By: Robert Haji on 08-24-2023 Bilirubin Ql (U) Negative Negative [facility] CT abdomen pelvis w conon CT abdomen pelvis w con [facility] Main [place] [address] [place] [address] CT Scan Report Signed Patient: Clover Henriquez MR#: [id number] : 1975 Acct:[id number] Age/Sex: 47 / F ADM Date: 08/24/23 Loc: ER Room: Type: [facility] ER Attending Dr: Copies to: Robert Haji [...] process. Impression dictated by: Sivakumar Edwards Jr., D.OLinda08/24/2023 7:43 PM Dictation Location: [place] [address] Transcribed By: [facility] 08/24/231942 Dictated By: Sivakumar Edwards Jr, DO 08/24/231940 Signed By: 08/24/231942 Normal [facility] Calcium [Mass/volume] in Ser um or PlasmaOrdered By: Robert Haji on 08-24-2023 Calcium [Mass/Vol] 9.8 mg/dL 8.6-10.3 [facility] Carbon dioxide, total [Moles /volume] in Serum or PlasmaOrdered By: Robert Haji 08-24-2023 CO2 [Moles/Vol] 29.2 mmol/L 21.0-31.0 [facility] Chloride [Moles/volume] in S lyly or PlasmaOrdered By: Robert Haji 08-24-2023 Chloride [Moles/Vol] 104 mmol/L 98-107 [facility] Choriogonadotropin.beta subu nit [Units/volume] in Serum or PlasmaOrdered By: Robert Haji 08-24-2023 HCG.beta subunit Qn Negative [facility] Color Auto (U)Ordered By: Lizzette Haji on 08-24-2023 Color (U) Yellow Yellow [facility] Complete Blood Count Auto Di ffon 08-24-2023 Basophils (Bld) [#/Vol] 0.1 10*3/uL Normal 0.0-0.2 [facility] Comment on above: Result Comment: PERF ORMED BY: [facility] [address] [place] [address] PATHOLOGIST NUB CARD TENDER RASHMI ECHOLS M.D. Performed By: #### H CGQUAL, CBC, BMP ####[address] Basophils/100 WBC (Bld) 1.2 % Normal . [facility] Comment on above: Performed By: #### H CGQUAL, CBC, BMP ####[address] Eosinophils (Bld) [#/Vol] 0.7 10*3/uL High 0.0-0.45 [facility] Comment on above: Performed By: #### H CGQUAL, CBC, BMP ####[address] Eosinophils/100 WBC (Bld) 9.4 % Normal . [facility] Comment on above: Performed By: #### H CGQUAL, CBC, BMP ####[address] Erythrocyte distribution width (RBC) [Ratio] 13.7 % Normal 11.9-15.3 [facility] Comment on above: Performed By: #### H CGQUAL, CBC, BMP ####[address] Hematocrit (Bld) [Volume fraction] 40.5 % Normal 34.0-46.4 [facility] Comment on above: Performed By: #### H CGQUAL, CBC, BMP ####[address] Hemoglobin (Bld) [Mass/Vol] 13.7 g/dL Normal 11.8-15.4 [facility] Comment on above: Performed By: #### H CGQUAL, CBC, BMP ####[address] Lymphocytes (Bld) [#/Vol] 1.4 10*3/uL Normal 1.00-4.8 [facility] Comment on above: Performed By: #### H CGQUAL, CBC, BMP ####[address] Lymphocytes/100 WBC (Bld) 19.0 % Normal . [facility] Comment on above: Performed By: #### H CGQUAL, CBC, BMP ####[address] MCH (RBC) [Entitic mass] 31.0 pg Normal 24.7-34.3 [facility] Comment on above: Performed By: #### H CGQUAL, CBC, BMP ####[address] MCV (RBC) [Entitic vol] 91.5 fL Normal 80-100 [facility] Comment on above: Performed By: #### H CGQUAL, CBC, BMP ####[address] Mean Corpuscular HGB Conc 33.9 g/dL Normal 32.0-35.0 [facility] Comment on above: Performed By: #### H CGQUAL, CBC, BMP ####[address] Monocytes (Bld) [#/Vol] 0.6 10*3/uL Normal 0.0-0.8 [facility] Comment on above: Performed By: #### H CGQUAL, CBC, BMP ####[address] Monocytes/100 WBC (Bld) 21.83 % High 0.00-20.00 [facility] Comment on above: Result Comment: For adults in ED, MDW > 20.0 may be associated with a higher risk of sepsis during the first 12 hrs of hospital admission Performed By: #### H CGQUAL, CBC, BMP ####[place] [id number] [facility] Monocytes/100 WBC (Bld) 7.3 % Normal . [facility] Comment on above: Performed By: #### H CGQUAL, CBC, BMP ####[place] [id number] [facility] Neutrophils (Bld) [#/Vol] 4.7 10*3/uL Normal 1.8-7.7 [facility] Comment on above: Performed By: #### H CGQUAL, CBC, BMP ####[place] [id number] [facility] Neutrophils/100 WBC (Bld) 63.1 % Normal . [facility] Comment on above: Performed By: #### H CGQUAL, CBC, BMP ####[place] [id number] [facility] NRBC% 0.1 /100{WBC} Normal 0-0.5 [facility] Comment on above: Performed By: #### H CGQUAL, CBC, BMP ####[place] [id number] [facility] Platelet mean volume (Bld) [Entitic vol] 7.8 fL Normal 6.3-10.7 [facility] Comment on above: Performed By: #### H CGQUAL, CBC, BMP ####[place] [id number] [facility] Platelets (Bld) [#/Vol] 363 10*3/uL Normal 150-450 [facility] Comment on above: Performed By: #### H CGQUAL, CBC, BMP ####[place] [id number] [facility] RBC (Bld) [#/Vol] 4.42 10*6/uL Normal 3.60-5.00 [facility] Comment on above: Performed By: #### H CGQUAL, CBC, BMP ####[place] [id number] [place] WBC (Bld) [#/Vol] 7.5 10*3/uL Normal 3.8-11.6 [facility] Comment on above: Performed By: #### H CGQUAL, CBC, BMP ####[facility] [id number] Creatinine [Mass/volume] in Serum or PlasmaOrdered By: Robert Dejesusland on 08-24-2023 Creatinine [Mass/Vol] 0.99 mg/dL 0.60-1.20 [facility] Eosinophils Auto (Bld) [#/Vo l]Ordered By: [facility] on 08-24-2023 Eosinophils (Bld) [#/Vol] 0.7 10*3/uL 0.0-0.45 [facility] Eosinophils/100 WBC Auto (Bl d)Ordered By: [facility] on 08-24-2023 Eosinophils/100 WBC (Bld) 9.4 % . [facility] Erythrocyte distribution wid th Auto (RBC) [Ratio]Ordered By: [facility] [place] on 08-24-2023 Erythrocyte distribution width (RBC) [Ratio] 13.7 % 11.9-15.3 [facility] Glucose [Mass/volume] in Ser um or PlasmaOrdered By: Robert [place] on 08-24-2023 Glucose [Mass/Vol] 105 mg/dL 70-100 [facility] Comment on above: ADA recommended refe rence rangeRandom Glucose Reference Range is dependent on time and content of last meal. Glucose of more than 200 mg/dL in a nonstressed, ambulatory subject supports the diagnosis of Diabetes Mellitus. HCG,Qualitative Serumon 08-12 HCG,Qualitative Serum Negative Normal [facility] Comment on above: Result Comment: PERF ORMED BY: [facility] [address] [place] [address] PATHOLOGIST NUB CARD TENDER RASHMI ECHOLS M.D. Performed By: #### H CGQUAL, CBC, BMP ####[facility] [id number] [place] [id number] [facility] Hematocrit Auto (Bld) [Volum e fraction]Ordered By: Robert Haji on 08-24-2023 Hematocrit (Bld) [Volume fraction] 40.5 % 34.0-46.4 [facility] Hemoglobin [Mass/volume] in BloodOrdered By: Robert Haji on 08-24-2023 Hemoglobin (Bld) [Mass/Vol] 13.7 g/dL 11.8-15.4 [facility] Ketones Auto test strip (U) [Mass/Vol]Ordered By: Robert Haji on 08-24-2023 Ketones (U) [Mass/Vol] Negative Negative Fi [facility] Leukocytes [#/volume] correc jay for nucleated erythrocytes in Blood by Automated counOrdered By: Robert Haji on 08-24-2023 WBC corrected for nucl RBC Auto (Bld) [#/Vol] 7.5 10*3/uL 3.8-11.6 [facility] Lymphocytes Auto (Bld) [#/Vo l]Ordered By: Robert Haji on 08-24-2023 Lymphocytes (Bld) [#/Vol] 1.4 10*3/uL 1.00-4.8 [facility] Lymphocytes/100 WBC Auto (Bl d)Ordered By: Robert Haji on 08-24-2023 Lymphocytes/100 WBC (Bld) 19.0 % . [facility] MCH Auto (RBC) [Entitic mass ]Ordered By: Robert Haji on 08-24-2023 MCH (RBC) [Entitic mass] 31.0 pg 24.7-34.3 [facility] MCHC Auto (RBC) [Mass/Vol]Or dered By: Robert Haji on 08-24-2023 MCHC (RBC) [Mass/Vol] 33.9 g/dL 32.0-35.0 [facility] MCV Auto (RBC) [Entitic vol] Ordered By: Robert Haji on 08-24-2023 MCV (RBC) [Entitic vol] 91.5 fL 80-100 F [facility] Monocyte distribution width [Entitic volume] in Blood by AutomatedOrdered By: Robert Haji on 08-24-2023 Monocyte distribution width Auto (Bld) [Entitic vol] 21.83 % 0.00-20.00 [facility] Comment on above: For adults in ED, W > 20.0 may be associated with a higher risk of sepsis during the first 12 hrs of hospital admission Monocytes Auto (Bld) [#/Vol] Ordered By: Robert Haji on 08-24-2023 Monocytes (Bld) [#/Vol] 0.6 10*3/uL 0.0-0.8 [facility] Monocytes/100 WBC Auto (Bld) Ordered By: Robert Haji on 08-24-2023 Monocytes/100 WBC (Bld) 7.3 % . F [facility] Neutrophils Auto (Bld) [#/Vo l]Ordered By: Robert Haji on 08-24-2023 Neutrophils (Bld) [#/Vol] 4.7 10*3/uL 1.8-7.7 [facility] Neutrophils/100 WBC Auto (Bl d)Ordered By: Robert Haji on 08-24-2023 Neutrophils/100 WBC (Bld) 63.1 % . [facility] Nitrite Test strip Ql (U)Ord ered By: Robert Haji 08-24-2023 Nitrite Ql (U) Negative Negative [facility] No Panel InformationOrdered By: Robert Haji on 08-24-2023 Estimated GFR (CKD-EPI) > 60.0 mL/Min [facility] Creatinine Clearance (Chem 76.92 [facility] Nucleated erythrocytes [Pres ence] in Blood by Automated countOrdered By: oRbert Haji 08-24-2023 Nucleated RBC Auto Ql (Bld) 0.1 /100{WBC} 0-0.5 [facility] [facility] Platelet mean volume Auto (B ld) [Entitic vol]Ordered By: Robert Haji on 08-24-2023 Platelet mean volume (Bld) [Entitic vol] 7.8 fL 6.3-10.7 [facility] Platelets Auto (Bld) [#/Vol] Ordered By: Robert Haji 08-24-2023 Platelets (Bld) [#/Vol] 363 10*3/uL 150-450 [facility] Potassium [Moles/volume] in Serum or PlasmaOrdered By: Robert Haji 08-24-2023 Potassium [Moles/Vol] 3.9 mmol/L 3.5-5.1 [facility] Protein Auto test strip (U) [Mass/Vol]Ordered By: Robert Haji on 08-24-2023 Protein (U) [Mass/Vol] Negative Negative [facility] RBC Auto (Bld) [#/Vol]Ordere d By: Robert Haji on 08-24-2023 RBC (Bld) [#/Vol] 4.42 10*6/uL 3.60-5.00 [facility] Serum or plasma anion gap de terminationOrdered By: Robert Haji on 08-24-2023 Anion gap [Moles/Vol] 9.7 mmol/L 6.0-15.0 [facility] Sodium [Moles/volume] in Ser um or PlasmaOrdered By: Robert Haji on 08-24-2023 Sodium [Moles/Vol] 139 mmol/L 136-145 [facility] Specific gravity Auto test s trip (U) [Rel density]Ordered By: Robert Haji on 08-24-2023 Specific gravity (U) [Rel density] 1.006 1.001-1.030 [facility] Urea nitrogen [Mass/volume] in Serum or PlasmaOrdered By: Robert Haji on 08-24-2023 Urea nitrogen [Mass/Vol] 15 mg/dL 7-25 [facility] Urinalysison 08-24-2023 Appearance (U) Clear Normal Clear [facility] Comment on above: Order Comment: Name Collection Type:: Clean-Voided Midstream Performed By: #### U A #### [facility] [address] Bilirubin,Urine Negative Normal Negative [facility] Comment on above: Order Comment: Name Collection Type:: Clean-Voided Midstream Performed By: #### U A #### [facility] [address] [place] [address] [place] Color (U) Yellow Normal Yellow [facility] Comment on above: Order Comment: Name Collection Type:: Clean-Voided Midstream Performed By: #### U A #### [facility] [address] [place] [address] [place] Glucose Ql (U) Normal Normal Normal [facility] Comment on above: Order Comment: Name Collection Type:: Clean-Voided Midstream Performed By: #### U A #### [address] Ketones Ql (U) Negative Normal Negative [facility] Comment on above: Order Comment: Name Collection Type:: Clean-Voided Midstream Performed By: #### U A #### [address] Leukocyte esterase Test strip Ql (U) Negative Normal Negative [facility] Comment on above: Order Comment: Name Collection Type:: Clean-Voided Midstream Performed By: #### U A #### [place] [address] [place] Nitrite,Urine Negative Normal Negative [facility] Comment on above: Order Comment: Name Collection Type:: Clean-Voided Midstream Performed By: #### U A #### [address] Occult Blood,Urine Negative Normal Negative [facility] Comment on above: Order Comment: Name Collection Type:: Clean-Voided Midstream Result Comment: PERF ORMED BY: [place] [address] PATHOLOGIST NUB CARD TENDER RASHMI ECHOLS M.D. Performed By: #### U A #### [place] [address] [place] pH (U) 7.0 [pH] Normal 5.0-9.0 [facility] Comment on above: Order Comment: Name Collection Type:: Clean-Voided Midstream Performed By: #### U A #### [place] [address] [place] Protein,Urine Negative Normal Negative [facility] Comment on above: Order Comment: Name Collection Type:: Clean-Voided Midstream Performed By: #### U A #### [place] [address] [place] Specificy [place],Urine 1.006 Normal 1.001-1.030 [facility] Comment on above: Order Comment: Name Collection Type:: Clean-Voided Midstream Performed By: #### U A #### [facility] [address] [place] [address] [place] Urobilinogen,Urine Normal Normal Normal [facility] Comment on above: Order Comment: Name Collection Type:: Clean-Voided Midstream Performed By: #### U A #### [facility] [address] [place] [id number] [place] Urine clarity by refractomet ry automatedOrdered By: Robert Haji on 08-24-2023 Clarity Refractometry automated (U) Clear Clear [facility] Urine glucose measurement by automated test strip (mass/volume)Ordered By: Robert Haji on 08-24-2023 Glucose Auto test strip (U) [Mass/Vol] Normal mg/dL Normal [facility] Urine hemoglobin detection b y automated test stripOrdered By: Robert Haji on 08-24-2023 Hemoglobin Auto test strip Ql (U) Negative Negative [facility] Urine leukocyte esterase det ection by automated test stripOrdered By: Robert Haji on 08-24-2023 Leukocyte esterase Auto test strip Ql (U) Negative Negative [facility] Urobilinogen Auto test strip (U) [Mass/Vol]Ordered By: Robert Haji on 08-24-2023 Urobilinogen (U) [Mass/Vol] Normal mg/dL Normal [facility] WBC Auto (Bld) [#/Vol]Ordere d By: Robert Haji on 08-24-2023 WBC (Bld) [#/Vol] 7.5 10*3/uL 3.8-11.6 [facility] XR ankle LT min 3V*on 2023 XR ankle LT min 3V* [facility] Main [place] [address] [place] [id number] XRay Report Signed Patient: Clover Henriquez MR#: [id number] : 1975 Acct:[id number] Age/Sex: 47 / F ADM Date: 08/24/23 Loc: ER Room: Type: [facility] ER Attending Dr: Copies to: Robert Haji [...] PROCESS. Impression dictated by: Sivakumar Edwards Jr., D.OLinda08/24/2023 7:44 PM Dictation Location: [facility]--15 Transcribed By: [facility] 08/24/231943 Dictated By: Sivakumar Edwards Jr, DO 08/24/231942 Signed By: 08/24/231943 Normal [facility] pH Auto test strip (U)Ordere d By: Robert Haji on 08-24-2023 pH (U) 7.0 [pH] 5.0-9.0 [facility] BI MAMMOGRAM SCREENING TOMOS YNTHESIS BILATERALon [...] VERY IMPORTANT TO YOUR HEALTH. THE CURRENT [employer] [...] Follicle Stimulating Hormone 6.0 m[iU]/mL Normal [facility] Comment on above: Order Comment: Reaso n for Exam Severe menstrual cramps Result Comment: FEMA LE NORMALS (PREMENOPAUSE) MID-FOLLICULAR PHASE: 3.9-8.8 mIU/mL MID-CYCLE PEAK: 4.5-22.5 mIU/mL MID-LUTEAL PHASE: 1.8-5.1 mIU/mL FEMALE NORMALS (POSTMENOPAUSE): 16.7-113.6 mIU/mL MALE NORMALS: 1.3-19.3 mIU/mL PERFORMED BY: [facility] [address] [place] [address] PATHOLOGIST NUB CARD TENDER RASHMI ECHOLS M.D. Performed By: #### L H ####[facility] ,#### FSH ####[facility] [id number] [place] [address] [facility] Follitropin [Units/volume] i n Serum or PlasmaOrdered By: Regine Chinchilla on 06-30-2023 Follitropin Qn 6.0 m[IU]/mL [facility] Comment on above: FEMALE NORMALS (DILAN ENOPAUSE) MID-FOLLICULAR PHASE: 3.9-8.8 mIU/mL MID-CYCLE PEAK: 4.5-22.5 mIU/mL MID-LUTEAL PHASE: 1.8-5.1 mIU/mLFEMALE NORMALS (POSTMENOPAUSE): 16.7-113.6 mIU/mLMALE NORMALS: 1.3-19.3 mIU/mL Luteinizing Hormoneon 2022 Luteinizing Hormone 15.8 m[iU]/mL Normal . [facility] Comment on above: Order Comment: Reaso n for Exam Severe menstrual cramps Result Comment: Adul t Female Range Follicular phase 2.4 - 12.6 Ovulation phase 14.0 - 95.6 Luteal phase 1.0 - 11.4 Postmenopausal 7.7 - 58.5 Performed at: [facility] [address] [id number] [place], [place] [id number] [employer] Operator: Supa Murdock PhD, Phone: [phone] PERFORMED BY: [place] [address] PATHOLOGIST NUB CARD TENDER RASHMI ECHOLS M.D. Performed By: #### L H ####[facility] ,#### FSH ####[facility] Serum or plasma lutropin catarina surement (units/volume)Ordered By: Regine Chinchilla on 06-30-2023 Lutropin Qn 15.8 m[IU]/mL . [facility] Comment on above: Adult Female Range F ollicular phase 2.4 - 12.6 Ovulation phase 14.0 - 95.6 Luteal phase 1.0 - 11.4 Postmenopausal 7.7 - 58.5Performed at: - [address] [id number] Director: Supa Murdock PhD, Phone: [phone] US transvaginalon 06-30-2023 US transvaginal [facility] Main [place] [address] [place] [address] Ultrasound Report Signed Patient: Clover Henriquez MR#: [id number] : 1975 Acct:[id number] Age/Sex: 47 / F ADM Date: 06/30/23 Loc: Room: Type: [facility] Attending Dr: RONEL Shaw APRN Ordering Provider: Regine Chinchilla APRN, NP-C Date of Service: 06/30/23 US/US pelvic complete: Severe menstrual cramps ([id number]) US/US transvaginal: N94.6 Copies to: Regine Chinchilla [...] Shun Jimenez M.D.06/30/2023 3:09 PM Dictation Location: [place] [address] Tech: Cinda Frank Transcribed By: PWS 06/30/23 1509 Dictated By: Shun Jimenez DO 06/30/23 1507 Signed By: 06/30/23 1509 Normal [facility] A1C with Estimated Average G luo 05-27-2023 Glucose [Mass/Vol] 123 mg/dL Normal [facility] Comment on above: Order Comment: Reaso n for Exam Impaired fasting glucose Result Comment: PERF ORMED BY: [place] [address] PATHOLOGIST NUB CARD TENDER RASHMI ECHOLS M.D. Performed By: #### A NA #### [facility] , #### CBC, TSH3 wRFLX, LIPID, CMP, A1C WT eA #### [address] SAAD Antinuclear Antibodieson 05-27-2023 Antinuclear Abs, IFA Negative Normal . [facility] Comment on above: Order Comment: Reaso n for Exam Multiple joint pain Result Comment: Nega tive <1:80 Borderline 1:80 Positive >1:80 ICAP nomenclature: AC-0 For more information about Hep-2 cell patterns use ANApatterns.org, the official website for the International Consensus on Antinuclear Antibody (SAAD) Patterns (ICAP). Performed at: [facility] [address] [id number] [employer] Machine Operator: Supa Murdock PhD, Phone: [phone] PERFORMED BY: [place] [address] PATHOLOGIST NUB CARD TENDER RASHMI ECHOLS M.D. Performed By: #### A NA #### [facility] , #### CBC, TSH3 wRFLX, LIPID, CMP, A1C WTH eA #### [facility] [address] [place] [address] [place] Alanine aminotransferase [En zymatic activity/volume] in Serum or PlasmaOrdered By: Regine Chinchilla on 05-27-2023 ALT [Catalytic activity/Vol] 18 U/L Normal 7-52 [facility] Comment on above: Order Comment: Reaso n for Exam Hypertension Reason for Exam History of thyroid disease Performed By: #### A NA #### [facility] , #### CBC, TSH3 wRFLX, LIPID, CMP, A1C WTH eA #### [place] [address] [place] Albumin [Mass/volume] in Ser um or Plasma by Bromocresol green (BCG) dye binding methoOrdered By: Regine Chinchilla on 05-27-2023 Albumin BCG dye [Mass/Vol] 4.4 g/dL 3.5-5.7 [facility] Alkaline phosphatase [Enzyma tic activity/volume] in Serum or PlasmaOrdered By: Regine Chinchilla on 05-27-2023 ALP [Catalytic activity/Vol] 98 U/L Normal 34-104 [facility] Comment on above: Order Comment: Reaso n for Exam Hypertension Reason for Exam History of thyroid disease Performed By: #### A NA #### [facility] , #### CBC, TSH3 wRFLX, LIPID, CMP, A1C WTH eA #### [facility] [address] [place], [place] [id number] [place] Aspartate aminotransferase [ Enzymatic activity/volume] in Serum or PlasmaOrdered By: Regine Chinchilla on 05-27-2023 AST [Catalytic activity/Vol] 25 U/L Normal 13-39 [facility] Comment on above: Order Comment: Reaso n for Exam Hypertension Reason for Exam History of thyroid disease Performed By: #### A NA #### [facility] , #### CBC, TSH3 wRFLX, LIPID, CMP, A1C WTH eA #### [address] Automated basophil %Ordered By: Regine Chinchilla on 05-27-2023 Basophils/100 WBC (Bld) 1.2 % Normal . F [facility] Comment on above: Order Comment: Reaso n for Exam Hypertension Performed By: #### A NA #### [facility] , #### CBC, TSH3 wRFLX, LIPID, CMP, A1C [facility] eA #### [address] Automated basophil countOrde red By: Regine Chinchilla on 05-27-2023 Basophils (Bld) [#/Vol] 0.1 10*3/uL Normal 0.0-0.2 [facility] Comment on above: Order Comment: Reaso n for Exam Hypertension Result Comment: PERF ORMED BY: [place] [address] PATHOLOGIST NUB CARD TENDER RASHMI ECHOLS M.D. Performed By: #### A NA #### [facility] , #### CBC, TSH3 wRFLX, LIPID, CMP, A1C [facility] eA #### [address] Automated blood monocyte cou ntOrdered By: Regine Chinchilla on 05-27-2023 Monocytes (Bld) [#/Vol] 0.5 10*3/uL Normal 0.0-0.8 [facility] Comment on above: Order Comment: Reaso n for Exam Hypertension Performed By: #### A NA #### [facility] , #### CBC, TSH3 wRFLX, LIPID, CMP, A1C [facility] eA #### [address] Automated eosinophil %Ordere d By: Regine Chinchilla on 05-27-2023 Eosinophils/100 WBC (Bld) 8.6 % Normal . [facility] Comment on above: Order Comment: Reaso n for Exam Hypertension Performed By: #### A NA #### [facility] , #### CBC, TSH3 wRFLX, LIPID, CMP, A1C WTH eA #### [facility] [address] Automated eosinophil countOr dered By: Regine Chinchilla on 05-27-2023 Eosinophils (Bld) [#/Vol] 0.5 10*3/uL High 0.0-0.45 [facility] Comment on above: Order Comment: Reaso n for Exam Hypertension Performed By: #### A NA #### [facility] , #### CBC, TSH3 wRFLX, LIPID, CMP, A1C WTH eA #### [facility] [address] Automated monocyte %Ordered By: Regine Chinchilla on 05-27-2023 Monocytes/100 WBC (Bld) 7.5 % Normal . [facility] Comment on above: Order Comment: Reaso n for Exam Hypertension Performed By: #### A NA #### [facility] , #### CBC, TSH3 wRFLX, LIPID, CMP, A1C WTH eA #### [facility] [address] Automated neutrophil %Ordere d By: Regine Chinchilla on 05-27-2023 Neutrophils/100 WBC (Bld) 63.3 % Normal . [facility] Comment on above: Order Comment: Reaso n for Exam Hypertension Performed By: #### A NA #### [facility] , #### CBC, TSH3 wRFLX, LIPID, CMP, A1C WTH eA #### [facility] [address] [place] [address] [place] Bilirubin.total [Mass/volume ] in Serum or PlasmaOrdered By: Regine Chinchilla on 05-27-2023 Bilirubin [Mass/Vol] 0.6 mg/dL Normal 0.3-1.0 [facility] Comment on above: Order Comment: Reaso n for Exam Hypertension Reason for Exam History of thyroid disease Performed By: #### A NA #### [facility] , #### CBC, TSH3 wRFLX, LIPID, CMP, A1C WTH eA #### [facility] [address] [place] [address] [place] Calcium [Mass/volume] in Ser um or PlasmaOrdered By: Regine Chinchilla on 05-27-2023 Calcium [Mass/Vol] 10.1 mg/dL Normal 8.6-10.3 [facility] Comment on above: Order Comment: Reaso n for Exam Hypertension Reason for Exam History of thyroid disease Performed By: #### A NA #### [facility] , #### CBC, TSH3 wRFLX, LIPID, CMP, A1C WTH eA #### [facility] [address] [place] [address] [place] Carbon dioxide, total [Moles /volume] in Serum or PlasmaOrdered By: Regine Chinchilla on 05-27-2023 CO2 [Moles/Vol] 34.1 mmol/L High 21.0-31.0 [facility] Comment on above: Order Comment: Reaso n for Exam Hypertension Reason for Exam History of thyroid disease Performed By: #### A NA #### [facility] , #### CBC, TSH3 wRFLX, LIPID, CMP, A1C WTH eA #### [facility] [address] [place] [id number] [place] Chloride [Moles/volume] in S lyly or PlasmaOrdered By: Regine Chinchilla on 05-27-2023 Chloride [Moles/Vol] 103 mmol/L Normal 98-107 [facility] Comment on above: Order Comment: Reaso n for Exam Hypertension Reason for Exam History of thyroid disease Performed By: #### A NA #### [facility] , #### CBC, TSH3 wRFLX, LIPID, CMP, A1C WTH eA #### [facility] [address] [place] [address] [place] Cholesterol [Mass/volume] in Serum or PlasmaOrdered By: Regine Chinchilla on 05-27-2023 Cholesterol [Mass/Vol] 201 mg/dL High 140-200 [facility] Comment on above: Chol less than [...] wRFLX, LIPID, CMP, A1C WTH eA #### [facility] [address] Cholesterol in LDL Calc [Mas s/Vol]Ordered By: Regine Chinchilla on 05-27-2023 Cholesterol in LDL [Mass/Vol] 117 mg/dL 0-100 [facility] Comment on above: LDL ATP III CLASSIFI CATIONLDL less than 100 mg/dL OptimalLDL 100-129 mg/dL Near or above optimalLDL 130-159 mg/dL Borderline highLDL 160-189 mg/dL HighLDL greater than 189 mg/dL Very high Cholesterol in VLDL Calc [Ma ss/Vol]Ordered By: Regine Chinchilla on 05-27-2023 Cholesterol in VLDL [Mass/Vol] 18 mg/dL [facility] Complete Blood Count Auto Di ffon 05-27-2023 Mean Corpuscular HGB Conc 33.6 g/dL Normal 32.0-35.0 [facility] Comment on above: Order Comment: Reaso n for Exam Hypertension Performed By: #### A NA #### [facility] , #### CBC, TSH3 wRFLX, LIPID, CMP, A1C WTH eA #### [facility] [address] NRBC% 0.0 /100{WBC} Normal 0-0.5 [facility] Comment on above: Order Comment: Reaso n for Exam Hypertension Performed By: #### A NA #### [facility] , #### CBC, TSH3 wRFLX, LIPID, CMP, A1C WTH eA #### [facility] [address] [place] [id number] [facility] Comprehensive Metabolic Pane clem 05-27-2023 Albumin [Mass/Vol] 4.4 g/dL Normal 3.5-5.7 [facility] Comment on above: Order Comment: Reaso n for Exam Hypertension Reason for Exam History of thyroid disease Performed By: #### A NA #### [facility] , #### CBC, TSH3 wRFLX, LIPID, CMP, A1C WTH eA #### [facility] [address] [place] [address] [place] GFR/1.73 sq M.predicted MDRD (S/P/Bld) [Vol rate/Area] mL/min/{1.73_m2} Normal [facility] Comment on above: Order Comment: Reaso n for Exam Hypertension Reason for Exam History of thyroid disease Performed By: #### A NA #### [facility] , #### CBC, TSH3 wRFLX, LIPID, CMP, A1C WTH eA #### [address] Creatinine [Mass/volume] in Serum or PlasmaOrdered By: Regine Chinchilla on 05-27-2023 Creatinine [Mass/Vol] 1.06 mg/dL Normal 0.60-1.20 [facility] Comment on above: Order Comment: Reaso n for Exam Hypertension Reason for Exam History of thyroid disease Performed By: #### A NA #### [facility] , #### CBC, TSH3 wRFLX, LIPID, CMP, A1C WTH eA #### [address] Erythrocyte distribution wid th [Ratio] by Automated countOrdered By: Regine Chinchilla on 05-27-2023 Erythrocyte distribution width (RBC) [Ratio] 13.8 % Normal 11.9-15.3 [facility] Comment on above: Order Comment: Reaso n for Exam Hypertension Performed By: #### A NA #### [facility] , #### CBC, TSH3 wRFLX, LIPID, CMP, A1C WTH eA #### [place] [address] [place] Erythrocytes [#/volume] in B lood by Automated countOrdered By: Regine Chinchilla on 05-27-2023 RBC (Bld) [#/Vol] 4.43 10*6/uL Normal 3.60-5.00 [facility] Comment on above: Order Comment: Kand[place] n for Exam Hypertension Performed By: #### A NA #### [facility] , #### CBC, TSH3 wRFLX, LIPID, CMP, A1C WTH eA #### [facility] [address] [place] [address] [place] Glucose [Mass/volume] in Ser um or PlasmaOrdered By: Regine Chinchilla on 05-27-2023 Glucose [Mass/Vol] 100 mg/dL Normal 70-100 [facility] Comment on above: ADA recommended refe rence rangeRandom Glucose Reference Range is dependent on time and content of last meal. Glucose of more than 200 mg/dL in a nonstressed, ambulatory subject supports the diagnosis of Diabetes Mellitus. Order Comment: Reaso n for Exam Hypertension Reason for Exam History of thyroid disease Result Comment: [place] om Glucose Reference Range is dependent on time and content of last meal. Glucose of more than 200 mg/dL in a nonstressed, ambulatory subject supports the diagnosis of Diabetes Mellitus. ADA recommended reference range Performed By: #### A NA #### [facility] , #### CBC, TSH3 wRFLX, LIPID, CMP, A1C WT eA #### [facility] [address] [place], [place] [id number] [place] Glucose mean value [Mass/vol ume] in Blood Estimated from glycated hemoglobinOrdered By: Regine Chinchilla on 05-27-2023 Average glucose Estimated from glycated hemoglobin (Bld) [Mass/Vol] 123 mg/dL [facility] Hematocrit [Volume Fraction] of Blood by Automated countOrdered By: Regine Chinchilla on 05-27-2023 Hematocrit (Bld) [Volume fraction] 41.2 % Normal 34.0-46.4 [facility] Comment on above: Order Comment: Reaso n for Exam Hypertension Performed By: #### A NA #### [facility] , #### CBC, TSH3 wRFLX, LIPID, CMP, A1C WTH eA #### [facility] [address] [place] [address] Hemoglobin A1c percentageOrd ered By: Regine Chinchilla on 05-27-2023 HbA1c (Bld) [Mass fraction] 5.9 % High 4.3-5.6 [facility] Comment on above: Increased risk for [...] wRFLX, LIPID, CMP, A1C WTH eA #### [place] [address] [place] Hemoglobin [Mass/volume] in BloodOrdered By: Regine Chinchilla on 05-27-2023 Hemoglobin (Bld) [Mass/Vol] 13.9 g/dL Normal 11.8-15.4 [facility] Comment on above: Order Comment: Reaso n for Exam Hypertension Performed By: #### A NA #### [facility] , #### CBC, TSH3 wRFLX, LIPID, CMP, A1C WTH eA #### [facility] [address] [place] [address] [place] Leukocytes [#/volume] correc jay for nucleated erythrocytes in Blood by Automated counOrdered By: Regine Chinchilla on 05-27-2023 WBC corrected for nucl RBC Auto (Bld) [#/Vol] 6.3 10*3/uL 3.8-11.6 [facility] Leukocytes [#/volume] in Blo od by Automated countOrdered By: Regine Chinchilla on 05-27-2023 WBC (Bld) [#/Vol] 6.3 10*3/uL Normal 3.8-11.6 [facility] Comment on above: Order Comment: Reaso n for Exam Hypertension Performed By: #### A NA #### [facility] , #### CBC, TSH3 wRFLX, LIPID, CMP, A1C WT eA #### [facility] [address] Lipid Panelon 05-27-2023 LDL Cholesterol,Calculated 117 mg/dL High 0-100 [facility] Comment on above: Order Comment: [...] #### CBC, TSH3 wRFLX, LIPID, CMP, A1C [facility] eA #### [address] Triglyceride w/Reflex 93 mg/dL Normal 0-149 [facility] Comment on above: Order [...] wRFLX, LIPID, CMP, A1C WT eA #### [address] VLDL CHOLESTEROL 18 mg/dL Normal [facility] Comment on above: Order Comment: Reaso n for Exam Hypertension Reason for Exam History of thyroid disease Performed By: #### A NA #### [facility] , #### CBC, TSH3 wRFLX, LIPID, CMP, A1C WT eA #### [address] Lymphocytes [#/volume] in Bl ood by Automated countOrdered By: Regine Chinchilla on 05-27-2023 Lymphocytes (Bld) [#/Vol] 1.2 10*3/uL Normal 1.00-4.8 [facility] Comment on above: Order Comment: Reaso n for Exam Hypertension Performed By: #### A NA #### [facility] , #### CBC, TSH3 wRFLX, LIPID, CMP, A1C WTH eA #### [facility] [address] [place] [address] [place] Lymphocytes/100 leukocytes i n Blood by Automated countOrdered By: Regine Chinchilla on 05-27-2023 Lymphocytes/100 WBC (Bld) 19.4 % Normal . [facility] Comment on above: Order Comment: Reaso n for Exam Hypertension Performed By: #### A NA #### [facility] , #### CBC, TSH3 wRFLX, LIPID, CMP, A1C WTH eA #### [facility] [address] [place] [address] [place] MCH [Entitic mass] by Automa jay countOrdered By: Regine Chinchilla on 05-27-2023 MCH (RBC) [Entitic mass] 31.2 pg Normal 24.7-34.3 [facility] Comment on above: Order Comment: Reaso n for Exam Hypertension Performed By: #### A NA #### [facility] , #### CBC, TSH3 wRFLX, LIPID, CMP, A1C WTH eA #### [facility] [address] [place] [address] [place] MCHC Auto (RBC) [Mass/Vol]Or dered By: Regine Chinchilla on 05-27-2023 MCHC (RBC) [Mass/Vol] 33.6 g/dL 32.0-35.0 [facility] MCV [Entitic volume] by Auto mated countOrdered By: Regine Chinchilla on 05-27-2023 MCV (RBC) [Entitic vol] 93.0 fL Normal 80-100 [facility] Comment on above: Order Comment: Reaso n for Exam Hypertension Performed By: #### A NA #### [facility] , #### CBC, TSH3 wRFLX, LIPID, CMP, A1C WTH eA #### [facility] [address] [place] [address] [place] Neutrophils [#/volume] in Bl ood by Automated countOrdered By: Regine Chinchilla on 05-27-2023 Neutrophils (Bld) [#/Vol] 4.0 10*3/uL Normal 1.8-7.7 [facility] Comment on above: Order Comment: Reaso n for Exam Hypertension Performed By: #### A NA #### [facility] , #### CBC, TSH3 wRFLX, LIPID, CMP, A1C WT eA #### [facility] [address] No Panel InformationOrdered By: Regine Chinchilla on 05-27-2023 Estimated GFR (CKD-EPI) > 60.0 mL/Min [facility] Creatinine Clearance (Chem N/A [facility] Nucleated erythrocytes [Pres ence] in Blood by Automated countOrdered By: Regine Chinchilla on 05-27-2023 Nucleated RBC Auto Ql (Bld) 0.0 /100{WBC} 0-0.5 [facility] Platelet mean volume [Entiti c volume] in Blood by Automated countOrdered By: Regine Chinchilla on 05-27-2023 Platelet mean volume (Bld) [Entitic vol] 9.0 fL Normal 6.3-10.7 [facility] Comment on above: Order Comment: Reaso n for Exam Hypertension Performed By: #### A NA #### [facility] , #### CBC, TSH3 wRFLX, LIPID, CMP, A1C WT eA #### [facility] [address] [place] [address] Platelets [#/volume] in Bloo d by Automated countOrdered By: Regine Chinchilla on 05-27-2023 Platelets (Bld) [#/Vol] 367 10*3/uL Normal 150-450 [facility] Comment on above: Order Comment: Reaso n for Exam Hypertension Performed By: #### A NA #### [facility] , #### CBC, TSH3 wRFLX, LIPID, CMP, A1C WT eA #### [facility] [address] Potassium [Moles/volume] in Serum or PlasmaOrdered By: Regine Chinchilla on 05-27-2023 Potassium [Moles/Vol] 4.3 mmol/L Normal 3.5-5.1 [facility] Comment on above: Order Comment: Reaso n for Exam Hypertension Reason for Exam History of thyroid disease Performed By: #### A NA #### [facility] , #### CBC, TSH3 wRFLX, LIPID, CMP, A1C [facility] eA #### [facility] [address] [place] [address] Protein [Mass/volume] in Ser um or PlasmaOrdered By: Regine Chinchilla on 05-27-2023 Protein [Mass/Vol] 7.0 g/dL Normal 6.4-8.9 [facility] Comment on above: Order Comment: Reaso n for Exam Hypertension Reason for Exam History of thyroid disease Performed By: #### A NA #### [facility] , #### CBC, TSH3 wRFLX, LIPID, CMP, A1C [facility] eA #### [place] [id number] [facility] Serum globulin measurement b y calculation (mass/volume)Ordered By: Regine Chinchilla on 05-27-2023 Globulin (S) [Mass/Vol] 2.6 g/dL Normal [facility] Comment on above: Order Comment: Reaso n for Exam Hypertension Reason for Exam History of thyroid disease Performed By: #### A NA #### [facility] , #### CBC, TSH3 wRFLX, LIPID, CMP, A1C [facility] eA #### [place] [id number] [facility] Serum nuclear antibody titer Ordered By: Regine Chinchilla on 05-27-2023 Nuclear Ab (S) [Titer] Negative . [facility] Comment on above: Negative <1:80 Borde rline 1:80 Positive >1:80ICAP nomenclature: [id number] more information about Hep-2 cell patterns useANApatterns.org, the official website for theInternational Consensus on Antinuclear Antibody (SAAD)Patterns (ICAP).Performed at: CB - [facility] [id number] [place], [place] [id number] Director: Supa Murdock PhD, Phone: [phone] Serum or plasma albumin/glob ulin mass ratioOrdered By: Regine Chinchilla on 05-27-2023 Albumin/Globulin [Mass ratio] 1.7 {ratio} Normal [facility] Comment on above: Order Comment: Reaso n for Exam Hypertension Reason for Exam History of thyroid disease Performed By: #### A NA #### [facility] , #### CBC, TSH3 wRFLX, LIPID, CMP, A1C WTH eA #### [facility] [address] Serum or plasma anion gap de terminationOrdered By: Regine Chinchilla on 05-27-2023 Anion gap [Moles/Vol] 9.2 mmol/L Normal 6.0-15.0 [facility] Comment on above: Order Comment: Reaso n for Exam Hypertension Reason for Exam History of thyroid disease Performed By: #### A NA #### [facility] , #### CBC, TSH3 wRFLX, LIPID, CMP, A1C WTH eA #### [facility] [address] Serum or plasma high density lipoprotein (HDL) cholesterol measurementOrdered By: Regine Chinchilla on 05-27-2023 Cholesterol in HDL [Mass/Vol] 65 mg/dL Normal 23-92 [facility] Comment on above: HDL CHOL ATP-III [...] wRFLX, LIPID, CMP, A1C WTH eA #### [facility] [address] Serum or plasma total choles terol/high density lipoprotein (HDL) cholesterol mass ratOrdered By: Regine Chinchilla on 05-27-2023 Cholesterol.total/Merced sterol in HDL [Mass ratio] 3.1 {ratio} Normal <5.0 [facility] Comment on above: Order Comment: Reaso n for Exam Hypertension Reason for Exam History of thyroid disease Performed By: #### A NA #### [facility] , #### CBC, TSH3 wRFLX, LIPID, CMP, A1C [facility] eA #### [facility] [address] [place] [address] Sodium [Moles/volume] in Ser um or PlasmaOrdered By: Regine Chinchilla on 05-27-2023 Sodium [Moles/Vol] 142 mmol/L Normal 136-145 [facility] Comment on above: Order Comment: Reaso n for Exam Hypertension Reason for Exam History of thyroid disease Performed By: #### A NA #### [facility] , #### CBC, TSH3 wRFLX, LIPID, CMP, A1C [facility] eA #### [facility] [address] [place] [address] Thyroid Stim Hormone w/Rflxo n 05-27-2023 Thyroid Stim Hormone w/Rflx 1.60 u[iU]/mL Normal 0.45-5.33 [facility] Comment on above: Order Comment: Reaso n for Exam Hypertension Reason for Exam History of thyroid disease Result Comment: PERF ORMED BY: [place] [address] PATHOLOGIST NUB CARD TENDER RASHMI ECHOLS M.D. Performed By: #### A NA #### [facility] , #### CBC, TSH3 wRFLX, LIPID, CMP, A1C [facility] eA #### [facility] [address] [place] [address] [place] Thyrotropin [Units/volume] i n Serum or PlasmaOrdered By: Regine Chinchilla on 05-27-2023 TSH Qn 1.60 m[IU]/L 0.45-5.33 [facility] Triglyceride [Mass/volume] i n Serum or PlasmaOrdered By: Regine Chinchilla on 05-27-2023 Triglyceride [Mass/Vol] 93 mg/dL 0-149 F [facility] Comment on above: TRIG ATP III CLASSIF ICATIONTRIG less than 150 mg/dL NormalTRIG 150-199 mg/dL Borderline highTRIG 200-500 mg/dL High TRIG greater than 500 mg/dL Very highStandard traceable to the Center for Disease Conrtrol and Prevention (CDC) test method. Urea nitrogen [Mass/volume] in Serum or PlasmaOrdered By: Regine Chinchilla on 05-27-2023 Urea nitrogen [Mass/Vol] 13 mg/dL Normal 7-25 [facility] Comment on above: Order Comment: Reaso n for Exam Hypertension Reason for Exam History of thyroid disease Performed By: #### A NA #### [facility] , #### CBC, TSH3 wRFLX, LIPID, CMP, A1C WTH eA #### [facility] [address] SARS-CoV-2 (COVID-19) RNA NA A+probe Ql (Resp)on 06-15-2022 SARS-CoV-2 (COVID-19) RNA CARL+probe Ql (Unsp spec) Negative [employer] Other Albumin [Mass/volume] in Ser um or PlasmaOrdered By: Regine Chinchilla on 02-16-2022 Albumin [Mass/Vol] 4.4 g/dL 3.2-5.5 [facility] Basophils Auto (Bld) [#/Vol] Ordered By: Regine Chinchilla on 02-16-2022 Basophils (Bld) [#/Vol] 0.1 10*3/uL 0.0-0.2 [facility] Basophils/100 WBC Auto (Bld) Ordered By: Regine Chinchilla on 02-16-2022 Basophils/100 WBC (Bld) 0.5 % . F [facility] Blood hemoglobin measurement (mass/volume)Ordered By: Regine Chinchilla on 02-16-2022 Hemoglobin (Bld) [Mass/Vol] 14.8 g/dL 11.8-15.4 [facility] Blood leukocytes automated c ount (number/volume)Ordered By: Regine Chinchilla on 02-16-2022 WBC (Bld) [#/Vol] 14.7 10*3/uL 4.5-11.0 [facility] C reactive protein [Mass/vol ume] in Serum or PlasmaOrdered By: Regine Chinchilla on 02-16-2022 CRP [Mass/Vol] 0.7 mg/dL 0.0-1.0 [facility] Cholesterol [Mass/volume] in Serum or PlasmaOrdered By: Regine Chinchilla on 02-16-2022 Cholesterol [Mass/Vol] 198 mg/dL 140-200 [facility] Comment on above: Chol less than 200 m g/dl low risk Chol 201-239 mg/dl borderline risk Chol 240 mg/dl and greater high risk Cholesterol in LDL Calc [Mas s/Vol]Ordered By: Regine Chinchilla on 02-16-2022 Cholesterol in LDL [Mass/Vol] 90 mg/dL 0-100 [facility] Comment on above: LDL ATP III CLASSIFI CATION LDL less than 100 mg/dL Optimal LDL 100-129 mg/dL Near or above optimal LDL 130-159 mg/dL Borderline high LDL 160-189 mg/dL High LDL greater than 189 mg/dL Very high Cholesterol in VLDL Calc [Ma ss/Vol]Ordered By: Regine Chinchilla on 02-16-2022 Cholesterol in VLDL [Mass/Vol] 33 mg/dL [facility] Creatinine and Glomerular fi ltration rate.predicted panel (S/P/Bld)Ordered By: Regine Chinchilla on 02-16-2022 Creatinine [Mass/Vol] 0.99 mg/dL 0.44-1.03 [facility] Eosinophils Auto (Bld) [#/Vo l]Ordered By: Regine Chinchilla on 02-16-2022 Eosinophils (Bld) [#/Vol] 0.1 10*3/uL 0.0-0.45 [facility] Eosinophils/100 WBC Auto (Bl d)Ordered By: Regine Chinchilla on 02-16-2022 Eosinophils/100 WBC (Bld) 1.0 % . [facility] Erythrocyte distribution wid th Auto (RBC) [Ratio]Ordered By: Regine Chinchilla on 02-16-2022 Erythrocyte distribution width (RBC) [Ratio] 14.1 % 11.9-15.3 [facility] Erythrocyte sedimentation ra te by Photometric methodOrdered By: Regine Chinchilla on 02-16-2022 ESR Photometric method (Bld) [Velocity] 18 mm/hr 0-19 [facility] Estimated glomerular filtrat ion rate (GFR) non- AmericanOrdered By: Regine Chinchilla on 02-16-2022 GFR/1.73 sq M.predicted among non-blacks MDRD (S/P/Bld) [Vol rate/Area] > 60 mL/Min [facility] Globulin Calc (S) [Mass/Vol] Ordered By: Regine Chinchilla on 02-16-2022 Globulin (S) [Mass/Vol] 2.8 g/dL F [facility] Glucose mean value [Mass/vol ume] in Blood Estimated from glycated hemoglobinOrdered By: Regine Chinchilla on 02-16-2022 Average glucose Estimated from glycated hemoglobin (Bld) [Mass/Vol] 126 mg/dL [facility] Hematocrit Auto (Bld) [Volum e fraction]Ordered By: Regine Chinchilla on 02-16-2022 Hematocrit (Bld) [Volume fraction] 44.8 % 34.0-46.4 [facility] Hemoglobin A1c percentageOrd ered By: Regine Chinchilla on 02-16-2022 HbA1c (Bld) [Mass fraction] 6.0 % 4.3-5.6 [facility] Comment on above: Increased risk for d iabetes: 5.7 - 6.4 diabetes: >6.4 glycemic control for adults with diabetes: <7.0 Laboratory - Hematology and Cell countsOrdered By: Regine Chinchilla on 02-16-2022 Nucleated RBC/100 WBC (Bld) [Ratio] 0.0 % 0-0.5 [facility] Lymphocytes Auto (Bld) [#/Vo l]Ordered By: Regine Chinchilla on 02-16-2022 Lymphocytes (Bld) [#/Vol] 3.3 10*3/uL 1.00-4.8 [facility] Lymphocytes/100 WBC Auto (Bl d)Ordered By: Regine Chinchilla on 02-16-2022 Lymphocytes/100 WBC (Bld) 22.3 % . [facility] MCH Auto (RBC) [Entitic mass ]Ordered By: Regine Chinchilla on 02-16-2022 MCH (RBC) [Entitic mass] 30.0 pg 24.7-34.3 [facility] MCHC Auto (RBC) [Mass/Vol]Or dered By: Regine Chinchilla on 02-16-2022 MCHC (RBC) [Mass/Vol] 33.0 g/dL 32.0-35.0 [facility] MCV Auto (RBC) [Entitic vol] Ordered By: Regine Chinchilla on 02-16-2022 MCV (RBC) [Entitic vol] 90.6 fL 80-100 F [facility] Monocytes Auto (Bld) [#/Vol] Ordered By: Regine Chinchilla on 02-16-2022 Monocytes (Bld) [#/Vol] 1.0 10*3/uL 0.0-0.8 [facility] Monocytes/100 WBC Auto (Bld) Ordered By: Regine Chinchilla on 02-16-2022 Monocytes/100 WBC (Bld) 6.8 % . [facility] Neutrophils Auto (Bld) [#/Vo l]Ordered By: Regine Chinchilla on 02-16-2022 Neutrophils (Bld) [#/Vol] 10.2 10*3/uL 1.8-7.7 [facility] Neutrophils/100 WBC Auto (Bl d)Ordered By: Regine Chinchilla on 02-16-2022 Neutrophils/100 WBC (Bld) 69.4 % . [facility] No Panel InformationOrdered By: Regine Chinchilla on 02-16-2022 Estimated GFR () > 60 mL/Min [facility] Comment on above: GFR estimated refere nce range: According to KDOQI guidelines, <60 ml/min/1.73m2 is sufficient to diagnose a patient with chronic kidney disease. Pharmacy Creatinine Clearance (Chem N/A [facility] Platelet mean volume Auto (B ld) [Entitic vol]Ordered By: Regine Chinchilla on 02-16-2022 Platelet mean volume (Bld) [Entitic vol] 7.9 fL 6.3-10.7 [facility] Platelets Auto (Bld) [#/Vol] Ordered By: Regine Chinchilla on 02-16-2022 Platelets (Bld) [#/Vol] 448 10*3/uL 150-450 [facility] Prolactin [Mass/volume] in S lyly or PlasmaOrdered By: Regine Chinchilla on 02-16-2022 Prolactin [Mass/Vol] 16.60 ng/mL 3.34-26.72 [facility] Protein [Mass/volume] in Ser um or PlasmaOrdered By: Regine Chinchilla on 02-16-2022 Protein [Mass/Vol] 7.2 g/dL 6.1-7.9 [facility] RBC Auto (Bld) [#/Vol]Ordere d By: Regine Chinchilla on 02-16-2022 RBC (Bld) [#/Vol] 4.95 10*6/uL 3.60-5.00 [facility] Serum homogeneous pattern an tinuclear antibody (SAAD) titerOrdered By: Regine Chinchilla on 02-16-2022 Homogenous nuclear Ab pattern (S) [Titer] N/A [facility] Serum nuclear antibody titer Ordered By: Regine Chinchilla on 02-16-2022 Nuclear Ab (S) [Titer] Negative . [facility] Comment on above: Negative <1:80 Borderline 1:80 Positive >1:80 ICAP nomenclature: AC-[id number] For more information about Hep-2 cell patterns use ANApatterns.org, the official website for the International Consensus on Antinuclear Antibody (SAAD) Patterns (ICAP). Performed at: [address] [id number] [employer] Operator: Supa Murdock PhD, Phone: [phone] Serum or plasma alanine dennis otransferase measurement without P-5'-P (enzymatic activiOrdered By: Regine Chinchilla on 02-16-2022 ALT No additional P-5'-P [Catalytic activity/Vol] 29 U/L 10-60 [facility] Serum or plasma albumin/glob ulin mass ratioOrdered By: Regine Chinchilla on 02-16-2022 Albumin/Globulin [Mass ratio] 1.6 {ratio} [facility] Serum or plasma alkaline dayana sphatase measurement (enzymatic activity/volume)Ordered By: Regine Chinchilla on 02-16-2022 ALP [Catalytic activity/Vol] 86 U/L 32-92 [facility] Serum or plasma aspartate am inotransferase measurement (enzymatic activity/volume)Ordered By: Regine Chinchilla on 02-16-2022 AST [Catalytic activity/Vol] 23 U/L 10-42 [facility] Serum or plasma calcium rebecca urement (mass/volume)Ordered By: Regine Chinchilla on 02-16-2022 Calcium [Mass/Vol] 10.0 mg/dL 8.2-10.2 [facility] Serum or plasma chloride catarina surement (moles/volume)Ordered By: Regine Chinchilla on 02-16-2022 Chloride [Moles/Vol] 93 mmol/L 95-114 [facility] Serum or plasma follitropin measurement (units/volume)Ordered By: Regine Chinchilla on 02-16-2022 Follitropin Qn 26.4 m[IU]/mL [facility] Comment on above: FEMALE NORMALS (DILAN ENOPAUSE) MID-FOLLICULAR PHASE: 3.9-8.8 mIU/mL MID-CYCLE PEAK: 4.5-22.5 mIU/mL MID-LUTEAL PHASE: 1.8-5.1 mIU/mL FEMALE NORMALS (POSTMENOPAUSE): 16.7-113.6 mIU/mL MALE NORMALS: 1.3-19.3 mIU/mL Serum or plasma glucose rebecca urement (mass/volume)Ordered By: Regine Chinchilla on 02-16-2022 Glucose [Mass/Vol] 75 mg/dL 70-100 [facility] Comment on above: ADA recommended refe rence range Random Glucose Reference Range is dependent on time and content of last meal. Glucose of more than 200 mg/dL in a nonstressed, ambulatory subject supports the diagnosis of Diabetes Mellitus. Serum or plasma high density lipoprotein (HDL) cholesterol measurementOrdered By: Regine Chinchilla on 02-16-2022 Cholesterol in HDL [Mass/Vol] 75 mg/dL 35-85 [facility] Comment on above: HDL CHOL ATP-III CLA SSIFICATION Cardiovascular Risk HDL > or equal to 60 mg/dL LOW HDL < 40 mg/dL HIGH Serum or plasma potassium me asurement (moles/volume)Ordered By: Regine Chinchilla on 02-16-2022 Potassium [Moles/Vol] 3.6 mmol/L 3.5-5.1 [facility] Serum or plasma rheumatoid f actor measurement (units/volume)Ordered By: Regine Chinchilla on 02-16-2022 Rheumatoid factor Qn 11.9 [IU]/mL <14.0 [facility] Comment on above: Performed at: - L [address] [id number] [employer] Operator: Supa Murdock PhD, Phone: [phone] Serum or plasma sodium measu rement (moles/volume)Ordered By: Regine Chinchilla on 02-16-2022 Sodium [Moles/Vol] 135 mmol/L 136-146 [facility] Serum or plasma total biliru bin measurement (mass/volume)Ordered By: Regine Chinchilla on 02-16-2022 Bilirubin [Mass/Vol] 1.2 mg/dL 0.3-1.2 [facility] Serum or plasma total carbon dioxide measurement (moles/volume)Ordered By: Regine Chinchilla on 02-16-2022 CO2 [Moles/Vol] 27.2 mmol/L 22.0-30.0 [facility] Serum or plasma total choles terol/high density lipoprotein (HDL) cholesterol mass ratOrdered By: Regine Chinchilla on 02-16-2022 Cholesterol.total/Merced sterol in HDL [Mass ratio] 2.6 {ratio} <5.0 [facility] Serum or plasma urea nitroge n measurement (mass/volume)Ordered By: Regine Chinchilla on 02-16-2022 Urea nitrogen [Mass/Vol] 18 mg/dL 9-23 [facility] TSH DL <= 0.005 mIU/L QnOrde red By: Regine Chinchilla on 02-16-2022 TSH Qn 1.98 m[IU]/L 0.45-5.33 [facility] Triglyceride [Mass/volume] i n Serum or PlasmaOrdered By: Regine Chinchilla on 02-16-2022 Triglyceride [Mass/Vol] 165 mg/dL 35-149 F [facility] Comment on above: TRIG ATP III CLASSIF ICATION TRIG less than 150 mg/dL Normal TRIG 150-199 mg/dL Borderline high TRIG 200-500 mg/dL High TRIG greater than 500 mg/dL Very high Standard traceable to the Center for Disease Conrtrol and Prevention (CDC) test method. AMYLASEon 02-09-2022 Amylase [Catalytic activity/Vol] 26 U/L Normal 25-115 [facility] Comment on above: Performed By: #### C MP, LIPA, LIZETTE #### [facility] [address] [place] [address] [address] Tyler Gonzalez CBC AUTO DIFFon 02-09-2022 BASO # 0.0 103/ul Normal 0.0-0.1 [facility] Comment on above: Performed By: #### C BC #### [facility] [address] [place] [address] [address] Tyler Gonzalez Basophils/100 WBC (Bld) 0.7 % Normal 0.2-2.0 [facility] Comment on above: Performed By: #### C BC #### [facility] [address] [place] [address] Dr. Tyler Gonzalez EO # 0.5 103/ul Normal 0.0-0.7 [facility] Comment on above: Performed By: #### C BC #### [facility] [address] [place] [address] Dr. Tyler Gonzalez Eosinophils/100 WBC (Bld) 9.7 % Critically high 0.9-7.0 [facility] Comment on above: Performed By: #### C BC #### [facility] [address] [place] [address] Dr. Tyler Gonzalez Erythrocyte distribution width (RBC) [Ratio] 13.1 % Normal 11.0-15.0 [facility] Comment on above: Performed By: #### C BC #### [facility] [address] [place] [address] Dr. Tyler Gonzalez Hematocrit (Bld) [Volume fraction] 40.8 % Normal 36.0-48.0 [facility] Comment on above: Performed By: #### C BC #### [facility] [address] [place] [address] Dr. Tyler Gonzalez Hemoglobin (Bld) [Mass/Vol] 13.4 g/dL Normal 12.0-16.0 [facility] Comment on above: Performed By: #### C BC #### [facility] [address] [place] [address] Dr. Tyler Gonzalez IG # 0.01 10e3/ul Normal 0.00-0.03 [facility] Comment on above: Performed By: #### C BC #### [facility] [address] [place] [address] Dr. Tyler Gonzalez IG % 0.2 % Normal 0.0-0.5 [facility] Comment on above: Performed By: #### C BC #### [facility] [address] [place] [address] Dr. Tyler Gonzalez LYMPH # 1.3 103/ul Normal 1.2-3.8 [facility] Comment on above: Performed By: #### C BC #### [facility] [address] [place] [address] Dr. Tyler Gonzalez Lymphocytes/100 WBC (Bld) 22.7 % Normal 20.5-60.0 [facility] Comment on above: Performed By: #### C BC #### [facility] [address] [place] [address] Dr. Tyler Gonzalez MANUAL DIFF REQ NO Normal [facility] Comment on above: Performed By: #### C BC #### [facility] [address] [place] [address] Dr. Tyler Gonzalez MCH (RBC) [Entitic mass] 29.6 pg Normal 26.7-34.0 [facility] Comment on above: Performed By: #### C BC #### [facility] [address] [place] [address] Dr. Tyler Gonzalez MCHC (RBC) [Mass/Vol] 32.8 g/dL Normal 29.9-35.2 [facility] Comment on above: Performed By: #### C BC #### [facility] [address] [place] [address] Dr. Tyler Gonzalez MCV (RBC) [Entitic vol] 90.1 fL Normal 81.0-99.0 [facility] Comment on above: Performed By: #### C BC #### [facility] [address] [place] [address] Dr. Tyler Gonzalez MONO # 0.4 103/ul Normal 0.3-0.8 [facility] Comment on above: Performed By: #### C BC #### [facility] [address] [place] [address] Dr. Tyler Gonzalez Monocytes/100 WBC (Bld) 7.2 % Normal 1.7-12.0 [facility] Comment on above: Performed By: #### C BC #### [facility] [address] [place] [address] Dr. Tyler Gonzalez NEUT # 3.3 103/ul Normal 1.4-6.5 [facility] Comment on above: Performed By: #### C BC #### [facility] [address] [place] [address] Dr. Tyler Gonzalez Neutrophils/100 WBC (Bld) 59.5 % Normal 43.0-75.0 [facility] Comment on above: Performed By: #### C BC #### [facility] [address] [place] [address] Dr. Tyler Gonzalez Platelet mean volume (Bld) [Entitic vol] 9.3 fL Critically low 9.5-13.5 [facility] Comment on above: Performed By: #### C BC #### [facility] [address] [place] [address] Dr. Tyler Gonzalez PLT 352 103/ul Normal 150-450 [facility] Comment on above: Performed By: #### C BC #### [facility] [address] [place] [address] Dr. Tyler Gonzalez RBC 4.53 106/ul Normal 4.20-5.40 [facility] Comment on above: Performed By: #### C BC #### [facility] [address] [place] [address] Dr. Tyler Gonzalez WBC 5.6 103/ul Normal 4.0-11.0 [facility] Comment on above: Performed By: #### C BC #### [facility] [address] [place] [address] ABD/PELVIS WO CONon [...] WILLIAM SHRESTHA Date: 2022-02-09 11:21 Normal [facility] ER URINE PROFILEon 2 Bilirubin Ql (U) Negative Normal NEGATIVE [facility] Comment on above: Performed By: #### NED SLATER PREGU #### [facility] [address] [place] [address] Dr. Tyler Gonzalez Clarity (U) CLEAR Normal CLEAR [facility] Comment on above: Performed By: #### NED SLATER PREGU #### [facility] [address] [address] [address] Tyler Gonzalez Color (U) LT. YELLOW Normal YELLOW [facility] Comment on above: Performed By: #### NED SLATER PREGU #### [facility] [address] [place] [address] Dr. Tyler Gonzalez ERUAHD A micrscopic examination will be performed if indicated. Normal [facility] Comment on above: Performed By: #### NED SLATER PREGU #### [facility] [address] [address] [address] Tyler Gonzalez Glucose Ql (U) Negative Normal NEGATIVE [facility] Comment on above: Performed By: #### NED SLATER PREGU #### [facility] [address] [address] [address] Tyler Gonzalez Hemoglobin Ql (U) LARGE Abnormal NEGATIVE [facility] Comment on above: Performed By: #### NED SLATER PREGU #### [facility] [address] [address] [address] Tyler Gonzalez Ketones Ql (U) Negative Normal NEGATIVE [facility] Comment on above: Performed By: #### NED SLATER PREGU #### [facility] [address] [place] [address] Dr. Tyler Gonzalez LEUKOCYTES Negative Normal NEGATIVE [facility] Comment on above: Performed By: #### NED SLATER PREGU #### [facility] [address] [address] [address] Tyler Gonzalez Nitrite Ql (U) Negative Normal NEGATIVE [facility] Comment on above: Performed By: #### NED SLATER PREGU #### [facility] [address] [address] [address] Tyler Gonzalez pH (U) 6.0 [pH] Normal 5-9 [facility] Comment on above: Performed By: #### NED SLATER PREGU #### [facility] [address] [address] [address] Tyler Gonzalez SPEC GRAVITY 1.015 Normal 1.005-<=1.0 25 [facility] Comment on above: Performed By: #### NED SLATER PREGU #### [facility] [address] [address] [address] Tyler Gonzalez UA PROTEIN Negative Normal NEGATIVE/ TRACE [facility] Comment on above: Performed By: #### NED SLATER PREGU #### [facility] [address] [address] [address] Tyler Gonzalez UR MICRO IND INDICATED Normal [facility] Comment on above: Performed By: #### NED SLATER PREGU #### [facility] [address] [place] [address] Dr. Tyler Gonzalez Urobilinogen Qn (U) 0.2 {Quyen'U}/dL Normal 0.2 - 1. 0 [facility] Comment on above: Performed By: #### NED SLATER, PREGU #### [facility] [address] [place] [address] Dr. Tyler Gonzalez LIPASEon 02-09-2022 Lipase [Catalytic activity/Vol] 86.0 U/L Normal 73.0-393.0 [facility] Comment on above: Performed By: #### C MP LIPA, LIZETTE #### [facility] [address] [place] [address] Dr. Tyler Gonzalez URon 02-09-2022 , QUAL Negative Normal NEGATIVE [facility] Comment on above: Performed By: #### NED SLAETR, PREGU #### [facility] [address] [place] [address] Dr. Tyler Gonzalez PROF 14(COMP METB)on 022 Albumin [Mass/Vol] 3.6 g/dL Normal 3.4-5.0 [facility] Comment on above: Performed By: #### C MP LIPA, LIZETTE #### [facility] [address] [place] [address] Dr. Tyler Gonzalez Albumin/Globulin [Mass ratio] 1.0 {ratio} Normal [facility] Comment on above: Performed By: #### C MP, LIPA, LIZETTE #### [facility] [address] [place] [address] Dr. Tyler Gonzalez ALP [Catalytic activity/Vol] 83 U/L Normal 46-[address] [facility] Comment on above: Performed By: #### C MP, LIPA, LIZETTE #### [facility] [address] [place] [address] Dr. Tyler Gonzalez ALT [Catalytic activity/Vol] 19 U/L Normal 14-59 [facility] Comment on above: Performed By: #### C ALMA SWARTZA, LIZETTE #### [facility] [address] [place] [address] Dr. Tyler Gonzalez Anion gap [Moles/Vol] 11.0 mmol/L Normal Th e [facility] Comment on above: Performed By: #### C ALMA SWARTZA, LIZETTE #### [facility] [address] [place] [address] Dr. Tyler Gonzalez AST [Catalytic activity/Vol] 20 U/L Normal 15-37 [facility] Comment on above: Performed By: #### C ALMA SWARTZA, LIZETTE #### [facility] [address] [place] [address] Dr. Tyler Gonzalez Bilirubin [Mass/Vol] 0.6 mg/dL Normal 0.2-1.0 [facility] Comment on above: Performed By: #### C SHERIDAN LIPA, LIZETTE #### [facility] [address] [place] [address] Dr. Tyler Gonzalez Calcium [Mass/Vol] 9.0 mg/dL Normal 8.5-10.1 [facility] Comment on above: Performed By: #### C SUSAN SWARTZ, LIZETTE #### [facility] [address] [place] [address] Dr. Tyler Gonzalez Chloride [Moles/Vol] 104 mmol/L Normal 98-107 [facility] Comment on above: Performed By: #### C SHERIDAN LIPA, LIZETTE #### [facility] [address] [place] [address] Dr. Tyler Gonzalez CO2 [Moles/Vol] 28.9 mmol/L Normal 21.0-32.0 [facility] Comment on above: Performed By: #### C SHERIDAN LIPA, LIZETTE #### [facility] [address] [place] [address] Dr. Tyler Gonzalez Creatinine [Mass/Vol] 0.95 mg/dL Normal 0.55-1.02 [facility] Comment on above: Performed By: #### C SHERIDAN LIPA, LIZETTE #### [facility] [address] [address] [address] Tyler Gonzalez EGFR-AF BENINESE >60 Normal >=60 [facility] Comment on above: Performed By: #### C SUSAN SWARTZ, LIZETTE #### [facility] [address] [address] [address] Tyler Gonzalez EGFR-NON AF BENINESE >60 Normal >=60 [facility] Comment on above: Performed By: #### C SUSAN SWARTZ, LIZETTE #### [facility] [address] [address] [address] Tyler Gonzalez Globulin (S) [Mass/Vol] 3.5 g/dL Normal [facility] Comment on above: Performed By: #### C SUSAN SWARTZ, LIZETTE #### [facility] [address] [place] [address] Dr. Tyler Gonzalez Glucose [Mass/Vol] 111 mg/dL Critically high 74-106 [facility] Comment on above: Performed By: #### C SUSAN SWARTZ, LIZETTE #### [facility] [address] [address] [address] Tyler Gonzalez Potassium [Moles/Vol] 3.9 mmol/L Normal 3.5-5.1 [facility] Comment on above: Performed By: #### C SUSAN SWARTZ, LIZETTE #### [facility] [address] [place] [address] Dr. Tyler Gonzalez Protein [Mass/Vol] 7.1 g/dL Normal 6.4-8.2 [facility] Comment on above: Performed By: #### C SUSAN SWARTZ, LIZETTE #### [facility] [address] [address] [address] Tyler Gonzalez Sodium [Moles/Vol] 140 mmol/L Normal 136-145 [facility] Comment on above: Performed By: #### C ALMA SWARTZA, LIZETTE #### [facility] [address] [address] [address] Tyler Gonzalez Urea nitrogen [Mass/Vol] 13.0 mg/dL Normal 7.0-18.0 [facility] Comment on above: Performed By: #### C SUSAN SWARTZ, LIZETTE #### [facility] [address] [address] [address] Tyler Gonzalez Urea nitrogen/Creatinine [Mass ratio] 13.7 mg/mg Normal [facility] Comment on above: Performed By: #### C SUSAN SWARTZ, LIZETTE #### [facility] [address] [address] [address] Tyler Gonzalez URINE MICROSCOPIC ONLYon BACTERIA NONE SEEN Normal NONE SEEN [facility] Comment on above: Performed By: #### E RUR, UMICRO, PREGU #### [facility] [address] [address] [address] Tyler Gonzalez Bacteria identified Cx Nom (U) NOT INDICATED Normal [facility] Comment on above: Performed By: #### E RUR, UMICRO, PREGU #### [facility] [address] [address] [address] Tyler Gonzalez CAST NONE SEEN Normal NONE SEEN [facility] Comment on above: Performed By: #### E RUR, UMICRO, PREGU #### [facility] [address] [address] [address] Tyler Gonzalez Crystals LM Nom (Urine sed) NONE SEEN Normal NONE SEEN [facility] Comment on above: Performed By: #### E RUR, UMICRO, PREGU #### [facility] [address] [address] [address] Tyler Gonzalez Epithelial cells LM Ql (Urine sed) FEW Abnormal NONE SEEN /RARE [facility] Comment on above: Performed By: #### E RUR, UMICRO, PREGU #### [facility] [address] [address] [address] Tyler Gonzalez MUCOUS NONE SEEN Normal NONE SEEN [facility] Comment on above: Performed By: #### E RUR, UMICRO, PREGU #### [facility] [address] [address] [address] Tyler Gonzalez RBC 50-75 Abnormal 0-[address] [facility] Comment on above: Performed By: #### E RUR, UMICRO, PREGU #### [facility] [address] [place], [place] [address] Dr. Tyler Gonzalez WBC NONE SEEN Normal NONE SEEN [facility] Comment on above: Performed By: #### NED SLATER PREGU #### [facility] [address] [place], [place] [address] Dr. Tyler Gonzalez US SINGLE QUAD RT [...] by: WILLIAM SHRESTHA Date: 2022-02-09 12:[address] [facility] XR CHEST 1 Von 02-09-2022 XR [...] by: WILLIAM SHRESTHA Date: 2022-02-09 11:[address] [facility] SARS-CoV-2 (COVID-19) RNA NA A+probe Ql (Resp)on 11-24-2021 SARS-CoV-2 (COVID-19) RNA CARL+probe Ql (Unsp spec) Negative [employer] Other Provider Letter FTon 11-01 Provider Letter [facility] JR. 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 I have enclosed my consultation notes for your review. Sincerely, Gt Varner MD General Surgery Normal [facility] Ambulatory Clinical Summaryo n 10-31-2020 Ambulatory Clinical Summary {[id number] Normal [facility] Patient Educationon 11-01-19 Patient Education Nutrition BMI [...] height. This can be done either in [place] or metric measurements. Note that charts are available to help you find your BMI quickly and easily without having to do these calculations yourself. To calculate your BMI in [place] measurements, your health care provider will: [...] problems. ? BMI can be measured using [place] measurements or metric measurements. ? To interpret [...] 03/09/2005 Document Revised: 06/10/2018 Document Reviewed: 05/11/2018 [employer] Patient Education ? 2020 [employer] Elke [facility] Patient Education Physical Medicine an d Rehabilitation [...] your health care provider or diet and supervisor nutritional yeast (dietitian). This may include: ? Eating fewer [...] weight amaral (more content not included)... Normal [facility] Physician Referralon 021 Physician Referral [id number] Normal [facility] Vital Signs Date Time Vital Sign Value Performing Clinician Facility 08-01-2024 11:05-0500 Body height 154.94 cm [facility] 08-01-2024 11:05-0500 Body mass index (BMI) [Ratio] 32.5 kg/m2 [facility] 08-01-2024 11:05-0500 Body temperature 100.3 [degF] [facility] 08-01-2024 11:05-0500 Body weight 78.01 kg [facility] 08-01-2024 11:05-0500 Diastolic blood pressure 80 mm[Hg] [facility] 08-01-2024 11:05-0500 Heart rate 77 /min [facility] 08-01-2024 11:05-0500 Respiratory rate 19 /min [facility] 08-01-2024 11:05-0500 SaO2% (BldA) [Mass fraction] 97 % [facility] 08-01-2024 11:05-0500 Systolic blood pressure 119 mm[Hg] [facility] 12-07-2023 10:27-0400 Body height 154.94 cm [facility] Work Phone: [facility] 12-07-2023 10:27-0400 Body mass index (BMI) [Ratio] 32.5 kg/m2 Services [facility] Work Phone: [facility] 12-07-2023 10:27-0400 Body temperature 97.6 [degF] Services [facility] Work Phone: [facility] 12-07-2023 10:27-0400 Body weight 78 kg [facility] Work Phone: [facility] 12-07-2023 10:27-0400 Diastolic blood pressure 70 mm[Hg] [facility] Work Phone: [facility] 12-07-2023 10:27-0400 Heart rate 70 /min [facility] Work Phone: [facility] 12-07-2023 10:27-0400 SaO2% (BldA) [Mass fraction] 98 % [facility] Work Phone: [facility] 12-07-2023 10:27-0400 Systolic blood pressure 118 mm[Hg] [facility] Work Phone: [facility] 10-12-2023 11:21-0400 Body height 154.94 cm [facility] Work Phone: [facility] 10-12-2023 11:21-0400 Body mass index (BMI) [Ratio] 32.5 kg/m2 [facility] Work Phone: [facility] 10-12-2023 11:21-0400 Body temperature 98 [degF] [facility] Work Phone: [facility] 10-12-2023 11:21-0400 Body weight 78.01 kg [facility] Work Phone: [facility] 10-12-2023 11:21-0400 Diastolic blood pressure 64 mm[Hg] [facility] Work Phone: [facility] 10-12-2023 11:21-0400 Heart rate 73 /min [facility] Work Phone: [facility] 10-12-2023 11:21-0400 SaO2% (BldA) [Mass fraction] 98 % [facility] Work Phone: [facility] 10-12-2023 11:21-0400 Systolic blood pressure 112 mm[Hg] [facility] Work Phone: [facility] 08-24-2023 19:27-0500 Diastolic blood pressure 69 mm[Hg] [facility] Work Phone: [facility] 08-24-2023 19:27-0500 Heart rate 72 /min Services [facility] Work Phone: [facility] 08-24-2023 19:27-0500 Respiratory rate 18 /min [facility] Work Phone: [facility] 08-24-2023 19:27-0500 SaO2% (BldA) [Mass fraction] 99 % [facility] Work Phone: [facility] 08-24-2023 19:27-0500 Systolic blood pressure 153 mm[Hg] Services [facility] Work Phone: [facility] 08-24-2023 16:47-0500 Body height 154.94 cm [facility] Work Phone: [facility] 08-24-2023 16:47-0500 Body temperature 98.7 [degF] Services [facility] Work Phone: [facility] 08-24-2023 16:47-0500 Body weight 98.05 kg Services [facility] Work Phone: [facility] 06-15-2022 12:30-0500 Body height 156.21 cm Amy Soto Other [employer] [facility] [employer] Other 06-15-2022 12:30-0500 Body temperature 97.1 [degF] Amy Soto Other [employer] Other 06-15-2022 12:30-0500 Respiratory rate 16 /min Amy Soto Other [employer] Other 06-15-2022 12:30-0500 SaO2% (BldA) [Mass fraction] 98 % Amy Soto Other [employer] Other 03-18-2022 14:00-0400 Body height 130.81 cm Amy Soto Other [employer] Other 03-18-2022 14:00-0400 Body mass index (BMI) [Ratio] 42.73 kg/m2 Amy Soto Other [employer] Other 03-18-2022 14:00-0400 Body temperature 96.7 [degF] Amy Soto Other [employer] Other 03-18-2022 14:00-0400 Body weight 73.12 kg Amy Soto Other [employer] Other 03-18-2022 14:00-0400 Respiratory rate 18 /min Amy Soto Other [employer] Other 03-18-2022 14:00-0400 SaO2% (BldA) [Mass fraction] 98 % Amy Soto Other [employer] Other 11-24-2021 11:30-0400 Body height 130.81 cm Clover Olson Other [employer] Other 11-24-2021 11:30-0400 Body temperature 97.5 [degF] Clover Olson Other [employer] Other 11-24-2021 11:30-0400 SaO2% (BldA) [Mass fraction] 99 % Clover Olson Other [employer] Other Encounters Encounter Date Encounter Type Care Provider Facility Start: 08-01-2024 End: 08-01-2024 ambulatory [facility] Work Phone: Start: 08-01-2024 End: 08-01-2024 Patient encounter procedure [facility] Work Phone: Start: 12-07-2023 End: 12-07-2023 ambulatory Shun Liliaesmergeralddre Facility:[facility] Start: 12-07-2023 End: 12-07-2023 ambulatory Services [facility] Work Phone: [facility] Work Phone: Start: 12-07-2023 End: 12-07-2023 Patient encounter procedure Services [facility] Work Phone: [facility] Work Phone: Start: 10-12-2023 End: 10-12-2023 ambulatory Services [facility] Work Phone: [facility] Work Phone: Start: 10-12-2023 End: 10-12-2023 Patient encounter procedure Services [facility] Work Phone: [facility] Work Phone: Start: 10-01-2023 End: 10-02-2023 ambulatory PENOLA P MITTAL Not Available Start: 08-30-2023 End: 08-30-2023 ambulatory PENOLA P MITTAL Not Available Start: 08-24-2023 End: 08-24-2023 Emergency department patient visit Robert Haji Facility:[facility] Start: 08-24-2023 End: 08-24-2023 Emergency department patient visit [facility] Work Phone: [facility] Work Phone: Start: 08-10-2023 End: 08-10-2023 ambulatory PENOLA P MITTAL Not Available Start: 06-30-2023 End: 06-30-2023 ambulatory Services [facility] Facility: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 Regine Chinchilla Work Phone: [facility] Start: 09-15-2022 End: 09-15-2022 ambulatory [facility] Work Phone: [facility] Work Phone: Start: 09-15-2022 End: 09-15-2022 Patient encounter procedure [facility] Work Phone: [facility] [place] Work Phone: Start: 06-15-2022 End: 06-15-2022 ambulatory Amy Brittany Other [employer] Other Start: 06-15-2022 Office outpatient visit 25 minutes Amy Brittany [facility] Start: 03-18-2022 End: 03-18-2022 ambulatory Amy Birttany Other [employer] Other Start: 03-18-2022 Office outpatient visit 15 minutes Amy Brittany [facility] Start: 03-18-2022 Telephone encounter Yovanny Pierre [facility] Start: 02-16-2022 End: 02-16-2022 Patient encounter procedure [facility] Work Phone: [facility] [place] Start: 02-09-2022 End: 02-09-2022 ambulatory JEROME SALMERON Facility:[facility] Start: 11-27-2021 End: 11-27-2021 ambulatory Yovanny Mast Other [employer] Other Start: 11-27-2021 Telephone encounter Yovanny Pierre [facility] Start: 11-24-2021 End: 11-24-2021 ambulatory Clover Olson Other [employer] Other Start: 11-24-2021 Office outpatient visit 15 minutes Clover Olson [facility] Start: 10-16-2021 End: 10-16-2021 ambulatory [facility] Facility[facility] Procedures Date Procedure Procedure Detail Performing Clinician Start: 08-24-2023 X-ray of left ankle Ser vices [facility] Phone: Start: 08-24-2023 Computed tomography of abdomen and pelvis with contrast Services [facility] Phone: Start: 08-24-2023 Duplex scan of lower limb veins [facility] Phone: Start: 06-30-2023 Pelvic echography [facility] Phone: Start: 06-30-2023 Transvaginal echography Services [facility] Phone: Start: 09-15-2022 Plain chest X-ray [facility] Phone: Plan of Treatment Date Care Activity Detail Author Start: 12-07-2023 Duplex scan of lower limb veins US venous duplex LE LT [facility] Start: 12-07-2023 US Lower extremity v ein - left [facility] Start: 08-24-2023 Duplex scan of lower limb veins US venous duplex LE BI [facility] Start: 08-24-2023 US Lower extremity v ein - bilateral [facility] Lutropin [Units/volu me] in Serum or Plasma [facility] Patient referral [facility] Work Phone: Payers Date Payer Category Payer Self-pay [id number] 1975 Unknown [id number] 2.16.84 [id number] 1975 Unknown [id number] 2.16.84 [id number] 1975 Unknown [id number] 2.16.84 [id number] 1975 Unknown [id number] 2.16.84 [id number] 1975 Unknown [id number] 2.16.84 [id number] 1959 Unknown [id number] 2. [id number] Unknown [id number] 2.16.8 [id number] Unknown [id number] 2.16.8 [id number] Unknown [id number] 2.16.8 [id number] Unknown [id number] 2.16.8 [id number] Social History Date Type Detail Facility Unknown if ever smoked [employer] [facility] [employer] Other Sex Assigned At Sex Assigned At [employer] Other Start: 1975 Sex Assigned At Female [facility] Start: 08-24-2023 Tobacco smoking status MNIS Smoker (finding) [facility] Start: 10-12-2023 End: 10-12-2023 Tobacco smoking status [facility] Ex-smoker (finding) [facility] Start: 08-01-2024 Sex Female (finding) [facility] NEGATED: Highlighted row [facility] Clinical Notes 10-31-2020 to 08-24-2023 Note Date & Type Note Facility [...] weight, chest pain or shortness of breath. [facility] Work Phone: 06-15-2022 Evaluation note Encounter Date Diagnosis Assessment [...] no improvement in 2 to 3 days. [employer] Other 09-07-2022 Evaluation note* Encounter Date Diagnosis Assessment Notes Treatment Notes Treatment Clinical Notes Mar, Mild asthma with exacerbation, unspecified whether persistent (ICD-10 - J45.901) Asthma material was printed Drink plenty fluids, get plenty of rest. Continue home medications as prescribed. Take the prednisone as prescribed until gone. Follow-up with your family physician if no improvement in 2 to 3 days. Mar, History of asthma (ICD-10 - Z87.09) [employer] Other 05-16-2022 Evaluation note* Encounter Date Diagnosis Assessment Notes Treatment Notes Treatment Clinical Notes November, Mild persistent asthma with exacerbation [...] breathing develops November, Cough (ICD-10 - R05.9) [employer] Other 04-22-2021 NoteChief Complaint Referral for Right side Discomforting Lipoma [facility] Staff 45 year old female referred by Dr. Muro on consultation of discomforting lipoma medial inferior aspect of the right scapula. Taking Naproxen for pain PRN. Denies symptoms of current pain, itching, or change in size. 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 Thyroid disease: Mother.[facility]:Result Comment: Electronically Signed By: HARSH PARRISH, Gt Warren\Date and Time Signed: 10/31/20 14:09 EDTEvaluation noteNo InformationNortPenn [facility] [employer] Other Evaluation noteNo assessment information available [facility] Work Phone: Evaluation note* Diagnosis Onset Date Resolution Status Lower extremity edema acute Pain of left calf acute Symptomatic varicose veins a cute [facility] Work Phone: Evaluation note* Diagnosis Onset Date Resolution Status Admit Date Contact with and (suspected) exposure to covid-19 noneactive August 01 11:02am [facility] Work Phone: [place] [facility] Narrative - Reported* Type Description Date Medical History borderline DM Medical History HTN Medical History deaf Medical History asthma Surgical History C section [employer] [facility] [employer] Other [facility] Narrative - Reported* Type Description Date Medical History borderline DM Medical History HTN Medical History deaf Medical History asthma Surgical History C section Hospitalization History see above [employer] Other Summary Purpose Family History Relationship Condition Age at Onset Recorded Date/T christine father Unknown Malignant neoplasm Unknown Not Specified Family history of thyroid disease Unknow n Relationship Condition Age at Onset Recorded Date/T christine father Unknown Malignant neoplasm Unknown mother Family history of thyroid disease Unknown Advance Directives Advance Directive Response Recorded Date/ Time Advance [...] pain Chief Complaint Leg pain Referred by S BLE Edema, hx DVT, Duplex at [facility] Chief Complaint Referred by S BLE Edema, hx DVT, Duplex at [facility] f/u GO OVER LT LEG F/F 1030A M79.89 Reason for Visit Lower extremity joe a Pain of left calf Symptomatic varicose veins Chief Complaint Admit Date Cough, congestion August 01, 2024 1 1:02am Reason for Visit Admit Date Contact with and (suspected) exposure to covid-19 August 01, 2024 11:02am Additional Source Comments INFORMATION SOURCE (unrecogn ized section and content) DATE CREATED AUTHOR 11/05/2020 [facility] DATE CREATED AUTHOR AUTHOR'S ORGANIZ ATION 02/12/2022 [facility] DATE CREATED AUTHOR AUTHOR'S ORGANIZ ATION 10/06/2023 [facility] EPIC DATE CREATED AUTHOR AUTHOR'S ORGANIZ ATION 12/10/2023 [facility] REASON FOR VISIT (unrecogniz ed section and content) SORE THROAT, COUGH, WHEEZING , PATIENT IS DEAFNo InformationCOUGH, CONGESTION, LEFT SIDE PAINNo InformationH/A, X1 WEEK, EXPOSURE TO COVID Care Teams (unrecognized sec tion and content) Team Status: Active Member Role Status Dates Services [facility] Primary Care Provider Active Team Status: Inactive Member Role Status Dates Services [facility] Primary Care Provider Active Regine Chinchilla APRN WELLNESS PROGRAM COORDINATOR-Annalisa Attending Provider Active Team Status: Inactive Member Role Status Dates Regine Chinchilla APRN WELLNESS PROGRAM COORDINATOR-Annalisa Attending Provider Active Team Status: Inactive Member Role Status Dates HEATH Peterson Attending Provider Active Services [facility] Primary Care Provider Active Team Status: Inactive Member Role Status Dates HEATH Peterson Attending Provider Active Start: May 27, 2023 End: May 27, 2023 Team Status: Inactive Member Role Status Dates Regine Chinchilla APRN WELLNESS PROGRAM COORDINATOR-Annalisa Attending Provider Active Start: June 30, 2023 End: June 30, 2023 Services [facility] Primary Care Provider Active Start: June 30, 2023 End: June 30, 2023 Team Status: Inactive Member Role Status Dates Services [facility] Primary Care Provider Active Start: August 24, 2023 End: August 24, 2023 Robert Haji MD Emergency Provider Active Start: August 24, 2023 End: August 24, 2023 Team Status: Inactive Member Role Status Dates Services [facility] Primary Care Provider Active Start: October 12, 2023 End: October 12, 2023 Shun Oswald MD Attending Provider Active S tart: October 12, 2023 End: October 12, 2023 Regine Chinchilla APRN WELLNESS PROGRAM COORDINATOR-C Referring Provider Active Start: October 12, 2023 End: October 12, 2023 Team Status: Inactive Member Role Status Dates [facility] Provider Active Start: December 07, 2023 End: December 07, 2023 Shun Oswald MD Attending Provider Active S tart: December 07, 2023 End: December 07, 2023 Team Status: Active Member Role Status Dates [facility] Primary Care Provider Active Start: December 07, 2023 Shun Oswald MD Attending Provider Active S tart: December 07, 2023 Team Status: Inactive Member Role Status Dates [facility] Provider Active Start: August 01, 2024 End: August 01, 2024 Symone Orozco APRN Attending Provider Active Start: August 01, 2024 End: August 01, 2024 Goals (unrecognized section and content) Goals may [...] BE BASED ON THE PRIMARY CLINICAL RECORDS. Dr Lal [employer] provides no warranty or guarantee of the accuracy or completeness of information in this document.
[2024-08-06 16:57] VITALS: BP 120/80; PULSE 84; TEMP 36.8; O2SAT 97; BMI 32.1
--- NOTE | 2024-08-06 18:10 | ED_ITS ---
HPI HPI - General Adult General Chief complaint: Upper Respiratory Infection Stated complaint: Test Postive for covid on 08/01/24 Time Seen by Provider: 08/06/24 16:24 Mode of arrival: walk-in History of Present Illness HPI narrative: 48-year-old female presents here with chief complaint of needing work note. Patient was diagnosed 2 days ago with COVID. She is here requesting a work note for today. Related Data Home Medications ?Medication ?Instructions ?Recorded ?Confirmed aspirin 81 mg tablet,delayed 81 mg PO DAILY 08/06/24 08/06/24 release (Adult Aspirin Regimen) atomoxetine 25 mg capsule mg PO 08/06/24 fluticasone propionate 110 inhalation 08/06/24 mcg/actuation HFA aerosol inhaler ipratropium 0.5 mg-albuterol 3 mg ml inhalation 08/06/24 (2.5 mg base)/3 mL nebulization soln Allergies Allergy/AdvReac Type Severity Reaction Status Date / Time codeine Allergy Severe Unknown Verified 08/06/24 16:52 hydrocodone (From Vicodin) Allergy Severe unnknown Verified 08/06/24 16:52 morphine Allergy Severe Hives Verified 08/06/24 16:52 Opioid HPI Opioid Management Most Recent Opioid Data: Last Pain Scale 5 07/31/23 06:44 07/31/23 Review of Systems ROS Narrative All Systems are negative except as noted/marked.All systems reviewed and otherwise negative PFSH [facility] Social History Smoking status: Never smoker Little interest or pleasure in doing things: several days Feeling down, depressed, or hopeless: several days Exam Narrative Exam Narrative: All Systems are negative except as noted/marked.All systems reviewed and otherwise negative Nurses note and vital signs reviewed and patient is not hypoxic. General: The patient appears well and in no apparent distress. Patient is resting comfortably on cart. Skin: Warm, dry, no pallor noted. There is no rash noted. Head: Normocephalic, atraumatic Eye: Normal conjunctiva, no drainage, EOMI. PERRL Ears, Nose, Mouth, and Throat: oral mucosa is moist. Nares patent. Mouth without vesicles. Ear canals patent. Tm's without Erythema Cardiovascular: Regular Rate and Rhythm Respiratory: Patient is in no distress, no accessory muscle use, lungs are clear to auscultation, no wheezing, rales or rhonchi Back: non-tender, no CVA tenderness bilaterally to percussion. GI: Normal bowel sounds, no tenderness to palpation, no masses appreciated. No rebound, guarding, or rigidity noted. Musculoskeletal: The patient has no evidence of calf tenderness, no pitting edema, symmetrical pulses noted bilaterally Neurological: A&O x4, normal speech Psychiatric: Cooperative Constitutional Vital Signs, click to edit/add: Last Vital Signs Temp 98.2 F 08/06/24 16:57 Pulse 84 08/06/24 16:57 Resp 18 08/06/24 16:57 BP 120/80 08/06/24 16:57 Pulse Ox 97 08/06/24 16:57 O2 Del Method Room Air 08/06/24 16:57 Course Vital Signs Vital signs: Vital Signs Temperature 98.2 F 08/06/24 16:57 Pulse Rate 84 08/06/24 16:57 Respiratory Rate 18 08/06/24 16:57 Blood Pressure 120/80 08/06/24 16:57 Pulse Oximetry 97 08/06/24 16:57 Oxygen Delivery Method Room Air 08/06/24 16:57 Temperature 98.2 F 08/06/24 16:57 Pulse Rate 84 08/06/24 16:57 Respiratory Rate 18 08/06/24 16:57 Blood Pressure 120/80 08/06/24 16:57 Pulse Oximetry 97 08/06/24 16:57 Oxygen Delivery Method Room Air 08/06/24 16:57 Medical Decision Making MDM Narrative Medical decision making narrative: COVID from 2 days ago. She was here today. Work was note was given. Patient is also medicated with ibuprofen. Discharge to home. Differential Diagnosis Differential Diagnosis: uri, covid Medical Records Medical records reviewed: Yes I reviewed the patient's medical records Lab Data Lab results reviewed: Yes I reviewed the patient's lab results Discharge Plan Discharge Chief Complaint: Upper Respiratory Infection Clinical Impression: COVID-19 Patient Disposition: Home, Self-Care Time of Disposition Decision: 18:09 Prescriptions / Home Meds: No Action aspirin [Adult Aspirin Regimen] 81 mg tablet,delayed release (DR/EC) 81 mg PO DAILY ipratropium-albuterol 0.5 mg-3 mg(2.5 mg base)/3 mL solution for nebulization INHALATION fluticasone propionate 110 mcg/actuation HFA aerosol inhaler INHALATION atomoxetine 25 mg capsule PO Print Language: Turkmen Instructions: COVID-19 (Coronavirus Disease 2019) (ED) Referrals: [facility] [Primary Care Provider] - 1 week
[2024-08-06] MEDS: IBUPROFEN 600 MG TABLET PO (18:17)
== END 2024-08-06 18:20 | disposition home or self-care (01) ==
PROVIDERS: Emergency Provider Emergency Medicine
DX: U07.1 COVID-19 (principal)
CPT/HCPCS: 87811; 99282